=== PATIENT | male | born 1980 | race Caucasian/White ===

== ENCOUNTER 2022-07-13 18:26 | Inpatient (IN) | payer MEDICAID, OTHER ==
[2022-07-13 22:03] LABS: Glucose,Whole Blood 107 mg/dL (70-110)
[2022-07-13] MEDS ORDERED: NALOXONE 0.4 MG/ML 1 ML VIAL IV PRN (22:06)
[2022-07-13] MEDS ORDERED: Potassium Replacement Protocol 1 EACH MISC MISCELLANE PRN (22:06)
[2022-07-13] MEDS ORDERED: Magnesium Replacement Protocol 1 EACH MISC MISCELLANE PRN (22:06)
[2022-07-13] MEDS ORDERED: IPRATROPIUM-ALBUTEROL 3 ML NEB INHALATION PRN (22:06)
[2022-07-13] MEDS ORDERED: VANCOMYCIN IV PER PHARMACY 1 EACH MISC MISCELLANE PRN (22:10)
[2022-07-13] MEDS: SODIUM CHLORIDE 0.9% 1,000 ML IV SCH (22:15)
[2022-07-13] MEDS ORDERED: VANCOMYCIN 2,000 MG in SODIUM CHLORIDE 0.9% 500 ML 500 ML IVPB STA (22:18)
[2022-07-13 22:19] LABS: Basophils % (A) 0 %; Eosinophils # (A) 0.1 k/uL (0-0.7); Eosinophils % (A) 1 %; HCT 38.8 % (39.0-53.0); HGB 13.6 gm/dL (13.0-17.5); Lymphocytes # (A) 1.5 k/uL (1.0-4.8); Lymphocytes % (A) 9 %; MCH 32.1 pg (25.0-35.0); MCV 91.6 fL (80.0-100.0); Mean Platelet Volume 7.2; Monocytes # (A) 1.2 k/uL (0-1.0); Monocytes % (A) 7 %; Neutrophils # (A) 14.6 k/uL (1.3-7.7); Neutrophils % (A) 83 %; Platelet Count 317 k/uL (150-450); RBC 4.24 m/uL (4.30-5.90); RDW 12.5 % (11.5-15.5); WBC 17.6 k/uL (3.8-10.6)
--- NOTE | 2022-07-13 22:22 | P.HPIM ---
History of Present Illness H&P Date: 07/13/22 Chief Complaint: pneumonia with pleural effusion 42 year old male with obesity patient is a transfer from [facility], patient has been found to have pneumonia with left loculated pleural effusion suspicious for empyema patient had left sided chest pain , pleuritic in nature for the past 10 days , then started to have dry hacking cough, but other than that, he was not having any symptoms of SOB, fever or chills, no body aches. he recently had a trip to the [facility] about a month ago, but denies any known sick contacts, recent viral illnesses, or chest trauma. he denies any IV drug abuse. he admits to social Alcohol . denies smoking or vaping. last night, he woke up from a nap , having sudden shortness of breath with severe left sided chest pain, and coughing. along with chills. he went to the ED at [facility] , and was found to be febrile , further workup showed lekocytosis and CT of the chest was negative for acute PE, but suggestive of left pulmonary infilterates along with parapneumonic effusion . patient was evaluated by pulmonary service today, who recommended transfer to our facility for IR guided thoracentesis . Review of Systems Pertinent positives as noted in HPI. All other systems were reviewed and are negative Past Medical History Smoking Status: Former smoker Medications and Allergies Home Medications Medication Instructions Recorded Confirmed Type Omeprazole Magnesium [PriLOSEC OTC] 20 mg PO DAILY PRN 07/13/22 07/13/22 History gemfibroziL [Lopid] 600 mg PO AC-BID 07/13/22 07/13/22 History icosapent ethyL [Icosapent Ethyl] 2 gm PO BID 07/13/22 07/13/22 History Allergies Allergy/AdvReac Type Severity Reaction Status Date / Time No Known Allergies Allergy Verified 07/13/22 21:39 Physical Exam Vitals: Vital Signs Temp Resp BP Pulse Ox FiO2 07/13/22 20:28 50 07/13/22 20:18 102.5 F H 25 H 138/95 97 50 07/13/22 20:06 50 Intake and Output 07/13/22 07/13/22 07/13/22 06:59 14:59 22:59 Output Total 0 Balance 0 Output: Urine 0 Other: Weight 132.3 kg Constitutional: No acute distress, conversant, Eyes: Anicteric sclerae, moist conjunctiva, Pupils equal round reactive to light ENMT: NC/AT Oropharynx clear, no erythema, or exudates Neck: Supple, no masses, or JVD No carotid bruits No thyromegaly Lungs: diminished breath sounds left lower lung decrease tone of percussion left lower lung Normal respiratory effort, no accessory muscle use Cardiovascular: Heart regular in rate and rhythm, No murmurs, gallops, or rubs No peripheral edema Abdominal: Soft Nontender, no guarding, rebound or rigidity Abdomen moving with respiration Normoactive bowel sounds No hepatomegaly, No splenomegaly No palpable mass No abdominal wall hernia noted Skin: Normal temperature, tone, texture, turgor No induration No subcutaneous nodules No rash, lesions No ulcers Extremities: No digital cyanosis No clubbing Pedal pulses intact and symmetrical Radial pulses intact and symmetrical No calf tenderness Psychiatric: Alert and oriented to person, place and time Appropriate affect fair judgement Neuro Muscles Strength 5/5 in all 4 extremities Sensation to light touch grossly present throughout Cranial nerves II-XII grossly intact Lymphatics: no palpable cervical or supraclavicular lymph nodes Results CBC & Chem 7: 07/13/22 21:55 07/13/22 21:55 Assessment and Plan Assessment: this is 42 year old healthy male with obesity , transferred from [facility] due to pneumonia with parapneumonic effusion , I discussed the case with transferring facility doc , and I accepted the transfer as a direct admission for sepsis secondary to pneumonia with empyema for IR guided thoracentesis and possible pigtail insertion , anticipated length of stay > 2 midnights sepsis secondary to pneumonia with empyema follow up cultures fever > 102, WBC 12.8, tachycardia vancomycin dosing by pharmacy unasyn 3 g IVPB q6 hr tylenol 650 mg po q 4 hrs for fever toradol 15 mg IVP q6hr PRN for pain protonix 40 mg po daily bipap continuous CTA done at [facility] , showed no acute PE , but positive for left pulmonary infiltrates and parapneumonic effusion xanax 0.5 mg tid prn for anxiety follow up electrolytes and blood work continue with normal saline IVF hydration at 125 cc per hour pulmonary consult cardiothoracic surgery consult full code DVT heparin sc tid 5000 units
[2022-07-13 22:27] LABS: Chloride 103 mmol/L (98-107)
[2022-07-13 22:28] LABS: ALT 17 U/L (4-49); AST 15 U/L (17-59); African American GFR (CKD) >90 (>60 ml/min/1.73 sqM); Albumin 3.4 g/dL (3.5-5.0); Alkaline Phosphatase 69 U/L (38-126); Anion Gap 10 mmol/L; Blood Urea Nitrogen 17 mg/dL (9-20); Calcium 8.5 mg/dL (8.4-10.2); Carbon Dioxide 23 mmol/L (22-30); Glucose 105 mg/dL (74-99); Non-African American GFR(CKD) >90 (>60 ml/min/1.73 sqM); Potassium 3.9 mmol/L (3.5-5.1); Sodium 136 mmol/L (137-145); Total Bilirubin 1.2 mg/dL (0.2-1.3); Total Protein 6.5 g/dL (6.3-8.2)
[2022-07-13] MEDS ORDERED: POTASSIUM CHLORIDE ER 20 MEQ TAB.ER PO SCH (23:00)
[2022-07-13] MEDS: ACETAMINOPHEN TAB 325 MG TAB PO PRN (23:01)
[2022-07-13] MEDS: ALPRAZolam 0.5 MG TAB PO PRN (23:03)
[2022-07-13 23:15] LABS: Phosphorus 3.4 mg/dL (2.5-4.5)
[2022-07-13] MEDS: AMPICILLIN-SULBACTAM 3 GM in SODIUM CHLORIDE 0.9% 100 ML IVPB SCH (23:28)
[2022-07-13] MEDS: HEPARIN SODIUM,PORCINE/PF 5,000 UNIT/0.5 ML SYRINGE SQ SCH (23:30)
--- NOTE | 2022-07-14 01:19 | P.CNPUL ---
History of Present Illness Consult date: 07/14/22 Requesting physician: Dolly Mandel Reason for consult: other (Empyema) Chief complaint: Shortness of breath History of present illness: I'm seeing this patient in new consultation today 07/14/2022 after being transferred from [facility] for suspected empyema. Patient is a 42-year-old white male with past medical history significant for hypertension, hyperlipidemia, ex-smoker. Patient reports shortness of breath, left lateral chest pain, fever, cough starting approximately 12 days ago. The patient's chest pain worsened yesterday causing him to go to [facility]. Chest CTA on arrival to [facility] showed no evidence of central pulmonary embolism with a left pleural effusion and peripheral nodular thickening related to a parapneumonic effusion. Patient was initially seen and evaluated by Dr. Maher who initiated a transfer for cardiothoracic services. Patient was admitted to the intensive care unit yesterday evening. Patient currently resting in bed, on BiPAP with settings 14/5 and an FiO2 of 50%. SpO2 is 96% on these settings. Patient is calm and tolerating therapy. Patient's CBC on arrival shows some leukocytosis with a WBC count of 17.6, and 1113.6, hematocrit 38.8, platelets 370,000. BMP on arrival to our facility shows a sodium 136, potassium 3.9, chloride 103, serum CO2 23, BP 117, creatinine 0.74, glucose 105. Patient currently has nor mal saline infusing at 125 mL per hour. Patient is covered with Unasyn and vancomycin. Chest pain is currently under control, and when necessary Toradol is ordered for analgesia. T-max was 102.5F. Vital signs are stable. Review of Systems REVIEW OF SYSTEMS: CONSTITUTIONAL: Denies any recent significant weight loss or weight gain. Reports subjective fever EYES: Denies change in vision. EARS, NOSE, MOUTH, THROAT: Denies headaches, denies sore throat. CARDIOVASCULAR: Denies palpitations or syncopal episodes. RESPIRATORY: See HPI GASTROINTESTINAL: Denies change in appetite, abdominal pain, nausea and vomiting, or diarrhea GENITOURINARY: Denies hematuria, denies infections. MUSKULOSKELETAL: Denies pain, denies swelling. INTEGUMENTARY: Denies rash, denies eczema. NEUROLOGICAL: Denies recent memory loss, no recent seizure activity. PSYCHIATRIC: Denies anxiety, denies depression. HEMATOLOGIC/LYMPHATIC: Denies anemia, denies enlarged lymph node Past Medical History Past Medical History: Hyperlipidemia History of Any Multi-Drug Resistant Organisms: None Reported Past Surgical History: Orthopedic Surgery Additional Past Surgical History / Comment(s): Orthoscopy on right knee 2019, Vasectomy 2013 Past Anesthesia/Blood Transfusion Reactions: No Reported Reaction Smoking Status: Former smoker Medications and Allergies Home Medications Medication Instructions Recorded Confirmed Type Omeprazole Magnesium [PriLOSEC OTC] 20 mg PO DAILY PRN 07/13/22 07/13/22 History gemfibroziL [Lopid] 600 mg PO AC-BID 07/13/22 07/13/22 History icosapent ethyL [Icosapent Ethyl] 2 gm PO BID 07/13/22 07/13/22 History Allergies Allergy/AdvReac Type Severity Reaction Status Date / Time No Known Allergies Allergy Verified 07/13/22 21:39 Physical Exam Vitals: Vital Signs Temp Pulse Pulse Resp BP Pulse Ox FiO2 07/14/22 00:40 50 07/14/22 00:39 103 H 07/14/22 00:00 101.5 F H 109 H 32 H 116/71 95 50 07/13/22 23:00 116 H 34 H 127/82 97 07/13/22 22:00 114 H 33 H 121/80 97 07/13/22 21:00 101.8 F H 112 H 23 153/94 96 50 07/13/22 20:28 50 07/13/22 20:18 102.5 F H 25 H 138/95 97 50 07/13/22 20:06 50 Intake and Output 07/13/22 07/13/22 07/14/22 14:59 22:59 06:59 Intake Total 125 250 Output Total 0 Balance 125 250 Intake: IV 125 250 Sodium Chloride 0.9% 1, 125 250 000 ml @ 125 mls/hr IV . Q8H [facility] Rx#:[id number] Output: Urine 0 Other: Voiding Method Urinal Weight 132.3 kg GENERAL EXAM: Alert, 42-year-old white male, comfortable in no apparent distress. HEAD: Normocephalic and atraumatic EYES: Normal reaction of pupils, equal size. NOSE: Clear with pink turbinates. THROAT: No erythema or exudates. NECK: No masses, no JVD. CHEST: No chest wall deformity. LUNGS: Equal air entry with diminished breath sounds at the left base. no crackles, wheeze, rhonchi or dullness. On BiPAP with settings 14/5 and FiO2 50%. No conversational dyspnea or accessory muscle use.. CVS: S1 and S2 normal with no audible murmur, regular rhythm. No extra heart sounds ABDOMEN: No hepatosplenomegaly, active bowel sounds, no guarding or rigidity. SPINE: No scoliosis or deformity SKIN: No rashes CENTRAL NERVOUS SYSTEM: No focal deficits, tone is normal in all 4 extremities. EXTREMITIES: There is no peripheral edema, clubbing, or cyanosis. Peripheral p ulses are intact. Results - Laboratory Findings CBC and BMP: 07/14/22 04:05 07/14/22 04:05 Abnormal lab findings: Abnormal Labs 07/13/22 07/13/22 21:55 21:55 WBC 17.6 H RBC 4.24 L Hct 38.8 L Neutrophils # 14.6 H Monocytes # 1.2 H Sodium 136 L Glucose 105 H AST 15 L Albumin 3.4 L Assessment and Plan Assessment: Suspected empyema. Patient's chest CTA at outside facility showed a left pleural effusion with associated peripheral nodular thickening, suspicious for infectious process with parapneumonic effusion. Acute hypoxic respiratory failure secondary to above. Currently on BiPAP with settings of 14/5 and FiO2 of 50%. Hyperlipidemia Hypertension Morbid obesity with a BMI of 36.5 Ex-smoker, remote history of smoking Plan: Patient's medications, labs, and outside records were reviewed Continue BiPAP Cardiothoracic surgery was consulted for possible pigtail catheter insertion Repeat chest x-ray in the morning Obtain Chest ultrasound with markings Continue empiric antibiotics Blood cultures pending Pain management with Toradol Repeat labs in the morning Patient currently in the intensive care unit for closer monitoring I have personally seen and examined the patient, performed the documentation and the assessment and plan as written. Number of minutes spent on the visit:20 On 07/14/2022, the patient was seen in consultation. This is a transfer from [facility]. I met the patient also met the . This is a typical case of left lung pneumonia/empyema. There is significant opacification of the left lung. The patient is still having some pleuritic chest pain. Is currently on 5 L of oxygen by nasal cannula with a pulse ox of 95%. He is on IV Unasyn and vancomycin. The ultrasound of the chest showed extensive admitted loculated pocket the left lung along with some loculation. No significant abnormalities on the right side. Based on all this, interventional radiology and thoracic surgery and been consulted. I'm going to repeat a noncontrast CAT scan of the chest to assess the progression of this left sided empyema. The patient will likely need a pigtail catheter insertion with subsequent thrombolytic administration regarding this ongoing issue. Continue antibiotic treatment. He'll be kept in the ICU for now. I do not see the need for continu ous BiPAP at this point in time. He should be doing well on 5 L O2 nasal cannula. Continue Toradol for pain control. Provide the patient incentive spirometer. Evaluation was done in more than 30 minutes. Time with Patient: Greater than 30
[2022-07-14] MEDS: AMPICILLIN-SULBACTAM 3 GM in SODIUM CHLORIDE 0.9% 100 ML IVPB SCH ×4 (04:27→23:14)
[2022-07-14] MEDS: ACETAMINOPHEN TAB 325 MG TAB PO PRN ×4 (04:31→21:17)
[2022-07-14 04:41] LABS: Basophils % (A) 0 %; Eosinophils # (A) 0.1 k/uL (0-0.7); Eosinophils % (A) 1 %; HCT 36.6 % (39.0-53.0); HGB 12.4 gm/dL (13.0-17.5); Lymphocytes # (A) 1.4 k/uL (1.0-4.8); Lymphocytes % (A) 9 %; MCH 31.4 pg (25.0-35.0); MCHC 33.8 g/dL (31.0-37.0); MCV 92.8 fL (80.0-100.0); Mean Platelet Volume 7.1; Monocytes % (A) 7 %; Neutrophils # (A) 13.1 k/uL (1.3-7.7); Neutrophils % (A) 83 %; Platelet Count 294 k/uL (150-450); RBC 3.94 m/uL (4.30-5.90); RDW 12.7 % (11.5-15.5); WBC 15.9 k/uL (3.8-10.6)
[2022-07-14 04:50] LABS: African American GFR (CKD) >90 (>60 ml/min/1.73 sqM); Anion Gap 6 mmol/L; Blood Urea Nitrogen 19 mg/dL (9-20); Calcium 8.1 mg/dL (8.4-10.2); Carbon Dioxide 24 mmol/L (22-30); Chloride 104 mmol/L (98-107); Glucose 117 mg/dL (74-99); Non-African American GFR(CKD) >90 (>60 ml/min/1.73 sqM); Sodium 134 mmol/L (137-145)
[2022-07-14] MEDS: KETOROLAC 15 MG/ML 1 ML VIAL IVP PRN ×3 (05:58→20:01)
[2022-07-14] MEDS: SODIUM CHLORIDE 0.9% 1,000 ML IV SCH ×3 (06:00→23:15)
--- NOTE | 2022-07-14 06:36 | XR ---
EXAMINATION TYPE: XR chest 1V portable DATE OF EXAM: 07/14/2022 CLINICAL HISTORY: Difficulty breathing on BiPAP. TECHNIQUE: Single AP portable semiupright view of the chest is obtained. COMPARISON: Outside Chest x-ray and CTA chest from 2 days earlier FINDINGS: Persistent cardiomegaly. Now moderate size left pleural effusion increased from prior. New left hilar masslike consolidation. Stable right basilar linear scarring and/or atelectasis. Osseous structures are intact. IMPRESSION: Cardiomegaly with moderate size left pleural effusion increased from prior. New left david r masslike consolidation and/or atelectasis. Stable mild right basilar linear scarring and/or atelect asis.
[2022-07-14] MEDS: PANTOPRAZOLE 40 MG TABLET PO SCH (06:47)
[2022-07-14] MEDS: VANCOMYCIN 2,000 MG in SODIUM CHLORIDE 0.9% 500 ML 500 ML IVPB SCH ×3 (06:56→23:15)
--- NOTE | 2022-07-14 08:30 | US ---
EXAMINATION TYPE: US chest DATE OF EXAM: 07/14/2022 COMPARISON: Chest x-ray earlier today CLINICAL INDICATION: Male, 42 years old with history of suspected empyema; Empyema kenna left chest. TECHNIQUE: Targeted ultrasound of the posterior lower left hemithorax EXAM MEASUREMENTS: Left Pleural Effusion pocket size: 10.1 cm Loculated fluid pocket visualized. Left skin surface to fluid distance: 4.6 cm Left side marked for possible thoracentesis outside the dept. Pulmonologists are able to review the images in the patient?s EMR. Small to moderate size left pleural fluid collection with thin septa not completely anechoic is prese nt on images saved. No significant right-sided pleural effusion. IMPRESSIONS: As above.
--- NOTE | 2022-07-14 09:04 | P.GSCN ---
History of Present Illness Consult date: 07/14/22 Reason for Consult: Left sided loculated effusion, possible empyema, lytic installation after placement of pigtail catheter Requesting physician: Gabriel Godinez History of present illness: This is a 42-year-old gentleman who does not follow regularly with a primary care physician. He has a previous medical history of hyperlipidemia, obesity, previous tobacco dependence, wisdom teeth extraction approximated 3 weeks ago. The patient reports symptoms of left-sided chest pain for the past 10 days, relieved with Motrin. Unfortunately in the last couple of days he developed severe left-sided chest pain with shortness of breath, coughing without sputum, chills. He reported to [facility] emergency room, was found to be febrile with leukocytosis. CT of the chest was completed which was treated no pulmonary embolism but did suggest left-sided pulmonary infiltrates along with parapneumonic effusion suspicious for empyema. Due to these findings the patient was transferred to [facility] for cardiothoracic surgery consultation. He was placed on BiPAP and IV antibiotics and admitted to the intensive care unit. Review of Systems Review of systems was completed and was negative except as noted - Constitutional Reports chills, Reports fever, Reports poor appetite - Cardiovascular Reports chest pain, Reports shortness of breath - Respiratory Reports cough Past Medical History Past Medical History: Hyperlipidemia History of Any Multi-Drug Resistant Organisms: None Reported Past Surgical History: Orthopedic Surgery Additional Past Surgical History / Comment(s): Orthoscopy on right knee 2019, Vasectomy 2012 Past Anesthesia/Blood Transfusion Reactions: No Reported Reaction Past Psychological History: No Psychological Hx Reported Smoking Status: Former smoker Past Alcohol Use History: Occasional Past Drug Use History: None Reported - Past Family History Mother Additional Family Medical History / Comment(s): Doesn't know family history as he is estranged from his parents Medications and Allergies Home Medications Medication Instructions Recorded Confirmed Type Omeprazole Magnesium [PriLOSEC OTC] 20 mg PO DAILY PRN 07/13/22 07/13/22 History gemfibroziL [Lopid] 600 mg PO AC-BID 07/13/22 07/13/22 History icosapent ethyL [Icosapent Ethyl] 2 gm PO BID 07/13/22 07/13/22 History Allergies Allergy/AdvReac Type Severity Reaction Status Date / Time No Known Allergies Allergy Verified 07/13/22 21:39 Surgical - Exam Vital Signs FiO2 50 07/13/22 20:06 CONSTITUTIONAL: Awake and alert, no pain, no acute distress laying in bed in the intensive care unit on BiPAP NECK: No masses, no bruits, trachea midline RESPIRATORY: Lungs sounds diminished bilaterally, left greater than right. Respirations even, slightly tachypneic. Currently on BiPAP, FiO2 50%, inspiratory pressure 14, expiratory pressure 5 CARDIOVASCULAR: S1, S2 present. Regular rate and rhythm, sinus rhythm on telemetry. Palpable peripheral pulses bilaterally. No edema present. No calf pain or tenderness noted. GASTROINTESTINAL: Abdomen soft, nontender, nondistended without masses or organomegaly noted. There is no rebound or guarding present. Active bowel sounds present 4 quadrants. GENITOURINARY: Deferred INTEGUMENTARY: Skin is warm and dry NEUROLOGIC: Cranial nerves II through XII intact, normal coordination, no obvious motor or sensory deficits, speech is normal MUSKULOSKELETAL: Able to move all extremities, strength equal bilaterally, normal posture PSYCHIATRIC: Alert and oriented to person place and time, appropriate affect, intact judgment and insight Results - Labs 07/14/22 04:05 07/14/22 04:05 Abnormal Lab Results - Last 24 Hours (Table) 07/13/22 07/13/22 07/14/22 Range/Units 21:55 21:55 04:05 WBC 17.6 H 15.9 H (3.8-10.6) k/uL RBC 4.24 L 3.94 L (4.30-5.90) m/uL Hgb 12.4 L (13.0-17.5) gm/dL Hct 38.8 L 36.6 L (39.0-53.0) % Neutrophils # 14.6 H 13.1 H (1.3-7.7) k/uL Monocytes # 1.2 H (0-1.0) k/uL Sodium 136 L (137-145) mmol/L Glucose 105 H (74-99) mg/dL Calcium (8.4-10.2) mg/dL AST 15 L (17-59) U/L Albumin 3.4 L (3.5-5.0) g/dL 07/14/22 Range/Units 04:05 WBC (3.8-10.6) k/uL RBC (4.30-5.90) m/uL Hgb (13.0-17.5) gm/dL Hct (39.0-53.0) % Neutrophils # (1.3-7.7) k/uL Monocytes # (0-1.0) k/uL Sodium 134 L (137-145) mmol/L Glucose 117 H (74-99) mg/dL Calcium 8.1 L (8.4-10.2) mg/dL AST (17-59) U/L Albumin (3.5-5.0) g/dL Diabetes panel 07/13/22 07/14/22 Range/Units 21:55 04:05 Sodium 136 L 134 L (137-145) mmol/L Potassium 3.9 4.0 (3.5-5.1) mmol/L Chloride 103 104 (98-107) mmol/L Carbon Dioxide 23 24 (22-30) mmol/L BUN 17 19 (9-20) mg/dL Creatinine 0.74 0.75 (0.66-1.25) mg/dL Glucose 105 H 117 H (74-99) mg/dL Calcium 8.5 8.1 L (8.4-10.2) mg/dL AST 15 L (17-59) U/L ALT 17 (4-49) U/L Alkaline Phosphatase 69 (38-126) U/L Total Protein 6.5 (6.3-8.2) g/dL Albumin 3.4 L (3.5-5.0) g/dL Calcium panel 07/13/22 07/13/22 07/14/22 Range/Units 21:15 21:55 04:05 Calcium 8.5 8.1 L (8.4-10.2) mg/dL Phosphorus 3.4 (2.5-4.5) mg/dL Albumin 3.4 L (3.5-5.0) g/dL Pituitary panel 07/13/22 07/14/22 Range/Units 21:55 04:05 Sodium 136 L 134 L (137-145) mmol/L Potassium 3.9 4.0 (3.5-5.1) mmol/L Chloride 103 104 (98-107) mmol/L Carbon Dioxide 23 24 (22-30) mmol/L BUN 17 19 (9-20) mg/dL Creatinine 0.74 0.75 (0.66-1.25) mg/dL Glucose 105 H 117 H (74-99) mg/dL Calcium 8.5 8.1 L (8.4-10.2) mg/dL Adrenal panel 07/13/22 07/14/22 Range/Units 21:55 04:05 Sodium 136 L 134 L (137-145) mmol/L Potassium 3.9 4.0 (3.5-5.1) mmol/L Chloride 103 104 (98-107) mmol/L Carbon Dioxide 23 24 (22-30) mmol/L BUN 17 19 (9-20) mg/dL Creatinine 0.74 0.75 (0.66-1.25) mg/dL Glucose 105 H 117 H (74-99) mg/dL Calcium 8.5 8.1 L (8.4-10.2) mg/dL Total Bilirubin 1.2 (0.2-1.3) mg/dL AST 15 L (17-59) U/L ALT 17 (4-49) U/L Alkaline Phosphatase 69 (38-126) U/L Total Protein 6.5 (6.3-8.2) g/dL Albumin 3.4 L (3.5-5.0) g/dL - Imaging Chest x-ray: report reviewed, image reviewed CT scan - chest: report reviewed Assessment and Plan Assessment: Left-sided loculated parapneumonic effusion, possible empyema Acute hypoxic respiratory failure, requiring BiPAP Leukocytosis, febrile illness History of hyperlipidemia, treated Obesity Previous tobacco dependence [place] teeth extraction approximated 3 weeks ago Plan: Patient was seen and examined at the bedside sitting up on BiPAP. is at bedside. Chart/diagnostics reviewed including CT scan from [facility]. The case will be discussed in detail with Dr. Uribe. Consultation was placed for interventional radiology to place left-sided pigtail catheter for us to instill lytic medication to break up loculations and drain fluid. This plan was discussed in detail with the patient and his and they're in agreement. The patient is not currently on any anticoagulation or any antiplatelet medication. BiPAP management per pulmonology. Will monitor daily labs and x-rays. Continue antibiotics. Medical management of other comor bidities per internal medicine service. More recommendations to follow. I have personally seen and examined the patient, performed the documentation and the assessment and plan as written. Number of minutes spent on the visit: 30. Brissa Renteria, CARLOS-C The patient is a 42 y/o male who was admitted to the hospital with left flank pain which has been getting worse over the past few weeks. CT chest reveals a multi-loculated pleural fluid collection. WBC elevated. Recommend IR drainage with pigtail and plan for subsequent lytic installation. IV antibiotics already initiated. Patient may need surgical intervention if percutaneous drainage unsuccessful. Plan discussed with patient and his who was at bedside. All questions answered. I have personally seen and examined the patient, reviewed the documentation and the assessment and plan as written. Number of minutes spent on the visit: 60. Yoni Uribe M.D.
[2022-07-14] MEDS: IPRATROPIUM-ALBUTEROL 3 ML NEB INHALATION SCH ×4 (09:37→21:16)
--- NOTE | 2022-07-14 10:44 | CT ---
EXAMINATION TYPE: CT chest wo con DATE OF EXAM: 07/14/2022 COMPARISON: CTA 07/12/2022 outside institution HISTORY: EVALUATE EMYPEMA/FLUID CT DLP: 748.1 mGycm, Automated exposure control for dose reduction was used. CONTRAST: Performed injected with 0 mL of Isovue 300. TECHNIQUE: Axial images were obtained at 5 mm thick sections. Reconstructed images are reviewed on [employer] computer in the coronal plane. FINDINGS: Portion of the thyroid visualized is normal. There is a loculated effusion which includes a smaller 5.0 cm collection near the anterior superior l eft lung. There is a moderate effusion on the posterior mid left with adjacent compressive atelectasi s, and what appears to be an additional loculated effusion just above the diaphragm the left posterio r lung base. Some minimal compressive atelectasis and effusion is present on the right. No enlarged mediastinal or hilar adenopathy is evident. The ascending aorta diameter at the level o f the main pulmonary artery is 3.9 cm. The main pulmonary artery diameter at the bifurcation is 3.[address] sections are obtained through the upper abdomen. Some mild fatty infiltration of the liver is present. Upper abdomen is otherwise unremarkable. IMPRESSIONS: 1. Increasing size of loculated pleural fluid collections left lung including the left mid and lower lobe lung perfusion and a new loculated anterior upper lung effusion
[2022-07-14 10:59] LABS: INR 1.3 (<1.2); Prothrombin Time 13.6 sec (9.0-12.0)
--- NOTE | 2022-07-14 12:55 | P.PN ---
Subjective Progress Note Date: 07/14/22 Hospital Course: 42-year-old male with history of obesity, dyslipidemia, GERD presenting from outside hospital for pneumonia with left loculated pleural effusion suspicious for empyema. On presentation, patient's temperature was 102.5, tachycardic to 112, respiratory rate 25, saturating at 97% on BiPAP, blood pressure 138/95. Initial labs showed WBC 17.6, hemoglobin 13.6, sodium 136, creatinine 0.74. Chest x-ray showed moderate-sized left-sided pleural effusion. Patient admitted to medical ICU. Will likely need pigtail catheter for left pleural effusion. Subjective: Patient seen and examined at bedside. He continues to have shortness of breath, persistent cough, chest pain related to cough, denies any nausea or vomiting, abdominal pain, urinary or bowel complaints. Pertinent positives and negatives as discussed above, a complete review of systems was performed and all other systems are negative. Vitals Signs Reviewed. General: nontoxic, in mild distress, appears at stated age Derm: warm, dry Head: atraumatic, normocephalic, symmetric Eyes: EOMI, no lid lag, anicteric sclera Mouth: no lip lesion, mucus membranes moist Cardiovascular: S1S2 reg, no murmur Lungs: Reduced breath sounds bilaterally, greater on left no accessory muscle use, supplemental oxygen Abdominal: soft, nontender to palpation, no guarding, no appreciable organomegaly Ext: no gross muscle atrophy, no edema, no contractures Neuro: CN II-XI grossly intact, no focal neuro deficits Psych: Alert, oriented, appropriate affect Data Reviewed Today: Pertinent Labs: WBC 15.9, hemoglobin 12.4, sodium 134, creatinine 0.75 Imaging: Chest x-ray personally interpreted, shows a large left-sided pleural effusion Chest CT report reviewed, shows increasing size of loculated pleural fluid col lection in the left lung including left middle and lower lung perfusion and loculated anterior upper lung diffusion Assessment and Plan: Patient is critically ill, currently in medical ICU. Active: Sepsis secondary to bacterial pneumonia Parapneumonic effusion, likely empyema Acute hypoxic respiratory failure requiring BiPAP -Pulmonology note reviewed: Likely pigtail catheter placement by interventional radiology. BiPAP discontinued -Cardiothoracic surgery note reviewed, IR consultation placed -On IV Unasyn 3 g every 6 hours -Also on vancomycin, dosed based on trough levels, monitor for renal toxicity, daily BMP -Sputum cultures and blood cultures obtained -MRSA nares ordered -On IV fluids normal saline at 125 mL an hour -Pain control with oral Tylenol and IV Toradol as needed Chronic: Dyslipidemia DVT ppx: Subcu heparin Code status: Full code Anticipated discharge place: Pending clinical course Anticipated discharge time: Pending clinical course Objective - Vital Signs Vital signs: Vital Signs Temp 99.6 F 07/14/22 09:00 Pulse 105 H 07/14/22 12:00 Resp 31 H 07/14/22 12:00 BP 133/91 07/14/22 12:00 Pulse Ox 95 07/14/22 12:00 FiO2 50 07/14/22 09:00 Intake & Output 07/13/22 07/14/22 07/14/22 18:59 06:59 18:59 Intake Total 1850 625 Output Total 300 0 Balance 1550 625 Weight 132.6 kg Intake: IV 1850 625 Ampicillin-Sulbactam 3 gm 100 In Sodium Chloride 0.9% 100 ml @ 200 mls/hr IVPB Q6H AMILCAR Rx#:[id number] Sodium Chloride 0.9% 1, 1250 625 000 ml @ 125 mls/hr IV . Q8H [facility]ILCAR Rx#:[id number] Vancomycin 2,000 mg In 500 Sodium Chloride 0.9% 500 ml 500 ml @ 167 mls/hr IVPB ONCE STA Rx#: [id number] Output: Urine 300 0 Other: Voiding Method Urinal Urinal # Voids 1 # Bowel Movements 1 - Labs CBC & Chem 7: 07/14/22 04:05 07/14/22 04:05 Labs: Abnormal Lab Results - Last 24 Hours (Table) 07/13/22 07/13/22 07/14/22 Range/Units 21:55 21:55 04:05 WBC 17.6 H 15.9 H (3.8-10.6) k/uL RBC 4.24 L 3.94 L (4.30-5.90) m/uL Hgb 12.4 L (13.0-17.5) gm/dL Hct 38.8 L 36.6 L (39.0-53.0) % Neutrophils # 14.6 H 13.1 H (1.3-7.7) k/uL Monocytes # 1.2 H (0-1.0) k/uL PT (9.0-12.0) sec INR (<1.2) Sodium 136 L (137-145) mmol/L Glucose 105 H (74-99) mg/dL Calcium (8.4-10.2) mg/dL AST 15 L (17-59) U/L Albumin 3.4 L (3.5-5.0) g/dL 07/14/22 07/14/22 Range/Units 04:05 09:44 WBC (3.8-10.6) k/uL RBC (4.30-5.90) m/uL Hgb (13.0-17.5) gm/dL Hct (39.0-53.0) % Neutrophils # (1.3-7.7) k/uL Monocytes # (0-1.0) k/uL PT 13.6 H (9.0-12.0) sec INR 1.3 H (<1.2) Sodium 134 L (137-145) mmol/L Glucose 117 H (74-99) mg/dL Calcium 8.1 L (8.4-10.2) mg/dL AST (17-59) U/L Albumin (3.5-5.0) g/dL
--- NOTE | 2022-07-14 14:39 | XR ---
EXAMINATION TYPE: XR chest 1V portable DATE OF EXAM: 07/14/2022 CLINICAL HISTORY: Left-sided empyema. TECHNIQUE: Single AP portable upright view of the chest is obtained. COMPARISON: Chest x-ray and CT chest from earlier today FINDINGS: New lateral left basilar pigtail catheter with persistent opacified left lung extending to wards hilum. Right lung is clear. Silhouetting of left heart border redemonstrated. Osseous structure s are intact. IMPRESSION: Improved but persistent left pleural fluid collection with lateral basilar left pigtail p leural drainage catheter. There is associated left lung compressive atelectasis and/or masslike conso lidation redemonstrated. Right lung remains clear.
[2022-07-14] MEDS ORDERED: ALTEPLASE 10 MG in SODIUM CHLORIDE 0.9% 50 ML IRRIGATION ONE (14:41)
[2022-07-14] MEDS ORDERED: DORNASE ALFA 5 MG in SODIUM CHLORIDE 0.9% 50 ML IRRIGATION ONE (14:41)
--- NOTE | 2022-07-14 14:55 | US ---
PROCEDURE: Ultrasound-guided left pleural pigtail catheter placement DATE: 07/14/2022 [employer] PRICING CONSULTANT: Dr. Everett CLINICAL HISTORY: Concern for empyema COMPARISON: CT chest same day ANESTHESIA: 1% local lidocaine PROCEDURE: The procedure, risks, and alternatives were discussed and all questions were answered. Written inform ed consent obtained. A complicating paperwork and verified for accuracy. Directed history and physica l exam performed prior to the procedure. Medication reconciliation performed by nursing personnel. Pr ocedure was performed using a cap, sterile gloves, hand hygiene, and Betadine for cutaneous antisepsi s. A cortical ravindra was performed with assisting personnel just prior to the procedure with the patien t's identity confirmed using 2 identifiers, confirming site and side. Limited grayscale ultrasound of the left posterior chest demonstrates a pleural effusion. An appropri ate skin entry site was marked, prepped, and draped in usual sterile fashion. 1% lidocaine was admini stered into the skin and deeper soft tissues. A small skin incision was made. A 5 Swiss over the nee dle catheter was advanced into the left pleural space and contains ultrasound guidance. The inner sty lette was removed and replaced with a wire. An 8.5 Swiss all-purpose drainage catheter was advanced over the wire and the wire and inner stiffener were removed. Internal retention loop was formed and l ocked. The catheter secured the patient's skin using a stay fix. Approximately 420 mL of orange-color ed fluid was then removed. Specimens were collected for laboratory analysis. The catheter was then co nnected to a Pleur-evac system. The patient tolerated the procedure well and there were no immediate complications. Blood loss was mi nimal. IMPRESSION: Successful, uncomplicated ultrasound-guided left pleural pigtail catheter placement with a total of 4 20 mL of orange-colored fluid removed. Laboratory analysis pending.
[2022-07-14] MEDS: HEPARIN SODIUM,PORCINE/PF 5,000 UNIT/0.5 ML SYRINGE SQ SCH ×3 (15:33→23:15)
[2022-07-14] MEDS: FENOFIBRATE 160 MG TAB PO SCH (17:33)
[2022-07-14] MEDS: PATIENT'S OWN (Icosapent Ethyl [Icosapent Ethyl] 1 GM Capsule) PO SCH (20:06)
[2022-07-14] MEDS: ALPRAZolam 0.5 MG TAB PO PRN (23:15)
[2022-07-15] MEDS: ACETAMINOPHEN TAB 325 MG TAB PO PRN ×4 (01:18→16:49)
[2022-07-15] MEDS: KETOROLAC 15 MG/ML 1 ML VIAL IVP PRN ×2 (02:19→09:30)
[2022-07-15 02:48] LABS: Amylase, Fluid Source Pleural Fluid; Amylase,Body Fluid 29 U/L; T. Protein, Body Fluid Source Pleural Fluid; Total Protein, Body Fluid 5260 mg/dL
[2022-07-15 02:55] LABS: Appearance,BF Slightly Cloudy
[2022-07-15 03:00] LABS: LDH, Body Fluid Source Pleural Fluid
[2022-07-15 03:29] LABS: Glucose, BF Source Pleural Fluid; Glucose, Body Fluid <2 mg/dL
[2022-07-15] MEDS: AMPICILLIN-SULBACTAM 3 GM in SODIUM CHLORIDE 0.9% 100 ML IVPB SCH ×4 (04:19→23:29)
[2022-07-15 06:33] LABS: Basophils % (A) 0 %; Eosinophils # (A) 0.2 k/uL (0-0.7); Eosinophils % (A) 2 %; HCT 32.4 % (39.0-53.0); HGB 10.8 gm/dL (13.0-17.5); Lymphocytes # (A) 1.3 k/uL (1.0-4.8); Lymphocytes % (A) 13 %; MCH 31.3 pg (25.0-35.0); MCHC 33.4 g/dL (31.0-37.0); MCV 93.7 fL (80.0-100.0); Monocytes # (A) 0.6 k/uL (0-1.0); Monocytes % (A) 6 %; Neutrophils # (A) 8.2 k/uL (1.3-7.7); Neutrophils % (A) 78 %; Platelet Count 278 k/uL (150-450); RBC 3.46 m/uL (4.30-5.90); RDW 12.6 % (11.5-15.5); WBC 10.4 k/uL (3.8-10.6)
[2022-07-15 06:58] LABS: African American GFR (CKD) >90 (>60 ml/min/1.73 sqM); Anion Gap 5 mmol/L; Blood Urea Nitrogen 15 mg/dL (9-20); Calcium 7.6 mg/dL (8.4-10.2); Carbon Dioxide 26 mmol/L (22-30); Chloride 108 mmol/L (98-107); Glucose 111 mg/dL (74-99); Non-African American GFR(CKD) >90 (>60 ml/min/1.73 sqM); Potassium 3.7 mmol/L (3.5-5.1); Sodium 139 mmol/L (137-145)
[2022-07-15] MEDS: VANCOMYCIN 2,000 MG in SODIUM CHLORIDE 0.9% 500 ML 500 ML IVPB SCH ×2 (07:11→18:09)
[2022-07-15] MEDS: PANTOPRAZOLE 40 MG TABLET PO SCH (07:11)
[2022-07-15] MEDS: SODIUM CHLORIDE 0.9% 1,000 ML IV SCH (07:12)
[2022-07-15] MEDS ORDERED: POTASSIUM CHLORIDE ER 20 MEQ TAB.ER PO SCH (08:00)
[2022-07-15] MEDS: IPRATROPIUM-ALBUTEROL 3 ML NEB INHALATION SCH ×4 (08:07→21:30)
[2022-07-15] MEDS: HEPARIN SODIUM,PORCINE/PF 5,000 UNIT/0.5 ML SYRINGE SQ SCH ×3 (08:55→23:30)
[2022-07-15] MEDS ORDERED: DORNASE ALFA 5 MG in SODIUM CHLORIDE 0.9% 50 ML IRRIGATION ONE (09:06)
[2022-07-15] MEDS ORDERED: ALTEPLASE 10 MG in SODIUM CHLORIDE 0.9% 50 ML IRRIGATION ONE (09:06)
--- NOTE | 2022-07-15 09:06 | XR ---
EXAMINATION TYPE: XR chest 1V portable DATE OF EXAM: 07/15/2022 COMPARISON: 07/14/2022 INDICATION: Fusion TECHNIQUE: Single frontal view of the chest is obtained. FINDINGS: The heart size is enlarged. The pulmonary vasculature is normal. There is a moderate left pleural effusion. Left upper lobe infiltrate remains present. Right lung rem ains clear. IMPRESSION: 1. Moderate left pleural effusion. Left lung infiltrate is present. Continued follow-up is recommende d
--- NOTE | 2022-07-15 09:15 | P.PN ---
Subjective Progress Note Date: 07/15/22 Principal diagnosis: Left-sided loculated parapneumonic effusion, possible empyema, acute hypoxic respiratory failure, leukocytosis, febrile illness. History of hyperlipidemia, obesity, previous tobacco dependence, wisdom teeth extraction approximated 3 weeks ago POD #1 placement of left sided pigtail catheter by interventional radiology The patient was seen and examined this morning sitting up in a recliner in the intensive care unit in no acute distress. Remains in sinus rhythm. Off BiPAP, currently on 6 L high flow nasal cannula. States pain is controlled with curr ent medication regimen. Left-sided pigtail catheter placed yesterday with removal of 450 mL fluid which was sent for studies. First dose alteplase/dornase was instilled yesterday and patient had another 900 mL fluid removal afterwards. States he does feel quite a bit better. Able to achieve 1000 mg on incentive spirometry. Remains on IV antibiotics. Labs/chest x-ray reviewed. No new concerns. Objective - Vital Signs Vital signs: Vital Signs Temp 99.8 F H 07/15/22 08:00 Pulse 100 07/15/22 08:17 Resp 31 H 07/15/22 08:00 BP 136/81 07/15/22 08:00 Pulse Ox 97 07/15/22 08:08 FiO2 50 07/15/22 04:00 Intake & Output 07/14/22 07/15/22 07/15/22 18:59 06:59 18:59 Intake Total 1950 2150 250 Output Total 1175 350 425 Balance 775 1800 -175 Weight 131.7 kg Intake: IV 1250 1500 250 Sodium Chloride 0.9% 1, 1250 1500 250 000 ml @ 125 mls/hr IV . Q8H [facility] Rx#:[id number] Intake, IV Titration 500 Amount Vancomycin 2,000 mg In 500 Sodium Chloride 0.9% 500 ml 500 ml @ 167 mls/hr IVPB ONCE STA Rx#: [id number] Oral 200 650 Output: Chest Tube Drainage 750 Pleural Catheter Left 750 Posterior Chest Urine 425 350 425 Other: Voiding Method Urinal Urinal # Voids 1 1 # Bowel Movements 1 - Exam CONSTITUTIONAL: Appears comfortable, cooperative, no acute distress RESPIRATORY: Lungs sounds diminished bilaterally, left greater than right. Respirations even, nonlabored. Currently on 6 L high flow nasal cannula with oxygen saturation 97%. Able to achieve 1000 mL on incentive spirometry. Strong cough. CARDIOVASCULAR: S1, S2 present. Tachy but regular rate and rhythm, sinus tach on telemetry. Palpable peripheral pulses bilaterally. No edema present. No calf pain or tenderness noted GASTROINTESTINAL: Abdomen soft, nontender, nondistended. Active bowel sounds present 4 quadrants. Tolerating diet. GENITOURINARY: Continues to void INTEGUMENTARY: Skin is warm and dry with evidence of good perfusion NEUROLOGIC: Cranial nerves II through XII intact MUSKULOSKELETAL: Able to move all extremities, strength equal bilaterally, gait normal PSYCHIATRIC: Alert and oriented to person place and time, appropriate affect, intact judgment and insight INVASIVE LINES AND TUBES: Left pigtail catheter with 900 mL serosanguineous drainage since alteplase/dornase instillation yesterday afternoon - Allied health notes Allied health notes reviewed: nursing - Labs CBC & Chem 7: 07/15/22 05:51 07/15/22 05:51 Labs: Abnormal Lab Results - Last 24 Hours (Table) 07/14/22 07/15/22 07/15/22 Range/Units 09:44 05:51 05:51 RBC 3.46 L (4.30-5.90) m/uL Hgb 10.8 L (13.0-17.5) gm/dL Hct 32.4 L (39.0-53.0) % Neutrophils # 8.2 H (1.3-7.7) k/uL PT 13.6 H (9.0-12.0) sec INR 1.3 H (<1.2) Chloride 108 H (98-107) mmol/L Glucose 111 H (74-99) mg/dL Calcium 7.6 L (8.4-10.2) mg/dL Microbiology - Last 24 Hours (Table) 07/14/22 14:10 Acid Fast Bacilli Culture - Preliminary Pleural Fluid 07/14/22 14:10 Fungal Culture - Preliminary Pleural Fluid 07/14/22 14:10 Body Fluid Culture - Preliminary Pleural Fluid 07/14/22 14:10 Anaerobic Culture - Preliminary Pleural Fluid 07/13/22 21:55 Blood Culture - Preliminary Blood No Growth after 24 hours 07/14/22 14:04 Nasal Screen MRSA/MSSA - Preliminary Nasal Swab 07/14/22 02:26 Urine Culture - Preliminary Urine,Voided - Imaging and Cardiology Chest x-ray: report reviewed, image reviewed Assessment and Plan Assessment: Left-sided loculated parapneumonic effusion, possible empyema, status post placement of left-sided pigtail catheter with first dose alteplasedornase instilled Acute hypoxic respiratory failure, requiring BiPAP, currently on 6 L high flow nasal cannula Leukocytosis, febrile illness History of hyperlipidemia, treated Obesity Previous tobacco dependence [place] teeth extraction approximated 3 weeks ago Plan: Will instill second dose alteplase/dornase today, monitor drainage Wean O2 as tolerated. Encourage incentive spirometry is 10 times every hour while awake Increase activity as tolerated Will monitor daily labs and x-rays Continue antibiotics Medical management of other comorbidities per internal medicine service More recommendations to follow
--- NOTE | 2022-07-15 10:05 | P.PN ---
Subjective Progress Note Date: 07/15/22 I'm seeing this patient in new consultation today 07/14/2022 after being transferred from [facility] for suspected empyema. Patient is a 42-year-old white male with past medical history significant for hypertension, hyperlipidemia, ex-smoker. Patient reports shortness of breath, left lateral chest pain, fever, cough starting approximately 12 days ago. The patient's chest pain worsened yesterday causing him to go to [facility]. Chest CTA on arrival to [facility] showed no evidence of central pulmonary embolism with a left pleural effusion and peripheral nodular thickening related to a parapneumonic effusion. Patient was initially seen and evaluated by Dr. Maher who initiated a transfer for cardiothoracic services. Patient was admitted to the intensive care unit yesterday evening. Patient currently resting in bed, on BiPAP with settings 14/5 and an FiO2 of 50%. SpO2 is 96% on these settings. Patient is calm and tolerating therapy. Patient's CBC on arrival shows some leukocytosis with a WBC count of 17.6, and 1113.6, hematocrit 38.8, platelets 370,000. BMP on arrival to our facility shows a sodium 136, potassium 3.9, chloride 103, serum CO2 23, BP 117, creatinine 0.74, glucose 105. Patient currently has normal saline infusing at 125 mL per hour. Patient is covered with Unasyn and vancomycin. Chest pain is currently under control, and when necessary Toradol is ordered for analgesia. T-max was 102.5F. Vital signs are stable. On today's evaluation of 07/15/2022, the patient is feeling better compared to yesterday. He is weaned down to 3 L of oxygen by nasal cannula. As mentioned, the patient had a left lung pneumonia with empyema. A pigtail catheter was inserted and the total amount of output is 1.3 L of purulent lash bloody fluid from the left lung. The fluid analysis shows that the glucose has been less than 2, LDH is 5260 and a white cell count and the fluid was 14,029. Meanwhile, the patient received a first dose of thrombolytic administration through the pigtail catheter yesterday. A second dose is to follow. White cell count is not under 10.4, hemoglobin is at 10.8 and the platelet count is at 278. Electrolytes are normal. Cultures are still pending. Fluid cultures have been sent. Blood cultures aren't negative for now. Meanwhile, the patient is doing incentive spirometer. He is falling approximately 1200 and his incentive spirometer. He remains on Unasyn and vancomycin. His pleuritic chest pain is subsided significantly. Objective - Vital Signs Vital signs: Vital Signs Temp 99.8 F H 07/15/22 08:00 Pulse 104 H 07/15/22 09:00 Resp 40 H 07/15/22 09:00 BP 129/81 07/15/22 09:00 Pulse Ox 94 L 07/15/22 09:00 FiO2 50 07/15/22 04:00 Intake & Output 07/14/22 07/15/22 07/15/22 18:59 06:59 18:59 Intake Total 1950 2150 375 Output Total 1175 350 465 Balance 775 1800 -90 Weight 131.7 kg Intake: IV 1250 1500 375 Sodium Chloride 0.9% 1, 1250 1500 375 000 ml @ 125 mls/hr IV . Q8H AMILCAR Rx#:[id number] Intake, IV Titration 500 Amount Vancomycin 2,000 mg In 500 Sodium Chloride 0.9% 500 ml 500 ml @ 167 mls/hr IVPB ONCE STA Rx#: [id number] Oral 200 650 Output: Chest Tube Drainage 750 40 Pleural Catheter Left 750 40 Posterior Chest Urine 425 350 425 Other: Voiding Method Urinal Urinal Bedside Commode Urinal # Voids 1 1 # Bowel Movements 1 - Exam GENERAL EXAM: Alert, 42-year-old white male, comfortable in no apparent distress. HEAD: Normocephalic and atraumatic EYES: Normal reaction of pupils, equal size. NOSE: Clear with pink turbinates. THROAT: No erythema or exudates. NECK: No masses, no JVD. CHEST: No chest wall deformity. LUNGS: Equal air entry with diminished breath sounds at the left base. The patient has a pigtail catheter inserted into the left hemithorax posteriorly CVS: S1 and S2 normal with no audible murmur, regular rhythm. No extra heart sounds ABDOMEN: No hepatosplenomegaly, active bowel sounds, no guarding or rigidity. SPINE: No scoliosis or deformity SKIN: No rashes CENTRAL NERVOUS SYSTEM: No focal deficits, tone is normal in all 4 extremities. EXTREMITIES: There is no peripheral edema, clubbing, or cyanosis. Peripheral pulses are intact. - Labs CBC & Chem 7: 07/15/22 05:51 07/15/22 05:51 Labs: Abnormal Lab Results - Last 24 Hours (Table) 07/14/22 07/15/22 07/15/22 Range/Units 09:44 05:51 05:51 RBC 3.46 L (4.30-5.90) m/uL Hgb 10.8 L (13.0-17.5) gm/dL Hct 32.4 L (39.0-53.0) % Neutrophils # 8.2 H (1.3-7.7) k/uL PT 13.6 H (9.0-12.0) sec INR 1.3 H (<1.2) Chloride 108 H (98-107) mmol/L Glucose 111 H (74-99) mg/dL Calcium 7.6 L (8.4-10.2) mg/dL Microbiology - Last 24 Hours (Table) 07/14/22 14:10 Acid Fast Bacilli Culture - Preliminary Pleural Fluid 07/14/22 14:10 Fungal Culture - Preliminary Pleural Fluid 07/14/22 14:10 Body Fluid Culture - Preliminary Pleural Fluid 07/14/22 14:10 Anaerobic Culture - Preliminary Pleural Fluid 07/13/22 21:55 Blood Culture - Preliminary Blood No Growth after 24 hours 07/14/22 14:04 Nasal Screen MRSA/MSSA - Preliminary Nasal Swab 07/14/22 02:26 Urine Culture - Preliminary Urine,Voided Assessment and Plan Plan: Left lower lobe pneumonia/ empyema. The patient continues to have dense consolidation of the left lung. The patient has a pigtail catheter inserted and the fluid is consistent with empyema. Awaiting cultures. The patient remains on a combination of Unasyn and vancomycin. Extensive left lower lobe consolidation/pneumonia Acute hypoxic respiratory failure secondary to above. Currently on 3 L of oxygen by nasal cannula, oxygen is improved Hyperlipidemia Hypertension Morbid obesity with a BMI of 36.5 Ex-smoker, remote history of smoking Plan: Monitor the output from the pigtail catheter Keep the catheter to suction TPA administration today, second dose Daily chest x-rays Incentive spirometer Continue empiric antibiotics Blood cultures are negative and the pleural cultures are pending Pain management with Toradol May transfer the patient out of the intensive care unit with remote telemetry monitoring
--- NOTE | 2022-07-15 11:33 | P.PN ---
Subjective Progress Note Date: 07/15/22 Hospital Course: 42-year-old male with history of obesity, dyslipidemia, GERD presenting from outside hospital for pneumonia with left loculated pleural effusion suspicious for empyema. On presentation, patient's temperature was 102.5, tachycardic to 112, respiratory rate 25, saturating at 97% on BiPAP, blood pressure 138/95. Initial labs showed WBC 17.6, hemoglobin 13.6, sodium 136, creatinine 0.74. Chest x-ray showed moderate-sized left-sided pleural effusion. Patient admitted to medical ICU. Chest CT shows increasing size of loculated pleural fluid collection in the left lung including left middle and lower lung perfusion and loculated anterior upper lung diffusion. Status post ultrasound-guided left pleural pigtail catheter. Subjective: Patient seen and examined at bedside. He continues to have shortness of breath, persistent cough, chest pain related to cough, but ultimately improving. He Denies any nausea or vomiting, abdominal pain, urinary or bowel complaints. Pertinent positives and negatives as discussed above, a complete review of systems was performed and all other systems are negative. Vitals Signs Reviewed. General: nontoxic, in mild distress, appears at stated age Derm: warm, dry Head: atraumatic, normocephalic, symmetric Eyes: EOMI, no lid lag, anicteric sclera Mouth: no lip lesion, mucus membranes moist Cardiovascular: S1S2 reg, no murmur Lungs: Reduced breath sounds bilaterally, greater on left , no accessory muscle use, supplemental oxygen, chest tube in place Abdominal: soft, nontender to palpation, no guarding, no appreciable o rganomegaly Ext: no gross muscle atrophy, no edema, no contractures Neuro: CN II-XI grossly intact, no focal neuro deficits Psych: Alert, oriented, appropriate affect Data Reviewed Today: Pertinent Labs: WBC 10.4, hemoglobin 10.8, sodium 139, potassium 2.7, creatinine 0.72, exudative pleural fluid, neutrophilic predominant, 14,000 white count and the fluid Imaging: Chest x-ray personally interpreted, shows a left-sided pleural effusion, pigtail catheter in the left Assessment and Plan: Patient is critically ill, currently in medical ICU. Active: Sepsis secondary to bacterial pneumonia Empyema Acute hypoxic respiratory failure Normocytic anemia -Pulmonology note reviewed: TPA administered today, continue current management -Cardiothoracic surgery note reviewed: Second dose TPA administered today -On IV Unasyn 3 g every 6 hours -Also on vancomycin, dosed based on trough levels, monitor for renal toxicity, daily BMP -Sputum cultures and blood cultures, pleural fluid cultures no growth to date -MRSA nares pending -On IV fluids normal saline at 125 mL an hour -Pain control with oral Tylenol and IV Toradol as needed Chronic: Dyslipidemia DVT ppx: Subcu heparin Code status: Full code Anticipated discharge place: Pending clinical course Anticipated discharge time: Pending clinical course Objective - Vital Signs Vital signs: Vital Signs Temp 99.8 F H 07/15/22 08:00 Pulse 101 H 07/15/22 11:29 Resp 37 H 07/15/22 11:00 BP 128/82 07/15/22 11:00 Pulse Ox 95 07/15/22 11:00 FiO2 50 07/15/22 04:00 Intake & Output 07/14/22 07/15/22 07/15/22 18:59 06:59 18:59 Intake Total 1950 2150 625 Output Total 1175 350 465 Balance 775 1800 160 Weight 131.7 kg Intake: IV 1250 1500 625 Sodium Chloride 0.9% 1, 1250 1500 625 000 ml @ 125 mls/hr IV . Q8H AMILCAR Rx#:[id number] Intake, IV Titration 500 Amount Vancomycin 2,000 mg In 500 Sodium Chloride 0.9% 500 ml 500 ml @ 167 mls/hr IVPB ONCE STA Rx#: [id number] Oral 200 650 Output: Chest Tube Drainage 750 40 Pleural Catheter Left 750 40 Posterior Chest Urine 425 350 425 Other: Voiding Method Urinal Urinal Bedside Commode Urinal # Voids 1 1 # Bowel Movements 1 - Labs CBC & Chem 7: 07/15/22 05:51 07/15/22 05:51 Labs: Abnormal Lab Results - Last 24 Hours (Table) 07/15/22 07/15/22 Range/Units 05:51 05:51 RBC 3.46 L (4.30-5.90) m/uL Hgb 10.8 L (13.0-17.5) gm/dL Hct 32.4 L (39.0-53.0) % Neutrophils # 8.2 H (1.3-7.7) k/uL Chloride 108 H (98-107) mmol/L Glucose 111 H (74-99) mg/dL Calcium 7.6 L (8.4-10.2) mg/dL Microbiology - Last 24 Hours (Table) 07/14/22 02:26 Urine Culture - Final Urine,Voided 07/14/22 14:10 Gram Stain - Preliminary Pleural Fluid Body Fluid Culture - Preliminary 07/14/22 14:10 Acid Fast Bacilli Culture - Preliminary Pleural Fluid 07/14/22 14:10 Fungal Culture - Preliminary Pleural Fluid 07/14/22 14:10 Anaerobic Culture - Preliminary Pleural Fluid 07/13/22 21:55 Blood Culture - Preliminary Blood No Growth after 24 hours 07/14/22 14:04 Nasal Screen MRSA/MSSA - Preliminary Nasal Swab
[2022-07-15] MEDS ORDERED: VANCOMYCIN TROUGH DUE 1 EACH MISC MISCELLANE ONE (14:00)
[2022-07-15] MEDS: PATIENT'S OWN (Icosapent Ethyl [Icosapent Ethyl] 1 GM Capsule) PO SCH ×2 (16:43→20:07)
[2022-07-15] MEDS: SODIUM CHLORIDE 0.9% 500 ML IV SCH (16:48)
[2022-07-15] MEDS: KETOROLAC 15 MG/ML 1 ML VIAL IVP SCH (18:08)
[2022-07-15] MEDS: FENOFIBRATE 160 MG TAB PO SCH (18:09)
[2022-07-15] MEDS: ACETAMINOPHEN TAB 325 MG TAB PO SCH ×2 (20:06→23:29)
[2022-07-15] MEDS: ALPRAZolam 0.5 MG TAB PO PRN (23:29)
[2022-07-16] MEDS: KETOROLAC 15 MG/ML 1 ML VIAL IVP SCH ×5 (00:28→23:13)
[2022-07-16] MEDS ORDERED: VANCOMYCIN 2,000 MG in SODIUM CHLORIDE 0.9% 500 ML 500 ML IVPB SCH (02:00)
[2022-07-16] MEDS: ACETAMINOPHEN TAB 325 MG TAB PO SCH ×6 (03:30→23:12)
[2022-07-16] MEDS: AMPICILLIN-SULBACTAM 3 GM in SODIUM CHLORIDE 0.9% 100 ML IVPB SCH ×4 (05:52→23:14)
--- NOTE | 2022-07-16 08:06 | XR ---
EXAMINATION TYPE: XR chest 1V portable DATE OF EXAM: 07/16/2022 7:58 AM COMPARISON: Chest radiographs from 07/15/2022. TECHNIQUE: XR chest 1V portable Portable AP radiograph of the chest. CLINICAL INDICATION:Male, 42 years old with history of effusion; FINDINGS: Lungs/Pleura: Moderate left-sided pleural effusion is decreased. Left upper lobe airspace opacity rem ains present. No pneumothorax. Pulmonary vascularity: Unremarkable. Heart/mediastinum: Cardiomediastinal silhouette is partially obscured due to overlying and adjacent o pacities. Musculoskeletal: No acute osseous pathology. Other findings: None Lines/Tubes: Left pleural pigtail catheter redemonstrated. IMPRESSION: Decreased moderate left pleural effusion with pleural pigtail catheter. There is adjacent left upper lobe airspace opacities which may represent infiltrate versus atelectasis.
[2022-07-16] MEDS: IPRATROPIUM-ALBUTEROL 3 ML NEB INHALATION SCH ×4 (08:36→20:48)
[2022-07-16] MEDS: PANTOPRAZOLE 40 MG TABLET PO SCH (08:57)
[2022-07-16] MEDS: HEPARIN SODIUM,PORCINE/PF 5,000 UNIT/0.5 ML SYRINGE SQ SCH ×3 (08:57→23:13)
[2022-07-16] MEDS: PATIENT'S OWN (Icosapent Ethyl [Icosapent Ethyl] 1 GM Capsule) PO SCH ×2 (08:58→20:18)
[2022-07-16 10:27] LABS: African American GFR (CKD) >90 (>60 ml/min/1.73 sqM); Anion Gap 8 mmol/L; Blood Urea Nitrogen 11 mg/dL (9-20); Calcium 8.2 mg/dL (8.4-10.2); Carbon Dioxide 26 mmol/L (22-30); Chloride 105 mmol/L (98-107); Glucose 136 mg/dL (74-99); Non-African American GFR(CKD) >90 (>60 ml/min/1.73 sqM); Potassium 4.4 mmol/L (3.5-5.1); Sodium 139 mmol/L (137-145)
--- NOTE | 2022-07-16 10:32 | P.PN ---
Subjective Progress Note Date: 07/16/22 Principal diagnosis: Left-sided loculated parapneumonic effusion, possible empyema, acute hypoxic respiratory failure, leukocytosis, febrile illness. History of hyperlipidemia, obesity, previous tobacco dependence, wisdom teeth extraction approximated 3 weeks ago POD #2 placement of left sided pigtail catheter by interventional radiology The patient was seen and examined this morning sitting up in bed on a medical surgical unit in no acute distress. Remains in sinus rhythm. Currently on 4 L high flow nasal cannula. States pain is controlled with current medication reg imen. Left-sided pigtail catheter present with 880 mL drainage in the last 24 hours after second dose alteplase/dornase was instilled yesterday. States he continues to feel better. Able to achieve 2244-8514 ml on incentive spirometry. Remains on IV antibiotics. Labs/chest x-ray reviewed. No new concerns. Objective - Vital Signs Vital signs: Vital Signs Temp 98.8 F 07/16/22 07:56 Pulse 100 07/16/22 08:48 Resp 29 H 07/16/22 05:56 BP 136/87 07/16/22 07:56 Pulse Ox 94 L 07/16/22 08:36 FiO2 50 07/15/22 04:00 Intake & Output 07/15/22 07/16/22 07/16/22 18:59 06:59 18:59 Intake Total 1145 Output Total 1290 1230 Balance -145 -1230 Intake: IV 770 Sodium Chloride 0.9% 1, 770 000 ml @ 125 mls/hr IV . Q8H AMILCAR Rx#:[id number] Tube Feeding 250 Lipid 125 Sodium Chloride 0.9% 1, 125 000 ml @ 125 mls/hr IV . Q8H AMILCAR Rx#:[id number] Output: Chest Tube Drainage 390 730 Pleural Catheter Left 390 730 Posterior Chest Urine 900 500 Other: Voiding Method Bedside Commode Bedside Commode Bedside Commode Urinal Urinal Urinal # Voids 1 # Bowel Movements 1 - Exam CONSTITUTIONAL: Appears comfortable, cooperative, no acute distress RESPIRATORY: Lungs sounds diminished bilaterally, left greater than right. Respirations even, nonlabored. Currently on 4 L high flow nasal cannula with oxygen saturation 94%. Able to achieve 7760-5618 mL on incentive spirometry. Strong cough. CARDIOVASCULAR: S1, S2 present. Regular rate and rhythm, sinus rhythm on telemetry. Palpable peripheral pulses bilaterally. No edema present. No calf pain or tenderness noted GASTROINTESTINAL: Abdomen soft, nontender, nondistended. Active bowel sounds present 4 quadrants. Tolerating diet. GENITOURINARY: Continues to void INTEGUMENTARY: Skin is warm and dry with evidence of good perfusion NEUROLOGIC: Cranial nerves II through XII intact MUSKULOSKELETAL: Able to move all extremities, strength equal bilaterally, gait normal PSYCHIATRIC: Alert and oriented to person place and time, appropriate affect, intact judgment and insight INVASIVE LINES AND TUBES: Left pigtail catheter with 880 mL serosanguineous drainage since alteplase/dornase instillation yesterday - Allied health notes Allied health notes reviewed: nursing - Labs CBC & Chem 7: 07/15/22 05:51 07/16/22 08:48 Labs: Abnormal Lab Results - Last 24 Hours (Table) 07/16/22 Range/Units 08:48 Creatinine 0.63 L (0.66-1.25) mg/dL Glucose 136 H (74-99) mg/dL Calcium 8.2 L (8.4-10.2) mg/dL Microbiology - Last 24 Hours (Table) 07/13/22 21:55 Blood Culture - Preliminary Blood No Growth after 48 hours 07/14/22 14:04 Nasal Screen MRSA/MSSA - Final Nasal Swab Staphylococcus aureus,Not MRSA 07/14/22 14:10 Gram Stain - Preliminary Pleural Fluid Body Fluid Culture - Preliminary 07/14/22 02:26 Urine Culture - Final Urine,Voided - Imaging and Cardiology Chest x-ray: report reviewed, image reviewed Assessment and Plan Assessment: Left-sided loculated parapneumonic effusion, possible empyema, status post placement of left-sided pigtail catheter with instillation of alteplasedornase Acute hypoxic respiratory failure, requiring BiPAP, currently on 4 L high flow nasal cannula Leukocytosis, febrile illness History of hyperlipidemia, treated Obesity Previous tobacco dependence [place] teeth extraction approximated 3 weeks ago Plan: Will instill third dose alteplase/dornase today, monitor drainage Wean O2 as tolerated. Encourage incentive spirometry is 10 times every hour while awake Increase activity as tolerated Will monitor daily labs and x-rays. Will get CT of the chest in the next 24-48 hours to further evaluate effusion Continue antibiotics Medical management of other comorbidities per internal medicine service More recommendations to follow
[2022-07-16] MEDS ORDERED: DORNASE ALFA 5 MG in SODIUM CHLORIDE 0.9% 50 ML IRRIGATION ONE (11:00)
[2022-07-16] MEDS ORDERED: ALTEPLASE 10 MG in SODIUM CHLORIDE 0.9% 50 ML IRRIGATION ONE (11:00)
--- NOTE | 2022-07-16 11:45 | P.PN ---
Subjective Progress Note Date: 07/16/22 Hospital Course: 42-year-old male with history of obesity, dyslipidemia, GERD presenting from outside hospital for pneumonia with left loculated pleural effusion suspicious for empyema. On presentation, patient's temperature was 102.5, tachycardic to 112, respiratory rate 25, saturating at 97% on BiPAP, blood pressure 138/95. Initial labs showed WBC 17.6, hemoglobin 13.6, sodium 136, creatinine 0.74. Chest x-ray showed moderate-sized left-sided pleural effusion. Patient admitted to medical ICU. Chest CT shows increasing size of loculated pleural fluid collection in the left lung including left middle and lower lung perfusion and loculated anterior upper lung diffusion. Status post ultrasound-guided left pleural pigtail catheter. On IV abx. Pending cultures. Subjective: Patient seen and examined at bedside. He continues to have shortness of breath, persistent cough, chest pain related to cough, but improving. He Denies any nausea or vomiting, abdominal pain, urinary or bowel complaints. Pertinent positives and negatives as discussed above, a complete review of s ystems was performed and all other systems are negative. Vitals Signs Reviewed. General: nontoxic, in mild distress, appears at stated age Derm: warm, dry Head: atraumatic, normocephalic, symmetric Eyes: EOMI, no lid lag, anicteric sclera Mouth: no lip lesion, mucus membranes moist Cardiovascular: S1S2 reg, no murmur Lungs: Reduced breath sounds bilaterally, greater on left , no accessory muscle use, supplemental oxygen, chest tube in place Abdominal: soft, nontender to palpation, no guarding, no appreciable organomegaly Ext: no gross muscle atrophy, no edema, no contractures Neuro: CN II-XI grossly intact, no focal neuro deficits Psych: Alert, oriented, appropriate affect Data Reviewed Today: Pertinent Labs: Sodium 139, potassium 4.4, creatinine 0.63, CBC still pending, will be reviewed when available Imaging: Chest x-ray personally interpreted, persistent left-sided pleural ef fusion, pigtail catheter in the left Assessment and Plan: Active: Sepsis secondary to bacterial pneumonia Empyema Acute hypoxic respiratory failure Normocytic anemia -Pulmonology following -Cardiothoracic surgery note reviewed: Third dose TPA administered today, repeat chest CT in the next 24-48 hours -On IV Unasyn 3 g every 6 hours -MRSA nares negative, vancomycin discontinued -Sputum cultures and blood cultures, pleural fluid cultures no growth to date -On IV fluids normal saline at 125 mL an hour -Pain control with oral Tylenol and IV Toradol as needed Chronic: Dyslipidemia DVT ppx: Subcu heparin Code status: Full code Anticipated discharge place: Pending clinical course Anticipated discharge time: Pending clinical course Objective - Vital Signs Vital signs: Vital Signs Temp 98.8 F 07/16/22 07:56 Pulse 100 07/16/22 08:48 Resp 29 H 07/16/22 05:56 BP 136/87 07/16/22 07:56 Pulse Ox 94 L 07/16/22 08:36 FiO2 50 07/15/22 04:00 Intake & Output 07/15/22 07/16/22 07/16/22 18:59 06:59 18:59 Intake Total 1145 Output Total 1290 1230 20 Balance -145 -1230 -20 Intake: IV 770 Sodium Chloride 0.9% 1, 770 000 ml @ 125 mls/hr IV . Q8H AMILCAR Rx#:[id number] Tube Feeding 250 Lipid 125 Sodium Chloride 0.9% 1, 125 000 ml @ 125 mls/hr IV . Q8H AMILCAR Rx#:[id number] Output: Chest Tube Drainage 390 730 20 Pleural Catheter Left 390 730 20 Posterior Chest Urine 900 500 Other: Voiding Method Bedside Commode Bedside Commode Bedside Commode Urinal Urinal Urinal # Voids 1 # Bowel Movements 1 - Labs CBC & Chem 7: 07/15/22 05:51 07/16/22 08:48 Labs: Abnormal Lab Results - Last 24 Hours (Table) 07/16/22 Range/Units 08:48 Creatinine 0.63 L (0.66-1.25) mg/dL Glucose 136 H (74-99) mg/dL Calcium 8.2 L (8.4-10.2) mg/dL Microbiology - Last 24 Hours (Table) 07/13/22 21:55 Blood Culture - Preliminary Blood No Growth after 48 hours 07/14/22 14:04 Nasal Screen MRSA/MSSA - Final Nasal Swab Staphylococcus aureus,Not MRSA 07/14/22 14:10 Gram Stain - Preliminary Pleural Fluid Body Fluid Culture - Preliminary 07/14/22 02:26 Urine Culture - Final Urine,Voided
[2022-07-16 16:14] LABS: Basophils # (A) 0.03 X 10*3/uL (0.00-0.10); Basophils % (A) 0.3 %; Eosinophils # (A) 0.22 X 10*3/uL (0.04-0.35); Eosinophils % (A) 2.3 %; HCT 33.6 % (39.6-50.0); HGB 10.7 g/dL (13.0-17.0); Immature Grans, Automated 0.3 %; Lymphocytes % (A) 12.4 %; MCH 31.7 pg (27.0-32.0); MCHC 31.8 g/dL (32.0-37.0); MCV 99.4 fL (80.0-97.0); Mean Platelet Volume 9.6 fL (9.5-12.2); Monocytes # (A) 0.87 X 10*3/uL (0.20-1.00); NRBC Per 100 WBC 0 /100 WBCS (0.0-0.0); Neutrophils # (A) 7.36 X 10*3/uL (1.80-7.70); Neutrophils % (A) 75.7 %; Platelet Count 307 X 10*3/uL (140-440); RBC 3.38 X 10*6/uL (4.40-5.60); RDW 12.6 % (11.5-14.5); WBC 9.71 X 10*3/uL (4.50-10.00)
[2022-07-16] MEDS: FENOFIBRATE 160 MG TAB PO SCH (16:45)
--- NOTE | 2022-07-16 18:41 | P.PN ---
Subjective Progress Note Date: 07/16/22 I'm seeing this patient in new consultation today 07/14/2022 after being transferred from [facility] for suspected empyema. Patient is a 42-year-old white male with past medical history significant for hypertension, hyperlipidemia, ex-smoker. Patient reports shortness of breath, left lateral chest pain, fever, cough starting approximately 12 days ago. The patient's chest pain worsened yesterday causing him to go to [facility]. Chest CTA on arrival to [facility] showed no evidence of central pulmonary embolism with a left pleural effusion and peripheral nodular thickening related to a parapneumonic effusion. Patient was initially seen and evaluated by Dr. Maher who initiated a transfer for cardiothoracic services. Patient was admitted to the intensive care unit yesterday evening. Patient currently resting in bed, on BiPAP with settings 14/5 and an FiO2 of 50%. SpO2 is 96% on these settings. Patient is calm and tolerating therapy. Patient's CBC on arrival shows some leukocytosis with a WBC count of 17.6, and 1113.6, hematocrit 38.8, platelets 370,000. BMP on arrival to our facility shows a sodium 136, potassium 3.9, chloride 103, serum CO2 23, BP 117, creatinine 0.74, glucose 105. Patient currently has normal saline infusing at 125 mL per hour. Patient is covered with Unasyn and vancomycin. Chest pain is currently under control, and when necessary Toradol is ordered for analgesia. T-max was 102.5F. Vital signs are stable. On today's evaluation of 07/15/2022, the patient is feeling better compared to yesterday. He is weaned down to 3 L of oxygen by nasal cannula. As mentioned, the patient had a left lung pneumonia with empyema. A pigtail catheter was inserted and the total amount of output is 1.3 L of purulent lash bloody fluid from the left lung. The fluid analysis shows that the glucose has been less than 2, LDH is 5260 and a white cell count and the fluid was 14,029. Meanwhile, the patient received a first dose of thrombolytic administration through the pigtail catheter yesterday. A second dose is to follow. White cell count is not under 10.4, hemoglobin is at 10.8 and the platelet count is at 278. Electrolytes are normal. Cultures are still pending. Fluid cultures have been sent. Blood cultures aren't negative for now. Meanwhile, the patient is doing incentive spirometer. He is falling approximately 1200 and his incentive spirometer. He remains on Unasyn and vancomycin. His pleuritic chest pain is subsided significantly. , I'm seeing the patient for a follow-up. Patient is doing well. The patient is currently being treated for a pneumonia/empyema. The pleural fluid cultures are still negative. The patient is having daily. Patient with a pigtail catheter. On today's x-ray, there is significant improvement in the aeration of the left lung. There is a left lower lobe consolidation although the x-ray findings. The patient is currently on 2 L of oxygen by nasal cannula. He is using the incentive spirometer. Output from the pigtail catheter is in order of 1500 mL over the past 24 hours. Objective - Vital Signs Vital signs: Vital Signs Temp 98.6 F 07/16/22 16:00 Pulse 100 07/16/22 16:04 Resp 26 H 07/16/22 16:00 BP 167/99 07/16/22 16:00 Pulse Ox 94 L 07/16/22 16:00 FiO2 50 07/15/22 04:00 Intake & Output 07/15/22 07/16/22 07/16/22 18:59 06:59 18:59 Intake Total 1145 Output Total 1290 1230 430 Balance -145 -1230 -430 Intake: IV 770 Sodium Chloride 0.9% 1, 770 000 ml @ 125 mls/hr IV . Q8H AMILCAR Rx#:[id number] Tube Feeding 250 Lipid 125 Sodium Chloride 0.9% 1, 125 000 ml @ 125 mls/hr IV . Q8H AMILCAR Rx#:[id number] Output: Chest Tube Drainage 390 730 430 Pleural Catheter Left 390 730 430 Posterior Chest Urine 900 500 Other: Voiding Method Bedside Commode Bedside Commode Bedside Commode Urinal Urinal Urinal # Voids 1 # Bowel Movements 1 - Exam GENERAL EXAM: Alert, 42-year-old white male, comfortable in no apparent distress. Currently the patient is only on 2 L of oxygen by nasal cannula. HEAD: Normocephalic and atraumatic EYES: Normal reaction of pupils, equal size. NOSE: Clear with pink turbinates. THROAT: No erythema or exudates. NECK: No masses, no JVD. CHEST: No chest wall deformity. LUNGS: Equal air entry with diminished breath sounds at the left base. The patient has a pigtail catheter inserted into the left hemithorax posteriorly, there is improvement in air entry in the left lung base and there is also improvement in aeration. CVS: S1 and S2 normal with no audible murmur, regular rhythm. No extra heart sounds ABDOMEN: No hepatosplenomegaly, active bowel sounds, no guarding or rigidity. SPINE: No scoliosis or deformity SKIN: No rashes CENTRAL NERVOUS SYSTEM: No focal deficits, tone is normal in all 4 extremities. EXTREMITIES: There is no peripheral edema, clubbing, or cyanosis. Peripheral pulses are intact. - Labs CBC & Chem 7: 07/16/22 08:48 07/16/22 08:48 Labs: Abnormal Lab Results - Last 24 Hours (Table) 07/16/22 07/16/22 Range/Units 08:48 08:48 RBC 3.38 L (4.40-5.60) X 10*6/uL Hgb 10.7 L (13.0-17.0) g/dL Hct 33.6 L (39.6-50.0) % MCV 99.4 H (80.0-97.0) fL MCHC 31.8 L (32.0-37.0) g/dL Creatinine 0.63 L (0.66-1.25) mg/dL Glucose 136 H (74-99) mg/dL Calcium 8.2 L (8.4-10.2) mg/dL Microbiology - Last 24 Hours (Table) 07/13/22 21:55 Blood Culture - Preliminary Blood No Growth after 48 hours 07/14/22 14:04 Nasal Screen MRSA/MSSA - Final Nasal Swab Staphylococcus aureus,Not MRSA 07/14/22 14:10 Gram Stain - Preliminary Pleural Fluid Body Fluid Culture - Preliminary Assessment and Plan Assessment: Suspected empyema. Patient's chest CTA at outside facility showed a left pleural effusion with associated peripheral nodular thickening, suspicious for infectious process with parapneumonic effusion. Acute hypoxic respiratory failure secondary to above. Currently on BiPAP with settings of 14/5 and FiO2 of 50%. Hyperlipidemia Hypertension Morbid obesity with a BMI of 36.5 Ex-smoker, remote history of smoking Plan: Patient's medications, labs, and outside records were reviewed Continue BiPAP Cardiothoracic surgery was consulted for possible pigtail catheter insertion Repeat chest x-ray in the morning Obtain Chest ultrasound with markings Continue empiric antibiotics Blood cultures pending Pain management with Toradol Repeat labs in the morning Patient currently in the intensive care unit for closer monitoring I have personally seen and examined the patient, performed the documentation and the assessment and plan as written. Number of minutes spent on the visit:20 On 07/14/2022, the patient was seen in consultation. This is a transfer from [facility]. I met the patient also met the . This is a typical case of left lung pneumonia/empyema. There is significant opacification of the left lung. The patient is still having some pleuritic chest pain. Is currently on 5 L of oxygen by nasal cannula with a pulse ox of 95%. He is on IV Unasyn and vancomycin. The ultrasound of the chest showed extensive admitted loculated pocket the left lung along with some loculation. No significant abnormalities on the right side. Based on all this, interventional radiology and thoracic surgery and been consulted. I'm going to repeat a noncontrast CAT scan of the chest to assess the progression of this left sided empyema. The patient will likely need a pigtail catheter insertion with subsequent thrombolytic administration regarding this ongoing issue. Continue antibiotic treatment. He'll be kept in the ICU for now. I do not see the need for continuous BiPAP at this point in time. He should be doing well on 5 L O2 nasal cannula. Continue Toradol for pain control. Provide the patient incentive spi rometer. Evaluation was done in more than 30 minutes. Plan: Left lower lobe pneumonia/ empyema. The patient continues to have dense consolidation of the left lung. The patient has a pigtail catheter inserted and the fluid is consistent with empyema. Awaiting cultures. The patient remains on a combination of Unasyn and vancomycin. Chest x-ray showing improvement. On examination, there is improved air entry in the left lung base. Patient is currently between 2 and 3 L/m nasal cannula. Overall condition is more stable. The patient continues to use the incentive spirometer. Extensive left lower lobe consolidation/pneumonia Acute hypoxic respiratory failure secondary to above. Currently on 3 L of oxygen by nasal cannula, oxygen is improved Hyperlipidemia Hypertension Morbid obesity with a BMI of 36.5 Ex-smoker, remote history of smoking Plan: Monitor the output from the pigtail catheter Another thrombolytic administration done today Keep the catheter to suction TPA administration today, second dose Daily chest x-rays Incentive spirometer Continue empiric antibiotics Blood cultures are negative and the pleural cultures are pending, negative thus far Pain management with Toradol Clinically improving
[2022-07-16] MEDS: SODIUM CHLORIDE 0.9% 500 ML IV SCH (23:14)
[2022-07-17] MEDS: ACETAMINOPHEN TAB 325 MG TAB PO SCH ×5 (04:05→17:21)
[2022-07-17] MEDS: AMPICILLIN-SULBACTAM 3 GM in SODIUM CHLORIDE 0.9% 100 ML IVPB SCH ×3 (04:06→17:21)
[2022-07-17] MEDS: ALPRAZolam 0.5 MG TAB PO PRN (04:14)
[2022-07-17] MEDS: KETOROLAC 15 MG/ML 1 ML VIAL IVP SCH ×3 (05:15→17:19)
[2022-07-17] MEDS: PANTOPRAZOLE 40 MG TABLET PO SCH (05:16)
--- NOTE | 2022-07-17 07:30 | XR ---
EXAMINATION TYPE: XR chest 1V portable DATE OF EXAM: 07/17/2022 COMPARISON: 07/16/2022 INDICATION: Pneumonia, effusion TECHNIQUE: Single frontal view of the chest is obtained. FINDINGS: The heart size is prominent. The pulmonary vasculature is normal. There is diffuse opacity through the left lung. This is worsening from comparison. Minimal infiltrate may be above the right diaphragm. IMPRESSION: 1. Worsening left lung opacification. Mild infiltrate at the right base. Continued follow-up is recom mended
[2022-07-17] MEDS: PATIENT'S OWN (Icosapent Ethyl [Icosapent Ethyl] 1 GM Capsule) PO SCH ×2 (08:16→20:33)
[2022-07-17] MEDS: HEPARIN SODIUM,PORCINE/PF 5,000 UNIT/0.5 ML SYRINGE SQ SCH ×2 (08:17→17:03)
[2022-07-17] MEDS: IPRATROPIUM-ALBUTEROL 3 ML NEB INHALATION SCH ×4 (09:36→20:07)
--- NOTE | 2022-07-17 10:17 | P.PN ---
Subjective Progress Note Date: 07/17/22 Principal diagnosis: Left-sided loculated parapneumonic effusion, possible empyema, acute hypoxic respiratory failure, leukocytosis, febrile illness. History of hyperlipidemia, obesity, previous tobacco dependence, wisdom teeth extraction approximated 3 weeks ago. POD #3 placement of left sided pigtail catheter by interventional radiology The patient was seen and examined in follow-up this morning 07/17/2022 at his bedside on the fourth floor medical surgical unit. Currently he is sitting up in bed, is awake, alert, oriented 3 and is in no acute apparent distress. De nies any complaints of shortness of breath at this time, although is complaining of some pain to his pigtail insertion site rating his pain currently at 4 out of 10 on the pain scale. He reports that the Toradol and Tylenol have been controlling his pain quite well. The patient also reports that in the last 24 hours he has developed a cough with green colored sputum. Oxygen saturation are 96% on 3 L nasal cannula and he is achieving 1250 mL on his incentive spirometry with encouragement. He remains on IV antibiotics and has been afebrile and the last 24 hours. Nasal swab from 07/14/2022 was positive for Staphylococcus aureus, not MRSA. Gram stain of his pleural fluid shows no anaerobes isolated. Final culture results from his pleural fluid remained pending. Blood cultures show no growth after 72 hours. Chest x-ray was reviewed., Laboratory results remain pending. Left pleural pigtail catheter remains in place to low continuous wall suction -20 cm H2O. He received a total of 3 doses of alteplase/dornase pleural instillation since his pigtail catheter has been placed. 850 mL of thin serosanguineous drainage was drained in the last 24 hours. Objective - Vital Signs Vital signs: Vital Signs Temp 98.3 F 07/17/22 07:49 Pulse 94 07/17/22 09:46 Resp 18 07/17/22 09:46 BP 144/97 07/17/22 07:49 Pulse Ox 97 07/17/22 09:36 FiO2 50 07/15/22 04:00 Intake & Output 07/16/22 07/17/22 07/17/22 18:59 06:59 18:59 Intake Total 440 Output Total 430 925 90 Balance -430 -485 -90 Intake: Intake, IV Titration 440 Amount Ampicillin-Sulbactam 3 gm 200 In Sodium Chloride 0.9% 100 ml @ 200 mls/hr IVPB Q6H [facility] Rx#:[id number] Sodium Chloride 0.9% 500 240 ml @ 20 mls/hr IV .Q24H [facility] Rx#:[id number] Output: Chest Tube Drainage 430 400 90 Pleural Catheter Left 430 400 90 Posterior Chest Urine 525 Other: Voiding Method Bedside Commode Urinal Urinal # Voids 1 # Bowel Movements 1 - Exam CONSTITUTIONAL: Appears comfortable, cooperative, no acute distress. RESPIRATORY: Lungs sounds diminished bilaterally, left greater than right. Respirations are symmetrical, nonlabored. Currently on 3 L high flow nasal ca nnula with oxygen saturation 96%. Able to achieve 1250 mL on incentive spirometry. Strong cough. CARDIOVASCULAR: S1, S2 present. Regular rate and rhythm, sinus rhythm on remote telemetry. Palpable peripheral pulses bilaterally. No edema present. No calf pain or tenderness noted GASTROINTESTINAL: Abdomen soft, nontender, nondistended. Active bowel sounds present 4 quadrants. Tolerating diet. GENITOURINARY: Continues to void. INTEGUMENTARY: Skin is warm and dry with no evidence of clubbing or cyanosis. Pigtail catheter dressing clean, dry and intact. NEUROLOGIC: Cranial nerves II through XII intact. No focal deficits. MUSKULOSKELETAL: Able to move all extremities, strength equal bilaterally, gait normal. PSYCHIATRIC: Alert and oriented to person place and time, appropriate affect, intact judgment and insight. INVASIVE LINES AND TUBES: Left pigtail catheter with 850 mL serosanguineous drainage since alteplase/dornase instillation yesterday. - Allied health notes Allied health notes reviewed: nursing - Labs CBC & Chem 7: 07/16/22 08:48 07/16/22 08:48 Labs: Abnormal Lab Results - Last 24 Hours (Table) 07/16/22 07/16/22 Range/Units 08:48 08:48 RBC 3.38 L (4.40-5.60) X 10*6/uL Hgb 10.7 L (13.0-17.0) g/dL Hct 33.6 L (39.6-50.0) % MCV 99.4 H (80.0-97.0) fL MCHC 31.8 L (32.0-37.0) g/dL Creatinine 0.63 L (0.66-1.25) mg/dL Glucose 136 H (74-99) mg/dL Calcium 8.2 L (8.4-10.2) mg/dL Microbiology - Last 24 Hours (Table) 07/14/22 14:10 Acid Fast Bacilli Smear - Final Pleural Fluid Acid Fast Bacilli Culture - Preliminary 07/13/22 21:55 Blood Culture - Preliminary Blood No Growth after 72 hours 07/14/22 14:10 Anaerobic Culture - Preliminary Pleural Fluid 07/14/22 14:10 Gram Stain - Preliminary Pleural Fluid Body Fluid Culture - Preliminary - Imaging and Cardiology Chest x-ray: report reviewed, image reviewed Assessment and Plan Assessment: Left-sided loculated parapneumonic effusion, possible empyema, status post placement of left-sided pigtail catheter with instillation of alteplasedornase Acute hypoxic respiratory failure, requiring BiPAP, currently on 3 L nasal cannula Leukocytosis, febrile illness History of hyperlipidemia, treated Obesity with a BMI 36.3 kg/m Previous tobacco dependence Drake teeth extraction approximated 3 weeks ago Plan: Will obtain a computed tomography scan of his chest without contrast today, and determine need for further instillation of alteplase/dornase. Wean O2 as tolerated. Encourage incentive spirometry is 10 times every hour while awake. Increase activity as tolerated, encourage ambulation. Will monitor daily labs and chest x-rays. Continue antibiotics. Medical management of other comorbidities per internal medicine service. More recommendations to follow based on patient's clinical course. Time with Patient: Greater than 30
[2022-07-17 10:48] LABS: Basophils # (A) 0.04 X 10*3/uL (0.00-0.10); Basophils % (A) 0.5 %; Eosinophils # (A) 0.36 X 10*3/uL (0.04-0.35); Eosinophils % (A) 4.1 %; HGB 9.3 g/dL (13.0-17.0); Immature Grans, Automated 0.2 %; Lymphocytes % (A) 14.7 %; MCH 31.5 pg (27.0-32.0); MCHC 33.2 g/dL (32.0-37.0); MCV 94.9 fL (80.0-97.0); Monocytes # (A) 0.98 X 10*3/uL (0.20-1.00); Monocytes % (A) 11.1 %; NRBC Per 100 WBC 0 /100 WBCS (0.0-0.0); Neutrophils # (A) 6.12 X 10*3/uL (1.80-7.70); Neutrophils % (A) 69.4 %; Platelet Count 301 X 10*3/uL (140-440); RBC 2.95 X 10*6/uL (4.40-5.60); RDW 12.2 % (11.5-14.5); WBC 8.82 X 10*3/uL (4.50-10.00)
[2022-07-17 11:07] LABS: African American GFR (CKD) 134.9 (60.0-200.0); Anion Gap 7.4 mmol/L (10.00-18.00); BUN/Creat Ratio 17.86 Ratio (12.00-20.00); Blood Urea Nitrogen 12.5 mg/dL (9.0-27.0); Calcium 8.1 mg/dL (8.7-10.3); Carbon Dioxide 26.6 mmol/L (20.0-27.5); Non-African American GFR(CKD) 116.4 (60.0-200.0); Potassium 3.8 mmol/L (3.5-5.5)
--- NOTE | 2022-07-17 11:12 | P.PN ---
Subjective Progress Note Date: 07/17/22 Hospital Course: 42-year-old male with history of obesity, dyslipidemia, GERD presenting from outside hospital for pneumonia with left loculated pleural effusion suspicious for empyema. On presentation, patient's temperature was 102.5, tachycardic to 112, respiratory rate 25, saturating at 97% on BiPAP, blood pressure 138/95. Initial labs showed WBC 17.6, hemoglobin 13.6, sodium 136, creatinine 0.74. Chest x-ray showed moderate-sized left-sided pleural effusion. Patient admitted to medical ICU. Chest CT shows increasing size of loculated pleural fluid collection in the left lung including left middle and lower lung perfusion and loculated anterior upper lung diffusion. Status post ultrasound-guided left pleural pigtail catheter. On IV abx. Cultures showed no growth to date. Subjective: Patient seen and examined at bedside. He continues to have shortness of breath, persistent cough, chest pain related to cough, but improving. He denies any nausea or vomiting, abdominal pain, urinary or bowel complaints. Chest tube remains in place Pertinent positives and negatives as discussed above, a complete review of systems was performed and all other systems are negative. Vitals Signs Reviewed. General: nontoxic, in mild distress, appears at stated age Derm: warm, dry Head: atraumatic, normocephalic, symmetric Eyes: EOMI, no lid lag, anicteric sclera Mouth: no lip lesion, mucus membranes moist Cardiovascular: S1S2 reg, no murmur Lungs: Reduced breath sounds bilaterally, greater on left , no accessory muscle use, supplemental oxygen, chest tube in place Abdominal: soft, nontender to palpation, no guarding, no appreciable organomegaly Ext: no gross muscle atrophy, no edema, no contractures Neuro: CN II-XI grossly intact, no focal neuro deficits Psych: Alert, oriented, appropriate affect Data Reviewed Today: Pertinent Labs: WBC 8.82, hemoglobin 9.3, platelet 301, sodium 142, creatinine 0.7 Imaging: Chest x-ray personally interpreted, persistent left-sided pleural effusion, appears to be worsening, pigtail catheter in the left Assessment and Plan: Patient remains critically ill. Active: Sepsis secondary to bacterial pneumonia Empyema Acute hypoxic respiratory failure Normocytic anemia, possibly blood loss from chest tube, expected outcome -Pulmonology following -Cardiothoracic surgery note reviewed: CT chest without contrast today -On IV Unasyn 3 g every 6 hours -Sputum cultures and blood cultures, pleural fluid cultures no growth to date -Blood tinged drainage from chest tube, no other source of bleeding, repeat CBC tomorrow -Pain control with oral Tylenol and IV Toradol as needed Chronic: Dyslipidemia DVT ppx: Subcu heparin Code status: Full code Anticipated discharge place: Pending clinical course Anticipated discharge time: Pending clinical course Objective - Vital Signs Vital signs: Vital Signs Temp 98.3 F 07/17/22 07:49 Pulse 94 07/17/22 09:46 Resp 18 07/17/22 09:46 BP 144/97 07/17/22 07:49 Pulse Ox 97 07/17/22 09:36 FiO2 50 07/15/22 04:00 Intake & Output 07/16/22 07/17/22 07/17/22 18:59 06:59 18:59 Intake Total 440 Output Total 430 925 90 Balance -430 -485 -90 Intake: Intake, IV Titration 440 Amount Ampicillin-Sulbactam 3 gm 200 In Sodium Chloride 0.9% 100 ml @ 200 mls/hr IVPB Q6H [facility] Rx#:[id number] Sodium Chloride 0.9% 500 240 ml @ 20 mls/hr IV .Q24H [facility] Rx#:[id number] Output: Chest Tube Drainage 430 400 90 Pleural Catheter Left 430 400 90 Posterior Chest Urine 525 Other: Voiding Method Bedside Commode Urinal Urinal # Voids 1 # Bowel Movements 1 - Labs CBC & Chem 7: 07/17/22 07:10 07/17/22 07:10 Labs: Abnormal Lab Results - Last 24 Hours (Table) 07/16/22 07/17/22 07/17/22 Range/Units 08:48 07:10 07:10 RBC 3.38 L 2.95 L (4.40-5.60) X 10*6/uL Hgb 10.7 L 9.3 L (13.0-17.0) g/dL Hct 33.6 L 28.0 L (39.6-50.0) % MCV 99.4 H (80.0-97.0) fL MCHC 31.8 L (32.0-37.0) g/dL MPV 9.0 L (9.5-12.2) fL Eosinophils # 0.36 H (0.04-0.35) X 10*3/uL Anion Gap 7.40 L (10.00-18.00) mmol/L Glucose 129 H (70-110) mg/dL Calcium 8.1 L (8.7-10.3) mg/dL Microbiology - Last 24 Hours (Table) 07/14/22 14:10 Acid Fast Bacilli Smear - Final Pleural Fluid Acid Fast Bacilli Culture - Preliminary 07/13/22 21:55 Blood Culture - Preliminary Blood No Growth after 72 hours 07/14/22 14:10 Anaerobic Culture - Preliminary Pleural Fluid 07/14/22 14:10 Gram Stain - Preliminary Pleural Fluid Body Fluid Culture - Preliminary
--- NOTE | 2022-07-17 13:13 | CT ---
EXAMINATION TYPE: CT chest wo con DATE OF EXAM: 07/17/2022 COMPARISON: Chest CT 3 days ago HISTORY: FU Empyema CT DLP: 889 mGycm. Automated Exposure Control for Dose Reduction was Utilized. TECHNIQUE: CT scan of the thorax is performed without IV contrast. FINDINGS: LUNGS: Moderate possible left-sided pleural fluid collection remains present slightly improved from p rior study particularly anterior component. There is associated left lung compressive atelectasis. T race right pleural effusion redemonstrated with mild right basilar linear scarring and/or atelectasis There is no pneumothorax seen. The tracheobronchial tree is patent. MEDIASTINUM: Lack of IV contrast is noted to limit evaluation for mediastinal and especially hilar ad enopathy. There are persistent prominent prevascular, subcarinal, and AP window lymph nodes that are slightly larger in size from prior. Mild cardiomegaly redemonstrated. OTHER: Liver is diffusely low dense consistent with diffuse fatty infiltration. IMPRESSION: Moderate size left-sided pleural fluid collection remains present with associated left lauro ng compressive atelectasis. Only Slight improvement from prior.
--- NOTE | 2022-07-17 15:10 | P.PN ---
Subjective Progress Note Date: 07/17/22 I'm seeing this patient in new consultation today 07/14/2022 after being transferred from [facility] for suspected empyema. Patient is a 42-year-old white male with past medical history significant for hypertension, hyperlipidemia, ex-smoker. Patient reports shortness of breath, left lateral chest pain, fever, cough starting approximately 12 days ago. The patient's chest pain worsened yesterday causing him to go to [facility]. Chest CTA on arrival to [facility] showed no evidence of central pulmonary embolism with a left pleural effusion and peripheral nodular thickening related to a parapneumonic effusion. Patient was initially seen and evaluated by Dr. Maher who initiated a transfer for cardiothoracic services. Patient was admitted to the intensive care unit yesterday evening. Patient currently resting in bed, on BiPAP with settings 14/5 and an FiO2 of 50%. SpO2 is 96% on these settings. Patient is calm and tolerating therapy. Patient's CBC on arrival shows some leukocytosis with a WBC count of 17.6, and 1113.6, hematocrit 38.8, platelets 370,000. BMP on arrival to our facility shows a sodium 136, potassium 3.9, chloride 103, serum CO2 23, BP 117, creatinine 0.74, glucose 105. Patient currently has normal saline infusing at 125 mL per hour. Patient is covered with Unasyn and vancomycin. Chest pain is currently under control, and when necessary Toradol is ordered for analgesia. T-max was 102.5F. Vital signs are stable. On today's evaluation of 07/15/2022, the patient is feeling better compared to yesterday. He is weaned down to 3 L of oxygen by nasal cannula. As mentioned, the patient had a left lung pneumonia with empyema. A pigtail catheter was inserted and the total amount of output is 1.3 L of purulent lash bloody fluid from the left lung. The fluid analysis shows that the glucose has been less than 2, LDH is 5260 and a white cell count and the fluid was 14,029. Meanwhile, the patient received a first dose of thrombolytic administration through the pigtail catheter yesterday. A second dose is to follow. White cell count is not under 10.4, hemoglobin is at 10.8 and the platelet count is at 278. Electrolytes are normal. Cultures are still pending. Fluid cultures have been sent. Blood cultures aren't negative for now. Meanwhile, the patient is doing incentive spirometer. He is falling approximately 1200 and his incentive spirometer. He remains on Unasyn and vancomycin. His pleuritic chest pain is subsided significantly. , I'm seeing the patient for a follow-up. Patient is doing well. The patient is currently being treated for a pneumonia/empyema. The pleural fluid cultures are still negative. The patient is having daily. Patient with a pigtail catheter. On today's x-ray, there is significant improvement in the aeration of the left lung. There is a left lower lobe consolidation although the x-ray findings. The patient is currently on 2 L of oxygen by nasal cannula. He is using the incentive spirometer. Output from the pigtail catheter is in order of 1500 mL over the past 24 hours. On 07/17/2022, the patient is being seen for a follow-up. Overall clinically the patient is feeling better. The output from the pigtail catheter in the left chest is still ongoing and output is somewhat bloody purulent fluid. The left- sided pigtail catheter intensely wall suction. The patient has already received at the 3 treatments with alteplase. Total amount of output over the past 24 hours has been in the order of 850 mL. The patient remains on Unasyn and vancomycin. Repeat CAT scan of the chest was done today and the CAT scan shows moderate-sized left-sided lower fluid collection superiorly and posteriorly. The aeration in the left lung bases improved. There has been some interval expansion of the left lung. I discussed the case with cardiothoracic surgery and interventional radiology. We'll going to proceed with another pigtail catheter insertion to drain this persistent loculated pleural effusion. The white cell count of 8.8 with a hemoglobin of 9.3. Sodium is at 142. The ends of 12 and a creatinine of 0.7. Is currently on 2 L of oxygen by nasal cannula. Ventilating. He is using the incentive spirometer. Objective - Vital Signs Vital signs: Vital Signs Temp 98.3 F 07/17/22 07:49 Pulse 94 07/17/22 09:46 Resp 18 07/17/22 09:46 BP 144/97 07/17/22 07:49 Pulse Ox 97 07/17/22 09:36 FiO2 50 07/15/22 04:00 Intake & Output 07/16/22 07/17/22 07/17/22 18:59 06:59 18:59 Intake Total 440 Output Total 430 925 160 Balance -430 -485 -160 Intake: Intake, IV Titration 440 Amount Ampicillin-Sulbactam 3 gm 200 In Sodium Chloride 0.9% 100 ml @ 200 mls/hr IVPB Q6H [facility] Rx#:[id number] Sodium Chloride 0.9% 500 240 ml @ 20 mls/hr IV .Q24H [facility] Rx#:[id number] Output: Chest Tube Drainage 430 400 160 Pleural Catheter Left 430 400 160 Posterior Chest Urine 525 Other: Voiding Method Bedside Commode Urinal Urinal # Voids 1 # Bowel Movements 1 - Exam GENERAL EXAM: Alert, 42-year-old white male, comfortable in no apparent distress. Currently the patient is only on 2 L of oxygen by nasal cannula. HEAD: Normocephalic and atraumatic EYES: Normal reaction of pupils, equal size. NOSE: Clear with pink turbinates. THROAT: No erythema or exudates. NECK: No masses, no JVD. CHEST: No chest wall deformity. LUNGS: Equal air entry with diminished breath sounds at the left base. The patient has a pigtail catheter inserted into the left hemithorax posteriorly, there is improvement in air entry in the left lung base and there is also improvement in aeration. CVS: S1 and S2 normal with no audible murmur, regular rhythm. No extra heart sounds ABDOMEN: No hepatosplenomegaly, active bowel sounds, no guarding or rigidity. SPINE: No scoliosis or deformity SKIN: No rashes CENTRAL NERVOUS SYSTEM: No focal deficits, tone is normal in all 4 extremities. EXTREMITIES: There is no peripheral edema, clubbing, or cyanosis. Peripheral pulses are intact. - Labs CBC & Chem 7: 07/17/22 07:10 07/17/22 07:10 Labs: Abnormal Lab Results - Last 24 Hours (Table) 07/16/22 07/17/22 07/17/22 Range/Units 08:48 07:10 07:10 RBC 3.38 L 2.95 L (4.40-5.60) X 10*6/uL Hgb 10.7 L 9.3 L (13.0-17.0) g/dL Hct 33.6 L 28.0 L (39.6-50.0) % MCV 99.4 H (80.0-97.0) fL MCHC 31.8 L (32.0-37.0) g/dL MPV 9.0 L (9.5-12.2) fL Eosinophils # 0.36 H (0.04-0.35) X 10*3/uL Anion Gap 7.40 L (10.00-18.00) mmol/L Glucose 129 H (70-110) mg/dL Calcium 8.1 L (8.7-10.3) mg/dL Microbiology - Last 24 Hours (Table) 07/14/22 14:10 Acid Fast Bacilli Smear - Final Pleural Fluid Acid Fast Bacilli Culture - Preliminary 07/13/22 21:55 Blood Culture - Preliminary Blood No Growth after 72 hours 07/14/22 14:10 Anaerobic Culture - Preliminary Pleural Fluid 07/14/22 14:10 Gram Stain - Preliminary Pleural Fluid Body Fluid Culture - Preliminary Assessment and Plan Plan: Left lower lobe pneumonia/ empyema. The patient continues to have dense consolidation of the left lung. The patient has a pigtail catheter inserted and the fluid is consistent with empyema. The patient continues to have active out put from the pigtail catheter inserted earlier. There is improvement elevation of the left lung. Nevertheless there is a persistent pleural fluid collection/pocket that may need another drainage either thoracentesis or another pigtail catheter. Patient is also treatments with alteplase 3. Dyspnea, improving Extensive left lower lobe consolidation/pneumonia Acute hypoxic respiratory failure secondary to above. Currently on 2 L of oxygen nasal cannula and shortness of breath is improving Hyperlipidemia Hypertension Morbid obesity with a BMI of 36.5 Ex-smoker, remote history of smoking Plan: Monitor the output from the pigtail catheter Another thoracentesis versus pigtail catheter by interventional radiology based on the most recent CAT scan findings A total of 3 treatments with alteplase was given Incentive spirometer Continue empiric antibiotics Blood cultures are negative and the pleural cultures are pending, negative thus far Pain management with Toradol Clinically improving
--- NOTE | 2022-07-17 16:17 | XR ---
EXAMINATION TYPE: XR chest 2V DATE OF EXAM: 07/17/2022 COMPARISON: Chest CT earlier today HISTORY: Left-sided empyemas. TECHNIQUE: Frontal and lateral views of the chest are obtained. FINDINGS: There is new posterior left mid pigtail pleural drainage catheter and persistent posterior basilar left-sided pleural drainage catheter. Persistent nonsimple left-sided pleural fluid collecti on including the apical component. Persistent left mid to lower lung opacity favoring compressive ate lectasis. Patchy right basilar opacity redemonstrated. Stable mild cardiomegaly. Osseous structures a re intact. IMPRESSION: As above.
--- NOTE | 2022-07-17 16:20 | US ---
PROCEDURE: Ultrasound-guided left pleural pigtail catheter placement DATE: 07/17/2022 SEISMIC PROSPECTING SUPERVISOR: Dr. Everett CLINICAL HISTORY: Loculated pleural effusion COMPARISON: Recent chest radiograph ANESTHESIA: 1% local lidocaine PROCEDURE: The procedure, risks, and alternatives were discussed and all questions were answered. Written inform ed consent obtained. A complicating paperwork and verified for accuracy. Directed history and physica l exam performed prior to the procedure. Medication reconciliation performed by nursing personnel. Pr ocedure was performed using a cap, sterile gloves, hand hygiene, and chlorhexidine for cutaneous anti sepsis. A critical pause was performed with assisting personnel just prior to the procedure with the patient's identity confirmed using 2 identifiers, confirming site and side. Limited grayscale ultrasound of the left posterior chest wall demonstrates a pleural effusion. An guillaume ropriate skin entry site was marked, prepped and draped in usual sterile fashion. 1% lidocaine was ad ministered into the skin and deeper soft tissues. A small skin incision was made. A 5 Albanian needle c atheter was advanced into the left pleural space under continuous ultrasound guidance. The inner styl ette was removed. A wire was advanced to the catheter and the catheter was removed. An 8.5 Albanian all -purpose drainage catheter was advanced over the wire and the wire and inner stiffener were removed. Internal retention loop was formed and locked. Catheter secured the patient's skin using a stay fix. The catheter was then connected to a Pleur-evac system. The patient tolerated the procedure well and there were no immediate complications. Blood loss was mi nimal. IMPRESSION: Successful, uncomplicated ultrasound-guided left pleural pigtail catheter placement.
[2022-07-17] MEDS: FENOFIBRATE 160 MG TAB PO SCH (17:21)
[2022-07-17] MEDS: SODIUM CHLORIDE 0.9% 500 ML IV SCH (17:23)
[2022-07-18] MEDS: AMPICILLIN-SULBACTAM 3 GM in SODIUM CHLORIDE 0.9% 100 ML IVPB SCH ×5 (00:10→23:56)
[2022-07-18] MEDS: ACETAMINOPHEN TAB 325 MG TAB PO SCH ×6 (00:10→20:27)
[2022-07-18] MEDS: ALPRAZolam 0.5 MG TAB PO PRN ×2 (00:10→23:56)
[2022-07-18] MEDS: HEPARIN SODIUM,PORCINE/PF 5,000 UNIT/0.5 ML SYRINGE SQ SCH ×3 (00:11→16:08)
[2022-07-18] MEDS: KETOROLAC 15 MG/ML 1 ML VIAL IVP SCH ×4 (00:11→17:17)
[2022-07-18] MEDS: PANTOPRAZOLE 40 MG TABLET PO SCH (06:26)
--- NOTE | 2022-07-18 06:29 | XR ---
EXAMINATION TYPE: XR chest 1V portable DATE OF EXAM: 07/18/2022 COMPARISON: 07/17/2022 HISTORY: Left parapneumonic effusion TECHNIQUE: Single frontal view of the chest is obtained. FINDINGS: Pigtail pleural catheter is redemonstrated at the left lung base and left midlung zone. Pleural effus ion is redemonstrated although is much smaller in size. Elevation right hemidiaphragm. Underlying ate lectasis or infiltrate. No pneumothorax present. The cardiac silhouette size is within normal limits. The osseous structures are intact. IMPRESSION: 1. Left-sided Pleural effusion is redemonstrated although is much smaller in size.
[2022-07-18 07:45] LABS: Basophils % (A) 0 %; Eosinophils # (A) 0.4 k/uL (0-0.7); Eosinophils % (A) 6 %; HCT 29.1 % (39.0-53.0); HGB 9.8 gm/dL (13.0-17.5); Lymphocytes # (A) 1.3 k/uL (1.0-4.8); Lymphocytes % (A) 19 %; MCH 31.9 pg (25.0-35.0); MCHC 33.6 g/dL (31.0-37.0); MCV 94.9 fL (80.0-100.0); Mean Platelet Volume 7.2; Monocytes # (A) 0.4 k/uL (0-1.0); Monocytes % (A) 6 %; Neutrophils # (A) 4.7 k/uL (1.3-7.7); Neutrophils % (A) 68 %; Platelet Count 376 k/uL (150-450); Poikilocytosis Slight; RBC 3.07 m/uL (4.30-5.90); RDW 12.5 % (11.5-15.5); WBC 6.9 k/uL (3.8-10.6)
[2022-07-18 07:58] LABS: African American GFR (CKD) >90 (>60 ml/min/1.73 sqM); Anion Gap 5 mmol/L; Blood Urea Nitrogen 13 mg/dL (9-20); Calcium 8.1 mg/dL (8.4-10.2); Carbon Dioxide 27 mmol/L (22-30); Chloride 106 mmol/L (98-107); Glucose 118 mg/dL (74-99); Non-African American GFR(CKD) >90 (>60 ml/min/1.73 sqM); Sodium 138 mmol/L (137-145)
[2022-07-18] MEDS: PATIENT'S OWN (Icosapent Ethyl [Icosapent Ethyl] 1 GM Capsule) PO SCH ×2 (08:16→20:27)
--- NOTE | 2022-07-18 08:53 | P.PN ---
Subjective Progress Note Date: 07/18/22 Principal diagnosis: Left-sided loculated parapneumonic effusion, possible empyema, acute hypoxic respiratory failure, leukocytosis, febrile illness. History of hyperlipidemia, obesity, previous tobacco dependence, wisdom teeth extraction approximated 3 weeks ago. POD #4 placement of left sided pigtail catheter by interventional radiology and POD #1 placement of second left-sided pigtail catheter by interventional radiology. The patient was seen and examined in follow-up today 07/18/2022 at his bedside on the cardiac stepdown unit. Currently he is sitting up in bed, is awake, alert, oriented 3 and is in no acute distress. Denies any complaints of pain at this time and states that his breathing does feel slightly improved today from yesterday. Oxygen saturation are 94% on room air and he is achieving 1500 mL on his incentive spirometry. A computed tomography scan of his chest without contrast was completed yesterday which demonstrated a moderate left-sided p leural fluid collection with associated left long compressive atelectasis. Due to the findings on the computed tomography scan of the chest a second left pleural pigtail catheter was placed by interventional radiology. Both the left- sided pigtail catheters remaining to low continuous wall suction -20 cm H2O. No air leak is present. The upper left chest pigtail catheter is draining thin serous drainage with 80 mL of output since being placed and the left lower pigtail catheter had 0 drainage in the last 12 hours. Remote telemetry showing normal sinus rhythm heart rate 94 BPM. He remains on IV antibiotics and his cultures continue to show no growth to date. Objective - Vital Signs Vital signs: Vital Signs Temp 98.4 F 07/18/22 08:11 Pulse 85 07/18/22 08:11 Resp 18 07/18/22 08:11 BP 136/85 07/18/22 08:11 Pulse Ox 96 07/18/22 08:11 FiO2 50 07/15/22 04:00 Intake & Output 07/17/22 07/18/22 07/18/22 18:59 06:59 18:59 Intake Total 100 Output Total 160 1050 11 Balance -60 -1050 -11 Intake: Oral 100 Output: Chest Tube Drainage 160 11 Chest Tube Left Upper 1 Posterior Chest Pleural Catheter Left 160 10 Posterior Chest Urine 1050 Other: Voiding Method Urinal Urinal Urinal # Voids 1 - Exam CONSTITUTIONAL: Appears comfortable, cooperative, no acute distress. RESPIRATORY: Lungs sounds diminished bilaterally, left greater than right. Respirations are symmetrical, nonlabored. Currently on room air with oxygen saturation 94%. Able to achieve 1500 mL on incentive spirometry. Strong cough. CARDIOVASCULAR: S1, S2 present. Regular rate and rhythm, sinus rhythm on remote telemetry. Palpable peripheral pulses bilaterally. No edema present. No calf pain or tenderness noted GASTROINTESTINAL: Abdomen soft, nontender, nondistended. Active bowel sounds present 4 quadrants. Tolerating diet. Bowel movement yesterday 07/17/2022. GENITOURINARY: Continues to void. INTEGUMENTARY: Skin is warm and dry with no evidence of clubbing or cyanosis. Pigtail catheter dressings clean, dry and intact. NEUROLOGIC: Cranial nerves II through XII intact. No focal deficits. MUSKULOSKELETAL: Able to move all extremities, strength equal bilaterally, gait normal. PSYCHIATRIC: Alert and oriented to person place and time, appropriate affect, intact judgment and insight. INVASIVE LINES AND TUBES: Left upper pigtail catheter with 80 mL of thin serous drainage and the left lower pigtail catheter with 0 drainage over the last 12-14 hours. - Allied health notes Allied health notes reviewed: nursing - Labs CBC & Chem 7: 07/18/22 07:10 07/18/22 07:10 Labs: Abnormal Lab Results - Last 24 Hours (Table) 07/17/22 07/17/22 07/18/22 Range/Units 07:10 07:10 07:10 RBC 2.95 L 3.07 L (4.40-5.60) X 10*6/uL Hgb 9.3 L 9.8 L (13.0-17.0) g/dL Hct 28.0 L 29.1 L (39.6-50.0) % MPV 9.0 L (9.5-12.2) fL Eosinophils # 0.36 H (0.04-0.35) X 10*3/uL Anion Gap 7.40 L (10.00-18.00) mmol/L Creatinine (0.66-1.25) mg/dL Glucose 129 H (70-110) mg/dL Calcium 8.1 L (8.7-10.3) mg/dL 07/18/22 Range/Units 07:10 RBC (4.40-5.60) X 10*6/uL Hgb (13.0-17.0) g/dL Hct (39.6-50.0) % MPV (9.5-12.2) fL Eosinophils # (0.04-0.35) X 10*3/uL Anion Gap (10.00-18.00) mmol/L Creatinine 0.64 L (0.66-1.25) mg/dL Glucose 118 H (70-110) mg/dL Calcium 8.1 L (8.7-10.3) mg/dL Microbiology - Last 24 Hours (Table) 07/13/22 21:55 Blood Culture - Preliminary Blood No Growth after 96 hours 07/14/22 14:10 Gram Stain - Preliminary Pleural Fluid Body Fluid Culture - Preliminary - Imaging and Cardiology Chest x-ray: report reviewed, image reviewed Assessment and Plan Assessment: Left-sided loculated parapneumonic effusion, possible empyema, status post placement of left-sided pigtail catheter with instillation of alteplasedornase Acute hypoxic respiratory failure, requiring BiPAP, currently on 3 L nasal cannula Leukocytosis, febrile illness History of hyperlipidemia, treated Obesity with a BMI 36.3 kg/m Previous tobacco dependence [place] teeth extraction approximated 3 weeks ago Plan: We will instill alteplase/dornase to his upper left chest pigtail catheter today. We will keep both left chest pigtail catheter is in place today and possibly remove his left lower pigtail catheter tomorrow. Encourage incentive spirometry is 10 times every hour while awake. Increase activity as tolerated, encourage ambulation. Out of bed for all meals. Will monitor daily labs and chest x-rays. Continue antibiotics. Continue to follow culture results. Medical management of other comorbidities per internal medicine service. More recommendations to follow based on patient's clinical course. Time with Patient: Greater than 30
[2022-07-18] MEDS ORDERED: ALTEPLASE 10 MG in SODIUM CHLORIDE 0.9% 50 ML IRRIGATION ONE (09:00)
[2022-07-18] MEDS ORDERED: DORNASE ALFA 5 MG in SODIUM CHLORIDE 0.9% 50 ML IRRIGATION ONE (09:00)
[2022-07-18] MEDS: IPRATROPIUM-ALBUTEROL 3 ML NEB INHALATION SCH ×4 (09:05→21:04)
--- NOTE | 2022-07-18 10:28 | P.PN ---
Subjective Progress Note Date: 07/18/22 Hospital Course: 42-year-old male with history of obesity, dyslipidemia, GERD presenting from [facility] for pneumonia with left loculated pleural effusion suspicious for empyema. On presentation, patient's temperature was 102.5, tachycardic to 112, respiratory rate 25, saturating at 97% on BiPAP, blood pressure 138/95. Initial labs showed WBC 17.6, hemoglobin 13.6, sodium 136, creatinine 0.74. Chest x-ray showed moderate-sized left-sided pleural effusion. Patient admitted to medical ICU. Chest CT shows increasing size of loculated pleural fluid collection in the left lung including left middle and lower lung perfusion and loculated anterior upper lung diffusion. Status post ultrasound-guided left pleural pigtail catheter. On IV abx. Cultures showed no growth to date. Due to persistent left pleural effusion, another chest tube placed. Subjective: Patient seen and examined at bedside. Shortness of breath is improving, continues to have persistent cough, minimally productive. He denies any nausea or vomiting, abdominal pain, urinary or bowel complaints. Chest tube remains in place Pertinent positives and negatives as discussed above, a complete review of systems was performed and all other systems are negative. Vitals Signs Reviewed. General: nontoxic, not in acute distress, appears at stated age Derm: warm, dry Head: atraumatic, normocephalic, symmetric Eyes: EOMI, no lid lag, anicteric sclera Mouth: no lip lesion, mucus membranes moist Cardiovascular: S1S2 reg, no murmur Lungs: Reduced breath sounds bilaterally, greater on left , no accessory muscle use, supplemental oxygen, chest tube in place 2 Abdominal: soft, nontender to palpation, no guarding, no appreciable organomegaly Ext: no gross muscle atrophy, no edema, no contractures Neuro: CN II-XI grossly intact, no focal neuro deficits Psych: Alert, oriented, appropriate affect Data Reviewed Today: Pertinent Labs: WBC 6.9, hemoglobin 9.8, sodium 138, creatinine 0.64 Imaging: Chest x-ray personally interpreted, persistent left-sided pleural effusion, now improving, pigtail catheter in the left Assessment and Plan: Patient remains critically ill, has [address] Active: bacterial pneumonia Empyema Recent wisdom teeth extraction, 3 weeks ago Acute hypoxic respiratory failure Normocytic anemia, possibly blood loss from chest tube, expected outcome -Pulmonology following -Cardiothoracic surgery note reviewed: Keep PIGTAIL catheter today, likely removal of left lower pigtail catheter tomorrow -On IV Unasyn 3 g every 6 hours -Sputum cultures and blood cultures, pleural fluid cultures no growth to date -Hemoglobin, stable, no active bleeding -Pain control with oral Tylenol and IV Toradol as needed Resolved: Sepsis Chronic: Dyslipidemia DVT ppx: Subcu heparin Code status: Full code Anticipated discharge place: Pending clinical course Anticipated discharge time: Pending clinical course Objective - Vital Signs Vital signs: Vital Signs Temp 98.4 F 07/18/22 08:11 Pulse 85 07/18/22 08:11 Resp 18 07/18/22 08:11 BP 136/85 07/18/22 08:11 Pulse Ox 96 07/18/22 08:11 FiO2 50 07/15/22 04:00 Intake & Output 07/17/22 07/18/22 07/18/22 18:59 06:59 18:59 Intake Total 100 Output Total 160 1050 11 Balance -60 -1050 -11 Intake: Oral 100 Output: Chest Tube Drainage 160 11 Chest Tube Left Upper 1 Posterior Chest Pleural Catheter Left 160 10 Posterior Chest Urine 1050 Other: Voiding Method Urinal Urinal Urinal # Voids 1 - Labs CBC & Chem 7: 07/18/22 07:10 07/18/22 07:10 Labs: Abnormal Lab Results - Last 24 Hours (Table) 07/17/22 07/17/22 07/18/22 Range/Units 07:10 07:10 07:10 RBC 2.95 L 3.07 L (4.40-5.60) X 10*6/uL Hgb 9.3 L 9.8 L (13.0-17.0) g/dL Hct 28.0 L 29.1 L (39.6-50.0) % MPV 9.0 L (9.5-12.2) fL Eosinophils # 0.36 H (0.04-0.35) X 10*3/uL Anion Gap 7.40 L (10.00-18.00) mmol/L Creatinine (0.66-1.25) mg/dL Glucose 129 H (70-110) mg/dL Calcium 8.1 L (8.7-10.3) mg/dL 04/22/23 Range/Units 07:10 RBC (4.40-5.60) X 10*6/uL Hgb (13.0-17.0) g/dL Hct (39.6-50.0) % MPV (9.5-12.2) fL Eosinophils # (0.04-0.35) X 10*3/uL Anion Gap (10.00-18.00) mmol/L Creatinine 0.64 L (0.66-1.25) mg/dL Glucose 118 H (70-110) mg/dL Calcium 8.1 L (8.7-10.3) mg/dL Microbiology - Last 24 Hours (Table) 07/13/22 21:55 Blood Culture - Preliminary Blood No Growth after 96 hours 07/14/22 14:10 Gram Stain - Preliminary Pleural Fluid Body Fluid Culture - Preliminary
[2022-07-18] MEDS: SODIUM CHLORIDE 0.9% 500 ML IV SCH (11:23)
[2022-07-18] MEDS: ACETAMINOPHEN TAB 325 MG TAB PO PRN (11:31)
--- NOTE | 2022-07-18 12:34 | P.PN ---
Subjective Progress Note Date: 07/18/22 I'm seeing this patient in new consultation today 07/14/2022 after being transferred from [facility] for suspected empyema. Patient is a 42-year-old white male with past medical history significant for hypertension, hyperlipidemia, ex-smoker. Patient reports shortness of breath, left lateral chest pain, fever, cough starting approximately 12 days ago. The patient's chest pain worsened yesterday causing him to go to [facility]. Chest CTA on arrival to [facility] showed no evidence of central pulmonary embolism with a left pleural effusion and peripheral nodular thickening related to a parapneumonic effusion. Patient was initially seen and evaluated by Dr. Maher who initiated a transfer for cardiothoracic services. Patient was admitted to the intensive care unit yesterday evening. Patient currently resting in bed, on BiPAP with settings 14/5 and an FiO2 of 50%. SpO2 is 96% on these settings. Patient is calm and tolerating therapy. Patient's CBC on arrival shows some leukocytosis with a WBC count of 17.6, and 1113.6, hematocrit 38.8, platelets 370,000. BMP on arrival to our facility shows a sodium 136, potassium 3.9, chloride 103, serum CO2 23, BP 117, creatinine 0.74, glucose 105. Patient currently has normal saline infusing at 125 mL per hour. Patient is covered with Unasyn and vancomycin. Chest pain is currently under control, and when necessary Toradol is ordered for analgesia. T-max was 102.5F. Vital signs are stable. On today's evaluation of 07/15/2022, the patient is feeling better compared to yesterday. He is weaned down to 3 L of oxygen by nasal cannula. As mentioned, the patient had a left lung pneumonia with empyema. A pigtail catheter was inserted and the total amount of output is 1.3 L of purulent lash bloody fluid from the left lung. The fluid analysis shows that the glucose has been less than 2, LDH is 5260 and a white cell count and the fluid was 14,029. Meanwhile, the patient received a first dose of thrombolytic administration through the pigtail catheter yesterday. A second dose is to follow. White cell count is not under 10.4, hemoglobin is at 10.8 and the platelet count is at 278. Electrolytes are normal. Cultures are still pending. Fluid cultures have been sent. Blood cultures aren't negative for now. Meanwhile, the patient is doing incentive spirometer. He is falling approximately 1200 and his incentive spirometer. He remains on Unasyn and vancomycin. His pleuritic chest pain is subsided significantly. , I'm seeing the patient for a follow-up. Patient is doing well. The patient is currently being treated for a pneumonia/empyema. The pleural fluid cultures are still negative. The patient is having daily. Patient with a pigtail catheter. On today's x-ray, there is significant improvement in the aeration of the left lung. There is a left lower lobe consolidation although the x-ray findings. The patient is currently on 2 L of oxygen by nasal cannula. He is using the incentive spirometer. Output from the pigtail catheter is in order of 1500 mL over the past 24 hours. On 07/17/2022, the patient is being seen for a follow-up. Overall clinically the patient is feeling better. The output from the pigtail catheter in the left chest is still ongoing and output is somewhat bloody purulent fluid. The left- sided pigtail catheter intensely wall suction. The patient has already received at the 3 treatments with alteplase. Total amount of output over the past 24 hours has been in the order of 850 mL. The patient remains on Unasyn and vancomycin. Repeat CAT scan of the chest was done today and the CAT scan shows moderate-sized left-sided lower fluid collection superiorly and posteriorly. The aeration in the left lung bases improved. There has been some interval expansion of the left lung. I discussed the case with cardiothoracic surgery and interventional radiology. We'll going to proceed with another pigtail catheter insertion to drain this persistent loculated pleural effusion. The white cell count of 8.8 with a hemoglobin of 9.3. Sodium is at 142. The ends of 12 and a creatinine of 0.7. Is currently on 2 L of oxygen by nasal cannula. Ventilating. He is using the incentive spirometer. On 07/18/2022, the patient is doing better. He is currently on room air oxygen. No new complaints for now. The chest x-ray shows further improvement in the aeration of the left lung. Note that a second pigtail catheter was inserted yesterday and there was considerable amount of drainage which resulted in further improvement in his chest x-ray findings. The upper left chest pigtail catheter has drained an additional 80 mL. Based on that, we will going to administer alteplase to the upper pigtail. The lower pigtail has no significant output. He is afebrile. He remains on that antibiotic coverage. He is using incentive spirometer. The numbers progressively improved. He is ambulating. No fever. No chills. No other complaints otherwise. The patient's WBC count is at 6.9 with a hemoglobin 9.8 and the patient has a BUN of 50 with a creatinine of 0.6 and the sodium level is at 138. Objective - Vital Signs Vital signs: Vital Signs Temp 98.8 F 07/18/22 11:20 Pulse 101 H 07/18/22 11:57 Resp 18 07/18/22 11:20 BP 149/92 07/18/22 11:20 Pulse Ox 97 07/18/22 11:51 FiO2 50 07/15/22 04:00 Intake & Output 07/17/22 07/18/22 07/18/22 18:59 06:59 18:59 Intake Total 100 Output Total 160 1050 11 Balance -60 -1050 -11 Intake: Oral 100 Output: Chest Tube Drainage 160 11 Chest Tube Left Upper 1 Posterior Chest Pleural Catheter Left 160 10 Posterior Chest Urine 1050 Other: Voiding Method Urinal Urinal Urinal # Voids 1 - Exam GENERAL EXAM: Alert, 42-year-old white male, comfortable in no apparent distress. Currently the patient is only on room air oxygen HEAD: Normocephalic and atraumatic EYES: Normal reaction of pupils, equal size. NOSE: Clear with pink turbinates. THROAT: No erythema or exudates. NECK: No masses, no JVD. CHEST: No chest wall deformity. LUNGS: Equal air entry with diminished breath sounds at the left base. The patient has a pigtail catheter inserted into the left hemithorax posteriorly, there is improvement in air entry in the left lung base and there is also improvement in aeration. CVS: S1 and S2 normal with no audible murmur, regular rhythm. No extra heart sounds ABDOMEN: No hepatosplenomegaly, active bowel sounds, no guarding or rigidity. SPINE: No scoliosis or deformity SKIN: No rashes CENTRAL NERVOUS SYSTEM: No focal deficits, tone is normal in all 4 extremities. EXTREMITIES: There is no peripheral edema, clubbing, or cyanosis. Peripheral pulses are intact. - Labs CBC & Chem 7: 07/18/22 07:10 07/18/22 07:10 Labs: Abnormal Lab Results - Last 24 Hours (Table) 07/18/22 07/18/22 Range/Units 07:10 07:10 RBC 3.07 L (4.30-5.90) m/uL Hgb 9.8 L (13.0-17.5) gm/dL Hct 29.1 L (39.0-53.0) % Creatinine 0.64 L (0.66-1.25) mg/dL Glucose 118 H (74-99) mg/dL Calcium 8.1 L (8.4-10.2) mg/dL Microbiology - Last 24 Hours (Table) 07/13/22 21:55 Blood Culture - Preliminary Blood No Growth after 96 hours 07/14/22 14:10 Gram Stain - Preliminary Pleural Fluid Body Fluid Culture - Preliminary Assessment and Plan Plan: Left lower lobe pneumonia/ empyema. The patient continues to have dense consolidation of the left lung. The patient has a pigtail catheter inserted and the fluid is consistent with empyema. The patient continues to have active output from the pigtail catheter inserted earlier. There is improvement elevation of the left lung. Nevertheless there is a persistent pleural fluid collection/pocket that may need another drainage either thoracentesis or another pigtail catheter. Patient is also treatments with alteplase 3. A second pigtail catheter was inserted in the left upper chest with further improvement in the drainage and the chest x-ray findings. Clinically much improved and the patient is currently on room air oxygen. Dyspnea, improving Extensive left lower lobe consolidation/pneumonia Acute hypoxic respiratory failure secondary to above. Currently on room air oxygen Hyperlipidemia Hypertension Morbid obesity with a BMI of 36.5 Ex-smoker, remote history of smoking Plan: Monitor the output from the pigtail catheter from both of his catheters Administer alteplase to the left upper chest pigtail catheter A total of 3 treatments with alteplase was given in the left lower left chest pigtail catheter Incentive spirometer, numbers are improving Continue empiric antibiotics Blood cultures are negative and the pleural cultures are pending, negative thus far Pain management with Toradol Clinically improving
[2022-07-18] MEDS: FENOFIBRATE 160 MG TAB PO SCH (16:08)
[2022-07-19] MEDS: HEPARIN SODIUM,PORCINE/PF 5,000 UNIT/0.5 ML SYRINGE SQ SCH ×4 (00:01→23:36)
[2022-07-19] MEDS: ACETAMINOPHEN TAB 325 MG TAB PO SCH ×7 (00:03→23:36)
[2022-07-19] MEDS: AMPICILLIN-SULBACTAM 3 GM in SODIUM CHLORIDE 0.9% 100 ML IVPB SCH ×4 (04:33→23:36)
[2022-07-19] MEDS: PANTOPRAZOLE 40 MG TABLET PO SCH (06:47)
--- NOTE | 2022-07-19 07:15 | XR ---
EXAMINATION TYPE: XR chest 1V portable DATE OF EXAM: 07/19/2022 COMPARISON: 07/18/2022 HISTORY: Chest pain TECHNIQUE: Single frontal view of the chest is obtained. FINDINGS: Left basilar pleural catheter is unchanged in position as is a pleural catheter within the left midlu ng zone. Stable left-sided pleural effusion. No evidence for pneumothorax. Chronic elevation right he midiaphragm with right basilar parenchymal scarring or atelectasis. The osseous structures are intact. Cardiomediastinal silhouette is stable. IMPRESSION: 1. Stable appearance of the chest
[2022-07-19] MEDS: PATIENT'S OWN (Icosapent Ethyl [Icosapent Ethyl] 1 GM Capsule) PO SCH ×2 (08:12→23:25)
[2022-07-19] MEDS ORDERED: ALTEPLASE 10 MG in SODIUM CHLORIDE 0.9% 50 ML IRRIGATION ONE (08:30)
[2022-07-19] MEDS ORDERED: DORNASE ALFA 5 MG in SODIUM CHLORIDE 0.9% 50 ML IRRIGATION ONE (08:30)
[2022-07-19] MEDS: IPRATROPIUM-ALBUTEROL 3 ML NEB INHALATION SCH ×5 (08:40→21:11)
--- NOTE | 2022-07-19 09:05 | P.PN ---
Subjective Progress Note Date: 07/19/22 Principal diagnosis: Left-sided loculated parapneumonic effusion, possible empyema, acute hypoxic respiratory failure, leukocytosis, febrile illness. History of hyperlipidemia, obesity, previous tobacco dependence, wisdom teeth extraction approximated 3 weeks ago. POD #5 placement of left sided pigtail catheter by interventional radiology and POD #2 placement of second left-sided pigtail catheter by interventional radiology. The patient was seen and examined in follow-up today 07/19/2022 at his bedside on the third floor cardiac stepdown unit. Currently is lying in bed, is awake, alert, oriented 3 and is in no acute distress. Denies any shortness of breath at this time, although is complaining of some pain to his left chest pigtail catheter insertion sites, rating his pain 5 out of 10 on the pain scale. Toradol has been restarted 15 mg IV every 6 hours. Oxygen saturations are 96% on room air, and he is achieving 1500 mL on his incentive spirometry. T-max t emperature in the last 24 hours 99.1F. He reports he has been up ambulating in the cardiac stepdown unit hallway. Left chest pigtail catheters remain in place to low continuous wall suction -20 cm H2O. No air leak is present. He received a dose of alteplase/dornase pleural instillation yesterday through his left upper chest pigtail catheter with 600 mL of thin serosanguineous drainage drained over the last 24 hours. He remains on IV antibiotics and he is cultures continue to so no growth. Objective - Vital Signs Vital signs: Vital Signs Temp 98.3 F 07/19/22 08:08 Pulse 92 07/19/22 08:57 Resp 18 07/19/22 08:08 BP 143/92 07/19/22 08:08 Pulse Ox 97 07/19/22 08:40 FiO2 50 07/15/22 04:00 Intake & Output 07/18/22 07/19/22 07/19/22 18:59 06:59 18:59 Intake Total 716 Output Total 406 950 305 Balance 310 -950 -305 Intake: Oral 716 Output: Chest Tube Drainage 406 100 30 Chest Tube Left Upper 110 100 30 Posterior Chest Pleural Catheter Left 296 0 0 Posterior Chest Urine 850 275 Other: Voiding Method Urinal Urinal Urinal # Voids 4 # Bowel Movements 1 - Exam CONSTITUTIONAL: Appears comfortable, cooperative, no acute distress. RESPIRATORY: Lungs sounds diminished bilaterally, left greater than right. Respirations are symmetrical, nonlabored. Currently on room air with oxygen saturation 96%. Able to achieve 1500 mL on incentive spirometry. Strong cough. CARDIOVASCULAR: S1, S2 present. Regular rate and rhythm, sinus rhythm on remote telemetry. Palpable peripheral pulses bilaterally. No edema present. No calf pain or tenderness noted GASTROINTESTINAL: Abdomen soft, nontender, nondistended. Active bowel sounds present 4 quadrants. Tolerating diet. Bowel movement yesterday 07/17/2022. GENITOURINARY: Continues to void. INTEGUMENTARY: Skin is warm and dry with no evidence of clubbing or cyanosis. Pigtail catheter dressings clean, dry and intact. NEUROLOGIC: Cranial nerves II through XII intact. No focal deficits. MUSKULOSKELETAL: Able to move all extremities, strength equal bilaterally, gait normal. PSYCHIATRIC: Alert and oriented to person place and time, appropriate affect, intact judgment and insight. INVASIVE LINES AND TUBES: Left upper pigtail catheter with 600 mL of thin serous drainage in the last 24 hours and the left lower pigtail catheter with 5 milliliters drainage over the last 24 hours. - Allied health notes Allied health notes reviewed: nursing - Labs CBC & Chem 7: 07/18/22 07:10 07/18/22 07:10 Labs: Microbiology - Last 24 Hours (Table) 07/14/22 14:10 Anaerobic Culture - Final Pleural Fluid 07/13/22 21:55 Blood Culture - Preliminary Blood No Growth after 120 hours 07/14/22 14:10 Gram Stain - Final Pleural Fluid Body Fluid Culture - Final - Imaging and Cardiology Chest x-ray: report reviewed, image reviewed Assessment and Plan Assessment: Left-sided loculated parapneumonic effusion, possible empyema, status post placement of left-sided pigtail catheter with instillation of alteplasedornase Acute hypoxic respiratory failure, requiring BiPAP, currently on 3 L nasal cannula Leukocytosis, febrile illness History of hyperlipidemia, treated Obesity with a BMI 36.3 kg/m Previous tobacco dependence [place] teeth extraction approximated 3 weeks ago Plan: We will instill alteplase/dornase to his upper left chest pigtail catheter today, which will be the second total dose through the left upper chest pigtail catheter. We will keep both left chest pigtail catheter is in place today. Encourage incentive spirometry is 10 times every hour while awake. Increase activity as tolerated, encourage ambulation. Out of bed for all meals. Will monitor daily labs and chest x-rays. Continue antibiotics. Continue to follow culture results. Medical management of other comorbidities per internal medicine service. More recommendations to follow based on patient's clinical course. Time with Patient: Greater than 30
[2022-07-19] MEDS: KETOROLAC 15 MG/ML 1 ML VIAL IVP SCH ×3 (09:41→20:32)
--- NOTE | 2022-07-19 10:11 | P.PN ---
Subjective Progress Note Date: 07/19/22 Hospital Course: 42-year-old male with history of obesity, dyslipidemia, GERD presenting from [facility] for pneumonia with left loculated pleural effusion suspicious for empyema. On presentation, patient's temperature was 102.5, tachycardic to 112, respiratory rate 25, saturating at 97% on BiPAP, blood pressure 138/95. Initial labs showed WBC 17.6, hemoglobin 13.6, sodium 136, creatinine 0.74. Chest x-ray showed moderate-sized left-sided pleural effusion. Patient admitted to medical ICU. Chest CT shows increasing size of loculated pleural fluid collection in the left lung including left middle and lower lung perfusion and loculated anterior upper lung diffusion. Status post ultrasound-guided left pleural pigtail catheter. On IV abx. Cultures showed no growth to date. Due to persistent left pleural effusion, another chest tube placed. Still having significant output from both lower left chest tubes. Subjective: Patient seen and examined at bedside. Shortness of breath is improving, continues to have persistent cough, minimally productive. He denies any nausea or vomiting, abdominal pain, urinary or bowel complaints. Chest tube remains in place Pertinent positives and negatives as discussed above, a complete review of systems was performed and all other systems are negative. Vitals Signs Reviewed. General: nontoxic, not in acute distress, appears at stated age Derm: warm, dry Head: atraumatic, normocephalic, symmetric Eyes: EOMI, no lid lag, anicteric sclera Mouth: no lip lesion, mucus membranes moist Cardiovascular: S1S2 reg, no murmur Lungs: Reduced breath sounds bilaterally, greater on left , no accessory muscle use, supplemental oxygen, chest tube in place 2 Abdominal: soft, nontender to palpation, no guarding, no appreciable organomegaly Ext: no gross muscle atrophy, no edema, no contractures Neuro: CN II-XI grossly intact, no focal neuro deficits Psych: Alert, oriented, appropriate affect Data Reviewed Today: Pertinent Labs: WBC 6.9, hemoglobin 9.8, sodium 138, creatinine 0.64 Imaging: Chest x-ray personally interpreted, persistent left-sided pleural effusion, stable from yesterday, pigtail catheters in the left 2 Assessment and Plan: Patient remains critically ill, has [address] Active: Left lung Bacterial pneumonia Empyema Recent wisdom teeth extraction, 3 weeks ago Acute hypoxic respiratory failure Normocytic anemia, possibly blood loss from chest tube, expected outcome -Pulmonology following -Cardiothoracic surgery note reviewed: Keep chest tubes in place today, continues to have significant output -On IV Unasyn 3 g every 6 hours -Sputum cultures and blood cultures, pleural fluid cultures no growth to date -Hemoglobin, stable, no active bleeding, repeat CBC tomorrow -Pain control with oral Tylenol and IV Toradol as needed -Repeat BMP tomorrow to monitor for renal function in the setting of scheduled IV NSAIDs -Continue pantoprazole 40 mg daily Resolved: Sepsis Chronic: Dyslipidemia DVT ppx: Subcu heparin Code status: Full code Anticipated discharge place: Pending clinical course Anticipated discharge time: Pending clinical course Objective - Vital Signs Vital signs: Vital Signs Temp 98.3 F 07/19/22 08:08 Pulse 92 07/19/22 08:57 Resp 18 07/19/22 08:08 BP 143/92 07/19/22 08:08 Pulse Ox 97 07/19/22 08:40 FiO2 50 07/15/22 04:00 Intake & Output 07/18/22 07/19/22 07/19/22 18:59 06:59 18:59 Intake Total 716 Output Total 406 950 305 Balance 310 -950 -305 Intake: Oral 716 Output: Chest Tube Drainage 406 100 30 Chest Tube Left Upper 110 100 30 Posterior Chest Pleural Catheter Left 296 0 0 Posterior Chest Urine 850 275 Other: Voiding Method Urinal Urinal Urinal # Voids 4 # Bowel Movements 1 - Labs CBC & Chem 7: 07/18/22 07:10 07/18/22 07:10 Labs: Microbiology - Last 24 Hours (Table) 07/14/22 14:10 Anaerobic Culture - Final Pleural Fluid 07/13/22 21:55 Blood Culture - Preliminary Blood No Growth after 120 hours 07/14/22 14:10 Gram Stain - Final Pleural Fluid Body Fluid Culture - Final
--- NOTE | 2022-07-19 12:29 | P.PN ---
Subjective Progress Note Date: 07/19/22 I'm seeing this patient in new consultation today 07/14/2022 after being transferred from [facility] for suspected empyema. Patient is a 42-year-old white male with past medical history significant for hypertension, hyperlipidemia, ex-smoker. Patient reports shortness of breath, left lateral chest pain, fever, cough starting approximately 12 days ago. The patient's chest pain worsened yesterday causing him to go to [facility]. Chest CTA on arrival to [facility] showed no evidence of central pulmonary embolism with a left pleural effusion and peripheral nodular thickening related to a parapneumonic effusion. Patient was initially seen and evaluated by Dr. Maher who initiated a transfer for cardiothoracic services. Patient was admitted to the intensive care unit yesterday evening. Patient currently resting in bed, on BiPAP with settings 14/5 and an FiO2 of 50%. SpO2 is 96% on these settings. Patient is calm and tolerating therapy. Patient's CBC on arrival shows some leukocytosis with a WBC count of 17.6, and 1113.6, hematocrit 38.8, platelets 370,000. BMP on arrival to our facility shows a sodium 136, potassium 3.9, chloride 103, serum CO2 23, BP 117, creatinine 0.74, glucose 105. Patient currently has normal saline infusing at 125 mL per hour. Patient is covered with Unasyn and vancomycin. Chest pain is currently under control, and when necessary Toradol is ordered for analgesia. T-max was 102.5F. Vital signs are stable. On today's evaluation of 07/15/2022, the patient is feeling better compared to yesterday. He is weaned down to 3 L of oxygen by nasal cannula. As mentioned, the patient had a left lung pneumonia with empyema. A pigtail catheter was inserted and the total amount of output is 1.3 L of purulent lash bloody fluid from the left lung. The fluid analysis shows that the glucose has been less than 2, LDH is 5260 and a white cell count and the fluid was 14,029. Meanwhile, the patient received a first dose of thrombolytic administration through the pigtail catheter yesterday. A second dose is to follow. White cell count is not under 10.4, hemoglobin is at 10.8 and the platelet count is at 278. Electrolytes are normal. Cultures are still pending. Fluid cultures have been sent. Blood cultures aren't negative for now. Meanwhile, the patient is doing incentive spirometer. He is falling approximately 1200 and his incentive spirometer. He remains on Unasyn and vancomycin. His pleuritic chest pain is subsided significantly. , I'm seeing the patient for a follow-up. Patient is doing well. The patient is currently being treated for a pneumonia/empyema. The pleural fluid cultures are still negative. The patient is having daily. Patient with a pigtail catheter. On today's x-ray, there is significant improvement in the aeration of the left lung. There is a left lower lobe consolidation although the x-ray findings. The patient is currently on 2 L of oxygen by nasal cannula. He is using the incentive spirometer. Output from the pigtail catheter is in order of 1500 mL over the past 24 hours. On 07/17/2022, the patient is being seen for a follow-up. Overall clinically the patient is feeling better. The output from the pigtail catheter in the left chest is still ongoing and output is somewhat bloody purulent fluid. The left- sided pigtail catheter intensely wall suction. The patient has already received at the 3 treatments with alteplase. Total amount of output over the past 24 hours has been in the order of 850 mL. The patient remains on Unasyn and vancomycin. Repeat CAT scan of the chest was done today and the CAT scan shows moderate-sized left-sided lower fluid collection superiorly and posteriorly. The aeration in the left lung bases improved. There has been some interval expansion of the left lung. I discussed the case with cardiothoracic surgery and interventional radiology. We'll going to proceed with another pigtail catheter insertion to drain this persistent loculated pleural effusion. The white cell count of 8.8 with a hemoglobin of 9.3. Sodium is at 142. The ends of 12 and a creatinine of 0.7. Is currently on 2 L of oxygen by nasal cannula. Ventilating. He is using the incentive spirometer. On 07/18/2022, the patient is doing better. He is currently on room air oxygen. No new complaints for now. The chest x-ray shows further improvement in the aeration of the left lung. Note that a second pigtail catheter was inserted yesterday and there was considerable amount of drainage which resulted in further improvement in his chest x-ray findings. The upper left chest pigtail catheter has drained an additional 80 mL. Based on that, we will going to administer alteplase to the upper pigtail. The lower pigtail has no significant output. He is afebrile. He remains on that antibiotic coverage. He is using incentive spirometer. The numbers progressively improved. He is ambulating. No fever. No chills. No other complaints otherwise. The patient's WBC count is at 6.9 with a hemoglobin 9.8 and the patient has a BUN of 50 with a creatinine of 0.6 and the sodium level is at 138. 07/19/2022, doing extremely well. Currently has 2 pigtail catheters. The lower pigtail catheter is not draining. Doppler pigtail catheter drain 500 mL yesterday, 80 mL over the past 8 hours and he was given another dose of thrombolytics. Chest x-ray shows significant improvement in aeration in the left lung. Cultures are all negative. Remain on the same antibiotic coverage and currently is on IV Unasyn. White cell count at 6.9. BUN is at 30 with a creatinine of 0.6 and his sodium levels of 138. He is ambulating. He is on room air oxygen with a pulse ox of 94%. Objective - Vital Signs Vital signs: Vital Signs Temp 99.2 F 07/19/22 11:08 Pulse 103 H 07/19/22 11:08 Resp 18 07/19/22 11:08 BP 124/78 07/19/22 11:08 Pulse Ox 94 L 07/19/22 11:08 FiO2 50 07/15/22 04:00 Intake & Output 07/18/22 07/19/22 07/19/22 18:59 06:59 18:59 Intake Total 716 Output Total 406 950 305 Balance 310 -950 -305 Intake: Oral 716 Output: Chest Tube Drainage 406 100 30 Chest Tube Left Upper 110 100 30 Posterior Chest Pleural Catheter Left 296 0 0 Posterior Chest Urine 850 275 Other: Voiding Method Urinal Urinal Urinal # Voids 4 # Bowel Movements 1 - Exam GENERAL EXAM: Alert, 42-year-old white male, comfortable in no apparent d istress. Currently the patient is only on room air oxygen HEAD: Normocephalic and atraumatic EYES: Normal reaction of pupils, equal size. NOSE: Clear with pink turbinates. THROAT: No erythema or exudates. NECK: No masses, no JVD. CHEST: No chest wall deformity. LUNGS: Equal air entry with diminished breath sounds at the left base. The patient has a pigtail catheter inserted into the left hemithorax posteriorly, there is improvement in air entry in the left lung base and there is also improvement in aeration. CVS: S1 and S2 normal with no audible murmur, regular rhythm. No extra heart sounds ABDOMEN: No hepatosplenomegaly, active bowel sounds, no guarding or rigidity. SPINE: No scoliosis or deformity SKIN: No rashes CENTRAL NERVOUS SYSTEM: No focal deficits, tone is normal in all 4 extremities. EXTREMITIES: There is no peripheral edema, clubbing, or cyanosis. Peripheral pulses are intact. - Labs CBC & Chem 7: 07/18/22 07:10 07/18/22 07:10 Labs: Microbiology - Last 24 Hours (Table) 07/14/22 14:10 Anaerobic Culture - Final Pleural Fluid 07/13/22 21:55 Blood Culture - Preliminary Blood No Growth after 120 hours 07/14/22 14:10 Gram Stain - Final Pleural Fluid Body Fluid Culture - Final Assessment and Plan Assessment: Left lower lobe pneumonia/ empyema. The patient continues to have dense consolidation of the left lung. The patient has a pigtail catheter inserted and the fluid is consistent with empyema. The patient continues to have active output from the pigtail catheter inserted earlier. There is improvement elevation of the left lung. Nevertheless there is a persistent pleural fluid collection/pocket that may need another drainage either thoracentesis or another pigtail catheter. Patient is also treatments with alteplase 3. A second pigtail catheter was inserted in the left upper chest with further improvement in the drainage and the chest x-ray findings. Clinically much improved and the patient is currently on room air oxygen. Therefore total thrombotic was given through the second pigtail catheter left upper chest today. Output is not in the lower extremity and it still active Doppler pigtail. Chest x-ray is essentially normalizing. Dyspnea, improving Extensive left lower lobe consolidation/pneumonia Acute hypoxic respiratory failure secondary to above. Currently on room air oxygen Hyperlipidemia Hypertension Morbid obesity with a BMI of 36.5 Ex-smoker, remote history of smoking Plan Keep the pigtail catheter in place more than Alteplase was administered today in the upper pigtail catheter Monitor the output Noncontrast CAT scan in the morning If all is good we'll remove the pigtail catheters Continue IV Unasyn Ambulating Room air oxygen Plan: Left lower lobe pneumonia/ empyema. The patient continues to have dense consolidation of the left lung. The patient has a pigtail catheter inserted and the fluid is consistent with empyema. The patient continues to have active output from the pigtail catheter inserted earlier. There is improvement el evation of the left lung. Nevertheless there is a persistent pleural fluid collection/pocket that may need another drainage either thoracentesis or another pigtail catheter. Patient is also treatments with alteplase 3. A second pigtail catheter was inserted in the left upper chest with further improvement in the drainage and the chest x-ray findings. Clinically much improved and the patient is currently on room air oxygen. Dyspnea, improving Extensive left lower lobe consolidation/pneumonia Acute hypoxic respiratory failure secondary to above. Currently on room air oxygen Hyperlipidemia Hypertension Morbid obesity with a BMI of 36.5 Ex-smoker, remote history of smoking Plan: Monitor the output from the pigtail catheter from both of his catheters Administer alteplase to the left upper chest pigtail catheter A total of 3 treatments with alteplase was given in the left lower left chest pigtail catheter Incentive spirometer, numbers are improving Continue empiric antibiotics Blood cultures are negative and the pleural cultures are pending, negative thus far Pain management with Toradol Clinically improving
[2022-07-19] MEDS: SODIUM CHLORIDE 0.9% 500 ML IV SCH (13:18)
--- NOTE | 2022-07-19 16:11 | XR ---
EXAMINATION TYPE: XR chest 1V portable DATE OF EXAM: 07/19/2022 COMPARISON: 07/19/2022 HISTORY: Chest pain TECHNIQUE: Single frontal view of the chest is obtained. FINDINGS: Left-sided pleural catheters remain unchanged. Pleural parenchymal density left lung base is unchange d. Small left effusion noted. Suspect also small right-sided effusion. The cardiac silhouette size is within normal limits. The osseous structures are intact. IMPRESSION: 1. No significant change when compared to the prior study.
[2022-07-19] MEDS: FENOFIBRATE 160 MG TAB PO SCH (16:28)
[2022-07-19] MEDS: ALPRAZolam 0.5 MG TAB PO PRN (16:28)
[2022-07-19] MEDS: HYDROcodone/APAP 5-325MG 1 EACH TAB PO PRN (16:45)
[2022-07-19] MEDS ORDERED: HYDROmorphone 0.5 MG/0.5 ML SYRINGE IM PRN (17:56)
[2022-07-19] MEDS: HYDROmorphone 0.5 MG/0.5 ML SYRINGE IVP PRN (18:26)
[2022-07-20] MEDS: HYDROmorphone 0.5 MG/0.5 ML SYRINGE IVP PRN ×4 (00:47→23:28)
[2022-07-20] MEDS: ACETAMINOPHEN TAB 325 MG TAB PO SCH ×5 (03:43→20:03)
[2022-07-20] MEDS: KETOROLAC 15 MG/ML 1 ML VIAL IVP SCH ×4 (03:44→20:04)
[2022-07-20] MEDS: AMPICILLIN-SULBACTAM 3 GM in SODIUM CHLORIDE 0.9% 100 ML IVPB SCH ×3 (04:50→17:48)
[2022-07-20] MEDS: PANTOPRAZOLE 40 MG TABLET PO SCH (06:48)
--- NOTE | 2022-07-20 06:48 | XR ---
EXAMINATION TYPE: XR chest 2V DATE OF EXAM: 07/20/2022 COMPARISON: Chest x-ray one day earlier. HISTORY: Left sided empyema TECHNIQUE: Frontal and lateral views of the chest are obtained. FINDINGS: Persistent 2 left-sided posterior pleural pigtail drainage catheters with left-sided pleura l fluid collection laterally and inferiorly with associated left lung consolidation and/or atelectasi s. Persistent tiny right pleural effusion and right nasal or consolidation and/or atelectasis. Stable mild cardiomegaly. Osseous structures are intact. IMPRESSION: As above. No significant change from one day earlier.
[2022-07-20] MEDS: IPRATROPIUM-ALBUTEROL 3 ML NEB INHALATION SCH ×4 (08:04→22:17)
--- NOTE | 2022-07-20 08:18 | CT ---
EXAMINATION TYPE: CT chest wo con CT DLP: 745.5 mGycm, Automated exposure control for dose reduction was used. DATE OF EXAM: 07/20/2022 6:35 AM COMPARISON: CT 07/17/2022. CLINICAL INDICATION:Male, 42 years old with history of chest tube/ Pneumonia, Chest tube/Pneumonia TECHNIQUE: Multiple axial images were obtained through the chest. Sagittal and coronal reformats were created for review. Contrast used: Oral contrast used: none. FINDINGS: LUNGS/ PLEURA: There are low lung volumes. Interval decrease in left loculated pleural effusion. Ther e remains pigtail catheter in place. There is remaining likely fluid in the left upper medial aspect and left lateral lower aspect. There remains streaky atelectasis within the left lung base max of the loculated fluid. AIRWAY: Patent and unremarkable. HEART: Size within normal limits. MEDIASTINUM: Prominent nonenlarged lymph nodes throughout the mediastinum including right low paratra cheal measuring 12 mm in short axis and left AP window measuring 12 mm in short axis. Subcarinal is a lso present measuring 11 mm in short axis. VASCULATURE: No aortic aneurysm. MUSCULOSKELETAL: No acute osseous abnormalities SOFT TISSUES/LYMPH NODES: Unremarkable. LOWER NECK: No significant findings. UPPER ABDOMEN: Diffuse low-attenuation to the liver parenchyma. IMPRESSION: 1. Left thoracotomy tube in appropriate position with trace apical pneumothorax and persistent locul ated pleural effusion. 2. Presumably reactive lymphadenopathy throughout the mediastinum. 3. Hepatic steatosis.
[2022-07-20 08:30] LABS: Basophils % (A) 0 %; Eosinophils # (A) 0.2 k/uL (0-0.7); Eosinophils % (A) 1 %; HCT 32.5 % (39.0-53.0); HGB 10.6 gm/dL (13.0-17.5); Lymphocytes # (A) 1.3 k/uL (1.0-4.8); Lymphocytes % (A) 8 %; MCH 31.1 pg (25.0-35.0); MCHC 32.6 g/dL (31.0-37.0); MCV 95.5 fL (80.0-100.0); Mean Platelet Volume 7.2; Monocytes % (A) 6 %; Neutrophils # (A) 12.5 k/uL (1.3-7.7); Neutrophils % (A) 83 %; Platelet Count 457 k/uL (150-450); Poikilocytosis Slight; RDW 13.1 % (11.5-15.5); WBC 15.1 k/uL (3.8-10.6)
[2022-07-20 08:57] LABS: African American GFR (CKD) >90 (>60 ml/min/1.73 sqM); Anion Gap 8 mmol/L; Blood Urea Nitrogen 14 mg/dL (9-20); Calcium 8.4 mg/dL (8.4-10.2); Carbon Dioxide 26 mmol/L (22-30); Chloride 102 mmol/L (98-107); Glucose 125 mg/dL (74-99); Non-African American GFR(CKD) >90 (>60 ml/min/1.73 sqM); Sodium 136 mmol/L (137-145)
[2022-07-20] MEDS: HEPARIN SODIUM,PORCINE/PF 5,000 UNIT/0.5 ML SYRINGE SQ SCH ×2 (09:39→17:48)
[2022-07-20] MEDS: PATIENT'S OWN (Icosapent Ethyl [Icosapent Ethyl] 1 GM Capsule) PO SCH ×2 (09:40→20:05)
[2022-07-20] MEDS ORDERED: DORNASE ALFA 5 MG in SODIUM CHLORIDE 0.9% 50 ML IRRIGATION ONE (09:46)
[2022-07-20] MEDS ORDERED: ALTEPLASE 10 MG in SODIUM CHLORIDE 0.9% 50 ML IRRIGATION ONE (09:46)
--- NOTE | 2022-07-20 12:05 | P.PN ---
Subjective Progress Note Date: 07/20/22 Principal diagnosis: Left-sided loculated parapneumonic effusion, possible empyema, acute hypoxic respiratory failure, leukocytosis, febrile illness. History of hyperlipidemia, obesity, previous tobacco dependence, wisdom teeth extraction approximated 3 weeks ago. POD #6 placement of left sided pigtail catheter by interventional radiology and POD #3 placement of second left-sided pigtail catheter by interventional radiology. The patient was seen and examined in follow-up today 07/20/2022 at his bedside on the cardiac stepdown unit. Currently sitting up at in bed, is awake, alert, oriented 3 and is in no acute apparent distress. Patient's is present at his bedside. The patient denies any complaints of shortness of breath at this time and is complaining of some pain to his left upper back currently rating his pain for out of 10 on the pain scale. The patient states that he was having some pain 10 out of 10 to his left upper back yesterday which lasted for quite some time and reports it was the same type of pain he was admitted with. The patient underwent a CT of the chest without contrast this morning which demonstrated a left thoracotomy tube in appropriate position with trace apical pneumothorax and persistent loculated pleural effusion, presumably reactive lymphadenopathy throughout the mediastinum and hepatic steatosis. Oxygen saturations are 94% on 4 L nasal cannula and he is achieving 5036-9000 mL on his incentive spirometry with encouragement. Patient reports he has been up ambulating in the hallway of the cardiac stepdown unit. Laboratory results this morning show a WBC count 15.1, hemoglobin 10.6, hematocrit 32.5, platelets 457, sodium 136, potassium 4.0, BUN 14, creatinine 0.76, glucose 125. The patient's T-max temperature last 24 hours is 100.9F. Patient remains on Unasyn for IV antibiotic coverage and his culture results remain to show no growth. Objective - Vital Signs Vital signs: Vital Signs Temp 98.6 F 07/20/22 03:42 Pulse 108 H 07/20/22 08:20 Resp 20 07/20/22 03:42 BP 115/74 07/20/22 03:42 Pulse Ox 93 L 07/20/22 03:42 FiO2 50 07/19/22 21:27 Intake & Output 07/19/22 07/20/22 07/20/22 18:59 06:59 18:59 Intake Total 570 675 200 Output Total 399 406 Balance 171 269 200 Intake: Oral 570 675 200 Output: Chest Tube Drainage 124 406 Chest Tube Left Upper 80 400 Posterior Chest Pleural Catheter Left 44 6 Posterior Chest Urine 275 Other: Voiding Method Urinal Urinal - Exam CONSTITUTIONAL: Appears comfortable, cooperative, no acute distress. RESPIRATORY: Lungs sounds diminished bilaterally, left greater than right. Respirations are symmetrical, nonlabored. Currently on 4 L nasal cannula with oxygen saturation 94%. Able to achieve 7363-3789 mL on incentive spirometry. Strong cough. CARDIOVASCULAR: S1, S2 present. Regular rate and rhythm, sinus rhythm on remote telemetry. Palpable peripheral pulses bilaterally. No edema present. No calf pain or tenderness noted GASTROINTESTINAL: Abdomen soft, nontender, nondistended. Active bowel sounds present 4 quadrants. Tolerating diet. GENITOURINARY: Continues to void. INTEGUMENTARY: Skin is warm and dry with no evidence of clubbing or cyanosis. Pigtail catheter dressings clean, dry and intact. NEUROLOGIC: Cranial nerves II through XII intact. No focal deficits. MUSKULOSKELETAL: Able to move all extremities, strength equal bilaterally, gait normal. PSYCHIATRIC: Alert and oriented to person place and time, flat affect, intact judgment and insight. INVASIVE LINES AND TUBES: Left upper pigtail catheter with 550 mL of thin serous drainage in the last 24 hours and the left lower pigtail catheter with 45 mL drainage over the last 24 hours. - Allied health notes Allied health notes reviewed: nursing - Labs CBC & Chem 7: 07/20/22 07:38 07/20/22 07:38 Labs: Abnormal Lab Results - Last 24 Hours (Table) 07/20/22 07/20/22 Range/Units 07:38 07:38 WBC 15.1 H (3.8-10.6) k/uL RBC 3.40 L (4.30-5.90) m/uL Hgb 10.6 L (13.0-17.5) gm/dL Hct 32.5 L (39.0-53.0) % Plt Count 457 H (150-450) k/uL Neutrophils # 12.5 H (1.3-7.7) k/uL Sodium 136 L (137-145) mmol/L Glucose 125 H (74-99) mg/dL Microbiology - Last 24 Hours (Table) 04/17/23 21:55 Blood Culture - Final Blood No Growth after 144 hours - Imaging and Cardiology Chest x-ray: report reviewed, image reviewed Assessment and Plan Assessment: Left-sided loculated parapneumonic effusion, possible empyema, status post placement of left-sided pigtail catheter with instillation of alteplasedornase Acute hypoxic respiratory failure, requiring BiPAP, currently on 3 L nasal cannula Leukocytosis, febrile illness History of hyperlipidemia, treated Obesity with a BMI 36.3 kg/m Previous tobacco dependence [place] teeth extraction approximated 3 weeks ago Plan: We will instill alteplase/dornase to his upper left chest pigtail catheter today, which will be the third total dose through the left upper chest pigtail catheter. We will keep both left chest pigtail catheter is in place today. Encourage incentive spirometry is 10 times every hour while awake. Increase activity as tolerated, encourage ambulation. Out of bed for all meals. Will monitor daily labs and chest x-rays. Continue antibiotics. Continue to follow culture results. Medical management of other comorbidities per internal medicine service. More recommendations to follow based on patient's clinical course. Time with Patient: Greater than 30
[2022-07-20] MEDS: SODIUM CHLORIDE 0.9% 500 ML IV SCH (12:49)
--- NOTE | 2022-07-20 14:15 | P.PN ---
Subjective Progress Note Date: 07/20/22 I'm seeing this patient in new consultation today 07/14/2022 after being transferred from [facility] for suspected empyema. Patient is a 42-year-old white male with past medical history significant for hypertension, hyperlipidemia, ex-smoker. Patient reports shortness of breath, left lateral chest pain, fever, cough starting approximately 12 days ago. The patient's chest pain worsened yesterday causing him to go to [facility]. Chest CTA on arrival to [facility] showed no evidence of central pulmonary embolism with a left pleural effusion and peripheral nodular thickening related to a parapneumonic effusion. Patient was initially seen and evaluated by Dr. Maher who initiated a transfer for cardiothoracic services. Patient was admitted to the intensive care unit yesterday evening. Patient currently resting in bed, on BiPAP with settings 14/5 and an FiO2 of 50%. SpO2 is 96% on these settings. Patient is calm and tolerating therapy. Patient's CBC on arrival shows some leukocytosis with a WBC count of 17.6, and 1113.6, hematocrit 38.8, platelets 370,000. BMP on arrival to our facility shows a sodium 136, potassium 3.9, chloride 103, serum CO2 23, BP 117, creatinine 0.74, glucose 105. Patient currently has normal saline infusing at 125 mL per hour. Patient is covered with Unasyn and vancomycin. Chest pain is currently under control, and when necessary Toradol is ordered for analgesia. T-max was 102.5F. Vital signs are stable. On today's evaluation of 07/15/2022, the patient is feeling better compared to yesterday. He is weaned down to 3 L of oxygen by nasal cannula. As mentioned, the patient had a left lung pneumonia with empyema. A pigtail catheter was inserted and the total amount of output is 1.3 L of purulent lash bloody fluid from the left lung. The fluid analysis shows that the glucose has been less than 2, LDH is 5260 and a white cell count and the fluid was 14,029. Meanwhile, the patient received a first dose of thrombolytic administration through the pigtail catheter yesterday. A second dose is to follow. White cell count is not under 10.4, hemoglobin is at 10.8 and the platelet count is at 278. Electrolytes are normal. Cultures are still pending. Fluid cultures have been sent. Blood cultures aren't negative for now. Meanwhile, the patient is doing incentive spirometer. He is falling approximately 1200 and his incentive spirometer. He remains on Unasyn and vancomycin. His pleuritic chest pain is subsided significantly. , I'm seeing the patient for a follow-up. Patient is doing well. The patient is currently being treated for a pneumonia/empyema. The pleural fluid cultures are still negative. The patient is having daily. Patient with a pigtail catheter. On today's x-ray, there is significant improvement in the aeration of the left lung. There is a left lower lobe consolidation although the x-ray findings. The patient is currently on 2 L of oxygen by nasal cannula. He is using the incentive spirometer. Output from the pigtail catheter is in order of 1500 mL over the past 24 hours. On 07/17/2022, the patient is being seen for a follow-up. Overall clinically the patient is feeling better. The output from the pigtail catheter in the left chest is still ongoing and output is somewhat bloody purulent fluid. The left- sided pigtail catheter intensely wall suction. The patient has already received at the 3 treatments with alteplase. Total amount of output over the past 24 hours has been in the order of 850 mL. The patient remains on Unasyn and vancomycin. Repeat CAT scan of the chest was done today and the CAT scan shows moderate-sized left-sided lower fluid collection superiorly and posteriorly. The aeration in the left lung bases improved. There has been some interval expansion of the left lung. I discussed the case with cardiothoracic surgery and interventional radiology. We'll going to proceed with another pigtail catheter insertion to drain this persistent loculated pleural effusion. The white cell count of 8.8 with a hemoglobin of 9.3. Sodium is at 142. The ends of 12 and a creatinine of 0.7. Is currently on 2 L of oxygen by nasal cannula. Ventilating. He is using the incentive spirometer. On 07/18/2022, the patient is doing better. He is currently on room air oxygen. No new complaints for now. The chest x-ray shows further improvement in the aeration of the left lung. Note that a second pigtail catheter was inserted yesterday and there was considerable amount of drainage which resulted in further improvement in his chest x-ray findings. The upper left chest pigtail catheter has drained an additional 80 mL. Based on that, we will going to administer alteplase to the upper pigtail. The lower pigtail has no significant output. He is afebrile. He remains on that antibiotic coverage. He is using incentive spirometer. The numbers progressively improved. He is ambulating. No fever. No chills. No other complaints otherwise. The patient's WBC count is at 6.9 with a hemoglobin 9.8 and the patient has a BUN of 50 with a creatinine of 0.6 and the sodium level is at 138. 07/19/2022, doing extremely well. Currently has 2 pigtail catheters. The lower pigtail catheter is not draining. Doppler pigtail catheter drain 500 mL yesterday, 80 mL over the past 8 hours and he was given another dose of thrombolytics. Chest x-ray shows significant improvement in aeration in the left lung. Cultures are all negative. Remain on the same antibiotic coverage and currently is on IV Unasyn. White cell count at 6.9. BUN is at 30 with a creatinine of 0.6 and his sodium levels of 138. He is ambulating. He is on room air oxygen with a pulse ox of 94%. The patient is seen today 07/20/2022 in follow-up on the selective care unit. He is currently sitting up in bed. Awake and alert in no acute distress. He is maintaining O2 saturations in the 90s on 4 L/m per nasal cannula. Currently afebrile. He did develop some significant left-sided chest discomfort yesterday afternoon that took a while to settle back in. Today he is feeling a bit better. 2 posterior left-sided chest tubes remain in place. Documentation reveals 550 ML's serosanguineous output of the left upper posterior chest tube in the past 24 hours and only 45 ML's recorded out in the lower left posterior chest tube. Chest x-ray showing similar findings compared to yesterday. Computed tomography scan of the chest reveals a left thoracotomy tube in appropriate position with trace apical pneumothorax and persistent loculated pleural effusion. Presumably reactive lymphadenopathy throughout the mediastinum. Hepatic steatosis. Pleural fluid cultures pending. Blood cultures revealed no growth. Urine culture revealed no growth. White count 15.1. Hemoglobin 10.6. Platelet count 457. Sodium 136. Potassium 4.0. Bicarb 26. BUN 14. Creatinine 0.76. Glucose 125. He remains on antibiotics in the form of Unasyn. Naz on bronchodilators. Heparin for DVT prophylaxis. CT services following regarding chest tubes and alteplase/dornase infusions. Continues to work well with the incentive spirometer. Objective - Vital Signs Vital signs: Vital Signs Temp 98.1 F 07/20/22 08:00 Pulse 107 H 07/20/22 12:00 Resp 20 07/20/22 08:00 BP 86/60 07/20/22 12:00 Pulse Ox 92 L 07/20/22 12:00 FiO2 50 07/19/22 21:27 Intake & Output 07/19/22 07/20/22 07/20/22 18:59 06:59 18:59 Intake Total 570 675 400 Output Total 399 406 Balance 171 269 400 Intake: Oral 570 675 400 Output: Chest Tube Drainage 124 406 Chest Tube Left Upper 80 400 Posterior Chest Pleural Catheter Left 44 6 Posterior Chest Urine 275 Other: Voiding Method Urinal Urinal Urinal - Exam GENERAL EXAM: Alert, very pleasant 42-year-old male, comfortable in no apparent distress. Currently the patient is 4 L/m per nasal cannula HEAD: Normocephalic and atraumatic EYES: Normal reaction of pupils, equal size. NOSE: Clear with pink turbinates. THROAT: No erythema or exudates. NECK: No masses, no JVD. CHEST: No chest wall deformity. LUNGS: Equal air entry with diminished breath sounds at the left base. The patient has a pigtail catheter x 2 inserted into the left hemithorax posteriorly, there is improvement in aeration. CVS: S1 and S2 normal with no audible murmur, regular rhythm. No extra heart sounds ABDOMEN: No hepatosplenomegaly, active bowel sounds, no guarding or rigidity. SPINE: No scoliosis or deformity SKIN: No rashes CENTRAL NERVOUS SYSTEM: No focal deficits, tone is normal in all 4 extremities. EXTREMITIES: There is no peripheral edema, clubbing, or cyanosis. Peripheral pulses are intact. - Labs CBC & Chem 7: 07/20/22 07:38 07/20/22 07:38 Labs: Abnormal Lab Results - Last 24 Hours (Table) 07/20/22 07/20/22 Range/Units 07:38 07:38 WBC 15.1 H (3.8-10.6) k/uL RBC 3.40 L (4.30-5.90) m/uL Hgb 10.6 L (13.0-17.5) gm/dL Hct 32.5 L (39.0-53.0) % Plt Count 457 H (150-450) k/uL Neutrophils # 12.5 H (1.3-7.7) k/uL Sodium 136 L (137-145) mmol/L Glucose 125 H (74-99) mg/dL Microbiology - Last 24 Hours (Table) 07/13/22 21:55 Blood Culture - Final Blood No Growth after 144 hours Assessment and Plan Assessment: Left lower lobe pneumonia/ empyema. The patient continues to have dense consolidation of the left lung. The patient has pigtail catheters x 2 inserted and the fluid is consistent with empyema. The patient continues to have active output from the pigtail catheter inserted earlier. There is improvement elevation of the left lung. Nevertheless there is a persistent pleural fluid collection/pocket. Patient is receiving treatments with alteplase/dornase. Computed tomography scan of the chest today reveals a left thoracotomy tubes in good position with trace apical pneumothorax and persistent loculated pleural effusion. Presumably reactive lymphadenopathy throughout the mediastinum. Extensive left lower lobe consolidation/pneumonia. Currently on Unasyn Acute hypoxic respiratory failure secondary to above. Currently on 4 L nasal cannula Hyperlipidemia Hypertension Morbid obesity with a BMI of 36.5 Ex-smoker, remote history of smoking Plan: The patient was seen and evaluated Chest x-ray, computed tomography scan of the chest, labs and medications reviewed CT service is following regarding alteplase/dornase infusion Chest tubes output being monitored Currently on 3 L nasal cannula Continue bronchodilators Titrate the FiO2 as tolerated Encourage increased use of the incentive spirometer Heparin for DVT prophylaxis Increase his activity as tolerated We'll continue to follow I have personally seen and examined the patient, performed the documentation and the assessment and plan as written. Number of minutes spent on the visit: 10.
[2022-07-20] MEDS: HYDROcodone/APAP 5-325MG 1 EACH TAB PO PRN (14:30)
[2022-07-20 14:42] VITALS: BMI 36.3
--- NOTE | 2022-07-20 16:11 | P.PN ---
Subjective Progress Note Date: 07/20/22 (delayed charting seen at 0955) Patient is a 42-year-old male with obesity, dyslipidemia, and GERD who presented from an outside hospital for pneumonia with left loculated pleural effusion suspicious for empyema. On presentation here, his temperature was 102.5, tachycardic to 112, respiratory rate 25, saturating at 97% on BiPAP, blood pressure 138/95. Initial labs showed WBC 17.6, hemoglobin 13.6, sodium 136, creatinine 0.74. Chest x-ray showed moderate-sized left-sided pleural effusion. Patient was admitted to medical ICU adn was continued on IV unasyn and vanco. Chest CT demonstrated increasing size of loculated pleural fluid collection in the left lung including left middle and lower lung perfusion and loculated anterior upper lung diffusion. He underwent ultrasound-guided left pleural pigtail catheter and had alteplase instilled. Cultures were negative and MRSA nasal swab was negative and vanco was discontinued. Due to persistent left pleural effusion, another chest tube placed, and again alteplase was instilled. Still having significant output from both lower left chest tubes. Patient seen and examined at bedside. He is feeling very fatigued today. He denies any new shortness of breath but does not take it is improved from yesterday. Denies any nausea, vomiting, diarrhea, constipation. He has good appetite. Significant other is at bedside and all questions are answered. Vital signs reviewed General: nontoxic, no distress, appears at stated age Cardiovascular: S1S2 reg, no murmur, positive posterior tibial pulse bilateral, Lungs: Decreased breath sounds on left, no rhonchi, no rales , no accessory muscle use, chest tube in place Abdominal: soft, nontender to palpation, no guarding, no appreciable organomegaly Ext: no gross muscle atrophy, no edema, no contractures Neuro: CN II-XI grossly intact, no focal neuro deficits Psych: Alert, oriented, appropriate affect Assessment: Left sided locuated pleural effusion with possible empyema Left sided PNA Leukoctysis, increasing will need to monitor Thrombocytosis, reactive Recent wisdom teeth extraction, 3 weeks ago Acute hypoxic respiratory failure Normocytic anemia, possibly blood loss from chest tube, expected outcome Resolved: Sepsis Chronic: Dyslipidemia HTN Obesity with BMI 36.3 Imaging: CT chest-left thoracotomy tube in appropriate position with trace apical pneumothorax loculated pleural effusion, hepatic steatosis, presumable reactive lymphadenopathy Chest x-ray as reviewed by myself- small right pleural effusion, left lung consolidation with pigtail catheter placed Data Review: T-max over the last 24 hours 100.9 Laboratory analysis demonstrated a white blood cell count of 15.1 (up from 6.9), platelets 457, sodium 136 Plan: -Pulmonology note reviewed: Harshal current plan of care -Cardiothoracic surgery note reviewed and case discussed with [employer] plan is for alteplase today - Unasyn 3 g IV every 6 hours D # 8 -Sputum cultures and blood cultures, pleural fluid cultures no growth to date -CBC in AM to follow leukocytosis -[place] 5/325 q 6 hours prn pain, toradol 15 mg q 6 hours -Repeat BMP again tomorrow to monitor for renal function in the setting of scheduled IV NSAIDs -pantoprazole 40 mg daily DVT prophylaxis: Lovenox Anticipated discharge date: Pending Clinical Course Anticipated discharge place: Pending Clinical Course This dictation was prepared using [employer] voice recognition software. Though every attempt is made to correct errors during during dictation some may still exist. Objective - Vital Signs Vital signs: Vital Signs Temp 98.1 F 07/20/22 08:00 Pulse 108 H 07/20/22 16:02 Resp 20 07/20/22 08:00 BP 103/61 07/20/22 14:10 Pulse Ox 92 L 07/20/22 12:00 FiO2 50 07/19/22 21:27 Intake & Output 07/19/22 07/20/22 07/20/22 18:59 06:59 18:59 Intake Total 570 675 500 Output Total 399 406 400 Balance 171 269 100 Weight 131.7 kg Intake: Intake, IV Titration 100 Amount Ampicillin-Sulbactam 3 gm 100 In Sodium Chloride 0.9% 100 ml @ 200 mls/hr IVPB Q[facility]H [facility] Rx#:[id number] Oral 570 675 400 Output: Chest Tube Drainage 124 406 400 Chest Tube Left Upper 80 400 0 Posterior Chest Pleural Catheter Left 44 6 400 Posterior Chest Urine 275 Other: Voiding Method Urinal Urinal Urinal - Labs CBC & Chem 7: 07/20/22 07:38 07/20/22 07:38 Labs: Abnormal Lab Results - Last 24 Hours (Table) 07/20/22 07/20/22 Range/Units 07:38 07:38 WBC 15.1 H (3.8-10.6) k/uL RBC 3.40 L (4.30-5.90) m/uL Hgb 10.6 L (13.0-17.5) gm/dL Hct 32.5 L (39.0-53.0) % Plt Count 457 H (150-450) k/uL Neutrophils # 12.5 H (1.3-7.7) k/uL Sodium 136 L (137-145) mmol/L Glucose 125 H (74-99) mg/dL Microbiology - Last 24 Hours (Table) 07/13/22 21:55 Blood Culture - Final Blood No Growth after 144 hours
[2022-07-20] MEDS: FENOFIBRATE 160 MG TAB PO SCH (17:48)
[2022-07-21] MEDS: AMPICILLIN-SULBACTAM 3 GM in SODIUM CHLORIDE 0.9% 100 ML IVPB SCH ×3 (00:23→18:11)
[2022-07-21] MEDS: ACETAMINOPHEN TAB 325 MG TAB PO SCH ×6 (00:48→20:24)
[2022-07-21] MEDS: HEPARIN SODIUM,PORCINE/PF 5,000 UNIT/0.5 ML SYRINGE SQ SCH ×3 (00:49→16:27)
[2022-07-21] MEDS: KETOROLAC 15 MG/ML 1 ML VIAL IVP SCH ×4 (03:48→20:23)
[2022-07-21] MEDS: SODIUM CHLORIDE 0.9% 500 ML IV SCH (06:24)
--- NOTE | 2022-07-21 07:17 | XR ---
EXAMINATION TYPE: XR chest 2V DATE OF EXAM: 07/21/2022 COMPARISON: 07/20/2022 HISTORY: Left sided parapneumonic effusion. TECHNIQUE: Frontal and lateral views of the chest are obtained. FINDINGS: 2 left-sided pleural catheters remain in place. Pleural collection persists although may be slightly smaller in size. There are small right-sided effusion and basilar atelectasis identified at the lung bases. No evidence for pneumothorax. The cardiac silhouette size is within normal limits. The osseous structures are grossly intact. IMPRESSION: 1. Persistent left basilar pleural collection which may be slightly improved in the interval. Contin ued follow-up advised.
[2022-07-21] MEDS: PANTOPRAZOLE 40 MG TABLET PO SCH (07:28)
[2022-07-21] MEDS: PATIENT'S OWN (Icosapent Ethyl [Icosapent Ethyl] 1 GM Capsule) PO SCH ×2 (07:56→20:25)
[2022-07-21 09:16] LABS: Basophils % (A) 0 %; Eosinophils # (A) 0.4 k/uL (0-0.7); Eosinophils % (A) 4 %; HCT 28.7 % (39.0-53.0); HGB 9.5 gm/dL (13.0-17.5); Lymphocytes # (A) 1.2 k/uL (1.0-4.8); Lymphocytes % (A) 12 %; MCH 30.9 pg (25.0-35.0); MCHC 33.3 g/dL (31.0-37.0); MCV 92.9 fL (80.0-100.0); Mean Platelet Volume 7.2; Monocytes # (A) 0.5 k/uL (0-1.0); Monocytes % (A) 5 %; Neutrophils # (A) 8.1 k/uL (1.3-7.7); Neutrophils % (A) 78 %; Platelet Count 413 k/uL (150-450); Poikilocytosis Slight; RBC 3.08 m/uL (4.30-5.90); RDW 13.4 % (11.5-15.5); WBC 10.4 k/uL (3.8-10.6)
--- NOTE | 2022-07-21 09:24 | P.PN ---
Subjective Progress Note Date: 07/21/22 Principal diagnosis: Left-sided loculated parapneumonic effusion, possible empyema, acute hypoxic respiratory failure, leukocytosis, febrile illness. History of hyperlipidemia, obesity, previous tobacco dependence, wisdom teeth extraction approximated 3 weeks ago POD #6 placement of lower left sided pigtail catheter, POD #4 placement of upper left sided pigtail catheter, both by interventional radiology The patient was seen and examined this morning sitting up in bed on 3 south in no acute distress. Remains in sinus rhythm. Currently on room air with oxygen saturation in the mid 90s. States pain is controlled with current medication regimen. Left-sided pigtail lower pigtail catheter present with minimal drainage in the last 24 hours, upper pigtail with 700 mL in the last 24 hours. States he continues to feel better. Able to achieve 1500 ml on incentive spirom etry. Labs pending, chest x-ray reviewed. Dr. Ward did discuss the need for decortication with the patient which will be completed in the next [address] Marcos. No new concerns. Objective - Vital Signs Vital signs: Vital Signs Temp 99.0 F 07/21/22 07:50 Pulse 90 07/21/22 07:50 Resp 16 07/21/22 07:50 BP 104/62 07/21/22 07:50 Pulse Ox 93 L 07/21/22 07:50 FiO2 50 07/19/22 21:27 Intake & Output 07/20/22 07/21/22 07/21/22 18:59 06:59 18:59 Intake Total 600 Output Total 400 770 Balance 200 -770 Weight 131.7 kg Intake: Intake, IV Titration 200 Amount Ampicillin-Sulbactam 3 gm 200 In Sodium Chloride 0.9% 100 ml @ 200 mls/hr IVPB Q6H [facility] Rx#:[id number] Oral 400 Output: Chest Tube Drainage 400 240 Chest Tube Left Upper 0 240 Posterior Chest Pleural Catheter Left 400 0 Posterior Chest Urine 530 Other: Voiding Method Urinal Urinal - Exam CONSTITUTIONAL: Appears comfortable, cooperative, no acute distress RESPIRATORY: Lungs sounds diminished bilaterally, left greater than right. Respirations even, nonlabored. Currently on room air with oxygen saturation 93%. Able to achieve 1500 mL on incentive spirometry. Strong cough. CARDIOVASCULAR: S1, S2 present. Regular rate and rhythm, sinus rhythm on telemetry. Palpable peripheral pulses bilaterally. No edema present. No calf pain or tenderness noted GASTROINTESTINAL: Abdomen soft, nontender, nondistended. Active bowel sounds present 4 quadrants. Tolerating diet. GENITOURINARY: Continues to void INTEGUMENTARY: Skin is warm and dry with evidence of good perfusion NEUROLOGIC: Cranial nerves II through XII intact MUSKULOSKELETAL: Able to move all extremities, strength equal bilaterally, gait normal PSYCHIATRIC: Alert and oriented to person place and time, appropriate affect, intact judgment and insight INVASIVE LINES AND TUBES: Left upper pigtail catheter with 240 mL serosanguineous drainage overnight, 700 mL in the last 24 hours. Left lower pigtail catheter with 20 mL drainage in the last 24 hours - Allied health notes Allied health notes reviewed: nursing - Labs CBC & Chem 7: 07/20/22 07:38 07/20/22 07:38 - Imaging and Cardiology Chest x-ray: report reviewed, image reviewed Assessment and Plan Assessment: Left-sided loculated parapneumonic effusion, possible empyema, status post placement of left-sided pigtail catheter with instillation of alteplasedornase Acute hypoxic respiratory failure, requiring BiPAP, currently on room air Leukocytosis, febrile illness History of hyperlipidemia, treated Obesity Previous tobacco dependence [place] teeth extraction approximated 3 weeks ago Plan: Will instill fourth dose alteplase/dornase today to his upper pigtail, monitor drainage Anticipate left thoracotomy with decortication and cryoablation, placement of epidural in the next [address] Marcos Encourage incentive spirometry is 10 times every hour while awake Increase activity as tolerated Will monitor daily labs and x-rays Continue antibiotics, management by internal medicine Medical management of other comorbidities per internal medicine service More recommendations to follow
[2022-07-21 09:27] LABS: African American GFR (CKD) >90 (>60 ml/min/1.73 sqM); Anion Gap 5 mmol/L; Blood Urea Nitrogen 18 mg/dL (9-20); Calcium 8.2 mg/dL (8.4-10.2); Carbon Dioxide 28 mmol/L (22-30); Chloride 103 mmol/L (98-107); Glucose 129 mg/dL (74-99); Non-African American GFR(CKD) >90 (>60 ml/min/1.73 sqM); Potassium 4.1 mmol/L (3.5-5.1); Sodium 136 mmol/L (137-145)
[2022-07-21] MEDS: IPRATROPIUM-ALBUTEROL 3 ML NEB INHALATION SCH ×4 (10:09→22:02)
--- NOTE | 2022-07-21 10:50 | P.PN ---
Subjective Progress Note Date: 07/21/22 Patient is a 42-year-old male with obesity, dyslipidemia, and GERD who presented from an outside hospital for pneumonia with left loculated pleural effusion suspicious for empyema. On presentation here, his temperature was 102.5, tachycardic to 112, respiratory rate 25, saturating at 97% on BiPAP, blood pressure 138/95. Initial labs showed WBC 17.6, hemoglobin 13.6, sodium 136, creatinine 0.74. Chest x-ray showed moderate-sized left-sided pleural effusion. Patient was admitted to medical ICU adn was continued on IV unasyn and vanco. Chest CT demonstrated increasing size of loculated pleural fluid collection in the left lung including left middle and lower lung perfusion and loculated anterior upper lung diffusion. He underwent ultrasound-guided left pleural pigtail catheter and had alteplase instilled. Cultures were negative and MRSA nasal swab was negative and vanco was discontinued. Due to persistent left pleural effusion, another chest tube placed, and again alteplase was instilled. Still having significant output from both lower left chest tubes. Repeat CT chest showed continued loculated pleural effusion. Patient seen and examined at bedside. He is feeling better today, breathing well, pain is better controlled, regular BM, eating and drinking well. Significant other at bedside and all questions answered. Vital signs reviewed General: nontoxic, no distress, appears at stated age Cardiovascular: S1S2 reg, no murmur, positive posterior tibial pulse bilateral, Lungs: Diminished bs breath sounds b/l bases, no rhonchi, no rales , no accessory muscle use, chest tube X [address] Abdominal: soft, nontender to palpation, no guarding, no appreciable organomegaly Ext: no gross muscle atrophy, no edema, no contractures Neuro: CN II-XI grossly intact, no focal neuro deficits Psych: Alert, oriented, appropriate affect Assessment: Left sided locuated pleural effusion with empyema Left sided PNA Recent wisdom teeth extraction, 3 weeks ago Normocytic anemia, possibly blood loss from chest tube, expected outcome Resolved: Sepsis Leukoctysis, increasing will need to monitor Thrombocytosis, reactive Acute hypoxic respiratory failure Chronic: Dyslipidemia HTN Obesity with BMI 36.3 Imaging: None new Data Review: Vitals reviewed from this morning temperature 99.9, pulse 90, respirations 16, blood pressure 104/62, O2 sat 93% on room air Labs reviewed from this morning and white blood cell count 10.4 (down from 15.1), hemoglobin 9.5 (stable from 48 hours prior), sodium 136, glucose 129 Plan: -Pulmonology note reviewed: Continue current plan of care -I think his story nurse practitioner for cardiothoracic surgery. Patient will likely require thoracotomy with decortication. Will consult ID for discharge antibiotic planning. - Unasyn 3 g IV every 6 hours D # 9 -Sputum cultures, blood cultures, pleural fluid cultures negative, MRSA Nasal Swab is negative -CBC in AM to follow leukocytosis -[place] 5/325 q 6 hours prn pain, toradol 15 mg q 6 hours -Repeat BMP again tomorrow to monitor for renal function in the setting of scheduled IV NSAIDs -pantoprazole 40 mg daily DVT prophylaxis: Lovenox Anticipated discharge date: Pending Clinical Course Anticipated discharge place: Pending Clinical Course This dictation was prepared using [employer] voice recognition software. Though every attempt is made to correct errors during during dictation some may still exist. Objective - Vital Signs Vital signs: Vital Signs Temp 99.0 F 07/21/22 07:50 Pulse 90 07/21/22 07:50 Resp 16 07/21/22 07:50 BP 104/62 07/21/22 07:50 Pulse Ox 93 L 07/21/22 07:50 FiO2 50 07/19/22 21:27 Intake & Output 07/20/22 07/21/22 07/21/22 18:59 06:59 18:59 Intake Total 600 Output Total 400 770 0 Balance 200 -770 0 Weight 131.7 kg Intake: Intake, IV Titration 200 Amount Ampicillin-Sulbactam 3 gm 200 In Sodium Chloride 0.9% 100 ml @ 200 mls/hr IVPB Q6H [facility] Rx#:[id number] Oral 400 Output: Chest Tube Drainage 400 240 0 Chest Tube Left Upper 0 240 0 Posterior Chest Pleural Catheter Left 400 0 0 Posterior Chest Urine 530 Other: Voiding Method Urinal Urinal Urinal - Labs CBC & Chem 7: 07/21/22 08:38 07/21/22 08:38 Labs: Abnormal Lab Results - Last 24 Hours (Table) 07/21/22 07/21/22 Range/Units 08:38 08:38 RBC 3.08 L (4.30-5.90) m/uL Hgb 9.5 L (13.0-17.5) gm/dL Hct 28.7 L (39.0-53.0) % Neutrophils # 8.1 H (1.3-7.7) k/uL Sodium 136 L (137-145) mmol/L Glucose 129 H (74-99) mg/dL Calcium 8.2 L (8.4-10.2) mg/dL
[2022-07-21] MEDS ORDERED: ALTEPLASE 10 MG in SODIUM CHLORIDE 0.9% 50 ML IRRIGATION ONE (12:31)
[2022-07-21] MEDS ORDERED: DORNASE ALFA 5 MG in SODIUM CHLORIDE 0.9% 50 ML IRRIGATION ONE (12:31)
--- NOTE | 2022-07-21 13:48 | P.PN ---
Subjective Progress Note Date: 07/21/22 I'm seeing this patient in new consultation today 07/14/2022 after being transferred from [facility] for suspected empyema. Patient is a 42-year-old white male with past medical history significant for hypertension, hyperlipidemia, ex-smoker. Patient reports shortness of breath, left lateral chest pain, fever, cough starting approximately 12 days ago. The patient's chest pain worsened yesterday causing him to go to [facility]. Chest CTA on arrival to [facility] showed no evidence of central pulmonary embolism with a left pleural effusion and peripheral nodular thickening related to a parapneumonic effusion. Patient was initially seen and evaluated by Dr. Maher who initiated a transfer for cardiothoracic services. Patient was admitted to the intensive care unit yesterday evening. Patient currently resting in bed, on BiPAP with settings 14/5 and an FiO2 of 50%. SpO2 is 96% on these settings. Patient is calm and tolerating therapy. Patient's CBC on arrival shows some leukocytosis with a WBC count of 17.6, and 1113.6, hematocrit 38.8, platelets 370,000. BMP on arrival to our facility shows a sodium 136, potassium 3.9, chloride 103, serum CO2 23, BP 117, creatinine 0.74, glucose 105. Patient currently has normal saline infusing at 125 mL per hour. Patient is covered with Unasyn and vancomycin. Chest pain is currently under control, and when necessary Toradol is ordered for analgesia. T-max was 102.5F. Vital signs are stable. On today's evaluation of 07/15/2022, the patient is feeling better compared to yesterday. He is weaned down to 3 L of oxygen by nasal cannula. As mentioned, the patient had a left lung pneumonia with empyema. A pigtail catheter was inserted and the total amount of output is 1.3 L of purulent lash bloody fluid from the left lung. The fluid analysis shows that the glucose has been less than 2, LDH is 5260 and a white cell count and the fluid was 14,029. Meanwhile, the patient received a first dose of thrombolytic administration through the pigtail catheter yesterday. A second dose is to follow. White cell count is not under 10.4, hemoglobin is at 10.8 and the platelet count is at 278. Electrolytes are normal. Cultures are still pending. Fluid cultures have been sent. Blood cultures aren't negative for now. Meanwhile, the patient is doing incentive spirometer. He is falling approximately 1200 and his incentive spirometer. He remains on Unasyn and vancomycin. His pleuritic chest pain is subsided significantly. , I'm seeing the patient for a follow-up. Patient is doing well. The patient is currently being treated for a pneumonia/empyema. The pleural fluid cultures are still negative. The patient is having daily. Patient with a pigtail catheter. On today's x-ray, there is significant improvement in the aeration of the left lung. There is a left lower lobe consolidation although the x-ray findings. The patient is currently on 2 L of oxygen by nasal cannula. He is using the incentive spirometer. Output from the pigtail catheter is in order of 1500 mL over the past 24 hours. On 07/17/2022, the patient is being seen for a follow-up. Overall clinically the patient is feeling better. The output from the pigtail catheter in the left chest is still ongoing and output is somewhat bloody purulent fluid. The left- sided pigtail catheter intensely wall suction. The patient has already received at the 3 treatments with alteplase. Total amount of output over the past 24 hours has been in the order of 850 mL. The patient remains on Unasyn and vancomycin. Repeat CAT scan of the chest was done today and the CAT scan shows moderate-sized left-sided lower fluid collection superiorly and posteriorly. The aeration in the left lung bases improved. There has been some interval expansion of the left lung. I discussed the case with cardiothoracic surgery and interventional radiology. We'll going to proceed with another pigtail catheter insertion to drain this persistent loculated pleural effusion. The white cell count of 8.8 with a hemoglobin of 9.3. Sodium is at 142. The ends of 12 and a creatinine of 0.7. Is currently on 2 L of oxygen by nasal cannula. Ventilating. He is using the incentive spirometer. On 07/18/2022, the patient is doing better. He is currently on room air oxygen. No new complaints for now. The chest x-ray shows further improvement in the aeration of the left lung. Note that a second pigtail catheter was inserted yesterday and there was considerable amount of drainage which resulted in further improvement in his chest x-ray findings. The upper left chest pigtail catheter has drained an additional 80 mL. Based on that, we will going to administer alteplase to the upper pigtail. The lower pigtail has no significant output. He is afebrile. He remains on that antibiotic coverage. He is using incentive spirometer. The numbers progressively improved. He is ambulating. No fever. No chills. No other complaints otherwise. The patient's WBC count is at 6.9 with a hemoglobin 9.8 and the patient has a BUN of 50 with a creatinine of 0.6 and the sodium level is at 138. 07/19/2022, doing extremely well. Currently has 2 pigtail catheters. The lower pigtail catheter is not draining. Doppler pigtail catheter drain 500 mL yesterday, 80 mL over the past 8 hours and he was given another dose of thrombolytics. Chest x-ray shows significant improvement in aeration in the left lung. Cultures are all negative. Remain on the same antibiotic coverage and currently is on IV Unasyn. White cell count at 6.9. BUN is at 30 with a creatinine of 0.6 and his sodium levels of 138. He is ambulating. He is on room air oxygen with a pulse ox of 94%. The patient is seen today 07/20/2022 in follow-up on the selective care unit. He is currently sitting up in bed. Awake and alert in no acute distress. He is maintaining O2 saturations in the 90s on 4 L/m per nasal cannula. Currently afebrile. He did develop some significant left-sided chest discomfort yesterday afternoon that took a while to settle back in. Today he is feeling a bit better. 2 posterior left-sided chest tubes remain in place. Documentation reveals 550 ML's serosanguineous output of the left upper posterior chest tube in the past 24 hours and only 45 ML's recorded out in the lower left posterior chest tube. Chest x-ray showing similar findings compared to yesterday. Computed tomography scan of the chest reveals a left thoracotomy tube in appropriate position with trace apical pneumothorax and persistent loculated pleural effusion. Presumably reactive lymphadenopathy throughout the mediastinum. Hepatic steatosis. Pleural fluid cultures pending. Blood cultures revealed no growth. Urine culture revealed no growth. White count 15.1. Hemoglobin 10.6. Platelet count 457. Sodium 136. Potassium 4.0. Bicarb 26. BUN 14. Creatinine 0.76. Glucose 125. He remains on antibiotics in the form of Unasyn. Naz on bronchodilators. Heparin for DVT prophylaxis. CT services following regarding chest tubes and alteplase/dornase infusions. Continues to work well with the incentive spirometer. The patient is seen today 07/21/2022 in follow-up on the selective care unit. He is awake and alert in no acute distress. His left-sided chest discomfort is better controlled. He is maintaining good O2 saturations in the 90s on room air. Left-sided upper chest tube did drain 700 ML's over the past 24 hours. There is still minimum output of the left lower chest tube. He has been receiving alteplase/dornase infusions. Today's chest x-ray reveals persistent left basilar pleural collection may be slightly improved. He continues to work well with the incentive spirometer. He remains on antibiotics in the form of Un asyn. Pleural fluid cultures are pending. White count 10.4. Hemoglobin 9.5. Sodium 136. Potassium 4.1. Bicarb 28. BUN 18. Creatinine 0.80. Glucose 129. Cardiothoracic services are planning a left thoracotomy decortication with cryoablation within the next 24-48 hours. Objective - Vital Signs Vital signs: Vital Signs Temp 98.0 F 07/21/22 11:48 Pulse 80 07/21/22 12:42 Resp 18 07/21/22 11:48 BP 136/70 07/21/22 11:48 Pulse Ox 94 L 07/21/22 12:32 FiO2 50 07/19/22 21:27 Intake & Output 07/20/22 07/21/22 07/21/22 18:59 06:59 18:59 Intake Total 600 240 Output Total 400 770 0 Balance 200 -770 240 Weight 131.7 kg Intake: Intake, IV Titration 200 Amount Ampicillin-Sulbactam 3 gm 200 In Sodium Chloride 0.9% 100 ml @ 200 mls/hr IVPB Q6H [facility] Rx#:[id number] Oral 400 240 Output: Chest Tube Drainage 400 240 0 Chest Tube Left Upper 0 240 0 Posterior Chest Pleural Catheter Left 400 0 0 Posterior Chest Urine 530 Other: Voiding Method Urinal Urinal Urinal - Exam GENERAL EXAM: Alert, pleasant 42-year-old male, comfortable in no apparent distress. Currently the patient is stable and on room air HEAD: Normocephalic and atraumatic EYES: Normal reaction of pupils, equal size. NOSE: Clear with pink turbinates. THROAT: No erythema or exudates. NECK: No masses, no JVD. CHEST: No chest wall deformity. LUNGS: Equal air entry with diminished breath sounds at the left base. The patient has a pigtail catheter x 2 inserted into the left hemithorax posteriorly, there is improvement in aeration. CVS: S1 and S2 normal with no audible murmur, regular rhythm. No extra heart sounds ABDOMEN: No hepatosplenomegaly, active bowel sounds, no guarding or rigidity. SPINE: No scoliosis or deformity SKIN: No rashes CENTRAL NERVOUS SYSTEM: No focal deficits, tone is normal in all 4 extremities. EXTREMITIES: There is no peripheral edema, clubbing, or cyanosis. Peripheral pulses are intact. - Labs CBC & Chem 7: 07/21/22 08:38 07/21/22 08:38 Labs: Abnormal Lab Results - Last 24 Hours (Table) 07/21/22 07/21/22 Range/Units 08:38 08:38 RBC 3.08 L (4.30-5.90) m/uL Hgb 9.5 L (13.0-17.5) gm/dL Hct 28.7 L (39.0-53.0) % Neutrophils # 8.1 H (1.3-7.7) k/uL Sodium 136 L (137-145) mmol/L Glucose 129 H (74-99) mg/dL Calcium 8.2 L (8.4-10.2) mg/dL Assessment and Plan Assessment: Left lower lobe pneumonia/ empyema. The patient continues to have dense consolidation of the left lung. The patient has pigtail catheters x 2 inserted and the fluid is consistent with empyema. Cultures pending. The patient continues to have active output from the superior pigtail catheter. There is improvement in aeration of the left lung. Nevertheless there is a persistent pleural fluid collection/pocket. Patient is receiving treatments with alteplase/dornase. Computed tomography scan of the chest today reveals a left thoracotomy tubes in good position with trace apical pneumothorax and persistent loculated pleural effusion. Presumably reactive lymphadenopathy throughout the mediastinum. The plan is for left thoracotomy and decortication with cryoablation in the next 24-48 hours. Extensive left lower lobe consolidation/pneumonia. Currently on Unasyn Acute hypoxic respiratory failure secondary to above. Recovered and on room air Hyperlipidemia Hypertension Morbid obesity with a BMI of 36.5 Ex-smoker, remote history of smoking Plan: The patient was seen and evaluated Chest x-ray, labs and medications reviewed Continues with alteplase/dornase infusion Chest tubes output being monitored Currently stable and on room air Encourage increased use of the incentive spirometer Heparin for DVT prophylaxis CT services planning left thoracotomy and decortication with cryoablation in the next 24-48 hours We'll continue to follow I have personally seen and examined the patient, performed the documentation and the assessment and plan as written. Number of minutes spent on the visit: 10.
[2022-07-21] MEDS: HYDROmorphone 0.5 MG/0.5 ML SYRINGE IVP PRN ×2 (14:40→22:30)
[2022-07-21] MEDS: FENOFIBRATE 160 MG TAB PO SCH (16:27)
[2022-07-22] MEDS: ACETAMINOPHEN TAB 325 MG TAB PO SCH ×6 (00:26→20:28)
[2022-07-22] MEDS: AMPICILLIN-SULBACTAM 3 GM in SODIUM CHLORIDE 0.9% 100 ML IVPB SCH ×4 (00:26→17:56)
[2022-07-22] MEDS: HEPARIN SODIUM,PORCINE/PF 5,000 UNIT/0.5 ML SYRINGE SQ SCH ×3 (00:26→16:35)
[2022-07-22] MEDS: KETOROLAC 15 MG/ML 1 ML VIAL IVP SCH ×4 (03:17→20:28)
[2022-07-22] MEDS: PANTOPRAZOLE 40 MG TABLET PO SCH (06:03)
--- NOTE | 2022-07-22 07:57 | XR ---
EXAMINATION TYPE: XR chest 2V DATE OF EXAM: 07/22/2022 6:18 AM COMPARISON: Chest radiographs from 07/21/2022 TECHNIQUE: XR chest 2V Frontal and lateral views of the chest. CLINICAL INDICATION:Male, 42 years old with history of effusion; FINDINGS: Lungs/Pleura: There is no evidence of focal consolidation, or pneumothorax. Blunting of the costoph renic angles. Pulmonary vascularity: Unremarkable. Heart/mediastinum: Cardiomediastinal silhouette is unremarkable. Musculoskeletal: No acute osseous pathology. Other findings: None Lines/Tubes: Interval removal of the endotracheal tube. Interval removal of the enteric tube, Left thoracotomy tube is present without evidence of pneumothorax. IMPRESSION: 1. Stable exam, small bilateral pleural effusions. 2. Left thoracotomy tube without pneumothorax.
[2022-07-22] MEDS ORDERED: ALTEPLASE 10 MG in SODIUM CHLORIDE 0.9% 50 ML IRRIGATION ONE (08:00)
[2022-07-22] MEDS ORDERED: DORNASE ALFA 5 MG in SODIUM CHLORIDE 0.9% 50 ML IRRIGATION ONE (08:00)
[2022-07-22] MEDS: IPRATROPIUM-ALBUTEROL 3 ML NEB INHALATION SCH ×4 (08:40→20:33)
[2022-07-22 08:52] LABS: HCT 26.5 % (39.0-53.0); HGB 8.9 gm/dL (13.0-17.5); MCHC 33.6 g/dL (31.0-37.0); MCV 92.5 fL (80.0-100.0); Mean Platelet Volume 7.3; Platelet Count 442 k/uL (150-450); Poikilocytosis Moderate; RBC 2.86 m/uL (4.30-5.90); RDW 13.4 % (11.5-15.5); WBC 9.8 k/uL (3.8-10.6)
[2022-07-22 09:00] LABS: African American GFR (CKD) >90 (>60 ml/min/1.73 sqM); Anion Gap 6 mmol/L; Blood Urea Nitrogen 14 mg/dL (9-20); Calcium 8.2 mg/dL (8.4-10.2); Carbon Dioxide 27 mmol/L (22-30); Chloride 104 mmol/L (98-107); Glucose 113 mg/dL (74-99); Non-African American GFR(CKD) >90 (>60 ml/min/1.73 sqM); Potassium 4.4 mmol/L (3.5-5.1); Sodium 137 mmol/L (137-145)
[2022-07-22] MEDS: HYDROmorphone 0.5 MG/0.5 ML SYRINGE IVP PRN ×2 (09:34→21:47)
--- NOTE | 2022-07-22 09:52 | P.PN ---
Subjective Progress Note Date: 07/22/22 Principal diagnosis: Left-sided loculated parapneumonic effusion, possible empyema, acute hypoxic respiratory failure, leukocytosis, febrile illness. History of hyperlipidemia, obesity, previous tobacco dependence, wisdom teeth extraction approximated 3 weeks ago. POD #8 placement of left sided pigtail catheter by interventional radiology and POD #5 placement of second left-sided pigtail catheter by interventional radiology. The patient was seen and examined in follow-up today 07/22/2022 at his bedside on the cardiac stepdown unit. Currently is lying in bed, is awake, alert, oriented 3 and is in no acute distress. Denies any complaints of pain or shortness of breath at this time and states that he feels somewhat improved today from days past. Oxygen saturations 94% on room air and he is achieving 9973-8487 L on his incentive spirometry with encouragement. Left upper and lower pigtail catheters remain in place to low continuous wall suction -20 cm H2O. No air leak is present. Draining thin serosanguineous drainage. Attempts were made to instill alteplase/dornase through his left upper and lower pigtail catheter yesterday but was unable to due to resistance on the catheters. He remains hemodynamically stable and is currently on no inotropic pressure support. T-max temperature in the last 24 hours was 99.6F. He has been up ambulating in the hallway with standby assistance from family and from nursing. Chest x-ray and laboratory results reviewed. Objective - Vital Signs Vital signs: Vital Signs Temp 99.0 F 07/22/22 03:20 Pulse 76 07/22/22 08:40 Resp 16 07/22/22 03:20 BP 115/73 07/22/22 03:20 Pulse Ox 95 07/22/22 08:40 FiO2 50 07/19/22 21:27 Intake & Output 07/21/22 07/22/22 07/22/22 18:59 06:59 18:59 Intake Total 480 Output Total 315 300 Balance 165 -300 Intake: Oral 480 Output: Chest Tube Drainage 15 0 Chest Tube Left Upper 15 0 Posterior Chest Pleural Catheter Left 0 0 Posterior Chest Urine 300 300 Other: Voiding Method Urinal Urinal - Exam CONSTITUTIONAL: Appears comfortable, cooperative, no acute distress. RESPIRATORY: Lungs sounds diminished bilaterally, left greater than right. Respirations are symmetrical, nonlabored. Currently on room air with oxygen saturation 94%. Able to achieve 0447-3283 mL on incentive spirometry. Strong cough. CARDIOVASCULAR: S1, S2 present. Regular rate and rhythm, sinus rhythm on remote telemetry. Palpable peripheral pulses bilaterally. No edema present. No calf pain or tenderness noted GASTROINTESTINAL: Abdomen soft, nontender, nondistended. Active bowel sounds present 4 quadrants. Tolerating diet. GENITOURINARY: Continues to void. INTEGUMENTARY: Skin is warm and dry with no evidence of clubbing or cyanosis. Pigtail catheter dressings clean, dry and intact. NEUROLOGIC: Cranial nerves II through XII intact. No focal deficits. MUSKULOSKELETAL: Able to move all extremities, strength equal bilaterally, gait normal. PSYCHIATRIC: Alert and oriented to person place and time, flat affect, intact judgment and insight. INVASIVE LINES AND TUBES: Left upper pigtail catheter with 0 mL of thin serous drainage in the last 24 hours and the left lower pigtail catheter with 45 mL drainage over the last 24 hours. - Allied health notes Allied health notes reviewed: nursing - Labs CBC & Chem 7: 07/22/22 07:27 07/22/22 07:27 Labs: Abnormal Lab Results - Last 24 Hours (Table) 07/22/22 07/22/22 Range/Units 07:27 07:27 RBC 2.86 L (4.30-5.90) m/uL Hgb 8.9 L (13.0-17.5) gm/dL Hct 26.5 L (39.0-53.0) % Glucose 113 H (74-99) mg/dL Calcium 8.2 L (8.4-10.2) mg/dL - Imaging and Cardiology Chest x-ray: report reviewed, image reviewed Assessment and Plan Assessment: Left-sided loculated parapneumonic effusion, possible empyema, status post placement of left-sided pigtail catheter with instillation of alteplasedornase Acute hypoxic respiratory failure, requiring BiPAP, currently on 3 L nasal cannula Leukocytosis, febrile illness History of hyperlipidemia, treated Obesity with a BMI 36.3 kg/m Previous tobacco dependence [place] teeth extraction approximated 3 weeks ago Plan: We will instill alteplase/dornase to his upper left chest pigtail catheter today, which will be the 5th total dose. We will keep both left chest pigtail catheter is in place today. Encourage incentive spirometry is 10 times every hour while awake. Increase activity as tolerated, encourage ambulation. Out of bed for all meals. Will monitor daily labs and chest x-rays. Continue antibiotics. Continue to follow culture results. Medical management of other comorbidities per internal medicine service. Nothing by mouth after midnight. He is scheduled for a left thoracotomy with decortication tomorrow to be performed by Dr. John Marcos. Preoperative teaching completed, questions answered to the best my ability. More recommendations to follow based on patient's clinical course. Time with Patient: Greater than 30
[2022-07-22] MEDS: PATIENT'S OWN (Icosapent Ethyl [Icosapent Ethyl] 1 GM Capsule) PO SCH ×2 (10:50→20:29)
[2022-07-22] MEDS: SODIUM CHLORIDE 0.9% 500 ML IV SCH (12:15)
--- NOTE | 2022-07-22 13:39 | P.PN ---
Subjective Progress Note Date: 07/22/22 (delayed charting seen at 1030) Patient is a 42-year-old male with obesity, dyslipidemia, and GERD who presented from an outside hospital for pneumonia with left loculated pleural effusion suspicious for empyema. On presentation here, his temperature was 102.5, tachycardic to 112, respiratory rate 25, saturating at 97% on BiPAP, blood pressure 138/95. Initial labs showed WBC 17.6, hemoglobin 13.6, sodium 136, creatinine 0.74. Chest x-ray showed moderate-sized left-sided pleural effusion. Patient was admitted to medical ICU adn was continued on IV unasyn and vanco. Chest CT demonstrated increasing size of loculated pleural fluid collection in the left lung including left middle and lower lung perfusion and loculated anterior upper lung diffusion. He underwent ultrasound-guided left pleural pigtail catheter and had alteplase instilled. Cultures were negative and MRSA nasal swab was negative and vanco was discontinued. Due to persistent left pleural effusion, another chest tube placed, and again alteplase was instilled. Still having significant output from both lower left chest tubes. Repeat CT chest showed continued loculated pleural effusion. Plan is for Thoracotomy with decortication on 07/23. Patient seen and examined at bedside. Doing okay but having pain from altaplase being instilled, no diarrhea. Significant other present at bedside all questions answered. Vital signs reviewed General: nontoxic, no distress, appears at stated age Cardiovascular: S1S2 reg, no murmur, positive posterior tibial pulse bilateral, Lungs: Diminished bs breath sounds b/l bases, no rhonchi, no rales , no accessory muscle use, chest tube X [address] Abdominal: soft, nontender to palpation, no guarding, no appreciable organomegaly Ext: no gross muscle atrophy, no edema, no contractures Neuro: CN II-XI grossly intact, no focal neuro deficits Psych: Alert, oriented, appropriate affect Assessment: Left sided locuated pleural effusion with empyema Left sided PNA - culture negative Recent wisdom teeth extraction, 3 weeks ago Normocytic anemia, possibly blood loss from chest tube, expected outcome Resolved: Sepsis Leukoctysis, increasing will need to monitor Thrombocytosis, reactive Acute hypoxic respiratory failure Chronic: Dyslipidemia HTN Obesity with BMI 36.3 Imaging: Chest x-ray is reviewed by myself shows continued left-sided pleural effusion with adjacent infiltrate Data Review: Vital signs reviewed temperature 98.7, pulse 102, respirations 16, blood pressure 165/68, O2 sat 95% on RA Labs reviewed and remarkable for hemoglobin 8.9 (10.6 on 07/20), glucose 113 Plan: -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 He has instilled alteplase today again, plan is for thoracotomy with decortication on 07/23/22 -Pulmonary note reviewed from 07/21: No new recommendations - Consult ID - Follow CBC given worsneing anemia, Check Iron studies - Unasyn 3 g IV every 6 hours D #10 -Sputum cultures, blood cultures, pleural fluid cultures negative, MRSA Nasal Swab is negative -[place] 5/325 q 6 hours prn pain, toradol 15 mg q 6 hours -Repeat BMP again tomorrow to monitor for renal function in the setting of scheduled IV NSAIDs -pantoprazole 40 mg daily DVT prophylaxis: Lovenox Anticipated discharge date: Pending Clinical Course Anticipated discharge place: Pending Clinical Course This dictation was prepared using Delect[employer] voice recognition software. Though every attempt is made to correct errors during during dictation some may still exist. Objective - Vital Signs Vital signs: Vital Signs Temp 98.9 F 07/22/22 12:10 Pulse 96 07/22/22 12:10 Resp 16 07/22/22 12:10 BP 156/106 07/22/22 12:10 Pulse Ox 96 07/22/22 12:10 FiO2 50 07/19/22 21:27 Intake & Output 07/21/22 07/22/22 07/22/22 18:59 06:59 18:59 Intake Total 480 Output Total 315 300 36 Balance 165 -300 -36 Intake: Oral 480 Output: Chest Tube Drainage 15 0 36 Chest Tube Left Upper 15 0 15 Posterior Chest Pleural Catheter Left 0 0 21 Posterior Chest Urine 300 300 Other: Voiding Method Urinal Urinal - Labs CBC & Chem 7: 07/22/22 07:27 07/22/22 07:27 Labs: Abnormal Lab Results - Last 24 Hours (Table) 07/22/22 07/22/22 Range/Units 07:27 07:27 RBC 2.86 L (4.30-5.90) m/uL Hgb 8.9 L (13.0-17.5) gm/dL Hct 26.5 L (39.0-53.0) % Glucose 113 H (74-99) mg/dL Calcium 8.2 L (8.4-10.2) mg/dL
--- NOTE | 2022-07-22 15:22 | P.PN ---
Subjective Progress Note Date: 07/22/22 I'm seeing this patient in new consultation today 07/14/2022 after being transferred from [facility] for suspected empyema. Patient is a 42-year-old white male with past medical history significant for hypertension, hyperlipidemia, ex-smoker. Patient reports shortness of breath, left lateral chest pain, fever, cough starting approximately 12 days ago. The patient's chest pain worsened yesterday causing him to go to [facility]. Chest CTA on arrival to [facility] showed no evidence of central pulmonary embolism with a left pleural effusion and peripheral nodular thickening related to a parapneumonic effusion. Patient was initially seen and evaluated by Dr. Maher who initiated a transfer for cardiothoracic services. Patient was admitted to the intensive care unit yesterday evening. Patient currently resting in bed, on BiPAP with settings 14/5 and an FiO2 of 50%. SpO2 is 96% on these settings. Patient is calm and tolerating therapy. Patient's CBC on arrival shows some leukocytosis with a WBC count of 17.6, and 1113.6, hematocrit 38.8, platelets 370,000. BMP on arrival to our facility shows a sodium 136, potassium 3.9, chloride 103, serum CO2 23, BP 117, creatinine 0.74, glucose 105. Patient currently has normal saline infusing at 125 mL per hour. Patient is covered with Unasyn and vancomycin. Chest pain is currently under control, and when necessary Toradol is ordered for analgesia. T-max was 102.5F. Vital signs are stable. On today's evaluation of 07/15/2022, the patient is feeling better compared to yesterday. He is weaned down to 3 L of oxygen by nasal cannula. As mentioned, the patient had a left lung pneumonia with empyema. A pigtail catheter was inserted and the total amount of output is 1.3 L of purulent lash bloody fluid from the left lung. The fluid analysis shows that the glucose has been less than 2, LDH is 5260 and a white cell count and the fluid was 14,029. Meanwhile, the patient received a first dose of thrombolytic administration through the pigtail catheter yesterday. A second dose is to follow. White cell count is not under 10.4, hemoglobin is at 10.8 and the platelet count is at 278. Electrolytes are normal. Cultures are still pending. Fluid cultures have been sent. Blood cultures aren't negative for now. Meanwhile, the patient is doing incentive spirometer. He is falling approximately 1200 and his incentive spirometer. He remains on Unasyn and vancomycin. His pleuritic chest pain is subsided significantly. , I'm seeing the patient for a follow-up. Patient is doing well. The patient is currently being treated for a pneumonia/empyema. The pleural fluid cultures are still negative. The patient is having daily. Patient with a pigtail catheter. On today's x-ray, there is significant improvement in the aeration of the left lung. There is a left lower lobe consolidation although the x-ray findings. The patient is currently on 2 L of oxygen by nasal cannula. He is using the incentive spirometer. Output from the pigtail catheter is in order of 1500 mL over the past 24 hours. On 07/17/2022, the patient is being seen for a follow-up. Overall clinically the patient is feeling better. The output from the pigtail catheter in the left chest is still ongoing and output is somewhat bloody purulent fluid. The left- sided pigtail catheter intensely wall suction. The patient has already received at the 3 treatments with alteplase. Total amount of output over the past 24 hours has been in the order of 850 mL. The patient remains on Unasyn and vancomycin. Repeat CAT scan of the chest was done today and the CAT scan shows moderate-sized left-sided lower fluid collection superiorly and posteriorly. The aeration in the left lung bases improved. There has been some interval expansion of the left lung. I discussed the case with cardiothoracic surgery and interventional radiology. We'll going to proceed with another pigtail catheter insertion to drain this persistent loculated pleural effusion. The white cell count of 8.8 with a hemoglobin of 9.3. Sodium is at 142. The ends of 12 and a creatinine of 0.7. Is currently on 2 L of oxygen by nasal cannula. Ventilating. He is using the incentive spirometer. On 07/18/2022, the patient is doing better. He is currently on room air oxygen. No new complaints for now. The chest x-ray shows further improvement in the aeration of the left lung. Note that a second pigtail catheter was inserted yesterday and there was considerable amount of drainage which resulted in further improvement in his chest x-ray findings. The upper left chest pigtail catheter has drained an additional 80 mL. Based on that, we will going to administer alteplase to the upper pigtail. The lower pigtail has no significant output. He is afebrile. He remains on that antibiotic coverage. He is using incentive spirometer. The numbers progressively improved. He is ambulating. No fever. No chills. No other complaints otherwise. The patient's WBC count is at 6.9 with a hemoglobin 9.8 and the patient has a BUN of 50 with a creatinine of 0.6 and the sodium level is at 138. 07/19/2022, doing extremely well. Currently has 2 pigtail catheters. The lower pigtail catheter is not draining. Doppler pigtail catheter drain 500 mL yesterday, 80 mL over the past 8 hours and he was given another dose of thrombolytics. Chest x-ray shows significant improvement in aeration in the left lung. Cultures are all negative. Remain on the same antibiotic coverage and currently is on IV Unasyn. White cell count at 6.9. BUN is at 30 with a creatinine of 0.6 and his sodium levels of 138. He is ambulating. He is on room air oxygen with a pulse ox of 94%. The patient is seen today 07/20/2022 in follow-up on the selective care unit. He is currently sitting up in bed. Awake and alert in no acute distress. He is maintaining O2 saturations in the 90s on 4 L/m per nasal cannula. Currently afebrile. He did develop some significant left-sided chest discomfort yesterday afternoon that took a while to settle back in. Today he is feeling a bit better. 2 posterior left-sided chest tubes remain in place. Documentation reveals 550 ML's serosanguineous output of the left upper posterior chest tube in the past 24 hours and only 45 ML's recorded out in the lower left posterior chest tube. Chest x-ray showing similar findings compared to yesterday. Computed tomography scan of the chest reveals a left thoracotomy tube in appropriate position with trace apical pneumothorax and persistent loculated pleural effusion. Presumably reactive lymphadenopathy throughout the mediastinum. Hepatic steatosis. Pleural fluid cultures pending. Blood cultures revealed no growth. Urine culture revealed no growth. White count 15.1. Hemoglobin 10.6. Platelet count 457. Sodium 136. Potassium 4.0. Bicarb 26. BUN 14. Creatinine 0.76. Glucose 125. He remains on antibiotics in the form of Unasyn. Naz on bronchodilators. Heparin for DVT prophylaxis. CT services following regarding chest tubes and alteplase/dornase infusions. Continues to work well with the incentive spirometer. The patient is seen today 07/21/2022 in follow-up on the selective care unit. He is awake and alert in no acute distress. His left-sided chest discomfort is better controlled. He is maintaining good O2 saturations in the 90s on room air. Left-sided upper chest tube did drain 700 ML's over the past 24 hours. There is still minimum output of the left lower chest tube. He has been receiving alteplase/dornase infusions. Today's chest x-ray reveals persistent left basilar pleural collection may be slightly improved. He continues to work well with the incentive spirometer. He remains on antibiotics in the form of Un asyn. Pleural fluid cultures are pending. White count 10.4. Hemoglobin 9.5. Sodium 136. Potassium 4.1. Bicarb 28. BUN 18. Creatinine 0.80. Glucose 129. Cardiothoracic services are planning a left thoracotomy decortication with cryoablation within the next 24-48 hours. The patient is seen today 07/22/2022 in follow-up on the selective care unit. He is awake and alert in no acute distress. Maintaining good O2 saturations in the 90s on room air. He is sitting up at the bedside. Left-sided chest tube remain in place. Minimal output from the upper chest tube. He did receive alteplase/dornase to the lower chest tube today. Not much output returned. Chest x-ray reveals a stable exam with small bilateral pleural effusions. Left thoracotomy tube in place without pneumothorax. He continues to work well with the incentive spirometer. The plan is for left thoracotomy with decortication and cryoablation tomorrow. White count 9.8. Hemoglobin 8.9. Sodium 137. Potassium 4.4. Bicarb 27. BUN 14. Creatinine 0.77. He remains on bronchodilators. Heparin for DVT prophylaxis. Antibiotics in the form of Unasyn. Objective - Vital Signs Vital signs: Vital Signs Temp 98.9 F 07/22/22 12:10 Pulse 96 07/22/22 12:10 Resp 16 07/22/22 12:10 BP 156/106 07/22/22 12:10 Pulse Ox 96 07/22/22 12:10 FiO2 50 07/19/22 21:27 Intake & Output 07/21/22 07/22/22 07/22/22 18:59 06:59 18:59 Intake Total 480 Output Total 315 300 36 Balance 165 -300 -36 Intake: Oral 480 Output: Chest Tube Drainage 15 0 36 Chest Tube Left Upper 15 0 15 Posterior Chest Pleural Catheter Left 0 0 21 Posterior Chest Urine 300 300 Other: Voiding Method Urinal Urinal - Exam GENERAL EXAM: Alert, pleasant 42-year-old male, in no apparent distress. Sitting up at the bedside, stable and on room air HEAD: Normocephalic and atraumatic EYES: Normal reaction of pupils, equal size. NOSE: Clear with pink turbinates. THROAT: No erythema or exudates. NECK: No masses, no JVD. CHEST: No chest wall deformity. LUNGS: Equal air entry with diminished breath sounds at the left base. The patient has a pigtail catheter x 2 inserted into the left hemithorax posteriorly, there is improvement in aeration. CVS: S1 and S2 normal with no audible murmur, regular rhythm. No extra heart sounds ABDOMEN: No hepatosplenomegaly, active bowel sounds, no guarding or rigidity. SPINE: No scoliosis or deformity SKIN: No rashes CENTRAL NERVOUS SYSTEM: No focal deficits, tone is normal in all 4 extremities. EXTREMITIES: There is no peripheral edema, clubbing, or cyanosis. Peripheral pulses are intact. - Labs CBC & Chem 7: 07/22/22 07:27 07/22/22 07:27 Labs: Abnormal Lab Results - Last 24 Hours (Table) 07/22/22 07/22/22 Range/Units 07:27 07:27 RBC 2.86 L (4.30-5.90) m/uL Hgb 8.9 L (13.0-17.5) gm/dL Hct 26.5 L (39.0-53.0) % Glucose 113 H (74-99) mg/dL Calcium 8.2 L (8.4-10.2) mg/dL Assessment and Plan Assessment: Left lower lobe pneumonia/ empyema. The patient continues to have dense consolidation of the left lung. The patient has pigtail catheters x 2 inserted and the fluid is consistent with empyema. Cultures pending. The patient continues to have active output from the superior pigtail catheter. There is improvement in aeration of the left lung. Nevertheless there is a persistent pleural fluid collection/pocket. Patient is receiving treatments with alteplase/dornase. Computed tomography scan of the chest reveals a left thoracotomy tubes in good position with no significant pneumothorax and persistent loculated pleural effusion. Presumably reactive lymphadenopathy throughout the mediastinum. The plan is for left thoracotomy and decortication with cryoablation possibly tomorrow. Extensive left lower lobe consolidation/pneumonia. Currently on Unasyn Acute hypoxic respiratory failure secondary to above. Recovered and on room air Hyperlipidemia Hypertension Morbid obesity with a BMI of 36.5 Ex-smoker, remote history of smoking Plan: The patient was seen and evaluated Chest x-ray, labs and medications reviewed Currently stable and on room air Continues with alteplase/dornase infusion Chest tubes output being monitored Plan is for decortication and cryoablation tomorrow Encourage increased use of the incentive spirometer Increase his activity as tolerated Heparin for DVT prophylaxis We'll continue to follow I have personally seen and examined the patient, performed the documentation and the assessment and plan as written. Number of minutes spent on the visit: 10.
[2022-07-22] MEDS: FENOFIBRATE 160 MG TAB PO SCH (16:35)
[2022-07-22] MEDS: HYDROcodone/APAP 5-325MG 1 EACH TAB PO PRN (16:35)
--- NOTE | 2022-07-22 21:40 | P.CONS ---
History of Present Illness - Reason for Consult Consult date: 07/22/22 Empyema Requesting physician: Najma Carey - Chief Complaint Left-sided chest pain and shortness of breath x days - History of Present Illness Patient is a 42-year-old male presenting to the hospital about 10 days ago on 07/13/2022 for evaluation of left-sided chest pain apparently has been going on for more than a week before he present to the hospital however got really worse for the patient presented to hospital patient has been complaining of cough and has been mostly dry moderate intensity and some shortness of breath denies high-grade fever or any chills patient was initially evaluated evidence to hospital subsequently noticed to have left loculated pleural effusion suspicious for empyema and the patient was transferred to [facility] for further evaluation patient did have a CT of the chest repeated here on 07/14/2022 and increasing size of loculated pleural effusion collection left lung including left mid and lower lung patient did have a chest tube insertion on 418 with second chest tube inserted on 07/17/2022 the patient did have a pleural fluid culture done on the has been negative so far blood culture on admission has been negative patient did have fever on presentation to the hospital of 102.5 last fever has been 100.1 on 07/20/2022 and has been afebrile since then patient did have elevated white count 17.6 on admission patient white count subsequently normalized kidney function has been normal patient has been treated with Unasyn 3 g every 6 hours infectious disease was consulted today after the patient him in the hospital for almost 9 days for further management of antibiotic therapy concerning for empyema patient is scheduled for VATS procedure tomorrow by CT surgery, as of today's evaluation the patient is afebrile patient seem to be breathing slightly comfortably patient still having some left-sided chest pain more frequently aching 3-4 out of 10 no radiation denies any nausea no vomiting no abdominal pain no diarrhea no urinary symptoms Review of Systems Positive point and negatives has been mentioned in the HPI, complete review of systems was performed and all other systems are negative Past Medical History Past Medical History: Hyperlipidemia History of Any Multi-Drug Resistant Organisms: None Reported Past Surgical History: Orthopedic Surgery Additional Past Surgical History / Comment(s): Orthoscopy on right knee 2018, Vasectomy 2012 Past Anesthesia/Blood Transfusion Reactions: No Reported Reaction Past Psychological History: No Psychological Hx Reported Smoking Status: Former smoker Past Alcohol Use History: Occasional Past Drug Use History: None Reported - Past Family History Mother Additional Family Medical History / Comment(s): Doesn't know family history as he is estranged from his parents Medications and Allergies Home Medications Medication Instructions Recorded Confirmed Type Omeprazole Magnesium [PriLOSEC OTC] 20 mg PO DAILY PRN 07/13/22 07/13/22 History gemfibroziL [Lopid] 600 mg PO AC-BID 07/13/22 07/13/22 History icosapent ethyL [Icosapent Ethyl] 2 gm PO BID 07/13/22 07/13/22 History Amoxic-Pot Clav 875-125Mg 1 tab PO Q12HR 9 Days #17 tab 07/29/22 Rx [Augmentin 875-125] HYDROcodone/APAP 5-325MG [[place] 2 each PO Q4HR PRN #48 tab 07/29/22 Rx 5-325] Allergies Allergy/AdvReac Type Severity Reaction Status Date / Time No Known Allergies Allergy Verified 07/13/22 21:39 Physical Exam Vitals: Vital Signs Temp Pulse Pulse Resp BP Pulse Ox 07/22/22 12:10 98.9 F 96 16 156/106 96 07/22/22 12:00 96 07/22/22 11:45 92 07/22/22 09:30 98.7 F 102 H 16 165/68 95 07/22/22 09:01 76 07/22/22 08:40 76 95 07/22/22 03:20 99.0 F 99 16 115/73 92 L 07/22/22 01:23 98.9 F 102 H 17 126/81 92 L 07/21/22 22:15 76 07/21/22 22:02 76 07/21/22 20:20 99.6 F 106 H 18 145/84 94 L 07/21/22 16:46 80 07/21/22 16:33 78 07/21/22 16:28 97.8 F 80 16 135/88 93 L Intake and Output 07/21/22 07/22/22 07/22/22 22:59 06:59 14:59 Intake Total 240 Output Total 615 0 36 Balance -375 0 -36 Intake: Oral 240 Output: Chest Tube Drainage 15 0 36 Chest Tube Left Upper 15 0 15 Posterior Chest Pleural Catheter Left 0 0 21 Posterior Chest Urine 600 Other: Voiding Method Urinal GENERAL DESCRIPTION: Middle-aged male lying in bed, no distress. No tachypnea or accessory muscle of respiration use. HEENT: Shows Pallor , no scleral icterus. Oral mucous membrane is dry. NECK: Trachea central, no thyromegaly. LUNGS: Unlabored breathing. Decreased breath sounds at the base HEART: S1, S2, regular rate and rhythm. No loud murmur ABDOMEN: Soft, no tenderness , guarding or rigidity, no organomegaly EXTREMITIES: No edema of feet. SKIN: No rash, no masses palpable. NEUROLOGICAL: The patient is awake, alert, oriented x3, mood and affect normal. Results CBC & Chem 7: 07/29/22 07:57 07/29/22 07:57 Labs: Abnormal Lab Results - Last 24 Hours (Table) 07/22/22 07/22/22 Range/Units 07:27 07:27 RBC 2.86 L (4.30-5.90) m/uL Hgb 8.9 L (13.0-17.5) gm/dL Hct 26.5 L (39.0-53.0) % Glucose 113 H (74-99) mg/dL Calcium 8.2 L (8.4-10.2) mg/dL Assessment and Plan (1) Empyema lung Status: Acute Code(s): J86.9 - PYOTHORAX WITHOUT FISTULA SNOMED Code(s): 32931141 Plan: 1patient presented hospital with sepsis in this patient with fever elevated white count patient main symptom has been left-sided chest pain he has been diagnosed with a empyema in this patient with status post chest tube placement initially on 07/14/2022 however cultures has been negative for resistant pathogen the patient fever has resolved and white count normalized however with just residual fluid patient to be scheduled for VATS procedure tomorrow 2-patient to continue with Unasyn 3 g every 6 hours at this point await VATS procedure and deep culture at the time of surgery 3-check inflammatory markers We will follow on clinical condition and cultures to further adjust medication if needed Thank you for this consultation we will follow the patient along with you Time with Patient: Greater than 30
[2022-07-23] MEDS: AMPICILLIN-SULBACTAM 3 GM in SODIUM CHLORIDE 0.9% 100 ML IVPB SCH ×4 (00:18→17:44)
[2022-07-23] MEDS: HEPARIN SODIUM,PORCINE/PF 5,000 UNIT/0.5 ML SYRINGE SQ SCH ×3 (00:19→17:44)
[2022-07-23] MEDS: ACETAMINOPHEN TAB 325 MG TAB PO SCH ×2 (00:19→03:34)
[2022-07-23] MEDS: KETOROLAC 15 MG/ML 1 ML VIAL IVP SCH ×4 (03:34→19:59)
[2022-07-23] MEDS: PANTOPRAZOLE 40 MG TABLET PO SCH (05:01)
[2022-07-23 07:08] LABS: HCT 26.3 % (39.0-53.0); HGB 8.9 gm/dL (13.0-17.5); MCH 30.8 pg (25.0-35.0); MCHC 33.7 g/dL (31.0-37.0); MCV 91.4 fL (80.0-100.0); Mean Platelet Volume 7.1; Platelet Count 474 k/uL (150-450); Poikilocytosis Moderate; RBC 2.88 m/uL (4.30-5.90); RDW 13.3 % (11.5-15.5); WBC 9.7 k/uL (3.8-10.6)
[2022-07-23 07:52] LABS: African American GFR (CKD) >90 (>60 ml/min/1.73 sqM); Anion Gap 7 mmol/L; Blood Urea Nitrogen 12 mg/dL (9-20); Calcium 8.2 mg/dL (8.4-10.2); Carbon Dioxide 26 mmol/L (22-30); Chloride 105 mmol/L (98-107); Glucose 114 mg/dL (74-99); Non-African American GFR(CKD) >90 (>60 ml/min/1.73 sqM); Potassium 4.5 mmol/L (3.5-5.1); Sodium 138 mmol/L (137-145)
[2022-07-23] MEDS: IPRATROPIUM-ALBUTEROL 3 ML NEB INHALATION SCH ×4 (08:23→21:32)
[2022-07-23] MEDS ORDERED: ONDANSETRON 4 MG/2 ML VIAL ONE (08:47)
[2022-07-23] MEDS ORDERED: DEXAMETHASONE SOD PHOSPHATE 4 MG/ML 1 ML VIAL IV ONE (08:50)
[2022-07-23] MEDS ORDERED: ONDANSETRON 4 MG/2 ML VIAL IVP ONE (08:50)
[2022-07-23] MEDS ORDERED: MIDAZOLAM 2 MG/2 ML VIAL IV ONE (08:52)
[2022-07-23] MEDS ORDERED: fentaNYL (PF) 50 MCG/ML 2 ML AMP IV ONE (08:52)
[2022-07-23] MEDS ORDERED: LACTATED RINGERS 1,000 ML IV ONE ×3 (09:00→13:48)
--- NOTE | 2022-07-23 09:25 | P.ANPRN ---
Procedure Note - Anesthesia - Invasive Line Right Arterial Line Time Out Performed: Yes (852) Date of Procedure: 07/23/22 Time of Procedure: 09:03 Location of Patient: PreOp Preparation: Sterile Prep, Sterile Dressing Arterial Line Location: Radial (right) Ultrasound Used: No Purpose - Visualization and Identification of Vasculature: No Needle Guage: 20g Image Stored and Saved: No Narrative: Central line placement per sterile protocol utilized.
--- NOTE | 2022-07-23 09:25 | P.ANPRN ---
Procedure Note - Anesthesia - Nerve Block Performed Left Erector Spinae Single Time Out Performed: Yes (852) Date of Procedure: 07/23/22 Procedure Start Time: 08:53 Procedure Stop Time: 08:57 Location of Patient: PreOp Indication: Acute Post-Operative Pain, Requested by Surgeon Specifically requested for management of pain by DrTimmy: John Marcos Sedation Type: Sedate with meaningful contact maintained Preparation: Sterile Prep Position: Sitting Catheter: None Needle Types: Pajunk Needle Gauge: 21 Ultrasound used to visualize needle placement: Yes Ultrasound used to observe medication spread: Yes Injectate: 0.5% Ropivacaine (see comment for volume) (30cc) Blood Aspirated: No Pain Paresthesia on Injection Noted: No Resistance on Injection: Normal Image Stored and Saved: Yes Events: Uneventful and Well Tolerated
[2022-07-23] MEDS ORDERED: fentaNYL (PF) 50 MCG/ML 2 ML AMP ONE (10:00)
[2022-07-23] MEDS ORDERED: HYDROmorphone (PF) 1 MG/ML ONE (10:00)
[2022-07-23] MEDS ORDERED: ROCURONIUM 10 MG/ML (5 ML VIAL) IV ONE (10:00)
[2022-07-23] MEDS ORDERED: ePHEDrine 50 MG/ML 1 ML VIAL ONE (10:00)
[2022-07-23] MEDS ORDERED: MIDAZOLAM 2 MG/2 ML VIAL ONE (10:00)
[2022-07-23] MEDS ORDERED: PROPOFOL 10 MG/ML 20 ML VIAL IV ONE (10:00)
[2022-07-23] MEDS ORDERED: ROPIVACAINE 5 MG/ML 30 ML VIAL ONE (10:00)
[2022-07-23] MEDS ORDERED: WATER FOR INJECTION, STERILE 10 ML VIAL IV ONE (10:00)
[2022-07-23] MEDS ORDERED: KETAMINE 10 MG/ML 20 ML VIAL ONE (10:00)
[2022-07-23] MEDS ORDERED: LIDOCAINE 2% INJ 20 MG/ML (2 ML VIAL) ONE (10:00)
[2022-07-23] MEDS ORDERED: SUCCINYLCHOLINE CHLORIDE 200 MG/10 ML VIAL IV ONE (10:00)
[2022-07-23] MEDS ORDERED: GLYCOPYRROLATE 0.2 MG/ML 2 ML VIAL ONE (10:00)
[2022-07-23] MEDS ORDERED: NEOSTIGMINE 1 MG/ML 10 ML VIAL ONE (10:00)
[2022-07-23] MEDS ORDERED: PHENYLEPHRINE-0.9% NACL SYG 1,000 MCG/10 ML SYRINGE ONE (10:00)
--- NOTE | 2022-07-23 13:13 | P.OP ---
Date of Procedure: 07/23/22 Preoperative Diagnosis: Empyema, trapped lung Postoperative Diagnosis: Same Procedure(s) Performed: Left thoracotomy, decortication left lung Anesthesia: GETA Surgeon: John Marcos Estimated Blood Loss (ml): 200 IV fluids (ml): 1,500 Urine output (ml): 500 Pathology: other (Pleural peel) Condition: stable Disposition: ICU Indications for Procedure: 42-year-old male presents with 2 week history of chest pain and worsening dys pnea. He was found to have severe left-sided pneumonia with a large empyema. Percutaneous drains were placed and the patient continued to have loculated effusion despite intrapleural lytic therapy. His sepsis improved. He was recommended to undergo decortication. Surgery was scheduled at the next available time slot. Operative Findings: Pleural space was completely adherent. There were several loculated areas of bloody fluid. There is also some clear fluid. There were several areas of appeared to be old hematoma. There was dense pleural peel overlying much of the upper lobe and all of the lower lobe. Excellent decortication was accomplished. Description of Procedure: Patient was brought to the operating room placed supine on the operating table anesthetized and intubated with a double-lumen endotracheal tube. Patient was turned in the right lateral decubitus position appropriately positioned. Left chest was sterilely prepped and draped. Posterior lateral incision was made and carried down through skin and subcutaneous tissue. The latissimus muscle was divided and the serratus anterior was mobilized and retracted anteriorly. Ribs were counted and the seventh interspace was opened widely. Density adhesions present throughout. These were taken down with both blunt and sharp dissection. Great care was taken to try to avoid injury to the pulmonary parenchyma. Once the pleural space of been completely freed the thickened pleura was generally resected. We then carefully decorticated both lobes of the lung. We had good expansion. Loculated collections were found as noted above. We copiously irrigated the chest with several liters of fluid. Stasis was obtained throughout. Cryoablation of the intercostal nerves was performed at levels 26727. Performed posteriorly. 3 chest tubes were placed through separate stab incisions. A 28-Georgian chest tube was placed anteriorly up to the apex. A 32 straight chest tube was placed posteriorly up toward the apex and the posterior gutter. A 32-Georgian right angle cannula was placed between these 2 and left down at the level of the diaphragm. Lung was expanded. The ribs were reapproximated with #1 Vicryl. Muscle layers were closed with 0 Vicryl. The subcutaneous tissue was closed with 2-0 Vicryl. The skin was closed with 3-0 Vicryl. Skin glue and dry sterile dressings were applied. Patient was turned supine and extubated and transferred to ICU in stable condition.
[2022-07-23] MEDS ORDERED: ACETAMINOPHEN TAB 325 MG TAB PO PRN ×2 (13:26→13:27)
[2022-07-23] MEDS ORDERED: HYDROmorphone 0.5 MG/0.5 ML SYRINGE IVP ONE ×3 (13:39→14:53)
--- NOTE | 2022-07-23 14:31 | XR ---
EXAMINATION TYPE: XR chest 1V portable DATE OF EXAM: 07/23/2022 Comparison: 07/22/2022 Clinical History: 42-year-old male post lung surgery Findings: 2 left-sided chest tubes are present. No appreciable pneumothorax. Low lung volumes with crowded vasc ular markings. Patchy left basilar opacity with interval decrease in the left pleural effusion. Impression: 2 left-sided chest tubes now present. Previous pigtail pleural drains have been removed. Improvement in the left-sided pleural effusion. Small effusion may remain. Adjacent patchy left basilar atelectas is and/or consolidation also remains. Overall hypoventilatory changes.
[2022-07-23] MEDS ORDERED: bisacodyL 10 MG SUPP RECTAL PRN (14:35)
[2022-07-23] MEDS ORDERED: ONDANSETRON 4 MG/2 ML VIAL IVP PRN (14:35)
--- NOTE | 2022-07-23 14:59 | P.PN ---
Subjective Progress Note Date: 07/23/22 Principal diagnosis: Acute complicated parapneumonic pleural effusion, empyema I'm seeing this patient in new consultation today 07/14/2022 after being transferred from [facility] for suspected empyema. Patient is a 42-year-old white male with past medical history significant for hypertension, hyperlipidemia, ex-smoker. Patient reports shortness of breath, left lateral chest pain, fever, cough starting approximately 12 days ago. The patient's chest pain worsened yesterday causing him to go to [facility]. Chest CTA on arrival to [facility] showed no evidence of central pulmonary embolism with a left pleural effusion and peripheral nodular thickening related to a parapneumonic effusion. Patient was initially seen and evaluated by Dr. Maher who initiated a transfer for cardiothoracic services. Patient was admitted to the intensive care unit yesterday evening. Patient currently resting in bed, on BiPAP with settings 14/5 and an FiO2 of 50%. SpO2 is 96% on these settings. Patient is calm and tolerating therapy. Patient's CBC on arrival shows some leukocytosis with a WBC count of 17.6, and 1113.6, hematocrit 38.8, platelets 370,000. BMP on arrival to our facility shows a sodium 136, potassium 3.9, chloride 103, serum CO2 23, BP 117, creatinine 0.74, glucose 105. Patient currently has normal saline infusing at 125 mL per hour. Patient is covered with Unasyn and vancomycin. Chest pain is currently under control, and when necessary Toradol is ordered for analgesia. T-max was 102.5F. Vital signs are stable. On today's evaluation of 07/15/2022, the patient is feeling better compared to yesterday. He is weaned down to 3 L of oxygen by nasal cannula. As mentioned, the patient had a left lung pneumonia with empyema. A pigtail catheter was inserted and the total amount of output is 1.3 L of purulent lash bloody fluid from the left lung. The fluid analysis shows that the glucose has been less than 2, LDH is 5260 and a white cell count and the fluid was 14,029. Meanwhile, the patient received a first dose of thrombolytic administration through the pigtail catheter yesterday. A second dose is to follow. White cell count is not under 10.4, hemoglobin is at 10.8 and the platelet count is at 278. Electrolytes are normal. Cultures are still pending. Fluid cultures have been sent. Blood cultures aren't negative for now. Meanwhile, the patient is doing incentive spirometer. He is falling approximately 1200 and his incentive spirometer. He remains on Unasyn and vancomycin. His pleuritic chest pain is subsided significantly. , I'm seeing the patient for a follow-up. Patient is doing well. The patient is currently being treated for a pneumonia/empyema. The pleural fluid cultures are still negative. The patient is having daily. Patient with a pigtail catheter. On today's x-ray, there is significant improvement in the aeration of the left lung. There is a left lower lobe consolidation although the x-ray findings. The patient is currently on 2 L of oxygen by nasal cannula. He is using the incentive spirometer. Output from the pigtail catheter is in order of 1500 mL over the past 24 hours. On 07/17/2022, the patient is being seen for a follow-up. Overall clinically the patient is feeling better. The output from the pigtail catheter in the left chest is still ongoing and output is somewhat bloody purulent fluid. The left- sided pigtail catheter intensely wall suction. The patient has already received at the 3 treatments with alteplase. Total amount of output over the past 24 hours has been in the order of 850 mL. The patient remains on Unasyn and vancomycin. Repeat CAT scan of the chest was done today and the CAT scan shows moderate-sized left-sided lower fluid collection superiorly and posteriorly. The aeration in the left lung bases improved. There has been some interval expansion of the left lung. I discussed the case with cardiothoracic surgery and interventional radiology. We'll going to proceed with another pigtail catheter insertion to drain this persistent loculated pleural effusion. The white cell count of 8.8 with a hemoglobin of 9.3. Sodium is at 142. The ends of 12 and a creatinine of 0.7. Is currently on 2 L of oxygen by nasal cannula. Ventilating. He is using the incentive spirometer. On 07/18/2022, the patient is doing better. He is currently on room air oxygen. No new complaints for now. The chest x-ray shows further improvement in the aeration of the left lung. Note that a second pigtail catheter was inserted yesterday and there was considerable amount of drainage which resulted in further improvement in his chest x-ray findings. The upper left chest pigtail catheter has drained an additional 80 mL. Based on that, we will going to administer alteplase to the upper pigtail. The lower pigtail has no significant output. He is afebrile. He remains on that antibiotic coverage. He is using incentive spirometer. The numbers progressively improved. He is ambulating. No fever. No chills. No other complaints otherwise. The patient's WBC count is at 6.9 with a hemoglobin 9.8 and the patient has a BUN of 50 with a creatinine of 0.6 and the sodium level is at 138. 07/19/2022, doing extremely well. Currently has 2 pigtail catheters. The lower pigtail catheter is not draining. Doppler pigtail catheter drain 500 mL yesterday, 80 mL over the past 8 hours and he was given another dose of thrombolytics. Chest x-ray shows significant improvement in aeration in the left lung. Cultures are all negative. Remain on the same antibiotic coverage and currently is on IV Unasyn. White cell count at 6.9. BUN is at 30 with a creatinine of 0.6 and his sodium levels of 138. He is ambulating. He is on room air oxygen with a pulse ox of 94%. The patient is seen today 07/20/2022 in follow-up on the selective care unit. He is currently sitting up in bed. Awake and alert in no acute distress. He is maintaining O2 saturations in the 90s on 4 L/m per nasal cannula. Currently afebrile. He did develop some significant left-sided chest discomfort yesterday afternoon that took a while to settle back in. Today he is feeling a bit better. 2 posterior left-sided chest tubes remain in place. Documentation reveals 550 ML's serosanguineous output of the left upper posterior chest tube in the past 24 hours and only 45 ML's recorded out in the lower left posterior chest tube. Chest x-ray showing similar findings compared to yesterday. Computed tomography scan of the chest reveals a left thoracotomy tube in appropriate position with trace apical pneumothorax and persistent loculated pleural effusion. Presumably reactive lymphadenopathy throughout the mediastinum. Hepatic steatosis. Pleural fluid cultures pending. Blood cultures revealed no growth. Urine culture revealed no growth. White count 15.1. Hemoglobin 10.6. Platelet count 457. Sodium 136. Potassium 4.0. Bicarb 26. BUN 14. Creatinine 0.76. Glucose 125. He remains on antibiotics in the form of Unasyn. Naz on bronchodilators. Heparin for DVT prophylaxis. CT services following regarding chest tubes and alteplase/dornase infusions. Continues to work well with the incentive spirometer. The patient is seen today 07/21/2022 in follow-up on the selective care unit. He is awake and alert in no acute distress. His left-sided chest discomfort is better controlled. He is maintaining good O2 saturations in the 90s on room air. Left-sided upper chest tube did drain 700 ML's over the past 24 hours. There is still minimum output of the left lower chest tube. He has been receiving alteplase/dornase infusions. Today's chest x-ray reveals persistent left basilar pleural collection may be slightly improved. He continues to work well with the incentive spirometer. He remains on antibiotics in the form of Unasyn. Pleural fluid cultures are pending. White count 10.4. Hemoglobin 9.5. Sodium 136. Potassium 4.1. Bicarb 28. BUN 18. Creatinine 0.80. Glucose 129. Cardiothoracic services are planning a left thoracotomy decortication with cryoablation within the next 24-48 hours. The patient is seen today 07/22/2022 in follow-up on the selective care unit. He is awake and alert in no acute distress. Maintaining good O2 saturations in the 90s on room air. He is sitting up at the bedside. Left-sided chest tube remain in place. Minimal output from the upper chest tube. He did receive a lteplase/dornase to the lower chest tube today. Not much output returned. Chest x-ray reveals a stable exam with small bilateral pleural effusions. Left thoracotomy tube in place without pneumothorax. He continues to work well with the incentive spirometer. The plan is for left thoracotomy with decortication and cryoablation tomorrow. White count 9.8. Hemoglobin 8.9. Sodium 137. Potassium 4.4. Bicarb 27. BUN 14. Creatinine 0.77. He remains on bronchodilators. Heparin for DVT prophylaxis. Antibiotics in the form of Unasyn. Patient was reevaluated today on 07/23/2022, patient is status post left thoracotomy, decortication of left lung, postoperative day #0. Surgery was performed by Dr. Marcos, I evaluated the patient in the recovery room, patient is on few liters nasal cannula, not in any distress, patient had 3 chest tubes placed through separate stab and 3 Pleur-evacs are noted. Minimal bleeding noted in the Pleur-evacs. Chest x-ray showed left lung to be fully expanded. Patient is slightly tachycardic, heart rate is 116, however he is in no distress, and he is hemodynamically stable. Labs today showed WBC count 9.7 hemoglobin 8.9) normal renal profile is normal Objective - Vital Signs Vital signs: Vital Signs Temp 97.6 F 07/23/22 13:20 Pulse 110 H 07/23/22 14:35 Resp 18 07/23/22 14:35 BP 135/66 07/23/22 14:35 Pulse Ox 93 L 07/23/22 14:35 FiO2 50 07/19/22 21:27 Intake & Output 07/22/22 07/23/22 07/23/22 18:59 06:59 18:59 Intake Total 240 1600 Output Total 600 286 5278 Balance -393 -360 440 Intake: IV 1600 Oral 240 Output: Chest Tube Drainage 93 0 0 Chest Tube Left Upper 15 0 0 Posterior Chest Pleural Catheter Left 78 0 0 Posterior Chest Urine 300 600 900 Estimated Blood Loss 260 Other: Voiding Method Urinal Urinal - Exam GENERAL EXAM: Alert, pleasant 42-year-old male, comfortable in no apparent distress. On 4 L nasal cannula HEAD: Normocephalic and atraumatic EYES: Normal reaction of pupils, equal size. NOSE: Clear with pink turbinates. THROAT: No erythema or exudates. NECK: No masses, no JVD. CHEST: No chest wall deformity. LUNGS: Good breath sound bilaterally slightly diminished at the left base, 3 left-sided chest tubes noted CVS: S1 and S2 normal with no audible murmur, regular rhythm. No extra heart sounds ABDOMEN: No hepatosplenomegaly, active bowel sounds, no guarding or rigidity. SKIN: No rashes CENTRAL NERVOUS SYSTEM: Alert and oriented 3 no gross focal deficit. EXTREMITIES: No clubbing edema or cyanosis. - Labs CBC & Chem 7: 07/23/22 06:33 07/23/22 06:33 Labs: Abnormal Lab Results - Last 24 Hours (Table) 07/22/22 07/23/22 07/23/22 Range/Units 07:27 06:33 06:33 RBC 2.88 L (4.30-5.90) m/uL Hgb 8.9 L (13.0-17.5) gm/dL Hct 26.3 L (39.0-53.0) % Plt Count 474 H (150-450) k/uL Glucose 114 H (74-99) mg/dL Calcium 8.2 L (8.4-10.2) mg/dL Crossmatch See Detail Assessment and Plan Assessment: Impression: Postoperative day #0, status post left thoracotomy and decortication of left lung Left lower lobe pneumonia/ empyema. Extensive left lower lobe consolidation/pneumonia. Acute hypoxic respiratory failure secondary to above. Hyperlipidemia Hypertension Ex-smoker, remote history of smoking Plan: Agree with transferring the patient to ICU post surgery I saw the patient in recovery, will monitor in the ICU for the next 24 hours. Chest x-ray after surgery was reviewed, reassuring. Continue chest tubes to suction Continue antibiotics/Unasyn Continue incentive spirometry Continue GI and DVT prophylaxis We'll continue to follow Time with Patient: Less than 30
[2022-07-23 15:28] LABS: Glucose,Whole Blood 200 mg/dL (70-110)
[2022-07-23] MEDS: PATIENT'S OWN (Icosapent Ethyl [Icosapent Ethyl] 1 GM Capsule) PO SCH ×2 (15:49→23:03)
[2022-07-23] MEDS: HYDROmorphone 0.5 MG/0.5 ML SYRINGE IVP PRN (15:57)
--- NOTE | 2022-07-23 16:22 | P.PN ---
Subjective Progress Note Date: 07/23/22 Hospital Course: 2-year-old male with obesity, dyslipidemia, and GERD who presented from an outside hospital for pneumonia with left loculated pleural effusion suspicious for empyema. On presentation here, his temperature was 102.5, tachycardic to 112, respiratory rate 25, saturating at 97% on BiPAP, blood pressure 138/95. Initial labs showed WBC 17.6, hemoglobin 13.6, sodium 136, creatinine 0.74. Chest x-ray showed moderate-sized left-sided pleural effusion. Patient was admitted to medical ICU adn was continued on IV unasyn and vanco. Chest CT demonstrated increasing size of loculated pleural fluid collection in the left lung including left middle and lower lung perfusion and loculated anterior upper lung diffusion. He underwent ultrasound-guided left pleural pigtail catheter and had alteplase instilled. Cultures were negative and MRSA nasal swab was negative and vanco was discontinued. Due to persistent left pleural effusion, another chest tube placed, and again alteplase was instilled. Still having significant output from both lower left chest tubes. Repeat CT chest showed continued loculated pleural effusion. Status post thoracotomy with decortication on 07/23, was transferred to ICU. Subjective: Patient seen and examined at bedside. No acute events overnight. Status post decortication Pertinent positives and negatives as discussed above, a complete review of systems was performed and all other systems are negative. Vitals Signs Reviewed. General: nontoxic, no distress, appears at stated age Derm: warm, dry Head: atraumatic, normocephalic, symmetric Eyes: EOMI, no lid lag, anicteric sclera Mouth: no lip lesion, mucus membranes moist Cardiovascular: S1S2 reg, no murmur Lungs: CTA bilateral, no rhonchi, no rales , no accessory muscle use, hernandez pplemental oxygen, [address] Abdominal: soft, nontender to palpation, no guarding, no appreciable organomegaly Ext: no gross muscle atrophy, no edema, no contractures Neuro: CN II-XI grossly intact, no focal neuro deficits Psych: Alert, oriented, appropriate affect Data Reviewed Today: Pertinent Labs: WBC 9.7, hgb 8.9, plt 474, sodium 138, creatinine 0.83 Operative note reviewed, estimated 200 mL of blood loss Assessment and Plan: Patient remains critically ill, transferred to medical ICU following surgery Left sided locuated pleural effusion with empyema, status post chest tubes 2, status post thoracotomy with decortication Left sided PNA - culture negative Recent wisdom teeth extraction, 3 weeks ago Normocytic anemia, possibly blood loss from chest tube, expected outcome -Operative note reviewed, estimated 200 mL of blood loss -Repeat CBC tomorrow -ID following, patient remains on IV Unasyn 3 g every 6 hours -ICU and cardiothoracic surgery following -Pain control with IV Toradol 15 mg every 6 hours, oral [place], IV Dilaudid as needed, and oral Tylenol -Repeat CMP tomorrow, check her electrolytes and renal function, and hepatic function. Resolved: Sepsis Leukoctysis, increasing will need to monitor Thrombocytosis, reactive Acute hypoxic respiratory failure Chronic: Dyslipidemia HTN Obesity with BMI 36.3 DVT ppx: Subcu heparin Code status: Full code Anticipated discharge place: Pending clinical course Anticipated discharge time: Pending clinical course Objective - Vital Signs Vital signs: Vital Signs Temp 98.2 F 07/23/22 08:00 Pulse 94 07/23/22 09:20 Resp 16 07/23/22 09:20 BP 121/75 07/23/22 09:20 Pulse Ox 96 07/23/22 09:20 FiO2 50 07/19/22 21:27 Intake & Output 07/22/22 07/23/22 07/23/22 18:59 06:59 18:59 Intake Total 240 1400 Output Total 745 299 0586 Balance -393 -360 300 Intake: IV 1400 Oral 240 Output: Chest Tube Drainage 93 0 0 Chest Tube Left Upper 15 0 0 Posterior Chest Pleural Catheter Left 78 0 0 Posterior Chest Urine 300 600 900 Estimated Blood Loss 200 Other: Voiding Method Urinal Urinal - Labs CBC & Chem 7: 07/23/22 06:33 07/23/22 06:33 Labs: Abnormal Lab Results - Last 24 Hours (Table) 07/22/22 07/23/22 07/23/22 Range/Units 07:27 06:33 06:33 RBC 2.88 L (4.30-5.90) m/uL Hgb 8.9 L (13.0-17.5) gm/dL Hct 26.3 L (39.0-53.0) % Plt Count 474 H (150-450) k/uL Glucose 114 H (74-99) mg/dL Calcium 8.2 L (8.4-10.2) mg/dL Crossmatch See Detail
[2022-07-23] MEDS: FENOFIBRATE 160 MG TAB PO SCH (17:44)
[2022-07-23] MEDS: SODIUM CHLORIDE 0.9% 500 ML IV SCH (17:45)
[2022-07-23] MEDS: HYDROcodone/APAP 5-325MG 1 EACH TAB PO PRN (18:00)
[2022-07-23] MEDS: SENNOSIDES-DOCUSATE SODIUM 1 EACH TAB PO SCH (19:34)
[2022-07-23] MEDS: HYDROmorphone 1 MG/ML 1 ML SYRINGE IVP PRN (19:59)
[2022-07-23 23:34] LABS: % Iron Saturation 22.37 (15.00-50.00); Iron 43 ug/dL (65-175); Total Iron Binding Capacity 190 ug/dL (228-460)
[2022-07-24] MEDS: HYDROmorphone 1 MG/ML 1 ML SYRINGE IVP PRN ×6 (00:18→23:38)
[2022-07-24] MEDS: AMPICILLIN-SULBACTAM 3 GM in SODIUM CHLORIDE 0.9% 100 ML IVPB SCH ×5 (00:18→23:39)
[2022-07-24] MEDS: HEPARIN SODIUM,PORCINE/PF 5,000 UNIT/0.5 ML SYRINGE SQ SCH ×4 (00:18→23:39)
[2022-07-24] MEDS: KETOROLAC 15 MG/ML 1 ML VIAL IVP SCH ×4 (03:46→20:12)
[2022-07-24 04:07] LABS: Basophils % (A) 0 %; Eosinophils # (A) 0.1 k/uL (0-0.7); Eosinophils % (A) 1 %; HCT 26.7 % (39.0-53.0); HGB 7.9 gm/dL (13.0-17.5); Lymphocytes # (A) 1.6 k/uL (1.0-4.8); Lymphocytes % (A) 14 %; MCH 27.2 pg (25.0-35.0); MCHC 29.7 g/dL (31.0-37.0); MCV 91.6 fL (80.0-100.0); Mean Platelet Volume 7.4; Monocytes # (A) 0.9 k/uL (0-1.0); Monocytes % (A) 7 %; Neutrophils % (A) 77 %; Platelet Count 515 k/uL (150-450); Poikilocytosis Slight; RBC 2.91 m/uL (4.30-5.90); RDW 13.6 % (11.5-15.5); WBC 11.8 k/uL (3.8-10.6)
[2022-07-24 04:21] LABS: ALT 19 U/L (4-49); AST 25 U/L (17-59); African American GFR (CKD) >90 (>60 ml/min/1.73 sqM); Albumin 2.8 g/dL (3.5-5.0); Alkaline Phosphatase 52 U/L (38-126); Anion Gap 7 mmol/L; Blood Urea Nitrogen 11 mg/dL (9-20); Calcium 7.8 mg/dL (8.4-10.2); Carbon Dioxide 25 mmol/L (22-30); Chloride 99 mmol/L (98-107); Glucose 114 mg/dL (74-99); Non-African American GFR(CKD) >90 (>60 ml/min/1.73 sqM); Potassium 4.3 mmol/L (3.5-5.1); Sodium 131 mmol/L (137-145); Total Bilirubin 0.4 mg/dL (0.2-1.3); Total Protein 5.6 g/dL (6.3-8.2)
--- NOTE | 2022-07-24 06:20 | XR ---
EXAMINATION TYPE: XR chest 1V DATE OF EXAM: 07/24/2022 CLINICAL HISTORY: Difficulty breathing progress study. Postthoracotomy. TECHNIQUE: Single AP portable upright view of the chest is obtained. COMPARISON: Chest x-ray from one day earlier and older studies. FINDINGS: There are 3 left-sided chest tubes redemonstrated. There is persistent low lung volumes an d left basilar opacity. Right lung remains clear. Mild cardiomegaly redemonstrated. Osseous structure s are intact. Tiny left apical pneumothorax remains present. Left-sided subcutaneous emphysema suprac lavicular region redemonstrated. IMPRESSION: Left sided chest tubes with tiny left apical pneumothorax remains present. Persistent lef t basilar acute infiltrate and/or atelectasis and probable tiny left pleural effusion. No significant change from one day earlier.
[2022-07-24] MEDS: PANTOPRAZOLE 40 MG TABLET PO SCH (06:45)
--- NOTE | 2022-07-24 07:15 | P.PN ---
Subjective Progress Note Date: 07/24/22 Principal diagnosis: Left-sided loculated parapneumonic effusion, empyema status post pigtail catheter placement by interventional radiology with lytic instillation, trapped lung, acute hypoxic respiratory failure, leukocytosis, febrile illness. History of hyperlipidemia, obesity, previous tobacco dependence, recent wisdom teeth extraction POD #1 Left thoracotomy, decortication of left lung The patient was seen and examined this morning sitting up in a recliner in the ICU in no acute distress. Remains in sinus rhythm to sinus tach. Currently on 4 LPM NC with oxygen saturation in the mid 90s. Does complain of post surgical pain but states it's controlled with current medication regimen, offered [employer] yesterday but patient declined. Left-sided chest tubes x 3 present to continous wall suction, minimal drainage, positive intermittent air leak in CT #1 (anterior chest tube). Able to achieve 1500 ml on incentive spirometry. Labs, chest x-ray reviewed. Remains on Unasyn for antibiotic management. No other new concerns. Objective - Vital Signs Vital signs: Vital Signs Temp 97.9 F 07/24/22 04:00 Pulse 96 07/24/22 06:00 Resp 19 07/24/22 06:00 BP 129/69 07/23/22 15:05 Pulse Ox 93 L 07/24/22 06:00 FiO2 50 07/19/22 21:27 Intake & Output 07/23/22 07/23/22 07/24/22 06:59 18:59 06:59 Intake Total 240 2240 260 Output Total 600 1855 1235 Balance -360 385 -975 Weight 130.2 kg Intake: IV 2240 260 Sodium Chloride 0.9% 500 40 260 ml @ 20 mls/hr IV .Q24H [facility] Rx#:[id number] Oral 240 Output: Chest Tube Drainage 0 220 165 Chest Tube Left Anterior 40 35 Chest Chest Tube Left Lateral 90 60 Chest Chest Tube Left Upper 0 90 70 Posterior Chest Pleural Catheter Left 0 0 Posterior Chest Urine 600 1375 1070 Estimated Blood Loss 260 Other: Voiding Method Urinal Urinal Urinal ABP, PAP, CO, CI - Last Documented Arterial Blood Pressure 122/69 - Exam CONSTITUTIONAL: Appears comfortable, cooperative, no acute distress RESPIRATORY: Lungs sounds diminished bilaterally. Respirations even, nonlabored. Currently on 4 LPM NC with oxygen saturation 96%. Able to achieve 1500 mL on incentive spirometry. Strong cough. CARDIOVASCULAR: S1, S2 present. Regular rate and rhythm, sinus rhythm to sinus tach on telemetry. Palpable peripheral pulses bilaterally. No edema present. No calf pain or tenderness noted. SCDs present. GASTROINTESTINAL: Abdomen soft, nontender, nondistended. Active bowel sounds present 4 quadrants. Tolerating diet GENITOURINARY: Continues to void clear, yellow urine INTEGUMENTARY: Skin is warm and dry with evidence of good perfusion. Thoracic incision well approximated and covered with dry intact dressing. NEUROLOGIC: Cranial nerves II through XII intact MUSKULOSKELETAL: Able to move all extremities, strength equal bilaterally, gait normal PSYCHIATRIC: Alert and oriented to person place and time, appropriate affect, intact judgment and insight INVASIVE LINES AND TUBES: Left pleural chest tubes x 3 present and connected to wall suction, intermittent air leaks present in anterior chest tube #1. Chest tube #1 (anterior) drained 35 mL serosanguinous fluid overnight, 85 mL since surgery, chest tube #2 (diaphram) drained 40 mL serosanguinous fluid overnight, 150 mL since surgery, chest tube #3 (posterior) drained 50 mL serosanguinous fluid overnight, 100 mL since surgery - Allied health notes Allied health notes reviewed: nursing - Labs CBC & Chem 7: 07/24/22 03:50 07/24/22 03:50 Labs: Abnormal Lab Results - Last 24 Hours (Table) 07/22/22 07/23/22 07/23/22 Range/Units 07:27 06:33 06:33 WBC (3.8-10.6) k/uL RBC 2.88 L (4.30-5.90) m/uL Hgb 8.9 L (13.0-17.5) gm/dL Hct 26.3 L (39.0-53.0) % MCHC (31.0-37.0) g/dL Plt Count 474 H (150-450) k/uL Neutrophils # (1.3-7.7) k/uL Sodium (137-145) mmol/L Glucose 114 H (74-99) mg/dL POC Glucose (mg/dL) (70-110) mg/dL Calcium 8.2 L (8.4-10.2) mg/dL Iron 43 L (65-175) ug/dL TIBC 190 L (228-460) ug/dL Transferrin 136.0 L (204.0-354.0) mg/dL Ferritin 1041.0 H (22.0-322.0) ng/mL Total Protein (6.3-8.2) g/dL Albumin (3.5-5.0) g/dL Crossmatch See Detail 07/23/22 07/24/22 07/24/22 Range/Units 15:25 03:50 03:50 WBC 11.8 H (3.8-10.6) k/uL RBC 2.91 L (4.30-5.90) m/uL Hgb 7.9 L (13.0-17.5) gm/dL Hct 26.7 L (39.0-53.0) % MCHC 29.7 L (31.0-37.0) g/dL Plt Count 515 H (150-450) k/uL Neutrophils # 9.0 H (1.3-7.7) k/uL Sodium 131 L (137-145) mmol/L Glucose 114 H (74-99) mg/dL POC Glucose (mg/dL) 200 H (70-110) mg/dL Calcium 7.8 L (8.4-10.2) mg/dL Iron (65-175) ug/dL TIBC (228-460) ug/dL Transferrin (204.0-354.0) mg/dL Ferritin (22.0-322.0) ng/mL Total Protein 5.6 L (6.3-8.2) g/dL Albumin 2.8 L (3.5-5.0) g/dL Crossmatch Microbiology - Last 24 Hours (Table) 07/23/22 12:33 Anaerobic Culture - Preliminary Lung - Left 07/23/22 12:33 Tissue Culture - Preliminary Lung - Left - Imaging and Cardiology Chest x-ray: report reviewed, image reviewed Assessment and Plan Assessment: Left-sided loculated parapneumonic effusion, empyema, trapped lung, status post placement of left-sided pigtail catheter with instillation of alteplasedornase, status post thoracotomy with decortication Acute hypoxic respiratory failure, requiring BiPAP, currently on 4 LPM NC Leukocytosis, febrile illness History of hyperlipidemia, treated Obesity Previous tobacco dependence Recent wisdom teeth extraction Plan: Will continue chest tubes for another 24 hours, monitor drainage, monitor for ai r leak resolution Wean oxygen as tolerated. Encourage incentive spirometry is 10 times every hour while awake, bronchodilators per pulmonology Increase activity, ambulate as tolerated Pain control per current medication regimen Will monitor daily labs and x-rays Continue antibiotics, management by infectious disease DC hobbs catheter Will discontinue arterial line and place transfer orders for stepdown unit Medical management of other comorbidities per internal medicine service More recommendations to follow
[2022-07-24] MEDS: PATIENT'S OWN (Icosapent Ethyl [Icosapent Ethyl] 1 GM Capsule) PO SCH ×2 (08:10→20:12)
[2022-07-24] MEDS: HYDROcodone/APAP 5-325MG 1 EACH TAB PO PRN ×2 (08:25→13:17)
[2022-07-24] MEDS: IPRATROPIUM-ALBUTEROL 3 ML NEB INHALATION SCH ×4 (08:27→21:02)
--- NOTE | 2022-07-24 11:15 | P.PN ---
Subjective Progress Note Date: 07/24/22 Hospital Course: 42-year-old male with obesity, dyslipidemia, and GERD who presented from an out side hospital for pneumonia with left loculated pleural effusion suspicious for empyema. On presentation here, his temperature was 102.5, tachycardic to 112, respiratory rate 25, saturating at 97% on BiPAP, blood pressure 138/95. Initial labs showed WBC 17.6, hemoglobin 13.6, sodium 136, creatinine 0.74. Chest x-ray showed moderate-sized left-sided pleural effusion. Patient was admitted to [facility] ICU and was continued on IV unasyn and vanco. Chest CT demonstrated increasing size of loculated pleural fluid collection in the left lung including left middle and lower lung perfusion and loculated anterior upper lung diffusion. He underwent ultrasound-guided left pleural pigtail catheter and had alteplase instilled. Cultures were negative and MRSA nasal swab was negative and vanco was discontinued. Due to persistent left pleural effusion, another chest tube placed, and again alteplase was instilled. Still was having significant output from both lower left chest tubes. Repeat CT chest showed continued loculated pleural effusion. Status post thoracotomy with decortication on 07/23, was transferred to ICU. Subjective: Patient seen and examined at bedside. No acute events overnight. He complains about minimal chest pain around her chest tube sites, but denies any worsening shortness of breath, abdominal pain, nausea, vomiting, diarrhea, constipation. He currently has a urinary catheter in place. Pertinent positives and negatives as discussed above, a complete review of s ystems was performed and all other systems are negative. Vitals Signs Reviewed. General: nontoxic, no distress, appears at stated age Derm: warm, dry Head: atraumatic, normocephalic, symmetric Eyes: EOMI, no lid lag, anicteric sclera Mouth: no lip lesion, mucus membranes moist Cardiovascular: S1S2 reg, no murmur Lungs: CTA bilateral, no rhonchi, no rales , no accessory muscle use, supplemental oxygen, [address] Abdominal: soft, nontender to palpation, no guarding, no appreciable organomegaly Ext: no gross muscle atrophy, no edema, no contractures Neuro: CN II-XI grossly intact, no focal neuro deficits Psych: Alert, oriented, appropriate affect Data Reviewed Today: Pertinent Labs: WBC 11.8, hemoglobin 7.9, platelets 5:15, sodium 131, creatinine 0.68 Chest x-ray independently interpreted, [address], no significant changes compared to yesterday Assessment and Plan: Patient remains critically ill, currently in the medical ICU. Left sided locuated pleural effusion with empyema, status post chest tubes 2, status post thoracotomy with decortication, currently has 3 chest tubes Left sided PNA - culture negative Recent wisdom teeth extraction, 3 weeks ago Acute blood loss anemia, expected outcome Mild hyponatremia, likely hypovolemic -Cardiothoracic note reviewed: Maintain chest tubes for another 24 hours, discontinue Gregory catheter, likely transfer to stepdown unit -ID following, patient remains on IV Unasyn 3 g every 6 hours -Repeat CBC tomorrow, no active bleeding -Pain control with IV Toradol 15 mg every 6 hours, oral [place], IV Dilaudid as n eeded, and oral Tylenol -Encourage oral intake, repeat BMP tomorrow Resolved: Sepsis Leukoctysis Thrombocytosis, reactive Acute hypoxic respiratory failure Chronic: Dyslipidemia HTN Obesity with BMI 36.3 DVT ppx: Subcu heparin Code status: Full code Anticipated discharge place: Pending clinical course Anticipated discharge time: Pending clinical course Objective - Vital Signs Vital signs: Vital Signs Temp 99.2 F 07/24/22 08:00 Pulse 90 07/24/22 09:00 Resp 26 H 07/24/22 09:00 BP 129/69 07/23/22 15:05 Pulse Ox 94 L 07/24/22 09:00 FiO2 50 07/19/22 21:27 Intake & Output 07/23/22 07/24/22 07/24/22 18:59 06:59 18:59 Intake Total 2240 260 60 Output Total 1855 1235 185 Balance 385 -975 -125 Weight 130.2 kg Intake: IV 2240 260 60 Sodium Chloride 0.9% 500 40 260 60 ml @ 20 mls/hr IV .Q24H [facility] Rx#:[id number] Output: Chest Tube Drainage 220 165 35 Chest Tube Left Anterior 40 35 15 Chest Chest Tube Left Lateral 90 60 20 Chest Chest Tube Left Upper 90 70 Posterior Chest Pleural Catheter Left 0 Posterior Chest Urine 1375 1070 150 Estimated Blood Loss 260 Other: Voiding Method Urinal Urinal Indwelling Catheter ABP, PAP, CO, CI - Last Documented Arterial Blood Pressure 116/68 - Labs CBC & Chem 7: 07/24/22 03:50 07/24/22 03:50 Labs: Abnormal Lab Results - Last 24 Hours (Table) 07/22/22 07/23/22 07/23/22 Range/Units 07:27 06:33 15:25 WBC (3.8-10.6) k/uL RBC (4.30-5.90) m/uL Hgb (13.0-17.5) gm/dL Hct (39.0-53.0) % MCHC (31.0-37.0) g/dL Plt Count (150-450) k/uL Neutrophils # (1.3-7.7) k/uL Sodium (137-145) mmol/L Glucose (74-99) mg/dL POC Glucose (mg/dL) 200 H (70-110) mg/dL Calcium (8.4-10.2) mg/dL Iron 43 L (65-175) ug/dL TIBC 190 L (228-460) ug/dL Transferrin 136.0 L (204.0-354.0) mg/dL Ferritin 1041.0 H (22.0-322.0) ng/mL Total Protein (6.3-8.2) g/dL Albumin (3.5-5.0) g/dL Crossmatch See Detail 07/24/22 07/24/22 Range/Units 03:50 03:50 WBC 11.8 H (3.8-10.6) k/uL RBC 2.91 L (4.30-5.90) m/uL Hgb 7.9 L (13.0-17.5) gm/dL Hct 26.7 L (39.0-53.0) % MCHC 29.7 L (31.0-37.0) g/dL Plt Count 515 H (150-450) k/uL Neutrophils # 9.0 H (1.3-7.7) k/uL Sodium 131 L (137-145) mmol/L Glucose 114 H (74-99) mg/dL POC Glucose (mg/dL) (70-110) mg/dL Calcium 7.8 L (8.4-10.2) mg/dL Iron (65-175) ug/dL TIBC (228-460) ug/dL Transferrin (204.0-354.0) mg/dL Ferritin (22.0-322.0) ng/mL Total Protein 5.6 L (6.3-8.2) g/dL Albumin 2.8 L (3.5-5.0) g/dL Crossmatch Microbiology - Last 24 Hours (Table) 07/23/22 12:33 Anaerobic Culture - Preliminary Lung - Left 07/23/22 12:33 Tissue Culture - Preliminary Lung - Left
--- NOTE | 2022-07-24 12:29 | P.PN ---
Subjective Progress Note Date: 07/24/22 Principal diagnosis: Acute complicated parapneumonic pleural effusion, empyema I'm seeing this patient in new consultation today 07/14/2022 after being transferred from [facility] for suspected empyema. Patient is a 42-year-old white male with past medical history significant for hypertension, hyperlipidemia, ex-smoker. Patient reports shortness of breath, left lateral chest pain, fever, cough starting approximately 12 days ago. The patient's chest pain worsened yesterday causing him to go to [facility]. Chest CTA on arrival to [facility] showed no evidence of central pulmonary embolism with a left pleural effusion and peripheral nodular thickening related to a parapneumonic effusion. Patient was initially seen and evaluated by Dr. aMher who initiated a transfer for cardiothoracic services. Patient was admitted to the intensive care unit yesterday evening. Patient currently resting in bed, on BiPAP with settings 14/5 and an FiO2 of 50%. SpO2 is 96% on these settings. Patient is calm and tolerating therapy. Patient's CBC on arrival shows some leukocytosis with a WBC count of 17.6, and 1113.6, hematocrit 38.8, platelets 370,000. BMP on arrival to our facility shows a sodium 136, potassium 3.9, chloride 103, serum CO2 23, BP 117, creatinine 0.74, glucose 105. Patient currently has normal saline infusing at 125 mL per hour. Patient is covered with Unasyn and vancomycin. Chest pain is currently under control, and when necessary Toradol is ordered for analgesia. T-max was 102.5F. Vital signs are stable. On today's evaluation of 07/15/2022, the patient is feeling better compared to yesterday. He is weaned down to 3 L of oxygen by nasal cannula. As mentioned, the patient had a left lung pneumonia with empyema. A pigtail catheter was inserted and the total amount of output is 1.3 L of purulent lash bloody fluid from the left lung. The fluid analysis shows that the glucose has been less than 2, LDH is 5260 and a white cell count and the fluid was 14,029. Meanwhile, the patient received a first dose of thrombolytic administration through the pigtail catheter yesterday. A second dose is to follow. White cell count is not under 10.4, hemoglobin is at 10.8 and the platelet count is at 278. Electrolytes are normal. Cultures are still pending. Fluid cultures have been sent. Blood cultures aren't negative for now. Meanwhile, the patient is doing incentive spirometer. He is falling approximately 1200 and his incentive spirometer. He remains on Unasyn and vancomycin. His pleuritic chest pain is subsided significantly. , I'm seeing the patient for a follow-up. Patient is doing well. The patient is currently being treated for a pneumonia/empyema. The pleural fluid cultures are still negative. The patient is having daily. Patient with a pigtail catheter. On today's x-ray, there is significant improvement in the aeration of the left lung. There is a left lower lobe consolidation although the x-ray findings. The patient is currently on 2 L of oxygen by nasal cannula. He is using the incentive spirometer. Output from the pigtail catheter is in order of 1500 mL over the past 24 hours. On 07/17/2022, the patient is being seen for a follow-up. Overall clinically the patient is feeling better. The output from the pigtail catheter in the left chest is still ongoing and output is somewhat bloody purulent fluid. The left- sided pigtail catheter intensely wall suction. The patient has already received at the 3 treatments with alteplase. Total amount of output over the past 24 hours has been in the order of 850 mL. The patient remains on Unasyn and vancomycin. Repeat CAT scan of the chest was done today and the CAT scan shows moderate-sized left-sided lower fluid collection superiorly and posteriorly. The aeration in the left lung bases improved. There has been some interval expansion of the left lung. I discussed the case with cardiothoracic surgery and interventional radiology. We'll going to proceed with another pigtail catheter insertion to drain this persistent loculated pleural effusion. The white cell count of 8.8 with a hemoglobin of 9.3. Sodium is at 142. The ends of 12 and a creatinine of 0.7. Is currently on 2 L of oxygen by nasal cannula. Ventilating. He is using the incentive spirometer. On 07/18/2022, the patient is doing better. He is currently on room air oxygen. No new complaints for now. The chest x-ray shows further improvement in the aeration of the left lung. Note that a second pigtail catheter was inserted yesterday and there was considerable amount of drainage which resulted in further improvement in his chest x-ray findings. The upper left chest pigtail catheter has drained an additional 80 mL. Based on that, we will going to administer alteplase to the upper pigtail. The lower pigtail has no significant output. He is afebrile. He remains on that antibiotic coverage. He is using incentive spirometer. The numbers progressively improved. He is ambulating. No fever. No chills. No other complaints otherwise. The patient's WBC count is at 6.9 with a hemoglobin 9.8 and the patient has a BUN of 50 with a creatinine of 0.6 and the sodium level is at 138. 07/19/2022, doing extremely well. Currently has 2 pigtail catheters. The lower pigtail catheter is not draining. Doppler pigtail catheter drain 500 mL yesterday, 80 mL over the past 8 hours and he was given another dose of thrombolytics. Chest x-ray shows significant improvement in aeration in the left lung. Cultures are all negative. Remain on the same antibiotic coverage and currently is on IV Unasyn. White cell count at 6.9. BUN is at 30 with a creatinine of 0.6 and his sodium levels of 138. He is ambulating. He is on room air oxygen with a pulse ox of 94%. The patient is seen today 07/20/2022 in follow-up on the selective care unit. He is currently sitting up in bed. Awake and alert in no acute distress. He is maintaining O2 saturations in the 90s on 4 L/m per nasal cannula. Currently afebrile. He did develop some significant left-sided chest discomfort yesterday afternoon that took a while to settle back in. Today he is feeling a bit better. 2 posterior left-sided chest tubes remain in place. Documentation reveals 550 ML's serosanguineous output of the left upper posterior chest tube in the past 24 hours and only 45 ML's recorded out in the lower left posterior chest tube. Chest x-ray showing similar findings compared to yesterday. Computed tomography scan of the chest reveals a left thoracotomy tube in appropriate position with trace apical pneumothorax and persistent loculated pleural effusion. Presumably reactive lymphadenopathy throughout the mediastinum. Hepatic steatosis. Pleural fluid cultures pending. Blood cultures revealed no growth. Urine culture revealed no growth. White count 15.1. Hemoglobin 10.6. Platelet count 457. Sodium 136. Potassium 4.0. Bicarb 26. BUN 14. Creatinine 0.76. Glucose 125. He remains on antibiotics in the form of Unasyn. Naz on bronchodilators. Heparin for DVT prophylaxis. CT services following regarding chest tubes and alteplase/dornase infusions. Continues to work well with the incentive spirometer. The patient is seen today 07/21/2022 in follow-up on the selective care unit. He is awake and alert in no acute distress. His left-sided chest discomfort is better controlled. He is maintaining good O2 saturations in the 90s on room air. Left-sided upper chest tube did drain 700 ML's over the past 24 hours. There is still minimum output of the left lower chest tube. He has been receiving alteplase/dornase infusions. Today's chest x-ray reveals persistent left basilar pleural collection may be slightly improved. He continues to work well with the incentive spirometer. He remains on antibiotics in the form of Unasyn. Pleural fluid cultures are pending. White count 10.4. Hemoglobin 9.5. Sodium 136. Potassium 4.1. Bicarb 28. BUN 18. Creatinine 0.80. Glucose 129. Cardiothoracic services are planning a left thoracotomy decortication with cryoablation within the next 24-48 hours. The patient is seen today 07/22/2022 in follow-up on the selective care unit. He is awake and alert in no acute distress. Maintaining good O2 saturations in the 90s on room air. He is sitting up at the bedside. Left-sided chest tube remain in place. Minimal output from the upper chest tube. He did receive a lteplase/dornase to the lower chest tube today. Not much output returned. Chest x-ray reveals a stable exam with small bilateral pleural effusions. Left thoracotomy tube in place without pneumothorax. He continues to work well with the incentive spirometer. The plan is for left thoracotomy with decortication and cryoablation tomorrow. White count 9.8. Hemoglobin 8.9. Sodium 137. Potassium 4.4. Bicarb 27. BUN 14. Creatinine 0.77. He remains on bronchodilators. Heparin for DVT prophylaxis. Antibiotics in the form of Unasyn. Patient was reevaluated today on 07/23/2022, patient is status post left thoracotomy, decortication of left lung, postoperative day #0. Surgery was performed by Dr. Marcos, I evaluated the patient in the recovery room, patient is on few liters nasal cannula, not in any distress, patient had 3 chest tubes placed through separate stab and 3 Pleur-evacs are noted. Minimal bleeding noted in the Pleur-evacs. Chest x-ray showed left lung to be fully expanded. Patient is slightly tachycardic, heart rate is 116, however he is in no distress, and he is hemodynamically stable. Labs today showed WBC count 9.7 hemoglobin 8.9) normal renal profile is normal Reevaluated today on 07/24/2022, patient is now postoperative day #1, status post left thoracotomy decortication of left lung, ration is doing well, hemodynamically stable, not in any distress. Pain seems to be fairly well controlled with pain medication. His heart rate is 101 respiration is in the 20s, blood pressure 130/72 O2 saturation 94% on 5 L nasal cannula. WBC count is 11.8 hemoglobin is 7.. Normal renal profile is normal. Chest x-ray showed left sided chest tubes remain in place, there is a small tiny left apical pneumothorax, left basilar atelectasis or infiltrate noted. And tiny left pleural effusion Objective - Vital Signs Vital signs: Vital Signs Temp 99.2 F 07/24/22 08:00 Pulse 101 H 07/24/22 11:00 Resp 31 H 07/24/22 11:00 BP 129/69 07/23/22 15:05 Pulse Ox 91 L 07/24/22 10:00 FiO2 50 07/19/22 21:27 Intake & Output 07/23/22 07/24/22 07/24/22 18:59 06:59 18:59 Intake Total 2240 260 60 Output Total 1855 1235 535 Balance 769 -756 -816 Weight 130.2 kg Intake: IV 2240 260 60 Sodium Chloride 0.9% 500 40 260 60 ml @ 20 mls/hr IV .Q24H [facility] Rx#:[id number] Output: Chest Tube Drainage 220 165 35 Chest Tube Left Anterior 40 35 15 Chest Chest Tube Left Lateral 90 60 20 Chest Chest Tube Left Upper 90 70 Posterior Chest Pleural Catheter Left 0 Posterior Chest Urine 1375 1070 500 Estimated Blood Loss 260 Other: Voiding Method Urinal Urinal Indwelling Catheter ABP, PAP, CO, CI - Last Documented Arterial Blood Pressure 131/72 - Exam GENERAL EXAM: Alert, pleasant 42-year-old male, comfortable in no apparent distress. On 5 L nasal cannula HEAD: Normocephalic and atraumatic EYES: Normal reaction of pupils, equal size. NOSE: Clear with pink turbinates. THROAT: No erythema or exudates. NECK: No masses, no JVD. CHEST: No chest wall deformity. LUNGS: Good breath sound bilaterally slightly diminished at the left base, 3 left-sided chest tubes noted CVS: S1 and S2 normal with no audible murmur, regular rhythm. No extra heart sounds ABDOMEN: No hepatosplenomegaly, active bowel sounds, no guarding or rigidity. SKIN: No rashes CENTRAL NERVOUS SYSTEM: Alert and oriented 3 no gross focal deficit. EXTREMITIES: No clubbing edema or cyanosis. - Labs CBC & Chem 7: 07/24/22 03:50 07/24/22 03:50 Labs: Abnormal Lab Results - Last 24 Hours (Table) 07/23/22 07/23/22 07/24/22 Range/Units 06:33 15:25 03:50 WBC 11.8 H (3.8-10.6) k/uL RBC 2.91 L (4.30-5.90) m/uL Hgb 7.9 L (13.0-17.5) gm/dL Hct 26.7 L (39.0-53.0) % MCHC 29.7 L (31.0-37.0) g/dL Plt Count 515 H (150-450) k/uL Neutrophils # 9.0 H (1.3-7.7) k/uL Sodium (137-145) mmol/L Glucose (74-99) mg/dL POC Glucose (mg/dL) 200 H (70-110) mg/dL Calcium (8.4-10.2) mg/dL Iron 43 L (65-175) ug/dL TIBC 190 L (228-460) ug/dL Transferrin 136.0 L (204.0-354.0) mg/dL Ferritin 1041.0 H (22.0-322.0) ng/mL Total Protein (6.3-8.2) g/dL Albumin (3.5-5.0) g/dL 07/24/22 Range/Units 03:50 WBC (3.8-10.6) k/uL RBC (4.30-5.90) m/uL Hgb (13.0-17.5) gm/dL Hct (39.0-53.0) % MCHC (31.0-37.0) g/dL Plt Count (150-450) k/uL Neutrophils # (1.3-7.7) k/uL Sodium 131 L (137-145) mmol/L Glucose 114 H (74-99) mg/dL POC Glucose (mg/dL) (70-110) mg/dL Calcium 7.8 L (8.4-10.2) mg/dL Iron (65-175) ug/dL TIBC (228-460) ug/dL Transferrin (204.0-354.0) mg/dL Ferritin (22.0-322.0) ng/mL Total Protein 5.6 L (6.3-8.2) g/dL Albumin 2.8 L (3.5-5.0) g/dL Microbiology - Last 24 Hours (Table) 07/23/22 12:33 Tissue Culture - Preliminary Lung - Left 07/23/22 12:33 Anaerobic Culture - Preliminary Lung - Left Assessment and Plan Assessment: Impression: Postoperative day #1, status post left thoracotomy and decortication of left lung Left lower lobe pneumonia/ empyema. Extensive left lower lobe consolidation/pneumonia. Acute hypoxic respiratory failure secondary to above. Hyperlipidemia Hypertension Ex-smoker, remote history of smoking Plan: Continue oxygen and titrate accordingly Continue to monitor daily x-rays of the chest as long as chest tubes are present. Continue to monitor the drainage from chest tube. Continue chest tubes to suction Continue antibiotics/Unasyn Continue incentive spirometry Continue GI and DVT prophylaxis transfer patient today to a stepdown unit We'll continue to follow Time with Patient: Less than 30
[2022-07-24] MEDS: FENOFIBRATE 160 MG TAB PO SCH (18:11)
[2022-07-24] MEDS: SENNOSIDES-DOCUSATE SODIUM 1 EACH TAB PO SCH (20:13)
[2022-07-25] MEDS: KETOROLAC 15 MG/ML 1 ML VIAL IVP SCH ×4 (03:54→20:07)
[2022-07-25] MEDS: AMPICILLIN-SULBACTAM 3 GM in SODIUM CHLORIDE 0.9% 100 ML IVPB SCH ×4 (06:35→23:34)
[2022-07-25] MEDS: PANTOPRAZOLE 40 MG TABLET PO SCH (06:35)
[2022-07-25] MEDS: HYDROmorphone 1 MG/ML 1 ML SYRINGE IVP PRN ×4 (06:35→23:36)
--- NOTE | 2022-07-25 06:58 | XR ---
EXAMINATION TYPE: XR chest 1V portable DATE OF EXAM: 07/25/2022 COMPARISON: 07/23/2022 HISTORY: Postthoracotomy. TECHNIQUE: Single frontal view of the chest is obtained. FINDINGS: The 2 left-sided chest tubes are unchanged in position and there is no pneumothorax. There is no airspace opacity or interstitial opacity. The pulmonary vasculature is normal. There is no large pleural effusion. The osseous structures are intact. IMPRESSION: No significant interval change.
[2022-07-25 07:14] LABS: HGB 8.5 gm/dL (13.0-17.5); Hypochromasia Slight; MCH 30.3 pg (25.0-35.0); MCHC 32.7 g/dL (31.0-37.0); MCV 92.8 fL (80.0-100.0); Mean Platelet Volume 7.3; Platelet Count 490 k/uL (150-450); Poikilocytosis Moderate; RBC 2.81 m/uL (4.30-5.90); WBC 10.1 k/uL (3.8-10.6)
[2022-07-25 07:41] LABS: African American GFR (CKD) >90 (>60 ml/min/1.73 sqM); Anion Gap 6 mmol/L; Blood Urea Nitrogen 12 mg/dL (9-20); Calcium 7.8 mg/dL (8.4-10.2); Carbon Dioxide 27 mmol/L (22-30); Chloride 102 mmol/L (98-107); Glucose 124 mg/dL (74-99); Non-African American GFR(CKD) >90 (>60 ml/min/1.73 sqM); Potassium 4.5 mmol/L (3.5-5.1); Sodium 135 mmol/L (137-145)
[2022-07-25] MEDS: SODIUM CHLORIDE 0.9% 500 ML IV SCH ×2 (07:58→16:09)
[2022-07-25] MEDS: IPRATROPIUM-ALBUTEROL 3 ML NEB INHALATION SCH ×4 (08:17→21:19)
--- NOTE | 2022-07-25 08:33 | P.PN ---
Subjective Progress Note Date: 07/25/22 Principal diagnosis: Left-sided loculated parapneumonic effusion, empyema status post pigtail catheter placement by interventional radiology with lytic instillation, trapped lung, acute hypoxic respiratory failure, leukocytosis, febrile illness. History of hyperlipidemia, obesity, previous tobacco dependence, recent wisdom teeth extraction POD #2 Left thoracotomy, decortication of left lung The patient was seen and examined this morning sitting up in a recliner on the cardiac stepdown unit in no acute distress. Remains in sinus rhythm. Currently on 3 LPM NC with oxygen saturation in the mid 90s. Does complain of post surgical pain but states it's controlled with current medication regimen. Left- sided chest tubes x 3 present to continous wall suction, minimal drainage, positive intermittent air leak in CT #1 (anterior chest tube) but much less significant than yesterday, only after forceful coughing. Able to achieve 1750 ml on incentive spirometry. Labs, chest x-ray reviewed. Remains on Unasyn for antibiotic management, surgical tissue preliminary gram stain reports no growth at 24 hours. Has been ambulatory in the hallway without difficulty. No other new concerns. Objective - Vital Signs Vital signs: Vital Signs Temp 98.4 F 07/25/22 04:00 Pulse 96 07/25/22 08:17 Resp 19 07/25/22 04:00 BP 126/70 07/25/22 04:00 Pulse Ox 94 L 07/25/22 08:17 FiO2 50 07/24/22 16:00 Intake & Output 07/24/22 07/25/22 07/25/22 18:59 06:59 18:59 Intake Total 60 Output Total 1035 550 Balance -975 -550 Intake: IV 60 Sodium Chloride 0.9% 500 60 ml @ 20 mls/hr IV .Q24H [facility] Rx#:[id number] Output: Chest Tube Drainage 35 Chest Tube Left Anterior 15 Chest Chest Tube Left Lateral 20 Chest Urine 1000 550 Other: Voiding Method Urinal Urinal # Voids 1 ABP, PAP, CO, CI - Last Documented Arterial Blood Pressure 131/72 - Exam CONSTITUTIONAL: Appears comfortable, cooperative, no acute distress RESPIRATORY: Lungs sounds diminished bilaterally. Respirations even, nonlabored. Currently on 3 LPM NC with oxygen saturation 96%. Able to achieve 1750 mL on incentive spirometry. Strong cough. CARDIOVASCULAR: S1, S2 present. Regular rate and rhythm, sinus rhythm on telemetry. Palpable peripheral pulses bilaterally. No edema present. No calf pain or tenderness noted. SCDs present. GASTROINTESTINAL: Abdomen soft, nontender, nondistended. Active bowel sounds present 4 quadrants. Tolerating diet GENITOURINARY: Continues to void clear, yellow urine INTEGUMENTARY: Skin is warm and dry with evidence of good perfusion. Thoracic incision well approximated and covered with dry intact dressing. NEUROLOGIC: Cranial nerves II through XII intact MUSKULOSKELETAL: Able to move all extremities, strength equal bilaterally, gait normal PSYCHIATRIC: Alert and oriented to person place and time, appropriate affect, intact judgment and insight INVASIVE LINES AND TUBES: Left pleural chest tubes x 3 present and connected to wall suction, intermittent air leaks present in anterior chest tube #1 with forceful coughing only. Chest tube #1 (anterior) drained 55 mL serosanguinous fluid in the last 24 hours, chest tube #2 (diaphram) drained 100 mL serosanguinous fluid in the last 24 hours, chest tube #3 (posterior) drained 25 mL serosanguinous fluid in the last 24 hours - Allied health notes Allied health notes reviewed: nursing - Labs CBC & Chem 7: 07/25/22 05:57 07/25/22 05:57 Labs: Abnormal Lab Results - Last 24 Hours (Table) 07/22/22 07/25/22 07/25/22 Range/Units 07:27 05:57 05:57 RBC 2.81 L (4.30-5.90) m/uL Hgb 8.5 L (13.0-17.5) gm/dL Hct 26.0 L (39.0-53.0) % Plt Count 490 H (150-450) k/uL Sodium 135 L (137-145) mmol/L Creatinine 0.65 L (0.66-1.25) mg/dL Glucose 124 H (74-99) mg/dL Calcium 7.8 L (8.4-10.2) mg/dL Crossmatch See Detail Microbiology - Last 24 Hours (Table) 07/23/22 12:33 Gram Stain - Preliminary Lung - Left Tissue Culture - Preliminary 07/14/22 14:10 Fungal Culture - Preliminary Pleural Fluid - Imaging and Cardiology Chest x-ray: report reviewed, image reviewed Assessment and Plan Assessment: Left-sided loculated parapneumonic effusion, empyema, trapped lung, status post placement of left-sided pigtail catheter with instillation of alteplasedornase, status post thoracotomy with decortication Acute hypoxic respiratory failure, requiring BiPAP, currently on 3 LPM NC Leukocytosis, febrile illness History of hyperlipidemia, treated Obesity Previous tobacco dependence Recent wisdom teeth extraction Plan: Will continue anterior and medial chest tubes for another 24 hours, will discontinue posterior chest tube, monitor drainage, monitor for air leak resolution Wean oxygen as tolerated. Encourage incentive spirometry is 10 times every hour while awake, bronchodilators per pulmonology Increase activity, ambulate as tolerated Pain control per current medication regimen Will monitor daily labs and x-rays Continue antibiotics, management by infectious disease Medical management of other comorbidities per internal medicine service More recommendations to follow
[2022-07-25] MEDS: HEPARIN SODIUM,PORCINE/PF 5,000 UNIT/0.5 ML SYRINGE SQ SCH ×3 (09:35→23:35)
[2022-07-25] MEDS: PATIENT'S OWN (Icosapent Ethyl [Icosapent Ethyl] 1 GM Capsule) PO SCH ×2 (09:37→20:07)
--- NOTE | 2022-07-25 13:11 | P.PN ---
Subjective Progress Note Date: 07/25/22 Principal diagnosis: Acute complicated parapneumonic pleural effusion, empyema I'm seeing this patient in new consultation today 07/14/2022 after being transferred from [facility] for suspected empyema. Patient is a 42-year-old white male with past medical history significant for hypertension, hyperlipidemia, ex-smoker. Patient reports shortness of breath, left lateral chest pain, fever, cough starting approximately 12 days ago. The patient's chest pain worsened yesterday causing him to go to [facility]. Chest CTA on arrival to [facility] showed no evidence of central pulmonary embolism with a left pleural effusion and peripheral nodular thickening related to a parapneumonic effusion. Patient was initially seen and evaluated by Dr. Maher who initiated a transfer for cardiothoracic services. Patient was admitted to the intensive care unit yesterday evening. Patient currently resting in bed, on BiPAP with settings 14/5 and an FiO2 of 50%. SpO2 is 96% on these settings. Patient is calm and tolerating therapy. Patient's CBC on arrival shows some leukocytosis with a WBC count of 17.6, and 1113.6, hematocrit 38.8, platelets 370,000. BMP on arrival to our facility shows a sodium 136, potassium 3.9, chloride 103, serum CO2 23, BP 117, creatinine 0.74, glucose 105. Patient currently has normal saline infusing at 125 mL per hour. Patient is covered with Unasyn and vancomycin. Chest pain is currently under control, and when necessary Toradol is ordered for analgesia. T-max was 102.5F. Vital signs are stable. On today's evaluation of 07/15/2022, the patient is feeling better compared to yesterday. He is weaned down to 3 L of oxygen by nasal cannula. As mentioned, the patient had a left lung pneumonia with empyema. A pigtail catheter was inserted and the total amount of output is 1.3 L of purulent lash bloody fluid from the left lung. The fluid analysis shows that the glucose has been less than 2, LDH is 5260 and a white cell count and the fluid was 14,029. Meanwhile, the patient received a first dose of thrombolytic administration through the pigtail catheter yesterday. A second dose is to follow. White cell count is not under 10.4, hemoglobin is at 10.8 and the platelet count is at 278. Electrolytes are normal. Cultures are still pending. Fluid cultures have been sent. Blood cultures aren't negative for now. Meanwhile, the patient is doing incentive spirometer. He is falling approximately 1200 and his incentive spirometer. He remains on Unasyn and vancomycin. His pleuritic chest pain is subsided significantly. , I'm seeing the patient for a follow-up. Patient is doing well. The patient is currently being treated for a pneumonia/empyema. The pleural fluid cultures are still negative. The patient is having daily. Patient with a pigtail catheter. On today's x-ray, there is significant improvement in the aeration of the left lung. There is a left lower lobe consolidation although the x-ray findings. The patient is currently on 2 L of oxygen by nasal cannula. He is using the incentive spirometer. Output from the pigtail catheter is in order of 1500 mL over the past 24 hours. On 07/17/2022, the patient is being seen for a follow-up. Overall clinically the patient is feeling better. The output from the pigtail catheter in the left chest is still ongoing and output is somewhat bloody purulent fluid. The left- sided pigtail catheter intensely wall suction. The patient has already received at the 3 treatments with alteplase. Total amount of output over the past 24 hours has been in the order of 850 mL. The patient remains on Unasyn and vancomycin. Repeat CAT scan of the chest was done today and the CAT scan shows moderate-sized left-sided lower fluid collection superiorly and posteriorly. The aeration in the left lung bases improved. There has been some interval expansion of the left lung. I discussed the case with cardiothoracic surgery and interventional radiology. We'll going to proceed with another pigtail catheter insertion to drain this persistent loculated pleural effusion. The white cell count of 8.8 with a hemoglobin of 9.3. Sodium is at 142. The ends of 12 and a creatinine of 0.7. Is currently on 2 L of oxygen by nasal cannula. Ventilating. He is using the incentive spirometer. On 07/18/2022, the patient is doing better. He is currently on room air oxygen. No new complaints for now. The chest x-ray shows further improvement in the aeration of the left lung. Note that a second pigtail catheter was inserted yesterday and there was considerable amount of drainage which resulted in further improvement in his chest x-ray findings. The upper left chest pigtail catheter has drained an additional 80 mL. Based on that, we will going to administer alteplase to the upper pigtail. The lower pigtail has no significant output. He is afebrile. He remains on that antibiotic coverage. He is using incentive spirometer. The numbers progressively improved. He is ambulating. No fever. No chills. No other complaints otherwise. The patient's WBC count is at 6.9 with a hemoglobin 9.8 and the patient has a BUN of 50 with a creatinine of 0.6 and the sodium level is at 138. 07/19/2022, doing extremely well. Currently has 2 pigtail catheters. The lower pigtail catheter is not draining. Doppler pigtail catheter drain 500 mL yesterday, 80 mL over the past 8 hours and he was given another dose of thrombolytics. Chest x-ray shows significant improvement in aeration in the left lung. Cultures are all negative. Remain on the same antibiotic coverage and currently is on IV Unasyn. White cell count at 6.9. BUN is at 30 with a creatinine of 0.6 and his sodium levels of 138. He is ambulating. He is on room air oxygen with a pulse ox of 94%. The patient is seen today 07/20/2022 in follow-up on the selective care unit. He is currently sitting up in bed. Awake and alert in no acute distress. He is maintaining O2 saturations in the 90s on 4 L/m per nasal cannula. Currently afebrile. He did develop some significant left-sided chest discomfort yesterday afternoon that took a while to settle back in. Today he is feeling a bit better. 2 posterior left-sided chest tubes remain in place. Documentation reveals 550 ML's serosanguineous output of the left upper posterior chest tube in the past 24 hours and only 45 ML's recorded out in the lower left posterior chest tube. Chest x-ray showing similar findings compared to yesterday. Computed tomography scan of the chest reveals a left thoracotomy tube in appropriate position with trace apical pneumothorax and persistent loculated pleural effusion. Presumably reactive lymphadenopathy throughout the mediastinum. Hepatic steatosis. Pleural fluid cultures pending. Blood cultures revealed no growth. Urine culture revealed no growth. White count 15.1. Hemoglobin 10.6. Platelet count 457. Sodium 136. Potassium 4.0. Bicarb 26. BUN 14. Creatinine 0.76. Glucose 125. He remains on antibiotics in the form of Unasyn. Naz on bronchodilators. Heparin for DVT prophylaxis. CT services following regarding chest tubes and alteplase/dornase infusions. Continues to work well with the incentive spirometer. The patient is seen today 07/21/2022 in follow-up on the selective care unit. He is awake and alert in no acute distress. His left-sided chest discomfort is better controlled. He is maintaining good O2 saturations in the 90s on room air. Left-sided upper chest tube did drain 700 ML's over the past 24 hours. There is still minimum output of the left lower chest tube. He has been receiving alteplase/dornase infusions. Today's chest x-ray reveals persistent left basilar pleural collection may be slightly improved. He continues to work well with the incentive spirometer. He remains on antibiotics in the form of Unasyn. Pleural fluid cultures are pending. White count 10.4. Hemoglobin 9.5. Sodium 136. Potassium 4.1. Bicarb 28. BUN 18. Creatinine 0.80. Glucose 129. Cardiothoracic services are planning a left thoracotomy decortication with cryoablation within the next 24-48 hours. The patient is seen today 07/22/2022 in follow-up on the selective care unit. He is awake and alert in no acute distress. Maintaining good O2 saturations in the 90s on room air. He is sitting up at the bedside. Left-sided chest tube remain in place. Minimal output from the upper chest tube. He did receive a lteplase/dornase to the lower chest tube today. Not much output returned. Chest x-ray reveals a stable exam with small bilateral pleural effusions. Left thoracotomy tube in place without pneumothorax. He continues to work well with the incentive spirometer. The plan is for left thoracotomy with decortication and cryoablation tomorrow. White count 9.8. Hemoglobin 8.9. Sodium 137. Potassium 4.4. Bicarb 27. BUN 14. Creatinine 0.77. He remains on bronchodilators. Heparin for DVT prophylaxis. Antibiotics in the form of Unasyn. Patient was reevaluated today on 07/23/2022, patient is status post left thoracotomy, decortication of left lung, postoperative day #0. Surgery was performed by Dr. Marcos, I evaluated the patient in the recovery room, patient is on few liters nasal cannula, not in any distress, patient had 3 chest tubes placed through separate stab and 3 Pleur-evacs are noted. Minimal bleeding noted in the Pleur-evacs. Chest x-ray showed left lung to be fully expanded. Patient is slightly tachycardic, heart rate is 116, however he is in no distress, and he is hemodynamically stable. Labs today showed WBC count 9.7 hemoglobin 8.9) normal renal profile is normal Reevaluated today on 07/24/2022, patient is now postoperative day #1, status post left thoracotomy decortication of left lung, ration is doing well, hemodynamically stable, not in any distress. Pain seems to be fairly well controlled with pain medication. His heart rate is 101 respiration is in the 20s, blood pressure 130/72 O2 saturation 94% on 5 L nasal cannula. WBC count is 11.8 hemoglobin is 7.. Normal renal profile is normal. Chest x-ray showed left sided chest tubes remain in place, there is a small tiny left apical pneumothorax, left basilar atelectasis or infiltrate noted. And tiny left pleural effusion Reevaluated today on 07/25/2022, patient is now postoperative day #2 status post left thoracotomy decortication of left lung patient had one of his chest tubes removed today, continues to have [address] Doing quite well with incentive spirometry. Remains on antibiotics in the form of Unasyn. Surgical tissue has been negative so far, negative cultures. And negative Gram stain. Patient is ambulatory in the hallway. is at bedside, overall the patient is doing great. WBC count is 10.1 hemoglobin is 8.5 electrodes are normal renal profile is normal Objective - Vital Signs Vital signs: Vital Signs Temp 98.6 F 07/25/22 11:49 Pulse 96 07/25/22 11:56 Resp 18 07/25/22 11:49 BP 124/78 07/25/22 11:49 Pulse Ox 97 07/25/22 11:49 FiO2 50 07/24/22 16:00 Intake & Output 07/24/22 07/25/22 07/25/22 18:59 06:59 18:59 Intake Total 60 Output Total 1035 550 Balance -975 -550 Intake: IV 60 Sodium Chloride 0.9% 500 60 ml @ 20 mls/hr IV .Q24H [facility] Rx#:[id number] Output: Chest Tube Drainage 35 Chest Tube Left Anterior 15 Chest Chest Tube Left Lateral 20 Chest Urine 1000 550 Other: Voiding Method Urinal Urinal Urinal # Voids 1 ABP, PAP, CO, CI - Last Documented Arterial Blood Pressure 131/72 - Exam GENERAL EXAM: Alert, pleasant 42-year-old male, comfortable in no apparent distress. On 3 L nasal cannula, O2 sats is 96% HEAD: Normocephalic and atraumatic EYES: Normal reaction of pupils, equal size. NOSE: Clear with pink turbinates. THROAT: No erythema or exudates. NECK: No masses, no JVD. CHEST: No chest wall deformity. LUNGS: Good breath sound bilaterally slightly diminished at the left base, 2left-sided chest tubes noted, intermittent air leak noted in chest tube number 1 CVS: S1 and S2 normal with no audible murmur, regular rhythm. No extra heart sounds ABDOMEN: No hepatosplenomegaly, active bowel sounds, no guarding or rigidity. SKIN: No rashes CENTRAL NERVOUS SYSTEM: Alert and oriented 3 no gross focal deficit. EXTREMITIES: No clubbing edema or cyanosis. - Labs CBC & Chem 7: 07/25/22 05:57 07/25/22 05:57 Labs: Abnormal Lab Results - Last 24 Hours (Table) 07/22/22 07/25/22 07/25/22 Range/Units 07:27 05:57 05:57 RBC 2.81 L (4.30-5.90) m/uL Hgb 8.5 L (13.0-17.5) gm/dL Hct 26.0 L (39.0-53.0) % Plt Count 490 H (150-450) k/uL Sodium 135 L (137-145) mmol/L Creatinine 0.65 L (0.66-1.25) mg/dL Glucose 124 H (74-99) mg/dL Calcium 7.8 L (8.4-10.2) mg/dL Crossmatch See Detail Microbiology - Last 24 Hours (Table) 07/23/22 12:33 Gram Stain - Preliminary Lung - Left Tissue Culture - Preliminary 07/14/22 14:10 Fungal Culture - Preliminary Pleural Fluid Assessment and Plan Assessment: Impression: Postoperative day #2, status post left thoracotomy and decortication of left lung Left lower lobe pneumonia/ empyema. Extensive left lower lobe consolidation/pneumonia. Acute hypoxic respiratory failure secondary to above. Hyperlipidemia Hypertension Ex-smoker, remote history of smoking Plan: Continue oxygen and titrate accordingly Continue to monitor daily x-rays of the chest as long as chest tubes are present. Continue to monitor the drainage from chest tube. Continue chest tubes to suction, one of the chest tubes has been removed. Continue antibiotics/Unasyn Continue incentive spirometry Ambulate in the hallway. Continue GI and DVT prophylaxis We'll continue to follow Time with Patient: Less than 30
--- NOTE | 2022-07-25 15:16 | P.PN ---
Subjective Progress Note Date: 07/23/22 Principal diagnosis: Left-sided empyema Patient is a 42-year-old male presenting to the hospital on 07/13/2022 for evaluation of left-sided chest pain apparently has been going on for more than a week , patient did have evidence of left-sided pneumonia and left-sided locally diffusion initially treated with a chest tube and the patient is status post left thoracotomy decortication left lung completed on 07/23/2022. On today's evaluation that is 07/23/2022, the patient is afebrile breathing slightly comfortably complaining of pain to the left side of the chest was some relief with the pain medication no nausea no vomiting no abdominal pain or diarrhea Objective - Vital Signs Vital signs: Vital Signs Temp 98.2 F 07/23/22 08:00 Pulse 94 07/23/22 09:20 Resp 16 07/23/22 09:20 BP 121/75 07/23/22 09:20 Pulse Ox 96 07/23/22 09:20 FiO2 50 07/19/22 21:27 Intake & Output 07/22/22 07/23/22 07/23/22 18:59 06:59 18:59 Intake Total 240 1400 Output Total 980 127 1072 Balance -393 -360 300 Intake: IV 1400 Oral 240 Output: Chest Tube Drainage 93 0 0 Chest Tube Left Upper 15 0 0 Posterior Chest Pleural Catheter Left 78 0 0 Posterior Chest Urine 300 600 900 Estimated Blood Loss 200 Other: Voiding Method Urinal Urinal - Exam GENERAL DESCRIPTION: A middle-aged male lying in bed in no distress RESPIRATORY SYSTEM: Unlabored breathing , decreased breath sounds at bases HEART: S1 S2 regular rate and rhythm , ABDOMEN: Soft , no tenderness EXTREMITIES: No edema feet - Labs CBC & Chem 7: 07/25/22 05:57 07/25/22 05:57 Labs: Abnormal Lab Results - Last 24 Hours (Table) 07/22/22 07/23/22 07/23/22 Range/Units 07:27 06:33 06:33 RBC 2.88 L (4.30-5.90) m/uL Hgb 8.9 L (13.0-17.5) gm/dL Hct 26.3 L (39.0-53.0) % Plt Count 474 H (150-450) k/uL Glucose 114 H (74-99) mg/dL Calcium 8.2 L (8.4-10.2) mg/dL Crossmatch See Detail Assessment and Plan (1) Empyema lung Current Visit: Yes Status: Acute Code(s): J86.9 - PYOTHORAX WITHOUT FISTULA SNOMED Code(s): 86575934 Plan: 1patient presented hospital with sepsis in this patient with fever elevated white count patient main symptom has been left-sided chest pain he has been diagnosed with a empyema in this patient with status post chest tube placement initially on 07/14/2022 however cultures has been negative for resistant pathogen the patient fever has resolved and white count normalized however with just resi dual fluid patient is status post VATS procedure completed 07/23/2022 2-patient to continue with Unasyn 3 g every 6 hours while waiting for the cultures to finalize Time with Patient: Less than 30
--- NOTE | 2022-07-25 15:19 | P.PN ---
Subjective Progress Note Date: 07/24/22 Principal diagnosis: Left-sided empyema Patient is a 42-year-old male presenting to the hospital on 07/13/2022 for evaluation of left-sided chest pain apparently has been going on for more than a week , patient did have evidence of left-sided pneumonia and left-sided locally diffusion initially treated with a chest tube and the patient is status post left thoracotomy decortication left lung completed on 07/23/2022. On today's evaluation that is 07/24/2022, the patient remains to be afebrile, the patient is breathing slightly comfortably currently on a 4 L nasal cannula oxygen, the patient pain to the left side of the chest is currently controlled, no nausea no vomiting no abdominal pain or diarrhea Objective - Vital Signs Vital signs: Vital Signs Temp 98.6 F 07/24/22 11:49 Pulse 96 07/24/22 11:49 Resp 18 07/24/22 11:49 BP 124/78 07/24/22 11:49 Pulse Ox 97 07/24/22 11:49 FiO2 50 07/24/22 11:49 Intake & Output 07/24/22 12:59 Intake Total 60 Output Total 1035 Balance -975 Intake: IV 60 Sodium Chloride 0.9% 500 60 ml @ 20 mls/hr IV .Q24H [facility] Rx#:[id number] Output: Chest Tube Drainage 35 Chest Tube Left Anterior 15 Chest Chest Tube Left Lateral 20 Chest Urine 1000 Other: Voiding Method Urinal # Voids ABP, PAP, CO, CI - Last Documented Arterial Blood Pressure 131/72 - Exam GENERAL DESCRIPTION: A middle-aged male lying in bed in no distress RESPIRATORY SYSTEM: Unlabored breathing , decreased breath sounds at bases HEART: S1 S2 regular rate and rhythm , ABDOMEN: Soft , no tenderness EXTREMITIES: No edema feet - Labs CBC & Chem 7: 07/25/22 05:57 07/25/22 05:57 Labs: Abnormal Lab Results - Last 24 Hours (Table) 07/22/22 07/25/22 07/25/22 Range/Units 07:27 05:57 05:57 RBC 2.81 L (4.30-5.90) m/uL Hgb 8.5 L (13.0-17.5) gm/dL Hct 26.0 L (39.0-53.0) % Plt Count 490 H (150-450) k/uL Sodium 135 L (137-145) mmol/L Creatinine 0.65 L (0.66-1.25) mg/dL Glucose 124 H (74-99) mg/dL Calcium 7.8 L (8.4-10.2) mg/dL Crossmatch See Detail Microbiology - Last 24 Hours (Table) 07/23/22 12:33 Gram Stain - Preliminary Lung - Left Tissue Culture - Preliminary 07/14/22 14:10 Fungal Culture - Preliminary Pleural Fluid Assessment and Plan (1) Empyema lung Current Visit: Yes Status: Acute Code(s): J86.9 - PYOTHORAX WITHOUT FISTULA SNOMED Code(s): 73235066 Plan: 1patient presented hospital with sepsis in this patient with fever elevated white count patient main symptom has been left-sided chest pain he has been d iagnosed with a empyema in this patient with status post chest tube placement initially on 07/14/2022 however cultures has been negative for resistant pathogen the patient fever has resolved and white count normalized however with just residual fluid patient is status post VATS procedure completed 07/23/2022 2-patient is afebrile, the white count is 11.8, left lung thoracotomy cultures are currently pending, patient to continue with Unasyn 3 g every 6 hours while waiting for the cultures to finalize Time with Patient: Less than 30
--- NOTE | 2022-07-25 15:20 | P.PN ---
Subjective Progress Note Date: 07/25/22 Principal diagnosis: Left-sided empyema Patient is a 42-year-old male presenting to the hospital on 07/13/2022 for evaluation of left-sided chest pain apparently has been going on for more than a week , patient did have evidence of left-sided pneumonia and left-sided locally diffusion initially treated with a chest tube and the patient is status post left thoracotomy decortication left lung completed on 07/23/2022. On today's evaluation that is 07/25/2022, the patient continues to be afebrile, the patient is breathing slightly comfortably currently on a 4 L nasal cannula oxygen, the patient left side chest pain has decreased in intensity and one on the chest tube has been discontinued, the patient denies nausea no vomiting no abdominal pain or diarrhea Objective - Vital Signs Vital signs: Vital Signs Temp 98.6 F 07/25/22 11:49 Pulse 96 07/25/22 11:56 Resp 18 07/25/22 11:49 BP 124/78 07/25/22 11:49 Pulse Ox 97 07/25/22 11:49 FiO2 50 07/24/22 16:00 Intake & Output 07/24/22 07/25/22 07/25/22 18:59 06:59 18:59 Intake Total 60 Output Total 1035 550 Balance -975 -550 Intake: IV 60 Sodium Chloride 0.9% 500 60 ml @ 20 mls/hr IV .Q24H [facility] Rx#:[id number] Output: Chest Tube Drainage 35 Chest Tube Left Anterior 15 Chest Chest Tube Left Lateral 20 Chest Urine 1000 550 Other: Voiding Method Urinal Urinal Urinal # Voids 1 ABP, PAP, CO, CI - Last Documented Arterial Blood Pressure 131/72 - Exam GENERAL DESCRIPTION: A middle-aged male lying in bed in no distress RESPIRATORY SYSTEM: Unlabored breathing , decreased breath sounds at bases HEART: S1 S2 regular rate and rhythm , ABDOMEN: Soft , no tenderness EXTREMITIES: No edema feet - Labs CBC & Chem 7: 07/25/22 05:57 07/25/22 05:57 Labs: Abnormal Lab Results - Last 24 Hours (Table) 07/22/22 07/25/22 07/25/22 Range/Units 07:27 05:57 05:57 RBC 2.81 L (4.30-5.90) m/uL Hgb 8.5 L (13.0-17.5) gm/dL Hct 26.0 L (39.0-53.0) % Plt Count 490 H (150-450) k/uL Sodium 135 L (137-145) mmol/L Creatinine 0.65 L (0.66-1.25) mg/dL Glucose 124 H (74-99) mg/dL Calcium 7.8 L (8.4-10.2) mg/dL Crossmatch See Detail Microbiology - Last 24 Hours (Table) 07/23/22 12:33 Gram Stain - Preliminary Lung - Left Tissue Culture - Preliminary 07/14/22 14:10 Fungal Culture - Preliminary Pleural Fluid Assessment and Plan (1) Empyema lung Current Visit: Yes Status: Acute Code(s): J86.9 - PYOTHORAX WITHOUT FISTULA SNOMED Code(s): 47754714 (2) Pneumonia Current Visit: Yes Status: Acute Code(s): J18.9 - PNEUMONIA, UNSPECIFIED ORGANISM SNOMED Code(s): 110008239 Plan: 1patient presented hospital with sepsis in this patient with fever elevated white count patient main symptom has been left-sided chest pain he has been diagnosed with a empyema in this patient with status post chest tube placement initially on 07/14/2022 however cultures has been negative for resistant pathogen the patient fever has resolved and white count normalized however with just residual fluid patient is status post VATS procedure completed 07/23/2022 2-patient is afebrile, the white count is normal at 10.1, left lung thoracotomy cultures remains to be pending, patient to continue with Unasyn 3 g every 6 hours and continue supportive care Time with Patient: Less than 30
--- NOTE | 2022-07-25 16:10 | P.PN ---
Subjective Progress Note Date: 07/25/22 ([facility] charting seen at 1045) Patient is a 42-year-old male with obesity, dyslipidemia, and GERD who presented from an outside hospital for pneumonia with left loculated pleural effusion suspicious for empyema. On presentation here, his temperature was 102.5, tachycardic to 112, respiratory rate 25, saturating at 97% on BiPAP, blood pressure 138/95. Initial labs showed WBC 17.6, hemoglobin 13.6, sodium 136, creatinine 0.74. Chest x-ray showed moderate-sized left-sided pleural effusion. Patient was admitted to medical ICU adn was continued on IV unasyn and vanco. Chest CT demonstrated increasing size of loculated pleural fluid collection in the left lung including left middle and lower lung perfusion and loculated anterior upper lung diffusion. He underwent ultrasound-guided left pleural pigtail catheter and had alteplase instilled. Cultures were negative and MRSA nasal swab was negative and vanco was discontinued. Due to persistent left pleural effusion, another chest tube placed, and again alteplase was instilled. Still having significant output from both lower left chest tubes. Repeat CT chest showed continued loculated pleural effusion. He underwent thoracotomy with deorticiation on 07/23 and tolerated the procedure well. He had one chest tube removed on 07/25. Patient seen and examined at bedside. He denies any nausea, vomiting, diarrhea, constipation. Pain is well controlled between his Toradol and Dilaudid. He is feeling okay overall. Vital signs reviewed General: nontoxic, no distress, appears at stated age Cardiovascular: S1S2 reg, no murmur, positive posterior tibial pulse bilateral, Lungs: Diminished bs breath sounds b/l bases, no rhonchi, no rales , no accessory muscle use, chest tube X [address] Abdominal: soft, nontender to palpation, no guarding, no appreciable organomegaly Ext: no gross muscle atrophy, no edema, no contractures Neuro: CN II-XI grossly intact, no focal neuro deficits Psych: Alert, oriented, appropriate affect Assessment: Left sided locuated pleural effusion with empyema s/p thoarcotome, and pigtail cath X 2 with altaplase Left sided PNA - culture negative Recent wisdom teeth extraction, 3 weeks ago Normocytic anemia, possibly blood loss from chest tube, expected outcome Resolved: Sepsis Leukoctysis, increasing will need to monitor Thrombocytosis, reactive Acute hypoxic respiratory failure Chronic: Dyslipidemia HTN Obesity with BMI 36.3 Imaging: Chest x-ray reviewed by myself chest tube in good position on the left X 2 Data Review: Vital signs reviewed and temperature 98.4, pulse 99, respirations 18, blood pressure 136/85, O2 sat 97% on 3 L nasal cannula Laboratory analysis reviewed with blood cell count 10.1 (down from 11.8), hemoglobin 8.5, platelets 490, sodium 135 Plan: -Infectious disease no reviewed: Continue with Unasyn -Pulmonary note reviewed: Continue current care -Cardiothoracic no reviewed: Continue with chest tube was found to 24 hours, continue with pain control, daily labs, daily x-rays.Case is discussed with cardiothoracic surgery [employer]. He has instilled alteplase today again, plan is for thoracotomy with decortication on 07/23/22 - Follow CBC given worsneing anemia, Check Iron studies - Unasyn 3 g IV every 6 hours D #13 -Sputum cultures, blood cultures, pleural fluid cultures negative, MRSA Nasal Sw ab is negative -[place] 5/325 q 6 hours prn pain, toradol 15 mg q 6 hours, dilaudid for break through pain -Repeat BMP again tomorrow to monitor for renal function in the setting of scheduled IV NSAIDs -pantoprazole 40 mg daily DVT prophylaxis: Lovenox Anticipated discharge date: Pending Clinical Course Anticipated discharge place: Pending Clinical Course This dictation was prepared using [employer] voice recognition software. Though every attempt is made to correct errors during during dictation some may still exist. Objective - Vital Signs Vital signs: Vital Signs Temp 98.6 F 07/25/22 11:49 Pulse 101 H 07/25/22 15:24 Resp 18 07/25/22 11:49 BP 124/78 07/25/22 11:49 Pulse Ox 97 07/25/22 11:49 FiO2 50 07/24/22 16:00 Intake & Output 07/24/22 07/25/22 07/25/22 18:59 06:59 18:59 Intake Total 60 Output Total 1035 550 Balance -975 -550 Intake: IV 60 Sodium Chloride 0.9% 500 60 ml @ 20 mls/hr IV .[facility] Rx#:[id number] Output: Chest Tube Drainage 35 Chest Tube Left Anterior 15 Chest Chest Tube Left Lateral 20 Chest Urine 1000 550 Other: Voiding Method Urinal Urinal Urinal # Voids 1 ABP, PAP, CO, CI - Last Documented Arterial Blood Pressure 131/72 - Labs CBC & Chem 7: 07/25/22 05:57 07/25/22 05:57 Labs: Abnormal Lab Results - Last 24 Hours (Table) 07/22/22 07/25/22 07/25/22 Range/Units 07:27 05:57 05:57 RBC 2.81 L (4.30-5.90) m/uL Hgb 8.5 L (13.0-17.5) gm/dL Hct 26.0 L (39.0-53.0) % Plt Count 490 H (150-450) k/uL Sodium 135 L (137-145) mmol/L Creatinine 0.65 L (0.66-1.25) mg/dL Glucose 124 H (74-99) mg/dL Calcium 7.8 L (8.4-10.2) mg/dL Crossmatch See Detail Microbiology - Last 24 Hours (Table) 07/23/22 12:33 Anaerobic Culture - Preliminary Lung - Left 07/23/22 12:33 Gram Stain - Preliminary Lung - Left Tissue Culture - Preliminary 07/14/22 14:10 Fungal Culture - Preliminary Pleural Fluid
[2022-07-25] MEDS: HYDROmorphone 0.5 MG/0.5 ML SYRINGE IVP PRN (16:15)
[2022-07-25] MEDS: FENOFIBRATE 160 MG TAB PO SCH (16:16)
[2022-07-25] MEDS: SENNOSIDES-DOCUSATE SODIUM 1 EACH TAB PO SCH (20:07)
[2022-07-26] MEDS: KETOROLAC 15 MG/ML 1 ML VIAL IVP SCH (04:19)
[2022-07-26] MEDS: HYDROmorphone 1 MG/ML 1 ML SYRINGE IVP PRN ×4 (04:19→21:54)
[2022-07-26] MEDS: AMPICILLIN-SULBACTAM 3 GM in SODIUM CHLORIDE 0.9% 100 ML IVPB SCH ×3 (06:15→17:52)
[2022-07-26] MEDS: PANTOPRAZOLE 40 MG TABLET PO SCH (06:15)
--- NOTE | 2022-07-26 07:01 | XR ---
EXAMINATION TYPE: XR chest 1V portable DATE OF EXAM: 07/26/2022 COMPARISON: 07/25/2022 HISTORY: Pleural effusion. TECHNIQUE: Single frontal view of the chest is obtained. FINDINGS: There are 2 left sided chest tubes one in the lung apex and the other in the lung base unchanged in p osition. There is no pneumothorax. There is probable mild by basilar atelectasis and small pleural effusions. The heart size is normal and the pulmonary vasculature is not congested. The osseous structures are intact. No significant interval change compared to previous. IMPRESSION: No significant interval change compared to previous.
--- NOTE | 2022-07-26 07:42 | P.PN ---
Subjective Progress Note Date: 07/26/22 Principal diagnosis: Left-sided loculated parapneumonic effusion, empyema status post pigtail catheter placement by interventional radiology with lytic instillation, trapped lung, acute hypoxic respiratory failure, leukocytosis, febrile illness. History of hyperlipidemia, obesity, previous tobacco dependence, recent wisdom teeth extraction POD #3 Left thoracotomy, decortication of left lung The patient was seen and examined this morning sitting up in a recliner on the cardiac stepdown unit in no acute distress. Remains in sinus rhythm. Currently on 2 LPM NC with oxygen saturation in the mid 90s. Does complain of post surgical pain but states it's controlled with current medication regimen. Left- sided chest tubes x 2 present to continous wall suction, minimal drainage, positive intermittent air leak in CT #1 (anterior chest tube) but continues to be less prevalent daily, posterior chest tube discontinued yesterday. Able to achieve 1500 ml on incentive spirometry. Labs, chest x-ray reviewed. Remains on Unasyn for antibiotic management, surgical tissue preliminary gram stain reports no growth at 48 hours. Has been ambulatory in the hallway without diffi culty. No other new concerns. Objective - Vital Signs Vital signs: Vital Signs Temp 98.0 F 07/26/22 04:00 Pulse 97 07/26/22 04:00 Resp 19 07/26/22 04:00 BP 119/81 07/26/22 04:00 Pulse Ox 96 07/26/22 04:00 FiO2 50 07/24/22 16:00 Intake & Output 07/25/22 07/26/22 07/26/22 18:59 06:59 18:59 Output Total 870 300 Balance -870 -300 Output: Chest Tube Drainage 20 Chest Tube Left Anterior 20 Chest Urine 850 300 Other: Voiding Method Urinal Urinal # Voids 3 1 # Bowel Movements 1 ABP, PAP, CO, CI - Last Documented Arterial Blood Pressure 131/72 - Exam CONSTITUTIONAL: Appears comfortable, cooperative, no acute distress RESPIRATORY: Lungs sounds diminished bilaterally. Respirations even, nonlabored. Currently on 2 LPM NC with oxygen saturation 96%. Able to achieve 1500 mL on incentive spirometry. Strong cough. CARDIOVASCULAR: S1, S2 present. Regular rate and rhythm, sinus rhythm on telemetry. Palpable peripheral pulses bilaterally. No edema present. No calf pain or tenderness noted. SCDs present. GASTROINTESTINAL: Abdomen soft, nontender, nondistended. Active bowel sounds present 4 quadrants. Tolerating diet. Positive BM 07/25 GENITOURINARY: Continues to void clear, yellow urine INTEGUMENTARY: Skin is warm and dry with evidence of good perfusion. Thoracic incision well approximated and covered with dry intact dressing. NEUROLOGIC: Cranial nerves II through XII intact MUSKULOSKELETAL: Able to move all extremities, strength equal bilaterally, gait normal PSYCHIATRIC: Alert and oriented to person place and time, appropriate affect, intact judgment and insight INVASIVE LINES AND TUBES: Left pleural chest tubes x 2 present and connected to wall suction, intermittent air leaks present in anterior chest tube #1. Chest tube #1 (anterior) drained 12 mL serosanguinous fluid in the last 24 hours, chest tube #2 (diaphram) drained 10 mL serosanguinous fluid in the last 24 hours - Allied health notes Allied health notes reviewed: nursing - Labs CBC & Chem 7: 07/26/22 06:59 07/26/22 06:59 Labs: Abnormal Lab Results - Last 24 Hours (Table) 07/25/22 Range/Units 05:57 Sodium 135 L (137-145) mmol/L Creatinine 0.65 L (0.66-1.25) mg/dL Glucose 124 H (74-99) mg/dL Calcium 7.8 L (8.4-10.2) mg/dL Microbiology - Last 24 Hours (Table) 07/23/22 12:33 Anaerobic Culture - Preliminary Lung - Left 07/23/22 12:33 Gram Stain - Preliminary Lung - Left Tissue Culture - Preliminary - Imaging and Cardiology Chest x-ray: report reviewed, image reviewed Assessment and Plan Assessment: Left-sided loculated parapneumonic effusion, empyema, trapped lung, status post placement of left-sided pigtail catheter with instillation of alteplasedornase, status post thoracotomy with decortication Acute hypoxic respiratory failure, requiring BiPAP, currently on 3 LPM NC Leukocytosis, febrile illness History of hyperlipidemia, treated Obesity Previous tobacco dependence Recent wisdom teeth extraction Plan: Will continue anterior chest tube for another 24 hours, will discontinue medial chest tube, monitor drainage, monitor for air leak resolution Wean oxygen as tolerated. Encourage incentive spirometry is 10 times every hour while awake, bronchodilators per pulmonology Increase activity, ambulate as tolerated Pain control per current medication regimen Will monitor daily labs and x-rays Continue antibiotics, management by infectious disease Medical management of other comorbidities per internal medicine service More recommendations to follow
[2022-07-26 08:58] LABS: HCT 25.1 % (39.0-53.0); HGB 8.4 gm/dL (13.0-17.5); Hypochromasia Slight; MCH 31.1 pg (25.0-35.0); MCHC 33.7 g/dL (31.0-37.0); MCV 92.2 fL (80.0-100.0); Platelet Count 549 k/uL (150-450); Poikilocytosis Moderate; RBC 2.72 m/uL (4.30-5.90); RDW 14.3 % (11.5-15.5); WBC 10.1 k/uL (3.8-10.6)
[2022-07-26] MEDS: PATIENT'S OWN (Icosapent Ethyl [Icosapent Ethyl] 1 GM Capsule) PO SCH ×2 (09:03→22:12)
[2022-07-26] MEDS: HEPARIN SODIUM,PORCINE/PF 5,000 UNIT/0.5 ML SYRINGE SQ SCH ×2 (09:03→15:35)
[2022-07-26] MEDS: IPRATROPIUM-ALBUTEROL 3 ML NEB INHALATION SCH ×4 (09:05→20:50)
[2022-07-26 09:06] LABS: African American GFR (CKD) >90 (>60 ml/min/1.73 sqM); Anion Gap 11 mmol/L; Blood Urea Nitrogen 13 mg/dL (9-20); Calcium 8.1 mg/dL (8.4-10.2); Carbon Dioxide 23 mmol/L (22-30); Chloride 101 mmol/L (98-107); Glucose 157 mg/dL (74-99); Non-African American GFR(CKD) >90 (>60 ml/min/1.73 sqM); Potassium 4.3 mmol/L (3.5-5.1); Sodium 135 mmol/L (137-145)
[2022-07-26] MEDS: HYDROcodone/APAP 5-325MG 1 EACH TAB PO PRN ×2 (10:50→17:09)
--- NOTE | 2022-07-26 11:31 | P.PN ---
Subjective Progress Note Date: 07/26/22 Principal diagnosis: Acute complicated parapneumonic pleural effusion, empyema I'm seeing this patient in new consultation today 07/14/2022 after being transferred from [facility] for suspected empyema. Patient is a 42-year-old white male with past medical history significant for hypertension, hyperlipidemia, ex-smoker. Patient reports shortness of breath, left lateral chest pain, fever, cough starting approximately 12 days ago. The patient's chest pain worsened yesterday causing him to go to [facility]. Chest CTA on arrival to [facility] showed no evidence of central pulmonary embolism with a left pleural effusion and peripheral nodular thickening related to a parapneumonic effusion. Patient was initially seen and evaluated by Dr. Maher who initiated a transfer for cardiothoracic services. Patient was admitted to the intensive care unit yesterday evening. Patient currently resting in bed, on BiPAP with settings 14/5 and an FiO2 of 50%. SpO2 is 96% on these settings. Patient is calm and tolerating therapy. Patient's CBC on arrival shows some leukocytosis with a WBC count of 17.6, and 1113.6, hematocrit 38.8, platelets 370,000. BMP on arrival to our facility shows a sodium 136, potassium 3.9, chloride 103, serum CO2 23, BP 117, creatinine 0.74, glucose 105. Patient currently has normal saline infusing at 125 mL per hour. Patient is covered with Unasyn and vancomycin. Chest pain is currently under control, and when necessary Toradol is ordered for analgesia. T-max was 102.5F. Vital signs are stable. On today's evaluation of 07/15/2022, the patient is feeling better compared to yesterday. He is weaned down to 3 L of oxygen by nasal cannula. As mentioned, the patient had a left lung pneumonia with empyema. A pigtail catheter was inserted and the total amount of output is 1.3 L of purulent lash bloody fluid from the left lung. The fluid analysis shows that the glucose has been less than 2, LDH is 5260 and a white cell count and the fluid was 14,029. Meanwhile, the patient received a first dose of thrombolytic administration through the pigtail catheter yesterday. A second dose is to follow. White cell count is not under 10.4, hemoglobin is at 10.8 and the platelet count is at 278. Electrolytes are normal. Cultures are still pending. Fluid cultures have been sent. Blood cultures aren't negative for now. Meanwhile, the patient is doing incentive spirometer. He is falling approximately 1200 and his incentive spirometer. He remains on Unasyn and vancomycin. His pleuritic chest pain is subsided significantly. , I'm seeing the patient for a follow-up. Patient is doing well. The patient is currently being treated for a pneumonia/empyema. The pleural fluid cultures are still negative. The patient is having daily. Patient with a pigtail catheter. On today's x-ray, there is significant improvement in the aeration of the left lung. There is a left lower lobe consolidation although the x-ray findings. The patient is currently on 2 L of oxygen by nasal cannula. He is using the incentive spirometer. Output from the pigtail catheter is in order of 1500 mL over the past 24 hours. On 07/17/2022, the patient is being seen for a follow-up. Overall clinically the patient is feeling better. The output from the pigtail catheter in the left chest is still ongoing and output is somewhat bloody purulent fluid. The left- sided pigtail catheter intensely wall suction. The patient has already received at the 3 treatments with alteplase. Total amount of output over the past 24 hours has been in the order of 850 mL. The patient remains on Unasyn and vancomycin. Repeat CAT scan of the chest was done today and the CAT scan shows moderate-sized left-sided lower fluid collection superiorly and posteriorly. The aeration in the left lung bases improved. There has been some interval expansion of the left lung. I discussed the case with cardiothoracic surgery and interventional radiology. We'll going to proceed with another pigtail catheter insertion to drain this persistent loculated pleural effusion. The white cell count of 8.8 with a hemoglobin of 9.3. Sodium is at 142. The ends of 12 and a creatinine of 0.7. Is currently on 2 L of oxygen by nasal cannula. Ventilating. He is using the incentive spirometer. On 07/18/2022, the patient is doing better. He is currently on room air oxygen. No new complaints for now. The chest x-ray shows further improvement in the aeration of the left lung. Note that a second pigtail catheter was inserted yesterday and there was considerable amount of drainage which resulted in further improvement in his chest x-ray findings. The upper left chest pigtail catheter has drained an additional 80 mL. Based on that, we will going to administer alteplase to the upper pigtail. The lower pigtail has no significant output. He is afebrile. He remains on that antibiotic coverage. He is using incentive spirometer. The numbers progressively improved. He is ambulating. No fever. No chills. No other complaints otherwise. The patient's WBC count is at 6.9 with a hemoglobin 9.8 and the patient has a BUN of 50 with a creatinine of 0.6 and the sodium level is at 138. 07/19/2022, doing extremely well. Currently has 2 pigtail catheters. The lower pigtail catheter is not draining. Doppler pigtail catheter drain 500 mL yesterday, 80 mL over the past 8 hours and he was given another dose of thrombolytics. Chest x-ray shows significant improvement in aeration in the left lung. Cultures are all negative. Remain on the same antibiotic coverage and currently is on IV Unasyn. White cell count at 6.9. BUN is at 30 with a creatinine of 0.6 and his sodium levels of 138. He is ambulating. He is on room air oxygen with a pulse ox of 94%. The patient is seen today 07/20/2022 in follow-up on the selective care unit. He is currently sitting up in bed. Awake and alert in no acute distress. He is maintaining O2 saturations in the 90s on 4 L/m per nasal cannula. Currently afebrile. He did develop some significant left-sided chest discomfort yesterday afternoon that took a while to settle back in. Today he is feeling a bit better. 2 posterior left-sided chest tubes remain in place. Documentation reveals 550 ML's serosanguineous output of the left upper posterior chest tube in the past 24 hours and only 45 ML's recorded out in the lower left posterior chest tube. Chest x-ray showing similar findings compared to yesterday. Computed tomography scan of the chest reveals a left thoracotomy tube in appropriate position with trace apical pneumothorax and persistent loculated pleural effusion. Presumably reactive lymphadenopathy throughout the mediastinum. Hepatic steatosis. Pleural fluid cultures pending. Blood cultures revealed no growth. Urine culture revealed no growth. White count 15.1. Hemoglobin 10.6. Platelet count 457. Sodium 136. Potassium 4.0. Bicarb 26. BUN 14. Creatinine 0.76. Glucose 125. He remains on antibiotics in the form of Unasyn. Naz on bronchodilators. Heparin for DVT prophylaxis. CT services following regarding chest tubes and alteplase/dornase infusions. Continues to work well with the incentive spirometer. The patient is seen today 07/21/2022 in follow-up on the selective care unit. He is awake and alert in no acute distress. His left-sided chest discomfort is better controlled. He is maintaining good O2 saturations in the 90s on room air. Left-sided upper chest tube did drain 700 ML's over the past 24 hours. There is still minimum output of the left lower chest tube. He has been receiving alteplase/dornase infusions. Today's chest x-ray reveals persistent left basilar pleural collection may be slightly improved. He continues to work well with the incentive spirometer. He remains on antibiotics in the form of Unasyn. Pleural fluid cultures are pending. White count 10.4. Hemoglobin 9.5. Sodium 136. Potassium 4.1. Bicarb 28. BUN 18. Creatinine 0.80. Glucose 129. Cardiothoracic services are planning a left thoracotomy decortication with cryoablation within the next 24-48 hours. The patient is seen today 07/22/2022 in follow-up on the selective care unit. He is awake and alert in no acute distress. Maintaining good O2 saturations in the 90s on room air. He is sitting up at the bedside. Left-sided chest tube remain in place. Minimal output from the upper chest tube. He did receive a lteplase/dornase to the lower chest tube today. Not much output returned. Chest x-ray reveals a stable exam with small bilateral pleural effusions. Left thoracotomy tube in place without pneumothorax. He continues to work well with the incentive spirometer. The plan is for left thoracotomy with decortication and cryoablation tomorrow. White count 9.8. Hemoglobin 8.9. Sodium 137. Potassium 4.4. Bicarb 27. BUN 14. Creatinine 0.77. He remains on bronchodilators. Heparin for DVT prophylaxis. Antibiotics in the form of Unasyn. Patient was reevaluated today on 07/23/2022, patient is status post left thoracotomy, decortication of left lung, postoperative day #0. Surgery was performed by Dr. Marcos, I evaluated the patient in the recovery room, patient is on few liters nasal cannula, not in any distress, patient had 3 chest tubes placed through separate stab and 3 Pleur-evacs are noted. Minimal bleeding noted in the Pleur-evacs. Chest x-ray showed left lung to be fully expanded. Patient is slightly tachycardic, heart rate is 116, however he is in no distress, and he is hemodynamically stable. Labs today showed WBC count 9.7 hemoglobin 8.9) normal renal profile is normal Reevaluated today on 07/24/2022, patient is now postoperative day #1, status post left thoracotomy decortication of left lung, ration is doing well, hemodynamically stable, not in any distress. Pain seems to be fairly well controlled with pain medication. His heart rate is 101 respiration is in the 20s, blood pressure 130/72 O2 saturation 94% on 5 L nasal cannula. WBC count is 11.8 hemoglobin is 7.. Normal renal profile is normal. Chest x-ray showed left sided chest tubes remain in place, there is a small tiny left apical pneumothorax, left basilar atelectasis or infiltrate noted. And tiny left pleural effusion Reevaluated today on 07/25/2022, patient is now postoperative day #2 status post left thoracotomy decortication of left lung patient had one of his chest tubes removed today, continues to have [address] Doing quite well with incentive spirometry. Remains on antibiotics in the form of Unasyn. Surgical tissue has been negative so far, negative cultures. And negative Gram stain. Patient is ambulatory in the hallway. is at bedside, overall the patient is doing great. WBC count is 10.1 hemoglobin is 8.5 electrodes are normal renal profile is normal Reevaluated today on 07/26/2022, patient is now postoperative day #3, he is status post left thoracotomy and decortication of left lung. Doing well, he is on 2 L nasal cannula, relatively asymptomatic, patient is also ambulating, continues to have [address], could not appreciate any significant air leak in either chest tube. He is doing well with incentive spirometry, surgical tissue from the pleural space failed to show any growth. Remains on Unasyn empirically WBC count is 10 hemoglobin 8.4 electrodes are normal renal profile is normal. Overall the patient is recovering nicely from his complicated parapneumonic pleural effusion and from his thoracotomy/decortication Objective - Vital Signs Vital signs: Vital Signs Temp 98.9 F 07/26/22 09:11 Pulse 90 07/26/22 09:18 Resp 16 07/26/22 08:00 BP 134/85 07/26/22 08:00 Pulse Ox 96 07/26/22 04:00 FiO2 50 07/24/22 16:00 Intake & Output 07/25/22 07/26/22 07/26/22 18:59 06:59 18:59 Output Total 870 300 293 Balance -870 -300 -293 Output: Chest Tube Drainage 20 18 Chest Tube Left Anterior 20 8 Chest Chest Tube Left Lateral 10 Chest Urine 850 300 275 Other: Voiding Method Urinal Urinal # Voids 3 1 # Bowel Movements 1 ABP, PAP, CO, CI - Last Documented Arterial Blood Pressure 131/72 - Exam GENERAL EXAM: Alert, pleasant 42-year-old male, comfortable in no apparent distress. On 2 L nasal cannula, O2 sats is 96% HEAD: Normocephalic and atraumatic EYES: Normal reaction of pupils, equal size. NOSE: Clear with pink turbinates. THROAT: No erythema or exudates. NECK: No masses, no JVD. CHEST: No chest wall deformity. LUNGS: Good breath sound bilaterally slightly diminished at the left base, 2left-sided chest tubes noted, CVS: S1 and S2 normal with no audible murmur, regular rhythm. No extra heart sounds ABDOMEN: No hepatosplenomegaly, active bowel sounds, no guarding or rigidity. SKIN: No rashes CENTRAL NERVOUS SYSTEM: Alert and oriented 3 no gross focal deficit. EXTREMITIES: No clubbing edema or cyanosis. - Labs CBC & Chem 7: 07/26/22 06:59 07/26/22 06:59 Labs: Abnormal Lab Results - Last 24 Hours (Table) 07/26/22 07/26/22 Range/Units 06:59 06:59 RBC 2.72 L (4.30-5.90) m/uL Hgb 8.4 L (13.0-17.5) gm/dL Hct 25.1 L (39.0-53.0) % Plt Count 549 H (150-450) k/uL Sodium 135 L (137-145) mmol/L Creatinine 0.64 L (0.66-1.25) mg/dL Glucose 157 H (74-99) mg/dL Calcium 8.1 L (8.4-10.2) mg/dL Microbiology - Last 24 Hours (Table) 07/23/22 12:33 Gram Stain - Preliminary Lung - Left Tissue Culture - Preliminary 07/23/22 12:33 Anaerobic Culture - Preliminary Lung - Left Assessment and Plan Assessment: Impression: Postoperative day #3, status post left thoracotomy and decortication of left lung Left lower lobe pneumonia/ empyema. Extensive left lower lobe consolidation/pneumonia. Acute hypoxic respiratory failure secondary to above. Hyperlipidemia Hypertension Ex-smoker, remote history of smoking Plan: Continue oxygen and titrate accordingly Continue to monitor daily x-rays of the chest as long as chest tubes are present. Continue to monitor the drainage from chest tube. Continue antibiotics/Unasyn Continue incentive spirometry Ambulate in the hallway. Continue GI and DVT prophylaxis We'll continue to follow Time with Patient: Less than 30
--- NOTE | 2022-07-26 12:14 | P.PN ---
Subjective Progress Note Date: 07/26/22 (delayed charting seen at 1015) Patient is a 42-year-old male with obesity, dyslipidemia, and GERD who presented from an outside hospital for pneumonia with left loculated pleural effusion suspicious for empyema. On presentation here, his temperature was 102.5, tachycardic to 112, respiratory rate 25, saturating at 97% on BiPAP, blood pressure 138/95. Initial labs showed WBC 17.6, hemoglobin 13.6, sodium 136, creatinine 0.74. Chest x-ray showed moderate-sized left-sided pleural effusion. Patient was admitted to medical ICU adn was continued on IV unasyn and vanco. Chest CT demonstrated increasing size of loculated pleural fluid collection in the left lung including left middle and lower lung perfusion and loculated anterior upper lung diffusion. He underwent ultrasound-guided left pleural pigtail catheter and had alteplase instilled. Cultures were negative and MRSA nasal swab was negative and vanco was discontinued. Due to persistent left pleural effusion, another chest tube placed, and again alteplase was instilled. Still having significant output from both lower left chest tubes. Repeat CT chest showed continued loculated pleural effusion. He underwent thoracotomy with deorticiation on 07/23 and tolerated the procedure well. Patient seen and examined at bedside. Doing okay, pain over all is okay if he stays on top of his pain medications. Vital signs reviewed General: nontoxic, no distress, appears at stated age Cardiovascular: S1S2 reg, no murmur, positive posterior tibial pulse bilateral, Lungs: Diminished bs breath sounds b/l bases, no rhonchi, no rales , no accessory muscle use, chest tube X [address] Abdominal: soft, nontender to palpation, no guarding, no appreciable organomegaly Ext: no gross muscle atrophy, no edema, no contractures Neuro: CN II-XI grossly intact, no focal neuro deficits Psych: Alert, oriented, appropriate affect Assessment: Left sided locuated pleural effusion with empyema s/p thoracotomy with decortication , and pigtail cath X 2 with altaplase Left sided PNA - culture negative Recent wisdom teeth extraction, 3 weeks ago Normocytic anemia, possibly blood loss from chest tube, expected outcome- iron stores are adaquate Thrombocytosis, reactive Resolved: Sepsis Leukoctysis, increasing will need to monitor Acute hypoxic respiratory failure Chronic: Dyslipidemia HTN Obesity with BMI 36.3 Imaging: Chest x-ray as reviewed by myself from 07/26 shows 2 chest tubes on the left in good position, possible mild left sided atelectasis/infiltrate Data Review: Laboratory analysis reviewed. Hemoglobin 8.4 (stable from 8.5), platelets 549 up from 490, sodium 135 Vitals reviewed in T-max 99, pulse 99, respirations 16, blood pressure 134/85, O2 sat 98% on 2 L nasal cannula Plan: - D/W Brissa Chavez [employer] and 1 chest tube will be removed today - Pulm note reviewed: no new recs -Infectious disease no reviewed: Continue with Unasyn - Unasyn 3 g IV every 6 hours D #14 -Sputum cultures, blood cultures, pleural fluid cultures negative, MRSA Nasal Swab is negative -[place] 5/325 q 6 hours prn pain, Dilaudid for break through pain -pantoprazole 40 mg daily DVT prophylaxis: Lovenox Anticipated discharge date: Pending Clinical Course Anticipated discharge place: Pending Clinical Course This dictation was prepared using [employer] voice recognition software. Though every attempt is made to correct errors during during dictation some may still exist. Objective - Vital Signs Vital signs: Vital Signs Temp 98.9 F 07/26/22 09:11 Pulse 90 07/26/22 09:18 Resp 16 07/26/22 08:00 BP 134/85 07/26/22 08:00 Pulse Ox 96 07/26/22 04:00 FiO2 50 07/24/22 16:00 Intake & Output 07/25/22 07/26/22 07/26/22 18:59 06:59 18:59 Output Total 870 300 293 Balance -870 -300 -293 Output: Chest Tube Drainage 20 18 Chest Tube Left Anterior 20 8 Chest Chest Tube Left Lateral 10 Chest Urine 850 300 275 Other: Voiding Method Urinal Urinal # Voids 3 1 # Bowel Movements 1 ABP, PAP, CO, CI - Last Documented Arterial Blood Pressure 131/72 - Labs CBC & Chem 7: 07/26/22 06:59 07/26/22 06:59 Labs: Abnormal Lab Results - Last 24 Hours (Table) 07/26/22 07/26/22 Range/Units 06:59 06:59 RBC 2.72 L (4.30-5.90) m/uL Hgb 8.4 L (13.0-17.5) gm/dL Hct 25.1 L (39.0-53.0) % Plt Count 549 H (150-450) k/uL Sodium 135 L (137-145) mmol/L Creatinine 0.64 L (0.66-1.25) mg/dL Glucose 157 H (74-99) mg/dL Calcium 8.1 L (8.4-10.2) mg/dL Microbiology - Last 24 Hours (Table) 07/23/22 12:33 Gram Stain - Preliminary Lung - Left Tissue Culture - Preliminary 07/23/22 12:33 Anaerobic Culture - Preliminary Lung - Left
[2022-07-26] MEDS: FENOFIBRATE 160 MG TAB PO SCH (17:09)
[2022-07-26] MEDS: SENNOSIDES-DOCUSATE SODIUM 1 EACH TAB PO SCH (20:55)
[2022-07-26] MEDS: SODIUM CHLORIDE 0.9% 500 ML IV SCH (20:55)
[2022-07-26] MEDS: KETOROLAC 15 MG/ML 1 ML VIAL IVP PRN (21:54)
--- NOTE | 2022-07-26 22:37 | P.PN ---
Subjective Progress Note Date: 07/26/22 Principal diagnosis: Left-sided empyema Patient is a 42-year-old male presenting to the hospital on 07/13/2022 for evaluation of left-sided chest pain apparently has been going on for more than a week , patient did have evidence of left-sided pneumonia and left-sided locally diffusion initially treated with a chest tube and the patient is status post left thoracotomy decortication left lung completed on 07/23/2022. On today's evaluation that is 07/26/2022, the patient remains to be afebrile, the patient is breathing comfortably currently on room air cannula oxygen, the patient left side chest pain has decreased in intensity and second chest tube has been discontinued today, the patient denies nausea no vomiting no abdominal pain or diarrhea Objective - Vital Signs Vital signs: Vital Signs Temp 98.9 F 07/26/22 09:11 Pulse 90 07/26/22 09:05 Resp 16 07/26/22 08:00 BP 134/85 07/26/22 08:00 Pulse Ox 96 07/26/22 04:00 FiO2 50 07/24/22 16:00 Intake & Output 07/25/22 07/26/22 07/26/22 18:59 06:59 18:59 Output Total 870 300 18 Balance -870 -300 -18 Output: Chest Tube Drainage 20 18 Chest Tube Left Anterior 20 8 Chest Chest Tube Left Lateral 10 Chest Urine 850 300 Other: Voiding Method Urinal Urinal # Voids 3 1 # Bowel Movements 1 ABP, PAP, CO, CI - Last Documented Arterial Blood Pressure 131/72 - Exam GENERAL DESCRIPTION: A middle-aged male lying in bed in no distress RESPIRATORY SYSTEM: Unlabored breathing , decreased breath sounds at bases HEART: S1 S2 regular rate and rhythm , ABDOMEN: Soft , no tenderness EXTREMITIES: No edema feet - Labs CBC & Chem 7: 07/26/22 06:59 07/26/22 06:59 Labs: Abnormal Lab Results - Last 24 Hours (Table) 07/26/22 07/26/22 Range/Units 06:59 06:59 RBC 2.72 L (4.30-5.90) m/uL Hgb 8.4 L (13.0-17.5) gm/dL Hct 25.1 L (39.0-53.0) % Plt Count 549 H (150-450) k/uL Sodium 135 L (137-145) mmol/L Creatinine 0.64 L (0.66-1.25) mg/dL Glucose 157 H (74-99) mg/dL Calcium 8.1 L (8.4-10.2) mg/dL Microbiology - Last 24 Hours (Table) 07/23/22 12:33 Gram Stain - Preliminary Lung - Left Tissue Culture - Preliminary 07/23/22 12:33 Anaerobic Culture - Preliminary Lung - Left Assessment and Plan (1) Empyema lung Current Visit: Yes Status: Acute Code(s): J86.9 - PYOTHORAX WITHOUT FISTULA SNOMED Code(s): 62890023 (2) Pneumonia Current Visit: Yes Status: Acute Code(s): J18.9 - PNEUMONIA, UNSPECIFIED ORGANISM SNOMED Code(s): 947970054 Plan: 1patient presented hospital with sepsis in this patient with fever elevated white count patient main symptom has been left-sided chest pain he has been diagnosed with a empyema in this patient with status post chest tube placement initially on 07/14/2022 however cultures has been negative for resistant pathogen the patient fever has resolved and white count normalized however with just residual fluid patient is status post VATS procedure completed 07/23/2022 2-patient is afebrile, the white count is normal at 10.1 same as yesterday, left lung thoracotomy cultures has been negative so for, patient to continue with Unasyn 3 g every 6 hours and if the culture remains to be negative he will be able to finish therapy with oral Augmentin discussed with the admitting team
[2022-07-27] MEDS: HYDROcodone/APAP 5-325MG 1 EACH TAB PO PRN ×4 (00:23→20:47)
[2022-07-27] MEDS: HEPARIN SODIUM,PORCINE/PF 5,000 UNIT/0.5 ML SYRINGE SQ SCH ×3 (00:24→17:11)
[2022-07-27] MEDS: AMPICILLIN-SULBACTAM 3 GM in SODIUM CHLORIDE 0.9% 100 ML IVPB SCH ×4 (00:24→17:11)
[2022-07-27] MEDS: HYDROmorphone 1 MG/ML 1 ML SYRINGE IVP PRN (04:19)
--- NOTE | 2022-07-27 06:27 | XR ---
EXAMINATION TYPE: XR chest 2V DATE OF EXAM: 07/27/2022 COMPARISON: Chest x-ray one day earlier. HISTORY: Pleural effusion. TECHNIQUE: Frontal and lateral views of the chest are obtained. FINDINGS: Persistent left apical chest tube with small bilateral pleural fluid collections and bibas ilar opacities. No pneumothorax is evident bilaterally. Cardiac silhouette size is stable and upper l imits of normal. Osseous structures are intact. IMPRESSION: As above. No significant change from one day earlier.
[2022-07-27] MEDS: PANTOPRAZOLE 40 MG TABLET PO SCH (07:16)
[2022-07-27] MEDS: IPRATROPIUM-ALBUTEROL 3 ML NEB INHALATION SCH ×4 (08:02→20:53)
--- NOTE | 2022-07-27 08:06 | P.PN ---
Subjective Progress Note Date: 07/27/22 Principal diagnosis: Left-sided loculated parapneumonic effusion, empyema status post pigtail catheter placement by interventional radiology with lytic instillation, trapped lung, acute hypoxic respiratory failure, leukocytosis, febrile illness. History of hyperlipidemia, obesity, previous tobacco dependence, recent wisdom teeth extraction POD #4 Left thoracotomy, decortication of left lung The patient was seen and examined this morning laying in bed on the cardiac stepdown unit in no acute distress. Remains in sinus rhythm. Currently on room air with oxygen saturation in the mid 90s. Does complain of post surgical pain but states it's controlled with current medication regimen. Left-sided anterior chest tube present to continous wall suction, minimal drainage, positive intermittent air leak, medial chest tube discontinued yesterday. Able to achieve 1500 ml on incentive spirometry. Labs, chest x-ray reviewed. Remains on Unasyn for antibiotic management, surgical tissue preliminary gram stain reports no growth at 72 hours. Has been ambulatory in the hallway without difficulty. No other new concerns. Objective - Vital Signs Vital signs: Vital Signs Temp 97.2 F L 07/27/22 04:00 Pulse 95 07/27/22 04:00 Resp 18 07/27/22 04:00 BP 122/82 07/27/22 04:00 Pulse Ox 94 L 07/27/22 04:00 FiO2 50 07/24/22 16:00 Intake & Output 07/26/22 07/27/22 07/27/22 18:59 06:59 18:59 Output Total 323 1400 Balance -323 -1400 Output: Chest Tube Drainage 48 0 Chest Tube Left Anterior 38 0 Chest Chest Tube Left Lateral 10 Chest Urine 275 1400 Other: Voiding Method Urinal Urinal # Voids 1 # Bowel Movements 1 ABP, PAP, CO, CI - Last Documented Arterial Blood Pressure 131/72 - Exam CONSTITUTIONAL: Appears comfortable, cooperative, no acute distress RESPIRATORY: Lungs sounds diminished bilaterally. Respirations even, nonlabored. Currently on room air with oxygen saturation 94%. Able to achieve 1500 mL on incentive spirometry. Strong cough. CARDIOVASCULAR: S1, S2 present. Regular rate and rhythm, sinus rhythm on telemetry. Palpable peripheral pulses bilaterally. No edema present. No calf pain or tenderness noted. SCDs present. GASTROINTESTINAL: Abdomen soft, nontender, nondistended. Active bowel sounds present 4 quadrants. Tolerating diet. Positive BM 07/26 GENITOURINARY: Continues to void clear, yellow urine INTEGUMENTARY: Skin is warm and dry with evidence of good perfusion. Thoracic incision well approximated and covered with dry intact dressing. NEUROLOGIC: Cranial nerves II through XII intact MUSKULOSKELETAL: Able to move all extremities, strength equal bilaterally, gait normal PSYCHIATRIC: Alert and oriented to person place and time, appropriate affect, intact judgment and insight INVASIVE LINES AND TUBES: Left pleural anterior chest tube present and connected to wall suction, intermittent air leak remains present, drained 20 mL serosanguinous fluid in the last 24 hours - Allied health notes Allied health notes reviewed: nursing - Labs CBC & Chem 7: 07/26/22 06:59 07/26/22 06:59 Labs: Abnormal Lab Results - Last 24 Hours (Table) 07/26/22 07/26/22 Range/Units 06:59 06:59 RBC 2.72 L (4.30-5.90) m/uL Hgb 8.4 L (13.0-17.5) gm/dL Hct 25.1 L (39.0-53.0) % Plt Count 549 H (150-450) k/uL Sodium 135 L (137-145) mmol/L Creatinine 0.64 L (0.66-1.25) mg/dL Glucose 157 H (74-99) mg/dL Calcium 8.1 L (8.4-10.2) mg/dL Microbiology - Last 24 Hours (Table) 07/23/22 12:33 Gram Stain - Preliminary Lung - Left Tissue Culture - Preliminary - Imaging and Cardiology Chest x-ray: report reviewed, image reviewed Assessment and Plan Assessment: Left-sided loculated parapneumonic effusion, empyema, trapped lung, status post placement of left-sided pigtail catheter with instillation of alteplasedornase, status post thoracotomy with decortication Acute hypoxic respiratory failure, requiring BiPAP, currently on 3 LPM NC Leukocytosis, febrile illness History of hyperlipidemia, treated Obesity Previous tobacco dependence Recent wisdom teeth extraction Plan: Will continue anterior chest tube for another 24 hours, monitor drainage, monitor for air leak resolution Thoracotomy dressing to remain in place for 7 days, then remove and wash incision daily Encourage incentive spirometry is 10 times every hour while awake, bronchodilators per pulmonology Increase activity, ambulate as tolerated Pain control per current medication regimen Will monitor daily labs and x-rays Continue antibiotics, management by infectious disease Medical management of other comorbidities per internal medicine service More recommendations to follow
[2022-07-27] MEDS: PATIENT'S OWN (Icosapent Ethyl [Icosapent Ethyl] 1 GM Capsule) PO SCH ×2 (08:07→20:48)
[2022-07-27] MEDS: KETOROLAC 15 MG/ML 1 ML VIAL IVP PRN (10:31)
[2022-07-27 10:43] LABS: HCT 27.6 % (39.0-53.0); HGB 9.2 gm/dL (13.0-17.5); Hypochromasia Slight; MCH 30.9 pg (25.0-35.0); MCHC 33.3 g/dL (31.0-37.0); MCV 92.8 fL (80.0-100.0); Platelet Count 585 k/uL (150-450); Poikilocytosis Moderate; RBC 2.97 m/uL (4.30-5.90); RDW 14.2 % (11.5-15.5); WBC 9.9 k/uL (3.8-10.6)
[2022-07-27 10:54] LABS: African American GFR (CKD) >90 (>60 ml/min/1.73 sqM); Anion Gap 7 mmol/L; Blood Urea Nitrogen 14 mg/dL (9-20); Calcium 8.5 mg/dL (8.4-10.2); Carbon Dioxide 29 mmol/L (22-30); Chloride 101 mmol/L (98-107); Glucose 117 mg/dL (74-99); Non-African American GFR(CKD) >90 (>60 ml/min/1.73 sqM); Potassium 4.5 mmol/L (3.5-5.1); Sodium 137 mmol/L (137-145)
--- NOTE | 2022-07-27 12:15 | P.PN ---
Subjective Progress Note Date: 07/27/22 Patient is a 42-year-old male with obesity, dyslipidemia, and GERD who presented from an outside hospital for pneumonia with left loculated pleural effusion suspicious for empyema. On presentation here, his temperature was 102.5, tachycardic to 112, respiratory rate 25, saturating at 97% on BiPAP, blood pressure 138/95. Initial labs showed WBC 17.6, hemoglobin 13.6, sodium 136, creatinine 0.74. Chest x-ray showed moderate-sized left-sided pleural effusion. Patient was admitted to medical ICU adn was continued on IV unasyn and vanco. Chest CT demonstrated increasing size of loculated pleural fluid collection in the left lung including left middle and lower lung perfusion and loculated anterior upper lung diffusion. He underwent ultrasound-guided left pleural pigtail catheter and had alteplase instilled. Cultures were negative and MRSA nasal swab was negative and vanco was discontinued. Due to persistent left pleural effusion, another chest tube placed, and again alteplase was instilled. Still having significant output from both lower left chest tubes. Repeat CT chest showed continued loculated pleural effusion. He underwent thoracotomy with deorticiation on 07/23 and tolerated the procedure well. His cultures remained negative. Patient seen and examined at bedside. Doing okay, excited to go home. We discussed plans for discharge home. Vital signs reviewed General: nontoxic, no distress, appears at stated age Cardiovascular: S1S2 reg, no murmur, positive posterior tibial pulse bilateral, Lungs: CTA bilateral, no rhonchi, no rales , no accessory muscle use, chest tube in place Abdominal: soft, nontender to palpation, no guarding, no appreciable organo megaly Ext: no gross muscle atrophy, no edema, no contractures Neuro: CN II-XI grossly intact, no focal neuro deficits Psych: Alert, oriented, appropriate affect Assessment: Left sided locuated pleural effusion with empyema s/p thoracotomy with decortication , and pigtail cath X 2 with altaplase Left sided PNA - culture negative Recent wisdom teeth extraction, 3 weeks ago Normocytic anemia, possibly blood loss from chest tube, expected outcome- iron s valdemar are adaquate Thrombocytosis, reactive Resolved: Sepsis Leukoctysis Acute hypoxic respiratory failure Chronic: Dyslipidemia HTN Obesity with BMI 36.3 Imaging: Chest x-ray as reviewed by myself from 07/26 shows 2 chest tubes on the left in good position, possible mild left sided atelectasis/infiltrate Data Review: Vital signs reviewed and temperature 97.6, pulse 84, respirations 16, blood pressure 119/76, O2 sat 97% on room air Laboratory analysis reviewed and remarkable for hemoglobin 9.2, platelets 585 Tissue culture is negative. Plan: - cardiothorasic note reviewed: still with air leak and continue to need 1 chest tube. - Pulm note reviewed: no new recs -Infectious disease no reviewed: Augment on discharge - Unasyn 3 g IV every 6 hours D #15 -Sputum cultures, blood cultures, pleural fluid cultures negative, MRSA Nasal Swab is negative -[place] 5/325 q 6 hours prn pain, Dilaudid for break through pain -pantoprazole 40 mg daily DVT prophylaxis: Lovenox Anticipated discharge date: Pending Clinical Course Anticipated discharge place: Pending Clinical Course This dictation was prepared using [employer] voice recognition software. Though every attempt is made to correct errors during during dictation some may still exist. Objective - Vital Signs Vital signs: Vital Signs Temp 97.6 F 07/27/22 08:00 Pulse 82 07/27/22 11:36 Resp 16 07/27/22 08:00 BP 119/76 07/27/22 08:00 Pulse Ox 97 07/27/22 08:02 FiO2 50 07/24/22 16:00 Intake & Output 07/26/22 07/27/22 07/27/22 18:59 06:59 18:59 Output Total 323 1400 Balance -323 -1400 Output: Chest Tube Drainage 48 0 Chest Tube Left Anterior 38 0 Chest Chest Tube Left Lateral 10 Chest Urine 275 1400 Other: Voiding Method Urinal Urinal Urinal # Voids 1 # Bowel Movements 1 ABP, PAP, CO, CI - Last Documented Arterial Blood Pressure 131/72 - Labs CBC & Chem 7: 07/27/22 09:23 07/27/22 09:23 Labs: Abnormal Lab Results - Last 24 Hours (Table) 07/27/22 07/27/22 Range/Units 09: 09:23 RBC 2.97 L (4.30-5.90) m/uL Hgb 9.2 L (13.0-17.5) gm/dL Hct 27.6 L (39.0-53.0) % Plt Count 585 H (150-450) k/uL Glucose 117 H (74-99) mg/dL Microbiology - Last 24 Hours (Table) 07/23/22 12:33 Anaerobic Culture - Final Lung - Left 07/14/22 14:10 Acid Fast Bacilli Smear - Final Pleural Fluid Acid Fast Bacilli Culture - Preliminary 07/23/22 12:33 Gram Stain - Final Lung - Left Tissue Culture - Final
--- NOTE | 2022-07-27 14:08 | P.PN ---
Subjective Progress Note Date: 07/27/22 Principal diagnosis: Empyema. Patient was reevaluated today on 07/23/2022, patient is status post left thoracotomy, decortication of left lung, postoperative day #0. Surgery was p erformed by Dr. Marcos, I evaluated the patient in the recovery room, patient is on few liters nasal cannula, not in any distress, patient had 3 chest tubes placed through separate stab and 3 Pleur-evacs are noted. Minimal bleeding noted in the Pleur-evacs. Chest x-ray showed left lung to be fully expanded. Patient is slightly tachycardic, heart rate is 116, however he is in no distress, and he is hemodynamically stable. Labs today showed WBC count 9.7 hemoglobin 8.9) normal renal profile is normal Reevaluated today on 07/24/2022, patient is now postoperative day #1, status post left thoracotomy decortication of left lung, ration is doing well, hemodynamically stable, not in any distress. Pain seems to be fairly well controlled with pain medication. His heart rate is 101 respiration is in the 20s, blood pressure 130/72 O2 saturation 94% on 5 L nasal cannula. WBC count is 11.8 hemoglobin is 7.. Normal renal profile is normal. Chest x-ray showed left sided chest tubes remain in place, there is a small tiny left apical pneumothorax, left basilar atelectasis or infiltrate noted. And tiny left pleural effusion Reevaluated today on 07/25/2022, patient is now postoperative day #2 status post left thoracotomy decortication of left lung patient had one of his chest tubes removed today, continues to have [address] Doing quite well with incentive spirometry. Remains on antibiotics in the form of Unasyn. Surgical tissue has been negative so far, negative cultures. And negative Gram stain. Patient is ambulatory in the hallway. is at bedside, overall the patient is doing great. WBC count is 10.1 hemoglobin is 8.5 electrodes are normal renal profile is normal Reevaluated today on 07/26/2022, patient is now postoperative day #3, he is status post left thoracotomy and decortication of left lung. Doing well, he is on 2 L nasal cannula, relatively asymptomatic, patient is also ambulating, continues to have [address], could not appreciate any significant air leak in either chest tube. He is doing well with incentive spirometry, surgical tissue from the pleural space failed to show any growth. Remains on Unasyn empirically WBC count is 10 hemoglobin 8.4 electrodes are normal renal profile is normal. Overall the patient is recovering nicely from his complicated parapneumonic pleural effusion and from his thoracotomy/decorticati on Progress note dated 07/27/2022. This is a patient who is seen today in room 358. He is postop day #4, status post left thoracotomy with decortication of the left lung. He is currently on room air. He only has one chest tube in place. He is feeling a bit better. We did have a chance to speak to him and his today. He was brought over here from [facility]. Nasal swab was positive for Staphylococcus aureus, not MRSA. Labs today include a white count 9.9, hemoglobin 9.2, hematocrit 27.6, and platelet count 585,000. Sodium 137, potassium 4.5, chlorides 101, CO2 29, BUN 14, creatinine 0.75. Glucose 117. Chest x-ray shows a persistent left apical chest tube with small bilateral pleural fluid collections, and bibasilar opacities. There is no obvious pneumothorax. Objective - Vital Signs Vital signs: Vital Signs Temp 98.2 F 07/27/22 12:00 Pulse 104 H 07/27/22 12:00 Resp 16 07/27/22 08:00 BP 144/84 07/27/22 12:00 Pulse Ox 97 07/27/22 08:02 FiO2 50 07/24/22 16:00 Intake & Output 07/26/22 07/27/22 07/27/22 18:59 06:59 18:59 Intake Total 580 Output Total 323 1400 Balance -323 -1400 580 Intake: Intake, IV Titration 100 Amount Ampicillin-Sulbactam 3 gm 100 In Sodium Chloride 0.9% 100 ml @ 200 mls/hr IVPB Q6HR [facility] Rx#:[id number] Oral 480 Output: Chest Tube Drainage 48 0 Chest Tube Left Anterior 38 0 Chest Chest Tube Left Lateral 10 Chest Urine 275 1400 Other: Voiding Method Urinal Urinal Urinal # Voids 1 2 # Bowel Movements 1 ABP, PAP, CO, CI - Last Documented Arterial Blood Pressure 131/72 - Exam No acute distress, oriented 3. Currently on room air. No respiratory distress. No use of accessory muscles. HEENT examination is grossly unremarkable. Neck supple. Full range of motion. No adenopathy thyromegaly or neck vein distention. Cardiovascular examination reveals regular rhythm rate. S1-S2 normal. No S3 or S4. No discernible murmur noted. Heart rate is 82 bpm. Lungs reveal diminished breath sounds on the left. Mild scattered rhonchi on the left. No wheezes or crackles. The right lung is clear. Room air saturation is 97%. A single left chest tube remains. Abdomen soft bowel sounds are heard. No masses or tenderness. Extremities are intact. No cyanosis clubbing or edema. Skin is without rash or lesion. Neurologic examination is brief but nonfocal. - Labs CBC & Chem 7: 07/27/22 09:23 07/27/22 09:23 Labs: Abnormal Lab Results - Last 24 Hours (Table) 07/27/22 07/27/22 Range/Units 09: 09:23 RBC 2.97 L (4.30-5.90) m/uL Hgb 9.2 L (13.0-17.5) gm/dL Hct 27.6 L (39.0-53.0) % Plt Count 585 H (150-450) k/uL Glucose 117 H (74-99) mg/dL Microbiology - Last 24 Hours (Table) 07/23/22 12:33 Anaerobic Culture - Final Lung - Left 07/14/22 14:10 Acid Fast Bacilli Smear - Final Pleural Fluid Acid Fast Bacilli Culture - Preliminary 07/23/22 12:33 Gram Stain - Final Lung - Left Tissue Culture - Final Assessment and Plan Assessment: Postop day #4, status post left thoracotomy and left lung decortication. Left lower lobe pneumonia with parapneumonic effusion/empyema. Extensive left lower lobe consolidative pneumonia. Acute hypoxemic respiratory failure. Hyperlipidemia. Hypertension. Prior history of tobacco use. Plan: Plan dated 07/27/2022 The patient seems be doing pretty well. He is on room air. He has one chest tube remaining. His chest x-ray looks stable to slightly improved to me. Labs, x-rays, and medications are reviewed. We will continue to follow. No additional recommendations are made. He continues to be followed by cardiothoracic surgery. We recommend deep breathing, coughing, clearing of secretions, breathing treatments, and hourly use of the incentive spirometer. Time with Patient: Less than 30
[2022-07-27] MEDS: HYDROmorphone 0.5 MG/0.5 ML SYRINGE IVP PRN ×2 (17:11→22:42)
[2022-07-27] MEDS: FENOFIBRATE 160 MG TAB PO SCH (17:11)
[2022-07-27] MEDS: SODIUM CHLORIDE 0.9% 500 ML IV SCH (17:50)
[2022-07-27] MEDS: SENNOSIDES-DOCUSATE SODIUM 1 EACH TAB PO SCH (20:48)
--- NOTE | 2022-07-27 21:49 | P.PN ---
Subjective Progress Note Date: 07/27/22 Principal diagnosis: Left-sided empyema Patient is a 42-year-old male presenting to the hospital on 07/13/2022 for evaluation of left-sided chest pain apparently has been going on for more than a week , patient did have evidence of left-sided pneumonia and left-sided locally diffusion initially treated with a chest tube and the patient is status post left thoracotomy decortication left lung completed on 07/23/2022. On today's evaluation that is 07/27/2022, the patient continues to be afebrile, the patient is breathing comfortably on room air, the patient left side chest pain has decreased in intensity and second chest tube was discontinued yesterday still have one chest tube remaining, the patient denies nausea no vomiting no abdominal pain or diarrhea Objective - Vital Signs Vital signs: Vital Signs Temp 98.2 F 07/27/22 12:00 Pulse 104 H 07/27/22 12:00 Resp 16 07/27/22 08:00 BP 144/84 07/27/22 12:00 Pulse Ox 97 07/27/22 08:02 FiO2 50 07/24/22 16:00 Intake & Output 07/26/22 07/27/22 07/27/22 18:59 06:59 18:59 Intake Total 580 Output Total 323 1400 Balance -323 -1400 580 Intake: Intake, IV Titration 100 Amount Ampicillin-Sulbactam 3 gm 100 In Sodium Chloride 0.9% 100 ml @ 200 mls/hr IVPB Q6HR [facility] Rx#:[id number] Oral 480 Output: Chest Tube Drainage 48 0 Chest Tube Left Anterior 38 0 Chest Chest Tube Left Lateral 10 Chest Urine 275 1400 Other: Voiding Method Urinal Urinal Urinal # Voids 1 2 # Bowel Movements 1 ABP, PAP, CO, CI - Last Documented Arterial Blood Pressure 131/72 - Exam GENERAL DESCRIPTION: A middle-aged male lying in bed in no distress RESPIRATORY SYSTEM: Unlabored breathing , decreased breath sounds at bases HEART: S1 S2 regular rate and rhythm , ABDOMEN: Soft , no tenderness EXTREMITIES: No edema feet - Labs CBC & Chem 7: 07/27/22 09:23 07/27/22 09:23 Labs: Abnormal Lab Results - Last 24 Hours (Table) 07/27/22 07/27/22 Range/Units 09: 09:23 RBC 2.97 L (4.30-5.90) m/uL Hgb 9.2 L (13.0-17.5) gm/dL Hct 27.6 L (39.0-53.0) % Plt Count 585 H (150-450) k/uL Glucose 117 H (74-99) mg/dL Microbiology - Last 24 Hours (Table) 07/23/22 12:33 Anaerobic Culture - Final Lung - Left 07/14/22 14:10 Acid Fast Bacilli Smear - Final Pleural Fluid Acid Fast Bacilli Culture - Preliminary 07/23/22 12:33 Gram Stain - Final Lung - Left Tissue Culture - Final Assessment and Plan (1) Empyema lung Current Visit: Yes Status: Acute Code(s): J86.9 - PYOTHORAX WITHOUT FISTULA SNOMED Code(s): 54444705 (2) Pneumonia Current Visit: Yes Status: Acute Code(s): J18.9 - PNEUMONIA, UNSPECIFIED ORGANISM SNOMED Code(s): 065262149 Plan: 1patient presented hospital with sepsis in this patient with fever elevated white count patient main symptom has been left-sided chest pain he has been diagnosed with a empyema in this patient with status post chest tube placement initially on 07/14/2022 however cultures has been negative for resistant pathogen the patient fever has resolved and white count normalized however with just residual fluid patient is status post VATS procedure completed 07/23/2022 2-patient is afebrile, the white count has normalized, left lung thoracotomy cultures has been negative so for, patient to continue with Unasyn 3 g every 6 hours while inpatient and plan to finish therapy with oral Augmentin 10 days on discharge Time with Patient: Less than 30
[2022-07-28] MEDS: HEPARIN SODIUM,PORCINE/PF 5,000 UNIT/0.5 ML SYRINGE SQ SCH ×4 (00:12→23:58)
[2022-07-28] MEDS: AMPICILLIN-SULBACTAM 3 GM in SODIUM CHLORIDE 0.9% 100 ML IVPB SCH ×5 (00:12→23:58)
[2022-07-28] MEDS: PANTOPRAZOLE 40 MG TABLET PO SCH (05:26)
[2022-07-28] MEDS: HYDROcodone/APAP 5-325MG 1 EACH TAB PO PRN ×3 (05:27→23:58)
--- NOTE | 2022-07-28 08:11 | XR ---
EXAMINATION TYPE: XR chest 2V DATE OF EXAM: 07/28/2022 6:36 AM COMPARISON: Chest radiographs from 07/27/2022 TECHNIQUE: XR chest 2V Frontal and lateral views of the chest. CLINICAL INDICATION:Male, 42 years old with history of effusion; FINDINGS: Lungs/Pleura: No evidence of focal consolidation or pneumothorax. Blunting of the costophrenic angles is present. Pulmonary vascularity: Unremarkable. Heart/mediastinum: Cardiomediastinal silhouette is unremarkable. Musculoskeletal: No acute osseous pathology. Other findings: None Lines/Tubes: Left thoracotomy tube is present without evidence of pneumothorax. IMPRESSION: 1. Left thoracotomy tube in place, no appreciable/large pneumothorax. No significant change from jefferson or. 2. Similar trace bilateral pleural effusions.
[2022-07-28 08:13] LABS: HCT 28.6 % (39.0-53.0); HGB 9.5 gm/dL (13.0-17.5); Hypochromasia Slight; MCH 30.8 pg (25.0-35.0); MCHC 33.1 g/dL (31.0-37.0); MCV 93.1 fL (80.0-100.0); Mean Platelet Volume 7.2; Platelet Count 597 k/uL (150-450); Poikilocytosis Moderate; RBC 3.07 m/uL (4.30-5.90); RDW 14.5 % (11.5-15.5); WBC 9.3 k/uL (3.8-10.6)
[2022-07-28 08:40] LABS: African American GFR (CKD) >90 (>60 ml/min/1.73 sqM); Anion Gap 6 mmol/L; Blood Urea Nitrogen 13 mg/dL (9-20); Calcium 8.6 mg/dL (8.4-10.2); Carbon Dioxide 29 mmol/L (22-30); Chloride 102 mmol/L (98-107); Glucose 129 mg/dL (74-99); Non-African American GFR(CKD) >90 (>60 ml/min/1.73 sqM); Potassium 4.4 mmol/L (3.5-5.1); Sodium 137 mmol/L (137-145)
[2022-07-28] MEDS: IPRATROPIUM-ALBUTEROL 3 ML NEB INHALATION SCH ×4 (09:14→20:50)
[2022-07-28] MEDS: PATIENT'S OWN (Icosapent Ethyl [Icosapent Ethyl] 1 GM Capsule) PO SCH ×2 (09:42→20:54)
--- NOTE | 2022-07-28 09:42 | P.PN ---
Subjective Progress Note Date: 07/28/22 Principal diagnosis: Left-sided loculated parapneumonic effusion, empyema status post pigtail catheter placement by interventional radiology with lytic instillation, trapped lung, acute hypoxic respiratory failure, leukocytosis, febrile illness. History of hyperlipidemia, obesity, previous tobacco dependence, recent wisdom teeth extraction POD #5 Left thoracotomy, decortication of left lung. The patient was seen and examined in follow-up today 07/28/2022 at his bedside o n the aortic stepdown unit. Currently he is sitting up in bed, is awake, alert, oriented 3 and is in no acute distress. Denies any complaints of shortness of breath or pain at this time. States his pain medication regimen is keeping his pain under good control. Remote telemetry is showing normal sinus rhythm heart rate 94 BPM. Oxygen saturation are 95% on room air and he is achieving 2000 mL on his incentive spirometry with encouragement. Left pleural chest tube remains in place to low continuous wall suction -20 cm H2O. Intermittent air leak is present. Draining scant thin serosanguineous drainage with 5-10 mL of drainage over the last 24 hours. He reports he has been up ambulating in the cardiac step unit hallway with standby assistance from staff and family. Chest x-ray and laboratory results reviewed. Culture results remained to show no growth, he remains afebrile last 24 hours. He remains on Unasyn for antibiotic coverage managed by infectious disease. Objective - Vital Signs Vital signs: Vital Signs Temp 98.5 F 07/28/22 03:24 Pulse 91 07/28/22 09:14 Resp 16 07/28/22 09:14 BP 120/80 07/28/22 03:24 Pulse Ox 94 L 07/28/22 09:14 FiO2 50 07/24/22 16:00 Intake & Output 07/27/22 07/28/22 07/28/22 18:59 06:59 18:59 Intake Total 580 500 Output Total 3 Balance 580 497 Weight 125.1 kg Intake: Intake, IV Titration 100 Amount Ampicillin-Sulbactam 3 gm 100 In Sodium Chloride 0.9% 100 ml @ 200 mls/hr IVPB Q6HR [facility] Rx#:[id number] Oral 480 500 Output: Chest Tube Drainage 3 Chest Tube Left Anterior 3 Chest Other: Voiding Method Urinal Urinal # Voids 2 1 ABP, PAP, CO, CI - Last Documented Arterial Blood Pressure 131/72 - Exam CONSTITUTIONAL: Sitting up in bed on the cardiac stepdown unit. Appears comfortable, cooperative, no acute distress. RESPIRATORY: Lungs sounds diminished to his bilateral bases left greater than right. Respirations are symmetrical, nonlabored. Currently on room air with oxygen saturation 95%. Able to achieve 2000 mL on incentive spirometry. Strong cough. CARDIOVASCULAR: S1, S2 present. Regular rate and rhythm, sinus rhythm on telemetry, heart rate 94 BPM. Palpable peripheral pulses bilaterally. No edema present. No calf pain or tenderness noted. SCDs present. GASTROINTESTINAL: Abdomen soft, nontender, nondistended. Active bowel sounds present 4 quadrants. Tolerating diet. Bowel movement this a.m. GENITOURINARY: Continues to void clear, yellow urine. INTEGUMENTARY: Skin is warm and dry with evidence of good perfusion. Left chest thoracic incisions well approximated and covered with dry intact dressing. NEUROLOGIC: Cranial nerves II through XII intact. No focal deficits. MUSKULOSKELETAL: Able to move all extremities, strength equal bilaterally, gait normal. PSYCHIATRIC: Alert and oriented to person place and time, appropriate affect, intact judgment and insight. INVASIVE LINES AND TUBES: Left pleural anterior chest tube present and connected to low continuous wall suction, intermittent air leak remains present, drained 10 mL thin serosanguinous drainage in the last 24 hours. - Allied health notes Allied health notes reviewed: nursing - Labs CBC & Chem 7: 07/28/22 07:50 07/28/22 07:50 Labs: Abnormal Lab Results - Last 24 Hours (Table) 07/27/22 07/27/22 07/28/22 Range/Units 09:23 09: 07:50 RBC 2.97 L 3.07 L (4.30-5.90) m/uL Hgb 9.2 L 9.5 L (13.0-17.5) gm/dL Hct 27.6 L 28.6 L (39.0-53.0) % Plt Count 585 H 597 H (150-450) k/uL Glucose 117 H (74-99) mg/dL 07/28/22 Range/Units 07:50 RBC (4.30-5.90) m/uL Hgb (13.0-17.5) gm/dL Hct (39.0-53.0) % Plt Count (150-450) k/uL Glucose 129 H (74-99) mg/dL Microbiology - Last 24 Hours (Table) 07/23/22 12:33 Anaerobic Culture - Final Lung - Left 07/14/22 14:10 Acid Fast Bacilli Smear - Final Pleural Fluid Acid Fast Bacilli Culture - Preliminary 07/23/22 12:33 Gram Stain - Final Lung - Left Tissue Culture - Final - Imaging and Cardiology Chest x-ray: report reviewed, image reviewed Assessment and Plan Assessment: Left-sided loculated parapneumonic effusion, empyema, trapped lung, status post placement of left-sided pigtail catheter with instillation of alteplasedornase, status post left thoracotomy with decortication Acute hypoxic respiratory failure, requiring BiPAP, currently on room air Leukocytosis, febrile illness History of hyperlipidemia, treated Obesity with a BMI 36.3 kg/m Previous tobacco dependence Recent [place] teeth extraction Plan: Will continue anterior chest tube for another 24 hours, monitor drainage, monitor for air leak resolution placed chest tube to water seal removed from wall suction. Thoracotomy dressing to remain in place for 7 days, then remove and wash incision daily. Encourage incentive spirometry is 10 times every hour while awake, bronchodilators per pulmonology recommendations. Increase activity, ambulate as tolerated. Out of bed for all meals. Pain control per current medication regimen. Will monitor daily labs and x-rays. Continue antibiotics, management by infectious disease. Medical management of other comorbidities per internal medicine service. More recommendations to follow based on patient's clinical course. Time with Patient: Greater than 30
--- NOTE | 2022-07-28 11:33 | P.PN ---
Subjective Progress Note Date: 07/28/22 Principal diagnosis: Empyema. Patient was reevaluated today on 07/23/2022, patient is status post left thoracotomy, decortication of left lung, postoperative day #0. Surgery was p erformed by Dr. Marcos, I evaluated the patient in the recovery room, patient is on few liters nasal cannula, not in any distress, patient had 3 chest tubes placed through separate stab and 3 Pleur-evacs are noted. Minimal bleeding noted in the Pleur-evacs. Chest x-ray showed left lung to be fully expanded. Patient is slightly tachycardic, heart rate is 116, however he is in no distress, and he is hemodynamically stable. Labs today showed WBC count 9.7 hemoglobin 8.9) normal renal profile is normal Reevaluated today on 07/24/2022, patient is now postoperative day #1, status post left thoracotomy decortication of left lung, ration is doing well, hemodynamically stable, not in any distress. Pain seems to be fairly well controlled with pain medication. His heart rate is 101 respiration is in the 20s, blood pressure 130/72 O2 saturation 94% on 5 L nasal cannula. WBC count is 11.8 hemoglobin is 7.. Normal renal profile is normal. Chest x-ray showed left sided chest tubes remain in place, there is a small tiny left apical pneumothorax, left basilar atelectasis or infiltrate noted. And tiny left pleural effusion Reevaluated today on 07/25/2022, patient is now postoperative day #2 status post left thoracotomy decortication of left lung patient had one of his chest tubes removed today, continues to have [address] Doing quite well with incentive spirometry. Remains on antibiotics in the form of Unasyn. Surgical tissue has been negative so far, negative cultures. And negative Gram stain. Patient is ambulatory in the hallway. is at bedside, overall the patient is doing great. WBC count is 10.1 hemoglobin is 8.5 electrodes are normal renal profile is normal Reevaluated today on 07/26/2022, patient is now postoperative day #3, he is status post left thoracotomy and decortication of left lung. Doing well, he is on 2 L nasal cannula, relatively asymptomatic, patient is also ambulating, continues to have [address], could not appreciate any significant air leak in either chest tube. He is doing well with incentive spirometry, surgical tissue from the pleural space failed to show any growth. Remains on Unasyn empirically WBC count is 10 hemoglobin 8.4 electrodes are normal renal profile is normal. Overall the patient is recovering nicely from his complicated parapneumonic pleural effusion and from his thoracotomy/decorticati on Progress note dated 07/27/2022. This is a patient who is seen today in room 358. He is postop day #4, status post left thoracotomy with decortication of the left lung. He is currently on room air. He only has one chest tube in place. He is feeling a bit better. We did have a chance to speak to him and his today. He was brought over here from [facility]. Nasal swab was positive for Staphylococcus aureus, not MRSA. Labs today include a white count 9.9, hemoglobin 9.2, hematocrit 27.6, and platelet count 585,000. Sodium 137, potassium 4.5, chlorides 101, CO2 29, BUN 14, creatinine 0.75. Glucose 117. Chest x-ray shows a persistent left apical chest tube with small bilateral pleural fluid collections, and bibasilar opacities. There is no obvious pneumothorax. Progress note dated 07/28/2022. 42-year-old male who was seen again today in room 358. He is postop day #5, status post left thoracotomy and decortication of the left lung, for empyema. He is currently on room air. His anterior chest tube still in place. Currently, the patient appears to be doing relatively well. He continues on Unasyn. He's not receiving any IV fluids. White count 9.3, hemoglobin 9.5, hematocrit 28.6, with a platelet count of 597,000. Sodium 137, potassium 4.4, chlorides 102, CO2 29, BUN 13, with a creatinine 0.96. Chest x-ray is essentially unchanged. Objective - Vital Signs Vital signs: Vital Signs Temp 98.5 F 07/28/22 09:40 Pulse 87 07/28/22 09:40 Resp 16 07/28/22 09:40 BP 137/84 07/28/22 09:40 Pulse Ox 99 07/28/22 09:40 FiO2 50 07/24/22 16:00 Intake & Output 07/27/22 07/28/22 07/28/22 18:59 06:59 18:59 Intake Total 580 500 Output Total 3 Balance 580 497 Weight 125.1 kg Intake: Intake, IV Titration 100 Amount Ampicillin-Sulbactam 3 gm 100 In Sodium Chloride 0.9% 100 ml @ 200 mls/hr IVPB Q6HR [facility] Rx#:[id number] Oral 480 500 Output: Chest Tube Drainage 3 Chest Tube Left Anterior 3 Chest Other: Voiding Method Urinal Urinal # Voids 2 1 ABP, PAP, CO, CI - Last Documented Arterial Blood Pressure 131/72 - Exam No acute distress, oriented 3. Currently on room air. No respiratory distress. No use of accessory muscles. HEENT examination is grossly unremarkable. Neck supple. Full range of motion. No adenopathy thyromegaly or neck vein distention. Cardiovascular examination reveals regular rhythm rate. S1-S2 normal. No S3 or S4. No discernible murmur noted. Heart rate is 90 bpm. Lungs reveal diminished breath sounds on the left. Mild scattered rhonchi on the left. No wheezes or crackles. The right lung is clear. Room air saturation is 99 %. A single left chest tube remains. Abdomen soft bowel sounds are heard. No masses or tenderness. Extremities are intact. No cyanosis clubbing or edema. Skin is without rash or lesion. Neurologic examination is brief but nonfocal. - Labs CBC & Chem 7: 07/28/22 07:50 07/28/22 07:50 Labs: Abnormal Lab Results - Last 24 Hours (Table) 07/28/22 07/28/22 Range/Units 07:50 07:50 RBC 3.07 L (4.30-5.90) m/uL Hgb 9.5 L (13.0-17.5) gm/dL Hct 28.6 L (39.0-53.0) % Plt Count 597 H (150-450) k/uL Glucose 129 H (74-99) mg/dL Microbiology - Last 24 Hours (Table) 07/23/22 12:33 Anaerobic Culture - Final Lung - Left 07/14/22 14:10 Acid Fast Bacilli Smear - Final Pleural Fluid Acid Fast Bacilli Culture - Preliminary 07/23/22 12:33 Gram Stain - Final Lung - Left Tissue Culture - Final Assessment and Plan Assessment: Postop day #5, status post left thoracotomy and left lung decortication. Left lower lobe pneumonia with parapneumonic effusion/empyema. Extensive left lower lobe consolidative pneumonia. Acute hypoxemic respiratory failure. Hyperlipidemia. Hypertension. Prior history of tobacco use. Plan: Plan dated 07/27/2022 The patient seems be doing pretty well. He is on room air. He has one chest tube remaining. His chest x-ray looks stable to slightly improved to me. Labs, x-rays, and medications are reviewed. We will continue to follow. No additional recommendations are made. He continues to be followed by cardiothoracic surgery. We recommend deep breathing, coughing, clearing of secretions, breathing treatments, and hourly use of the incentive spirometer. Plan dated 07/28/2022. The patient appears be doing relatively well. He is getting anxious about the removal of the final chest tube. Hopefully it will come out tomorrow. His chest x-ray stable and has been unchanged the last couple of days. He is on room air. He's not receiving any IV fluids. He continues with antibiotics, and incentive spirometer. We will continue to follow and make recommendations along the way. Prognosis is thought to be very good. Time with Patient: Less than 30
--- NOTE | 2022-07-28 14:19 | P.PN ---
Subjective Progress Note Date: 07/28/22 Patient is a 42-year-old male with obesity, dyslipidemia, and GERD who presented from an outside hospital for pneumonia with left loculated pleural effusion suspicious for empyema. On presentation here, his temperature was 102.5, tachycardic to 112, respiratory rate 25, saturating at 97% on BiPAP, blood pressure 138/95. Initial labs showed WBC 17.6, hemoglobin 13.6, sodium 136, creatinine 0.74. Chest x-ray showed moderate-sized left-sided pleural effusion. Patient was admitted to medical ICU adn was continued on IV unasyn and vanco. Chest CT demonstrated increasing size of loculated pleural fluid collection in the left lung including left middle and lower lung perfusion and loculated anterior upper lung diffusion. He underwent ultrasound-guided left pleural pigtail catheter and had alteplase instilled. Cultures were negative and MRSA nasal swab was negative and vanco was discontinued. Due to persistent left pleural effusion, another chest tube placed, and again alteplase was instilled. Still having significant output from both lower left chest tubes. Repeat CT chest showed continued loculated pleural effusion. He underwent thoracotomy with deorticiation on 07/23 and tolerated the procedure well. His cultures remained negative. Patient seen and examined at bedside. Doing okay, excited to go home. We discussed plans for discharge home. Vital signs reviewed General: nontoxic, no distress, appears at stated age Cardiovascular: S1S2 reg, no murmur, positive posterior tibial pulse bilateral, Lungs: CTA bilateral, no rhonchi, no rales , no accessory muscle use, chest tube in place Abdominal: soft, nontender to palpation, no guarding, no appreciable organo megaly Ext: no gross muscle atrophy, no edema, no contractures Neuro: CN II-XI grossly intact, no focal neuro deficits Psych: Alert, oriented, appropriate affect Assessment: Left sided locuated pleural effusion with empyema s/p thoracotomy with decortication , and pigtail cath X 2 with altaplase Left sided PNA - culture negative Recent wisdom teeth extraction, 3 weeks ago Normocytic anemia, possibly blood loss from chest tube, expected outcome- iron s valdemar are adaquate Thrombocytosis, reactive Resolved: Sepsis Leukoctysis Acute hypoxic respiratory failure Chronic: Dyslipidemia HTN Obesity with BMI 36.3 Imaging: Chest x-rays reviewed by myself shows left-sided chest tube in good position Data Review: Vital signs reviewed. Temperature 98.5, pulse 87, respirations 16, blood pressure 137/84, O2 sat 99% on room air Laboratory analysis remarkable for hemoglobin 9.5, sodium 137, BUN 13, creatinine 0.96, glucose 129 Plan: -Cardiothoracic no reviewed: Maintain chest tube until air leak is resolved -Pulmonary note reviewed: Continue current care -Infectious disease no reviewed: Augment on discharge X 10 days - Unasyn 3 g IV every 6 hours D #16 -Sputum cultures, blood cultures, Tissue culture, pleural fluid cultures n egative, MRSA Nasal Swab is negative -[place] 5/325 q 6 hours prn pain, Dilaudid for break through pain -pantoprazole 40 mg daily DVT prophylaxis: Lovenox Anticipated discharge date: Pending Clinical Course Anticipated discharge place: Pending Clinical Course This dictation was prepared using [employer] voice recognition software. Though every attempt is made to correct errors during during dictation some may still exist. Objective - Vital Signs Vital signs: Vital Signs Temp 98.4 F 07/28/22 13:30 Pulse 93 07/28/22 13:30 Resp 18 07/28/22 13:30 BP 108/77 07/28/22 13:30 Pulse Ox 94 L 07/28/22 13:30 FiO2 50 07/24/22 16:00 Intake & Output 07/27/22 07/28/22 07/28/22 18:59 06:59 18:59 Intake Total 580 500 480 Output Total 3 Balance 580 497 480 Weight 125.1 kg Intake: Intake, IV Titration 100 Amount Ampicillin-Sulbactam 3 gm 100 In Sodium Chloride 0.9% 100 ml @ 200 mls/hr IVPB Q6HR [facility] Rx#:[id number] Oral 480 500 480 Output: Chest Tube Drainage 3 Chest Tube Left Anterior 3 Chest Other: Voiding Method Urinal Urinal Urinal # Voids 2 1 2 ABP, PAP, CO, CI - Last Documented Arterial Blood Pressure 131/72 - Labs CBC & Chem 7: 07/28/22 07:50 07/28/22 07:50 Labs: Abnormal Lab Results - Last 24 Hours (Table) 07/28/22 07/28/22 Range/Units 07:50 07:50 RBC 3.07 L (4.30-5.90) m/uL Hgb 9.5 L (13.0-17.5) gm/dL Hct 28.6 L (39.0-53.0) % Plt Count 597 H (150-450) k/uL Glucose 129 H (74-99) mg/dL Microbiology - Last 24 Hours (Table) 07/23/22 12:33 Anaerobic Culture - Final Lung - Left 07/14/22 14:10 Acid Fast Bacilli Smear - Final Pleural Fluid Acid Fast Bacilli Culture - Preliminary
--- NOTE | 2022-07-28 16:53 | P.PN ---
Subjective Progress Note Date: 07/28/22 Principal diagnosis: Left-sided empyema Patient is a 42-year-old male presenting to the hospital on 07/13/2022 for evaluation of left-sided chest pain apparently has been going on for more than a week , patient did have evidence of left-sided pneumonia and left-sided locally diffusion initially treated with a chest tube and the patient is status post left thoracotomy decortication left lung completed on 07/23/2022. On today's evaluation that is 07/28/2022, the patient remains to be afebrile, the patient is breathing comfortably on room air, the patient left side chest pain has decreased in intensity, the patient denies nausea no vomiting no abdominal pain or diarrhea Objective - Vital Signs Vital signs: Vital Signs Temp 98.4 F 07/28/22 13:30 Pulse 93 07/28/22 13:30 Resp 18 07/28/22 13:30 BP 108/77 07/28/22 13:30 Pulse Ox 94 L 07/28/22 13:30 FiO2 50 07/24/22 16:00 Intake & Output 07/27/22 07/28/22 07/28/22 18:59 06:59 18:59 Intake Total 580 500 480 Output Total 3 Balance 580 497 480 Weight 125.1 kg Intake: Intake, IV Titration 100 Amount Ampicillin-Sulbactam 3 gm 100 In Sodium Chloride 0.9% 100 ml @ 200 mls/hr IVPB Q6HR [facility] Rx#:[id number] Oral 480 500 480 Output: Chest Tube Drainage 3 Chest Tube Left Anterior 3 Chest Other: Voiding Method Urinal Urinal Urinal # Voids 2 1 2 ABP, PAP, CO, CI - Last Documented Arterial Blood Pressure 131/72 - Exam GENERAL DESCRIPTION: A middle-aged male lying in bed in no distress RESPIRATORY SYSTEM: Unlabored breathing , decreased breath sounds at bases HEART: S1 S2 regular rate and rhythm , ABDOMEN: Soft , no tenderness EXTREMITIES: No edema feet - Labs CBC & Chem 7: 07/28/22 07:50 07/28/22 07:50 Labs: Abnormal Lab Results - Last 24 Hours (Table) 07/28/22 07/28/22 Range/Units 07:50 07:50 RBC 3.07 L (4.30-5.90) m/uL Hgb 9.5 L (13.0-17.5) gm/dL Hct 28.6 L (39.0-53.0) % Plt Count 597 H (150-450) k/uL Glucose 129 H (74-99) mg/dL Microbiology - Last 24 Hours (Table) 07/23/22 12:33 Anaerobic Culture - Final Lung - Left 07/14/22 14:10 Acid Fast Bacilli Smear - Final Pleural Fluid Acid Fast Bacilli Culture - Preliminary Assessment and Plan (1) Empyema lung Current Visit: Yes Status: Acute Code(s): J86.9 - PYOTHORAX WITHOUT FISTULA SNOMED Code(s): 18153088 (2) Pneumonia Current Visit: Yes Status: Acute Code(s): J18.9 - PNEUMONIA, UNSPECIFIED ORGANISM SNOMED Code(s): 908958126 Plan: 1patient presented hospital with sepsis in this patient with fever elevated white count patient main symptom has been left-sided chest pain he has been d iagnosed with a empyema in this patient with status post chest tube placement initially on 07/14/2022 however cultures has been negative for resistant pathogen the patient fever has resolved and white count normalized however with just residual fluid patient is status post VATS procedure completed 07/23/2022 2-patient remains to be afebrile and the patient white count has normalized, left lung thoracotomy cultures has been negative so for, patient to continue with Unasyn 3 g every 6 hours while inpatient and plan to finish therapy with oral Augmentin and a close outpatient follow-up Time with Patient: Less than 30
[2022-07-28] MEDS: SODIUM CHLORIDE 0.9% 500 ML IV SCH (18:01)
[2022-07-28] MEDS: FENOFIBRATE 160 MG TAB PO SCH (18:21)
[2022-07-28] MEDS: HYDROmorphone 0.5 MG/0.5 ML SYRINGE IVP PRN (18:21)
[2022-07-29] MEDS: HYDROmorphone 0.5 MG/0.5 ML SYRINGE IVP PRN (01:32)
[2022-07-29 03:29] VITALS: RESP 16
[2022-07-29] MEDS: PANTOPRAZOLE 40 MG TABLET PO SCH (05:57)
[2022-07-29] MEDS: AMPICILLIN-SULBACTAM 3 GM in SODIUM CHLORIDE 0.9% 100 ML IVPB SCH ×2 (05:57→11:33)
[2022-07-29] MEDS: HYDROcodone/APAP 5-325MG 1 EACH TAB PO PRN ×2 (05:58→09:52)
[2022-07-29 07:52] VITALS: BP 131/87; TEMP 98
--- NOTE | 2022-07-29 07:52 | XR ---
EXAMINATION TYPE: XR chest 1V portable DATE OF EXAM: 07/29/2022 Comparison: 07/28/2022 Clinical History: 42-year-old male Post op left thoracotomy Findings: Apically directed left-sided chest tube is present. Heart borderline enlarged. Patchy bibasilar opaci ties along with possible small effusions. Trace left apical pneumothorax measuring 4 mm is noted. Not clearly seen previously. Questionably measuring 2 mm in retrospect. Impression: 1. Trace 4 mm left apical pneumothorax now apparent. Left-sided chest tube remains in place. 2. Ongoing possible small effusions with prominent patchy bibasilar opacities that may represent atel ectasis.
--- NOTE | 2022-07-29 08:48 | P.PN ---
Subjective Progress Note Date: 07/29/22 Principal diagnosis: Left-sided loculated parapneumonic effusion, empyema status post pigtail catheter placement by interventional radiology with lytic instillation, trapped lung, acute hypoxic respiratory failure, leukocytosis, febrile illness. History of hyperlipidemia, obesity, previous tobacco dependence, recent wisdom teeth extraction POD #6 Left thoracotomy, decortication of left lung The patient was seen and examined this morning sitting up in a chair on the medical surgical unit in no acute distress. Currently on room air with oxygen saturation in the mid 90s. Does complain of post surgical pain but states it's controlled with current medication regimen. Left-sided anterior chest tube present to water seal, no drainage, no air leak. Able to achieve 1500 ml on incentive spirometry. Chest x-ray reviewed. Remains on Unasyn for antibiotic management, surgical tissue preliminary gram stain finalized as no growth. Has been ambulatory in the hallway without difficulty. No other new concerns. Objective - Vital Signs Vital signs: Vital Signs Temp 98.0 F 07/29/22 07:20 Pulse 87 07/29/22 07:20 Resp 16 07/29/22 07:20 BP 131/87 07/29/22 07:20 Pulse Ox 96 07/29/22 07:20 FiO2 50 07/24/22 16:00 Intake & Output 07/28/22 07/29/22 07/29/22 18:59 06:59 18:59 Intake Total 1060 Output Total 0 0 Balance 1060 0 Weight 123.4 kg Intake: Intake, IV Titration 100 Amount Ampicillin-Sulbactam 3 gm 100 In Sodium Chloride 0.9% 100 ml @ 200 mls/hr IVPB Q6HR [facility] Rx#:[id number] Oral 960 Output: Chest Tube Drainage 0 0 Chest Tube Left Anterior 0 0 Chest Other: Voiding Method Urinal Urinal # Voids 2 ABP, PAP, CO, CI - Last Documented Arterial Blood Pressure 131/72 - Exam CONSTITUTIONAL: Appears comfortable, cooperative, no acute distress RESPIRATORY: Lungs sounds diminished bilaterally. Respirations even, nonlabored. Currently on room air with oxygen saturation 96%. Able to achieve 1500 mL on incentive spirometry. Strong cough. CARDIOVASCULAR: S1, S2 present. Regular rate and rhythm. Palpable peripheral pulses bilaterally. No edema present. No calf pain or tenderness noted GASTROINTESTINAL: Abdomen soft, nontender, nondistended. Active bowel sounds present 4 quadrants. Tolerating diet. Positive BM 07/26 GENITOURINARY: Continues to void clear, yellow urine INTEGUMENTARY: Skin is warm and dry with evidence of good perfusion. Thoracic incision well approximated and covered with dry intact dressing. NEUROLOGIC: Cranial nerves II through XII intact MUSKULOSKELETAL: Able to move all extremities, strength equal bilaterally, gait normal PSYCHIATRIC: Alert and oriented to person place and time, appropriate affect, intact judgment and insight INVASIVE LINES AND TUBES: Left pleural anterior chest tube present to water seal, no air leak, no drainage in the last 24 hours - Allied health notes Allied health notes reviewed: nursing - Labs CBC & Chem 7: 07/28/22 07:50 07/28/22 07:50 - Imaging and Cardiology Chest x-ray: report reviewed, image reviewed Assessment and Plan Assessment: Left-sided loculated parapneumonic effusion, empyema, trapped lung, status post placement of left-sided pigtail catheter with instillation of alteplasedornase, status post thoracotomy with decortication Acute hypoxic respiratory failure, requiring BiPAP, currently on 3 LPM NC Leukocytosis, febrile illness History of hyperlipidemia, treated Obesity Previous tobacco dependence Recent wisdom teeth extraction Plan: Chest tube discontinued, will repeat CXR in 2 hours. If stable may DC home from our standpoint DC instructions related to surgical incision care placed on DC plan Follow up appointment made with Dr. Marcos for incision check next week Encourage incentive spirometry is 10 times every hour while awake, bronchodilators per pulmonology Increase activity, ambulate as tolerated Pain control per current medication regimen Continue antibiotics, management by infectious disease Medical management of other comorbidities per internal medicine service
[2022-07-29 09:04] LABS: HCT 31.7 % (39.0-53.0); HGB 10.3 gm/dL (13.0-17.5); Hypochromasia Slight; MCHC 32.3 g/dL (31.0-37.0); MCV 92.9 fL (80.0-100.0); Mean Platelet Volume 7.1; Platelet Count 637 k/uL (150-450); Poikilocytosis Moderate; RBC 3.42 m/uL (4.30-5.90); RDW 15.2 % (11.5-15.5); WBC 9.9 k/uL (3.8-10.6)
[2022-07-29 09:27] LABS: African American GFR (CKD) >90 (>60 ml/min/1.73 sqM); Anion Gap 10 mmol/L; Blood Urea Nitrogen 13 mg/dL (9-20); Carbon Dioxide 28 mmol/L (22-30); Chloride 98 mmol/L (98-107); Glucose 138 mg/dL (74-99); Non-African American GFR(CKD) >90 (>60 ml/min/1.73 sqM); Potassium 4.6 mmol/L (3.5-5.1); Sodium 136 mmol/L (137-145)
[2022-07-29] MEDS: IPRATROPIUM-ALBUTEROL 3 ML NEB INHALATION SCH ×2 (09:44→12:33)
[2022-07-29] MEDS: PATIENT'S OWN (Icosapent Ethyl [Icosapent Ethyl] 1 GM Capsule) PO SCH (09:48)
[2022-07-29] MEDS: HEPARIN SODIUM,PORCINE/PF 5,000 UNIT/0.5 ML SYRINGE SQ SCH (09:49)
[2022-07-29 09:59] VITALS: PULSE 80
--- NOTE | 2022-07-29 11:43 | P.DS ---
Providers Date of admission: 07/13/22 20:05 Expected date of discharge: 07/29/22 Attending physician: Dolly Mandel MD Consults: 07/13/22 21:15 Consult Physician Routine Consulting Provider: Gabriel oGdinez Consult Reason/Comments: ICU management Do you want consulting provider notified?: Already Contacted 07/13/22 21:16 Consult Physician Routine Consulting Provider: Alton Antonio Consult Reason/Comments: Pigtail placement Do you want consulting provider notified?: Yes 07/22/22 13:35 Consult Physician Routine Consulting Provider: Dae Renteria Consult Reason/Comments: empyema Do you want consulting provider notified?: Yes Primary care physician: Stated None Hospital Course: Discharge Diagnosis: Left sided locuated pleural effusion with empyema s/p thoracotomy with decortication , and pigtail cath X 2 with altaplase Left sided PNA - culture negative Recent wisdom teeth extraction, 3 weeks ago Normocytic anemia, possibly blood loss from chest tube, expected outcome- iron stores are adaquate Thrombocytosis, reactive Sepsis Leukoctysis Acute hypoxic respiratory failure Dyslipidemia HTN Obesity with BMI 34 Hospital Course: Patient is a 42-year-old male with obesity, dyslipidemia, and GERD who presented from an outside hospital for pneumonia with left loculated pleural effusion suspicious for empyema. On presentation here, his temperature was 102.5, tachycardic to 112, respiratory rate 25, saturating at 97% on BiPAP, blood pressure 138/95. Initial labs showed WBC 17.6, hemoglobin 13.6, sodium 136, creatinine 0.74. Chest x-ray showed moderate-sized left-sided pleural effusion. Patient was admitted to medical ICU adn was continued on IV unasyn and vanco. Chest CT demonstrated increasing size of loculated pleural fluid collection in the left lung including left middle and lower lung perfusion and loculated anterior upper lung diffusion. He underwent ultrasound-guided left pleural pigtail catheter and had alteplase instilled. Cultures were negative and MRSA nasal swab was negative and vanco was discontinued. Due to persistent left pleural effusion, another chest tube placed, and again alteplase was instilled. He was still having significant output from both lower left chest tubes. Repeat CT chest showed continued loculated pleural effusion. He underwent thoracotomy w ith deorticiation on 07/23 and tolerated the procedure well. His cultures remained negative. He was seen by infectious disease recommended a prolonged course of antibiotics. His chest tubes were able to be discontinued on 07/29 for his air leaks resolved. He was doing well and was determined stable for discharge home. Follow-up: Dr. Marcos on 08/06/22, Dr. Napier in 1 week, patient had a Rx for [place] 5/325 48 tablets as needed for pain. Augmentin for a total of 8 days and this evening. Patient seen and examined at bedside. Having some pain from chest tube removal site but overall feeling well. No shortness of breath, no nausea or vomiting. present at bedside. All questions answered. Vital signs reviewed and stable. General: nontoxic, no distress, appears at stated age Derm: warm, dry Mouth: no lip lesion, mucus membranes moist Cardiovascular: S1S2 reg, no murmur, positive posterior tibial pulse bilateral, Lungs: CTA bilateral, no rhonchi, no rales , no accessory muscle use Ext: no gross muscle atrophy, no edema, no contractures Psych: Alert, oriented, appropriate affect A total of 42 minutes of time were spent preparing this complex discharge summary. Patient was discharged on 07/29/22. This dictation was prepared using [employer] voice recognition software. Though every attempt is made to correct errors during during dictation some may still exist. Plan - Discharge Summary Discharge Rx Participant: No New Discharge Prescriptions: New HYDROcodone/APAP 5-325MG [[place] 5-325] 2 each PO Q4HR PRN #48 tab PRN Reason: Severe Pain (Scale 7 To 10) Amoxic-Pot Clav 875-125Mg [Augmentin 875-125] 1 tab PO Q12HR 9 Days #17 tab Continue Omeprazole Magnesium [PriLOSEC OTC] 20 mg PO DAILY PRN PRN Reason: GERDS gemfibroziL [Lopid] 600 mg PO AC-BID icosapent ethyL [Icosapent Ethyl] 2 gm PO BID Discharge Medication List Omeprazole Magnesium [PriLOSEC OTC] 20 mg PO DAILY PRN 07/13/22 [History] gemfibroziL [Lopid] 600 mg PO AC-BID 07/13/22 [History] icosapent ethyL [Icosapent Ethyl] 2 gm PO BID 07/13/22 [History] Amoxic-Pot Clav 875-125Mg [Augmentin 875-125] 1 tab PO Q12HR 9 Days #17 tab 07/29/22 [Rx] HYDROcodone/APAP 5-325MG [[place] 5-325] 2 each PO Q4HR PRN #48 tab 07/29/22 [Rx] Follow up Appointment(s)/Referral(s): Dexter Napier MD [REFERRING] - 1 Week John Marcos MD [STAFF PHYSICIAN] - 08/06/22 1:15 pm (For incision check) Dae Renteria MD [STAFF PHYSICIAN] - 2 Weeks Patient Instructions/Handouts: Pleural Empyema (DC) Activity/Diet/Wound Care/Special Instructions: DISCHARGE INSTRUCTIONS: 1. No driving for 2 weeks, or until physician gives their ok. 2. No lifting, pushing, or pulling more than 10 pounds for 2 weeks. The physician will advise of any restriction changes. 3. Continue pain control per as needed orders. Alternate acetaminophen (Tylenol) and ibuprofen (Motrin/Advil) for pain. 4. Continue with incentive spirometry and splinting until otherwise directed by the physician. 5. Leave chest tube dressing for 48 hours. After that, remove all dressings and shower daily. 6. Routine incision care. No powders, lotions, ointments on incisions. 7. Please call surgeon/DIRECTOR NON PROFIT for temp greater than 101 F or purulent drainage from incisions. 8. Your can take 1-2 tabs of [place] as needed for pain Discharge Disposition: HOME SELF-CARE
--- NOTE | 2022-07-29 13:24 | XR ---
EXAMINATION TYPE: XR chest 2V DATE OF EXAM: 07/29/2022 COMPARISON: 07/29/2022 HISTORY: 42-year-old male with pneumothorax post chest tube removal TECHNIQUE: PA and lateral views FINDINGS: Interval removal of left-sided chest tube. There is residual trace 4 mm left apical pneumothorax, not significantly changed. Bibasilar opacities are also unchanged. IMPRESSION: A trace 4 mm left apical pneumothorax remains after left-sided chest tube removal. Similar bibasilar opacities.
--- NOTE | 2022-07-29 13:37 | P.PN ---
Subjective Progress Note Date: 07/29/22 Principal diagnosis: Left-sided empyema Patient is a 42-year-old male presenting to the hospital on 07/13/2022 for evaluation of left-sided chest pain apparently has been going on for more than a week , patient did have evidence of left-sided pneumonia and left-sided locally diffusion initially treated with a chest tube and the patient is status post left thoracotomy decortication left lung completed on 07/23/2022. On today's evaluation that is 07/29/2022, the patient continues to be afebrile, the patient is breathing comfortably on room air, the patient left side chest pain has decreased in intensity and the last chest tube was discontinued this morning, the patient denies nausea no vomiting no abdominal pain or diarrhea Objective - Vital Signs Vital signs: Vital Signs Temp 98.0 F 07/29/22 07:20 Pulse 80 07/29/22 09:58 Resp 16 07/29/22 07:20 BP 131/87 07/29/22 07:20 Pulse Ox 95 07/29/22 09:44 FiO2 50 07/24/22 16:00 Intake & Output 07/28/22 07/29/22 07/29/22 18:59 06:59 18:59 Intake Total 1060 Output Total 0 0 Balance 1060 0 Weight 123.4 kg Intake: Intake, IV Titration 100 Amount Ampicillin-Sulbactam 3 gm 100 In Sodium Chloride 0.9% 100 ml @ 200 mls/hr IVPB Q6HR [facility] Rx#:[id number] Oral 960 Output: Chest Tube Drainage 0 0 Chest Tube Left Anterior 0 0 Chest Other: Voiding Method Urinal Urinal Urinal # Voids 2 ABP, PAP, CO, CI - Last Documented Arterial Blood Pressure 131/72 - Exam GENERAL DESCRIPTION: A middle-aged male lying in bed in no distress RESPIRATORY SYSTEM: Unlabored breathing , decreased breath sounds at bases HEART: S1 S2 regular rate and rhythm , ABDOMEN: Soft , no tenderness EXTREMITIES: No edema feet - Labs CBC & Chem 7: 07/29/22 07:57 07/29/22 07:57 Labs: Abnormal Lab Results - Last 24 Hours (Table) 07/29/22 07/29/22 Range/Units 07:57 07:57 RBC 3.42 L (4.30-5.90) m/uL Hgb 10.3 L (13.0-17.5) gm/dL Hct 31.7 L (39.0-53.0) % Plt Count 637 H (150-450) k/uL Sodium 136 L (137-145) mmol/L Glucose 138 H (74-99) mg/dL Assessment and Plan (1) Empyema lung Status: Acute Code(s): J86.9 - PYOTHORAX WITHOUT FISTULA SNOMED Code(s): 27903593 (2) Pneumonia Status: Acute Code(s): J18.9 - PNEUMONIA, UNSPECIFIED ORGANISM SNOMED Code(s): 143265916 Plan: 1patient presented hospital with sepsis in this patient with fever elevated white count patient main symptom has been left-sided chest pain he has been diagnosed with a empyema in this patient with status post chest tube placement initially on 07/14/2022 however cultures has been negative for resistant pathogen the patient fever has resolved and white count normalized however with just residual fluid patient is status post VATS procedure completed 07/23/2022 2-patient remains to be afebrile and the patient white count has normalized, left lung thoracotomy cultures has been negative so for, patient will finish therapy with oral Augmentin 10 days on discharge and a close outpatient follow-up Time with Patient: Less than 30
--- NOTE | 2022-07-30 01:05 | PN ---
PROGRESS NOTE SUBJECTIVE: This is a 42-year-old male again seen today in room 468. The patient is postop day #6, status post left thoracotomy and decortication of the left lung, for empyema. He is on room air. His last chest tube was removed today, and he will have a followup chest x- ray, and if everything is okay, will be discharged home from the hospital. He is looking forward to that. He otherwise is doing well without complaints. The patient is not receiving any IV fluids. LABS: Labs today include a white count of 9.9, hemoglobin 10.3, hematocrit 31.7, and platelet count of 637,000. Sodium 136, potassium 4.6, chloride 98, CO2 28, anion gap normal, BUN 13, and creatinine 0.91. Calcium is 9. A chest x-ray from today shows a 4-mm left apical pneumothorax. OBJECTIVE: VITAL SIGNS: Reviewed. Temperature is 98 degrees. Heart rate is 80, respiratory rate is 16. Blood pressure 131/87, and room air saturation is between 95 and 96%. GENERAL: He appears in no acute distress. He is resting comfortably. His is in the room. HEENT: Grossly unremarkable. NECK: Supple, full range of motion. No adenopathy. Neck veins are flat. CARDIOVASCULAR: Reveals regular rhythm rate. S1, S2 normal. There is no S3, S4, or murmur. LUNGS: Reveal clear breath sounds. No wheezes, rhonchi, or crackles. The left-sided chest tube is out. ABDOMEN: Soft, bowel sounds are heard. EXTREMITIES: Intact. No cyanosis, clubbing, or edema. SKIN: Without rash. NEUROLOGIC: Brief but nonfocal. ASSESSMENT: 1. Postoperative day #6, status post left thoracotomy and left lung decortication. 2. Left lower lobe pneumonia with parapneumonic effusion/empyema. 3. Extensive left lower lobe consolidative pneumonia. 4. Acute hypoxemic respiratory failure. 5. Hyperlipidemia. 6. Hypertension. 7. Prior history of tobacco use. PLAN: Dated August 25, 2022. The patient is doing well. He is on room air. His last chest tube was removed. Labs, x-rays, and medications are all reviewed. The patient will likely be discharged home today. He will follow up with 1 of us in the office. No additional recommendations are made. He has been seen by infectious diseases, and recommendations about antibiotics are made, by ID. CRISTAL / PURNIMA: [id number] / NICK
== END 2022-07-29 12:52 | disposition home or self-care (01) | DRG 853 ==
LOC: 2SICU 20:05 → 4SSUR 07-15 15:55 → 3SCARD 07-17 15:59 → 2SICU 07-23 14:55 → 3SCARD 07-24 18:31 → 4SSUR 07-29 06:38
PROVIDERS: ADMIT Family Medicine; ATTEND Family Medicine
DX: A41.9 Sepsis, unspecified organism (principal); J15.9 Unspecified bacterial pneumonia; J86.9 Pyothorax without fistula; J96.01 Acute respiratory failure with hypoxia; J91.8 Pleural effusion in other conditions classified elsewhere; J98.11 Atelectasis; D50.0 Iron deficiency anemia secondary to blood loss (chronic); D75.838 Other thrombocytosis; E66.01 Morbid (severe) obesity due to excess calories; E78.5 Hyperlipidemia, unspecified; I10 Essential (primary) hypertension; K21.9 Gastro-esophageal reflux disease without esophagitis; K76.0 Fatty (change of) liver, not elsewhere classified; Z68.36 Body mass index [BMI] 36.0-36.9, adult; Z79.899 Other long term (current) drug therapy; Z87.891 Personal history of nicotine dependence; Z53.9 Procedure and treatment not carried out, unspecified reason; Z28.21 Immunization not carried out because of patient refusal
CPT/HCPCS: 32551; 64999; 71045; 71046; 71250; 76604; 76942; 80048; 80053; 80202; 82150; 82728; 82945; 83540; 83550; 83605; 83615; 83735; 84100; 84157; 85025; 85027; 85610; 86850; 86900; 86901; 86920; 87040; 87070; 87075; 87086; 87102; 87116; 87205; 87206; 88307; 89050; 94640; 94660; 94760

== ENCOUNTER → 2022-09-03 | Outpatient (CLI) | payer MEDICAID, OTHER ==
--- NOTE | 2022-09-03 17:54 | XR ---
EXAMINATION TYPE: XR chest 2V DATE OF EXAM: 09/03/2022 COMPARISON: 07/29/2022 HISTORY: 42-year-old male lung surgery 2 months ago, pain TECHNIQUE: Frontal and lateral views FINDINGS: Heart normal in size. There is pleural-parenchymal opacity at the periphery of the left base likely r epresent scarring, atelectasis, or trace effusion. The previous trace left apical pneumothorax appear s to have resolved. Right lung and pleural space are clear. Pulmonary vasculature within normal limit s. IMPRESSION: The previous trace left apical pneumothorax appears to have resolved. The left basilar pleural-parenc hymal opacity is unchanged.
== END | disposition home or self-care (01) ==
LOC: RADXRMAIN 12:33
PROVIDERS: ATTEND Thoracic Surgery (Cardiothoracic Vascular Surgery)
DX: R91.8 Other nonspecific abnormal finding of lung field (principal); R07.9 Chest pain, unspecified
CPT/HCPCS: 71046